=== PATIENT | female | born 1940 | race African-American/Black ===

== ENCOUNTER → 2017-01-20 | Outpatient (CLI) | payer MEDICARE, OTHER ==
--- NOTE | 2017-01-20 11:44 | RAD ---
Indication: Preop for right toe surgery. Grayscale, color-flow and duplex Doppler evaluation of bilateral lower extremity arterial systems was performed. There are primarily biphasic waveforms throughout the right lower extremity arterial system. Biphasic waveforms on the left from the left common femoral artery to the popliteal artery is seen with monophasic flow below the knee. Velocities on the right are unremarkable. There is some velocity elevation identified in the left SFA mid and distal region, reaching 210 cm/s. No occlusion is identified. No high-grade stenosis is identified. There are no fluid collection seen. Scattered plaque is present bilaterally. Impression: Bilateral atherosclerotic changes. There is a probable stenosis in the mid and distal left SFA. No high-grade stenosis or occlusion is detected.
== END | disposition home or self-care (01) ==
LOC: US 09:51
PROVIDERS: ATTEND Podiatrist Foot & Ankle Surgery
DX: Z01.818 Encounter for other preprocedural examination (principal); I70.203 Unspecified atherosclerosis of native arteries of extremities, bilateral legs
CPT/HCPCS: 93925

== ENCOUNTER 2017-11-19 14:56 | Inpatient (IN) | payer MEDICARE, MEDICAID ==
[~2017-11-19] VITALS: Ht 162.6 cm; Wt 140.3 kg
[~2017-11-19 14:56] MED LIST: methylPREDNISolone 4 MG TABLET. PO SCH
[2017-11-19] MEDS ORDERED: HYDROcodone/APAP 10/325 1 TAB TABLET PO PRN ×3 (16:15→18:30)
[2017-11-19] MEDS ORDERED: ACETAMINOPHEN 325 MG TABLET. PO PRN (18:00)
[2017-11-19] MEDS ORDERED: MAGNESIUM HYDROXIDE 2,400 MG/30 ML ORAL.SUSP. PO PRN (18:00)
[2017-11-19] MEDS ORDERED: MAGNESIUM CITRATE 296 ML SOLUTION. PO PRN ×2 (18:00→20:00)
[2017-11-19] MEDS ORDERED: CYCLOBENZAPRINE 10 MG TABLET. PO PRN (18:00)
[2017-11-19] MEDS ORDERED: CHOL500016 PO (18:10)
[2017-11-19] MEDS ORDERED: POTA10TA12 PO ×2 (18:10→18:11)
[2017-11-19] MEDS ORDERED: AMIO200T4 PO (18:10)
[2017-11-19] MEDS ORDERED: TORS20TA2 PO (18:10)
[2017-11-19] MEDS ORDERED: MAGN296S9 PO (18:10)
[2017-11-19] MEDS ORDERED: PREG75CA PO (18:10)
[2017-11-19] MEDS ORDERED: ASPI81TA59 PO (18:10)
[2017-11-19] MEDS ORDERED: AMLO5TAB4 PO (18:10)
[2017-11-19] MEDS ORDERED: INSU100C4 SQ (18:10)
[2017-11-19] MEDS ORDERED: INSU100V13 SQ (18:10)
[2017-11-19] MEDS ORDERED: LORA10TA68 PO (18:10)
[2017-11-19] MEDS ORDERED: TIZA4CAP3 PO (18:10)
[2017-11-19] MEDS ORDERED: methylPREDNISolone 4 MG TABLET. PO ONE ×2 (18:30→22:00)
[2017-11-19 19:20] VITALS: BP 139/41
[2017-11-19] MEDS: SENNOSIDES/DOCUSATE 8.6/50MG TABLET. PO SCH (20:09)
[2017-11-19] MEDS: oxyCODONE/APAP 5/325 1 TAB TABLET PO PRN (20:10)
[2017-11-19] MEDS: PREGABALIN 75 MG CAPSULE PO SCH (20:10)
[2017-11-19] MEDS: tiZANidine 4 MG TABLET. PO PRN (22:01)
[2017-11-19] MEDS: INSULIN GLARGINE 300 UNITS/3 ML INSULN.PEN. SQ SCH (22:04)
[2017-11-19 23:30] VITALS: BP 161/42
--- NOTE | 2017-11-19 23:44 | CONS ---
DATE OF CONSULTATION: 11/19/2017 HISTORY OF PRESENT ILLNESS: This is a 77-year-old female whom I saw in my office this afternoon with severe lower back pain with radiation to her left lower extremity, without any new injury or accident, that started about 2 weeks ago and she has been using analgesic spray and Tylenol, not getting any better and has seen Dr. Oc Munoz, her family physician yesterday, who started her on prednisone, Dosepak and tizanidine for muscle spasm. She has not received from the pharmacy yet. She denies any new-onset numbness or weakness in the extremities or any new trouble with her bowel or bladder control. She had chronic urinary incontinence and constipation and she also had diabetic neuropathy. She complains of increased lower back pain with the ride to the office and wants an injection to help ease her pain. She also admits stiffness in her lower back and in her knees and numbness in her feet and legs. She had problem with constipation ever since she had a colonoscopy done. She usually goes once or twice a week and usually takes mag citrate. The patient was seen in my office, walking with antalgic gait, using a quad cane that belongs to her brother. The cane is about 4 inches too long for her. She is alert, cooperative, but in severe distress. She had difficulty to sit. The patient requires physical assistance with myself and her daughter to get her into the bed and to roll over and to get her back up. She had painful limited movements of lumbar spine, without any significant paraspinal muscle spasm and straight leg raising test is negative bilaterally. She had tenderness to palpation over left sacroiliac joint area and she had pain-free range of motion of her hip joints, but painful limited movements of her knee joints and tenderness to palpation over medial knee joint line and over both ankles and distal parts of her legs, where she had skin discoloration from chronic venous insufficiency. The patient had absent knee and ankle jerks and decreased sensory perception in her feet, but 5/5 grade muscle strength overall. I did trigger point injections to her left sacroiliac joint area under aseptic skin technique, but she did not have significant help with the injection and still having significant pain, with radiation to her left lower extremity and mobility and self-care limitations and she lives alone. I do not feel comfortable to let her go home and so I have admitted her for further evaluation and advise about taking care of her back pain and help with her mobility and self-care limitations. PAST MEDICAL HISTORY: Significant for osteoarthritis of her knees, diabetes mellitus with peripheral neuropathy, obesity, hypertension, status post left mastectomy for treatment of carcinoma of breast and had radiation therapy about 20 years ago and also had chronic obstructive pulmonary disease, uses CPAP at nighttime and atrial fibrillation. ALLERGIES: THE PATIENT IS KNOWN ALLERGIC TO MORPHINE, WHICH CAUSES HALLUCINATIONS AND SHE IS KNOWN ALLERGIC TO CODEINE, but has taken hydrocodone and Percocet in the past. PHYSICAL EXAMINATION: Today revealed an elderly female. She is obese. She is alert; oriented to time, place, person and circumstance and follows commands appropriately. She had painful limited movements of her lumbar spine, without any paraspinal muscle spasm and tenderness to palpation over left sacroiliac joint area and straight leg raising test is negative bilaterally. She had painful range of motion of both hip joints. She had crepitus on range of motion of both knee joints, with mild knee joint effusion and she had absent knee and ankle jerks and she had decreased touch and pinprick sensation over both feet and overall 5/5 grade muscle strength in her upper and lower extremities. She requires help with bed mobility and transfers. Once up, she can walk using a roller walker with antalgic gait. Other than some discoloration of the skin from chronic renal insufficiency in her feet and distal parts of the legs, her skin is intact at this time. ASSESSMENT: Degenerative disk disease of lumbar vertebrae with left lumbar radiculitis, diabetes mellitus with peripheral neuropathy, severe lower back pain, osteoarthritis of both knees, obesity, hypertension, lumbar spondylosis, recent lumbar sprain, atrial fibrillation, status post mastectomy for carcinoma of left breast and had radiation therapy in the past and chronic obstructive pulmonary disease, uses CPAP. RECOMMENDATIONS: To try physical modalities. To have Physical Therapy and Occupational Therapy to see her. To ask hospitalist doctor to see her for her medical problems. To obtain MRI scan of her lumbar vertebrae. To consider referral to pain clinic for consideration of lumbar epidural steroid injection to help ease her pain. She might need transfer to retirement care unit or rehab unit when medically stable, if she continues to have mobility and self-care limitations. ANJU MATTSON MD DR: QASIM/campos JOB#: [id number] / [id number]
[2017-11-20 03:25] VITALS: BP 127/35
[2017-11-20] MEDS: oxyCODONE/APAP 5/325 1 TAB TABLET PO PRN ×2 (06:15→20:42)
[2017-11-20] MEDS: PANTOPRAZOLE 40 MG TABLET.DR. PO SCH (06:15)
[2017-11-20] MEDS: tiZANidine 4 MG TABLET. PO PRN (06:16)
[2017-11-20 07:00] VITALS: BP 149/52
[2017-11-20] MEDS ORDERED: methylPREDNISolone 4 MG TABLET. PO SCH ×5 (08:00→21:00)
[2017-11-20] MEDS: CETIRIZINE HCL 10 MG TABLET. PO SCH (09:00)
[2017-11-20] MEDS: BISACODYL 5 MG TABLET.DR. PO SCH (09:26)
[2017-11-20] MEDS: TORSEMIDE 20 MG TABLET. PO SCH (09:26)
[2017-11-20] MEDS: PREGABALIN 75 MG CAPSULE PO SCH ×2 (09:26→20:42)
[2017-11-20] MEDS: ASPIRIN CHEWABLE 81 MG TABLET. PO SCH (09:26)
[2017-11-20] MEDS: POTASSIUM CHLORIDE 10 MEQ TABLET.ER. PO SCH (09:27)
[2017-11-20] MEDS: AMIODARONE HCL 200 MG TABLET. PO SCH (09:27)
[2017-11-20] MEDS: amLODIPine BESYLATE 5 MG TABLET PO SCH (09:28)
[2017-11-20] MEDS: CHOLECALCIFEROL (VITAMIN D3) 5,000 UNIT CAPSULE PO SCH (09:28)
[2017-11-20] MEDS: SENNOSIDES/DOCUSATE 8.6/50MG TABLET. PO SCH ×2 (09:28→20:42)
[2017-11-20] MEDS: methylPREDNISolone 4 MG TABLET. PO SCH ×4 (09:28→20:41)
[2017-11-20] MEDS: INSULIN LISPRO 300 UNITS/3 ML INSULN.PEN. SQ SCH ×3 (09:35→17:39)
--- NOTE | 2017-11-20 10:34 | PDOC1 ---
History and Physical Date of Admission Date of Admission DATE: 11/20/17 TIME: 10:32 Past Medical History Past Medical History PAST MEDICAL HISTORY: osteoarthritis of her knees, diabetes mellitus with peripheral neuropathy, obesity, hypertension, status post left mastectomy for treatment of carcinoma of breast and had radiation therapy about 20 years ago chronic obstructive pulmonary disease, uses CPAP atrial fibrillation. ALLERGIES: THE PATIENT IS KNOWN ALLERGIC TO MORPHINE, WHICH CAUSES HALLUCINATIONS AND SHE IS KNOWN ALLERGIC TO CODEINE, but has taken hydrocodone and Percocet in the past. Cardiovascular: AFIB Past Surgical History Past Surgical History: Mastectomy Family History Family History: Heart Disease, High Cholestrol Social History Smoke: No ALCOHOL: none Drugs: None Current Medications Current Medications Current Medications Acetaminophen/ Hydrocodone Bitart (Lortab 10/325) 1 tab PRN Q6HRS PRN PO MODERATE PAIN Last administered on 11/19/17at 16:32; Start 11/19/17 at 16:15; Stop 11/19/17 at 18:18; Status DC Methylprednisolone (Medrol) 4 mg TIDPC PO ; Start 11/20/17 at 08:30; Stop at 17:31; Status Cancel Methylprednisolone (Medrol) 8 mg QHS PO ; Start 11/20/17 at 21:00; Stop at 21:01; Status Cancel Methylprednisolone (Medrol) 4 mg QIDAFTMEAL PO ; Start 11/21/17 at 09:00; Stop 11/21/17 at 21:01; Status Cancel Methylprednisolone (Medrol) 4 mg TID PO ; Start 11/22/17 at 09:00; Stop at 21:01; Status Cancel Methylprednisolone (Medrol) 4 mg BID PO ; Start 11/23/17 at 09:00; Stop at 21:01; Status Cancel Methylprednisolone (Medrol) 4 mg DAILY PO ; Start 11/24/17 at 09:00; Stop at 09:01; Status Cancel Methylprednisolone (Medrol) 12 mg 1X ONCE PO ; Start 11/19/17 at 18:30; Stop at 18:31; Status Cancel Methylprednisolone (Medrol) 12 mg 1X ONCE PO ; Start 11/19/17 at 22:00; Stop at 22:01; Status Cancel Methylprednisolone (Medrol) 8 mg BID PO Last administered on 11/20/17at 09:28; Start 11/20/17 at 09:00; Stop 11/20/17 at 21:01 Methylprednisolone (Medrol) 4 mg BIDPCLD PO ; Start 11/20/17 at 12:30; Stop at 17:31 Methylprednisolone (Medrol) 4 mg TIDPC PO ; Start 11/21/17 at 08:30; Stop at 17:31 Methylprednisolone (Medrol) 8 mg QHS PO ; Start 11/21/17 at 21:00; Stop at 21:01 Methylprednisolone (Medrol) 4 mg QIDAFTMEAL PO ; Start 11/22/17 at 09:00; Stop 11/22/17 at 21:01 Methylprednisolone (Medrol) 4 mg TID PO ; Start 11/23/17 at 09:00; Stop at 21:01 Methylprednisolone (Medrol) 4 mg BID PO ; Start 11/24/17 at 09:00; Stop at 21:01 Methylprednisolone (Medrol) 4 mg DAILY PO ; Start 11/25/17 at 09:00; Stop at 09:01 Acetaminophen/ Hydrocodone Bitart (Lortab 10/325) 1 tab PRN Q4HRS PRN PO MODERATE PAIN; Start 11/19/17 at 18:15 Pantoprazole Sodium (Protonix) 40 mg DAILYAC PO Last administered on 11/20/17at 06:15; Start 11/20/17 at 07:30 Acetaminophen (Tylenol) 650 mg PRN Q6HRS PRN PO MILD PAIN / TEMP; Start at 18:00 Oxycodone/ Acetaminophen (Percocet 5/325) 1 tab PRN Q4HRS PRN PO MODERATE PAIN Last administered on 11/20/17at 06:15; Start 11/19/17 at 18:00 Senna/Docusate Sodium (Senna Plus) 1 tab BID PO Last administered on 11/20/17at 09:28; Start 11/19/17 at 21:00 Magnesium Hydroxide (Milk Of Magnesia) 2,400 mg PRN DAILY PRN PO CONSTIPATION; Start 11/19/17 at 18:00 Bisacodyl (Dulcolax Tab) 10 mg DAILY PO Last administered on 11/20/17at 09:26; Start 11/20/17 at 09:00 Magnesium Citrate (Citroma) 296 ml PRN 1X PRN PO CONSTIPATION; Start 11/19/17 at 18:00 Methylprednisolone (Medrol) 8 mg BID PO ; Start 11/19/17 at 09:00; Stop at 21:01; Status UNV Methylprednisolone (Medrol) 4 mg BIDPCLD PO ; Start 11/20/17 at 08:00; Stop at 12:31; Status UNV Methylprednisolone (Medrol) 4 mg TIDPC PO ; Start 11/20/17 at 08:30; Stop at 17:31; Status UNV Methylprednisolone (Medrol) 8 mg QHS PO ; Start 11/20/17 at 21:00; Stop at 21:01; Status UNV Methylprednisolone (Medrol) 4 mg QIDAFTMEAL PO ; Start 11/21/17 at 09:00; Stop 11/21/17 at 21:01; Status UNV Methylprednisolone (Medrol) 4 mg TID PO ; Start 11/22/17 at 09:00; Stop at 21:01; Status UNV Methylprednisolone (Medrol) 4 mg BID PO ; Start 11/23/17 at 09:00; Stop at 21:01; Status UNV Methylprednisolone (Medrol) 4 mg DAILY PO ; Start 11/24/17 at 09:00; Stop at 09:01; Status UNV Cyclobenzaprine HCl (Flexeril) 10 mg PRN Q6HRS PRN PO MUSCLE SPASMS; Start at 18:00; Stop 11/20/17 at 03:25; Status DC Acetaminophen/ Hydrocodone Bitart (Lortab 10/325) 2 tab PRN Q4HRS PRN PO SEVERE PAIN; Start 11/19/17 at 18:30 Amiodarone HCl (Cordarone) 200 mg DAILY PO Last administered on 11/20/17at 09:27 ; Start 11/20/17 at 09:00 Amlodipine Besylate (Norvasc) 5 mg DAILY PO Last administered on 11/20/17at 09: 28; Start 11/20/17 at 09:00 Aspirin (Children'S Aspirin) 81 mg DAILY PO Last administered on 11/20/17 09: 26; Start 11/20/17 at 09:00 Potassium Chloride (Klor-Con) 30 meq DAILY PO Last administered on 11/20/17at 09 :27; Start 11/20/17 at 09:00 Pregabalin (Lyrica) 75 mg BID PO Last administered on 11/20/17 09:26; Start at 21:00 Vitamin D (Vitamin D3) 5,000 unit DAILY PO Last administered on 11/20/17at 09:28 ; Start 11/20/17 at 09:00 Insulin Human Lispro (HumaLOG) 8 units TIDWMEALS SQ Last administered on at 09:35; Start 11/20/17 at 08:00 Insulin Glargine (Lantus) 16 units DAILYWSUP SQ Last administered on 11/19/17at 22:04; Start 11/19/17 at 21:00 Cetirizine HCl (ZyrTEC) 10 mg DAILY PO ; Start 11/20/17 at 09:00 Magnesium Citrate (Citroma) 296 ml PRN DAILY PRN PO CONSTIPATION; Start at 20:00 Tizanidine HCl (Zanaflex) 4 mg PRN Q8HRS PRN PO MUSCLE SPASMS Last administered on 11/20/17at 06:16; Start 11/19/17 at 20:00 Torsemide (Demadex) 100 mg DAILY PO Last administered on 11/20/17at 09:26; Start 11/20/17 at 09:00 Active Scripts Active Reported Potassium Chloride 10 Meq Tab.sr.24h 30 Meq PO DAILY Torsemide 20 Mg Tablet 5 Tab PO DAILY Zanaflex (Tizanidine Hcl) 4 Mg Capsule 2 Mg PO TID PRN Lyrica (Pregabalin) 75 Mg Capsule 1 Cap PO BID Magnesium Citrate 296 Ml Solution 296 Ml PO PRN PRN Novolog (Insulin Aspart) 100 Unit/1 Ml Cartridge 8 Unit SQ TID Levemir (Insulin Detemir) 100 Unit/1 Ml Vial 16 Unit SQ DAILYWSUP Claritin (Loratadine) 10 Mg Tablet 1 Tab PO DAILY Vitamin D3 (Cholecalciferol (Vitamin D3)) 5,000 Unit Tablet 1 Tab PO DAILY Children's Aspirin (Aspirin) 81 Mg Tab.chew 81 Mg PO Norvasc (Amlodipine Besylate) 5 Mg Tablet 1 Tab PO DAILY Amiodarone Hcl 200 Mg Tablet 1 Tab PO DAILY Allergies Allergies: Coded Allergies: Irhbefc-Axx-Mia Reductase Inhibitor (Verified Allergy, Intermediate, ) cyclobenzaprine (Verified Allergy, Unknown, 11/20/17) morphine (Verified Adverse Reaction, Intermediate, 11/19/17) ROS Review of System 14 PT ROS OTHERWISE NEG General: YES: Fatigue PSYCHOLOGICAL ROS: No: Anxiety, Behavioral Disorder, Concentration difficultie , Decreased libido, Depression, Disorientation, Hallucinations, Hostility, Irritablity, Memory difficulties, Mood Swings, Obsessive thoughts, Physical abuse, Sexual abuse, Sleep disturbances, Suicidal ideation, Other HEENT: No: Heacaches, Visual Changes, Hearing change, Nasal congestion, Nasal discharge, Oral lesions, Sinus pain, Sore Throat, Epistaxis, Sneezing, Snoring, Tinnitus, Vertigo, Vocal changes, Other Hematological and Lymphatic: No: Bleeding Problems, Blood Clots, Blood Transfusions, Brusing, Night Sweats, Pallor, Swollen Lymph Nodes, Other Gastrointestinal: No Nausea, No Vomiting, No Abdominal Pain, No Diarrhea, No Constipation, No Melena, No Hematochezia, No Other Musculoskeletal: Yes Gait Disturbance, Yes Joint Stiffness, Yes Muscle Pain Neurological: Yes Gait Disturbance Skin: No Dry Skin, No Eczema, No Hair Changes, No Lumps, No Mole Changes, No Mottling, No Nail Changes, No Pruritus, No Rash, No Skin Lesion Changes, No Other, No Acne Vitals Vitals Vital Signs Date Time Temp Pulse Resp B/P (MAP) Pulse Ox O2 Delivery O2 Flow Rate FiO2 11/20/17 09:28 76 149/52 11/20/17 07:30 16 Room Air 11/20/17 07:00 97.8 93 97.8 Labs Labs Laboratory Tests Test 11/19/17 16:21 11/19/17 21:00 11/20/17 07:36 Glucose (Fingerstick) 86 mg/dL (70-99) 222 mg/dL (70-99) 145 mg/dL (70-99) Laboratory Tests Test 11/19/17 16:21 11/19/17 21:00 11/20/17 07:36 Glucose (Fingerstick) 86 mg/dL (70-99) 222 mg/dL (70-99) 145 mg/dL (70-99) VTE Prophylaxis Ordered VTE Prophylaxis Devices: Yes VTE Pharmacological Prophylaxi: Yes Assessment/Plan Assessment/Plan ASSESSMENT: Degenerative disk disease of lumbar vertebrae with left lumbar radiculitis, intractable pain diabetes mellitus peripheral neuropathy, severe lower back pain, osteoarthritis of both knees, MORBID obesity, hypertension, lumbar spondylosis, recent lumbar sprain, atrial fibrillation, post mastectomy for carcinoma of left breast chronic obstructive pulmonary disease, uses CPAP/ [facility] plan mri l/s dr malone following iv pain control PT/OT. [facility] VARSHA DUBON MD Nov 20, 2017 10:34
[2017-11-20 11:00] VITALS: BP 127/33
--- NOTE | 2017-11-20 14:43 | RAD ---
MRI Lumbar Spine without contrast History: Left leg radiculopathy for 2 weeks Technique: Multiplanar, multi sequential noncontrast MR imaging was performed of the lumbar spine. Contrast: None Comparison: None Findings: There is some motion degradation. Lumbar vertebral body stature is overall preserved. There is minimal grade 1 anterior spondylolisthesis at L4-5 and negligible anterior spondylolisthesis L3-4. There is mild disc desiccation L3-4 through L5-S1, very mild narrowing of the L4-5 intervertebral disc space. Conus terminates at T12-L1. There is no significant marrow edema. There is nonspecific edema of the posterior subcutaneous fat of the lower back. There are small hemangiomas of L4 and L2. L3-L4: There is mild buckling of the ligamentum flavum and facet degenerative change. Spinal canal and neural foramina are adequate. L4-L5: There is moderate buckling of the ligamentum flavum and mild facet degenerative change. There is moderate spinal stenosis including lateral recess stenosis bilaterally. There is [id number] left and mild right neural foramina compromise. L5-S1: Spinal canal is adequate. There is a minimal disc osteophyte complex in the inferior left neural foramen. There is mild narrowing of the left neural foramen, right neural foramen adequate. Impression: 1. There is moderate spinal stenosis including lateral recess stenosis bilaterally at L4-5 at which there is grade 1 anterior spondylolisthesis, facet degenerative change, buckling of the ligamentum flavum. There is mild degenerative disc disease L4-5. There is mild to moderate left and mild right L4-5 neural foramina compromise, minimal narrowing on the left at L5-S1. Electronically signed by: Pascual Zhou MD (11/20/2017 2:40 PM) [id number]
[2017-11-20 15:00] VITALS: BP 151/50
[2017-11-20] MEDS: INSULIN GLARGINE 300 UNITS/3 ML INSULN.PEN. SQ SCH (17:38)
--- NOTE | 2017-11-20 18:19 | PDOC ---
PROGRESS NOTES Subjective Subjective She feels much better this afternoon and has been voiding well and had a bowel movement and she is independent walking with roller walker and without walker too. This AM she had problems with emptying her bladder requiring use of straight cath and external catheter.Mri scan revealed DDD with some degress of neural foraminal and central spinal stenosis at L4-L5. Objective Objective Vital Signs Date Time Temp Pulse Resp B/P (MAP) Pulse Ox O2 Delivery O2 Flow Rate FiO2 11/20/17 15:00 98.1 56 16 151/50 (83) 94 Room Air 98.1 Intake and Output 11/20/17 07:00 Intake Total 150 ml Output Total 1725 ml Balance -1575 ml Intake Oral 150 ml Output Urine Total 1725 ml Physical Exam Physical Exam She is alert and walking in her room without assistance.She continues with painfully limited lumbar spine ROM. Plan Plan of Residential tomorrow if her bladder function improves and pain remains under good control. Comment Review of Relevant I have reviewed the following items bianca (where applicable) has been applied. Labs Laboratory Tests Test 11/19/17 16:21 11/19/17 21:00 11/20/17 07:36 11/20/17 12:00 Glucose (Fingerstick) 86 mg/dL (70-99) 222 mg/dL (70-99) 145 mg/dL (70-99) 102 mg/dL (70-99) Test 11/20/17 14:47 11/20/17 16:30 Glucose (Fingerstick) 123 mg/dL (70-99) 167 mg/dL (70-99) Laboratory Tests Test 11/19/17 21:00 11/20/17 07:36 11/20/17 12:00 11/20/17 14:47 Glucose (Fingerstick) 222 mg/dL (70-99) 145 mg/dL (70-99) 102 mg/dL (70-99) 123 mg/dL (70-99) Test 11/20/17 16:30 Glucose (Fingerstick) 167 mg/dL (70-99) Medications Current Medications Acetaminophen/ Hydrocodone Bitart (Lortab 10/325) 1 tab PRN Q6HRS PRN PO MODERATE PAIN Last administered on 11/19/17at 16:32; Start 11/19/17 at 16:15; Stop 11/19/17 at 18:18; Status DC Methylprednisolone (Medrol) 4 mg TIDPC PO ; Start 11/20/17 at 08:30; Stop at 17:31; Status Cancel Methylprednisolone (Medrol) 8 mg QHS PO ; Start 11/20/17 at 21:00; Stop at 21:01; Status Cancel Methylprednisolone (Medrol) 4 mg QIDAFTMEAL PO ; Start 11/21/17 at 09:00; Stop 11/21/17 at 21:01; Status Cancel Methylprednisolone (Medrol) 4 mg TID PO ; Start 11/22/17 at 09:00; Stop at 21:01; Status Cancel Methylprednisolone (Medrol) 4 mg BID PO ; Start 11/23/17 at 09:00; Stop at 21:01; Status Cancel Methylprednisolone (Medrol) 4 mg DAILY PO ; Start 11/24/17 at 09:00; Stop at 09:01; Status Cancel Methylprednisolone (Medrol) 12 mg 1X ONCE PO ; Start 11/19/17 at 18:30; Stop at 18:31; Status Cancel Methylprednisolone (Medrol) 12 mg 1X ONCE PO ; Start 11/19/17 at 22:00; Stop at 22:01; Status Cancel Methylprednisolone (Medrol) 8 mg BID PO Last administered on 11/20/17at 09:28; Start 11/20/17 at 09:00; Stop 11/20/17 at 21:01 Methylprednisolone (Medrol) 4 mg BIDPCLD PO Last administered on 11/20/17at 17: 35; Start 11/20/17 at 12:30; Stop 11/20/17 at 17:31; Status DC Methylprednisolone (Medrol) 4 mg TIDPC PO ; Start 11/21/17 at 08:30; Stop at 17:31 Methylprednisolone (Medrol) 8 mg QHS PO ; Start 11/21/17 at 21:00; Stop at 21:01 Methylprednisolone (Medrol) 4 mg QIDAFTMEAL PO ; Start 11/22/17 at 09:00; Stop 11/22/17 at 21:01 Methylprednisolone (Medrol) 4 mg TID PO ; Start 11/23/17 at 09:00; Stop at 21:01 Methylprednisolone (Medrol) 4 mg BID PO ; Start 11/24/17 at 09:00; Stop at 21:01 Methylprednisolone (Medrol) 4 mg DAILY PO ; Start 11/25/17 at 09:00; Stop at 09:01 Acetaminophen/ Hydrocodone Bitart (Lortab 10/325) 1 tab PRN Q4HRS PRN PO MODERATE PAIN; Start 11/19/17 at 18:15 Pantoprazole Sodium (Protonix) 40 mg DAILYAC PO Last administered on 11/20/17at 06:15; Start 11/20/17 at 07:30 Acetaminophen (Tylenol) 650 mg PRN Q6HRS PRN PO MILD PAIN / TEMP; Start at 18:00 Oxycodone/ Acetaminophen (Percocet 5/325) 1 tab PRN Q4HRS PRN PO MODERATE PAIN Last administered on 11/20/17at 06:15; Start 11/19/17 at 18:00 Senna/Docusate Sodium (Senna Plus) 1 tab BID PO Last administered on 11/20/17at 09:28; Start 11/19/17 at 21:00 Magnesium Hydroxide (Milk Of Magnesia) 2,400 mg PRN DAILY PRN PO CONSTIPATION, 1ST CHOICE; Start 11/19/17 at 18:00 Bisacodyl (Dulcolax Tab) 10 mg DAILY PO Last administered on 11/20/17at 09:26; Start 11/20/17 at 09:00 Magnesium Citrate (Citroma) 296 ml PRN 1X PRN PO CONSTIPATION; Start 11/19/17 at 18:00; Status Cancel Methylprednisolone (Medrol) 8 mg BID PO ; Start 11/19/17 at 09:00; Stop at 21:01; Status UNV Methylprednisolone (Medrol) 4 mg BIDPCLD PO ; Start 11/20/17 at 08:00; Stop at 12:31; Status UNV Methylprednisolone (Medrol) 4 mg TIDPC PO ; Start 11/20/17 at 08:30; Stop at 17:31; Status UNV Methylprednisolone (Medrol) 8 mg QHS PO ; Start 11/20/17 at 21:00; Stop at 21:01; Status UNV Methylprednisolone (Medrol) 4 mg QIDAFTMEAL PO ; Start 11/21/17 at 09:00; Stop 11/21/17 at 21:01; Status UNV Methylprednisolone (Medrol) 4 mg TID PO ; Start 11/22/17 at 09:00; Stop at 21:01; Status UNV Methylprednisolone (Medrol) 4 mg BID PO ; Start 11/23/17 at 09:00; Stop at 21:01; Status UNV Methylprednisolone (Medrol) 4 mg DAILY PO ; Start 11/24/17 at 09:00; Stop at 09:01; Status UNV Cyclobenzaprine HCl (Flexeril) 10 mg PRN Q6HRS PRN PO MUSCLE SPASMS; Start at 18:00; Stop 11/20/17 at 03:25; Status DC Acetaminophen/ Hydrocodone Bitart (Lortab 10/325) 2 tab PRN Q4HRS PRN PO SEVERE PAIN; Start 11/19/17 at 18:30 Amiodarone HCl (Cordarone) 200 mg DAILY PO Last administered on 11/20/17 09:27 ; Start 11/20/17 at 09:00 Amlodipine Besylate (Norvasc) 5 mg DAILY PO Last administered on 11/20/17at 09: 28; Start 11/20/17 at 09:00 Aspirin (Children'S Aspirin) 81 mg DAILY PO Last administered on 11/20/17at 09: 26; Start 11/20/17 at 09:00 Potassium Chloride (Klor-Con) 30 meq DAILY PO Last administered on 11/20/17at 09 :27; Start 11/20/17 at 09:00 Pregabalin (Lyrica) 75 mg BID PO Last administered on 11/20/17at 09:26; Start at 21:00 Vitamin D (Vitamin D3) 5,000 unit DAILY PO Last administered on 11/20/17at 09:28 ; Start 11/20/17 at 09:00 Insulin Human Lispro (HumaLOG) 8 units TIDWMEALS SQ Last administered on at 17:39; Start 11/20/17 at 08:00 Insulin Glargine (Lantus) 16 units DAILYWSUP SQ Last administered on 11/20/17at 17:38; Start 11/19/17 at 21:00 Cetirizine HCl (ZyrTEC) 10 mg DAILY PO ; Start 11/20/17 at 09:00 Magnesium Citrate (Citroma) 296 ml PRN DAILY PRN PO CONSTIPATION, 2ND CHOICE; Start 11/19/17 at 20:00 Tizanidine HCl (Zanaflex) 4 mg PRN Q8HRS PRN PO MUSCLE SPASMS Last administered on 11/20/17at 06:16; Start 11/19/17 at 20:00 Torsemide (Demadex) 100 mg DAILY PO Last administered on 11/20/17at 09:26; Start 11/20/17 at 09:00 Active Scripts Active Reported Potassium Chloride 10 Meq Tab.sr.24h 30 Meq PO DAILY Torsemide 20 Mg Tablet 5 Tab PO DAILY Zanaflex (Tizanidine Hcl) 4 Mg Capsule 2 Mg PO TID PRN Lyrica (Pregabalin) 75 Mg Capsule 1 Cap PO BID Magnesium Citrate 296 Ml Solution 296 Ml PO PRN PRN Novolog (Insulin Aspart) 100 Unit/1 Ml Cartridge 8 Unit SQ TID Levemir (Insulin Detemir) 100 Unit/1 Ml Vial 16 Unit SQ DAILYWSUP Claritin (Loratadine) 10 Mg Tablet 1 Tab PO DAILY Vitamin D3 (Cholecalciferol (Vitamin D3)) 5,000 Unit Tablet 1 Tab PO DAILY Children's Aspirin (Aspirin) 81 Mg Tab.chew 81 Mg PO Norvasc (Amlodipine Besylate) 5 Mg Tablet 1 Tab PO DAILY Amiodarone Hcl 200 Mg Tablet 1 Tab PO DAILY Vitals/I & O Vital Sign - Last 24 Hours 11/19/17 11/19/17 11/19/17 11/19/17 19:20 20:00 20:10 23:30 Temp 97.7 97.8 97.7 97.8 Pulse 52 56 Resp 18 18 B/P (MAP) 139/41 (73) 161/42 (81) Pulse Ox 92 92 O2 Delivery Room Air Room Air Room Air Room Air 11/20/17 11/20/17 11/20/17 11/20/17 03:25 06:15 07:00 07:30 Temp 98.0 97.8 98.0 97.8 Pulse 55 76 Resp 20 18 16 16 B/P (MAP) 127/35 (65) 149/52 (84) Pulse Ox 94 93 O2 Delivery Room Air Room Air Room Air Room Air 11/20/17 11/20/17 11/20/17 11/20/17 08:00 09:27 09:28 11:00 Temp 98.7 98.7 Pulse 76 76 49 Resp 16 B/P (MAP) 149/52 149/52 127/33 (64) Pulse Ox 93 O2 Delivery Room Air Room Air 11/20/17 15:00 Temp 98.1 98.1 Pulse 56 Resp 16 B/P (MAP) 151/50 (83) Pulse Ox 94 O2 Delivery Room Air Intake and Output 11/19/17 11/19/17 11/20/17 15:00 23:00 07:00 Intake Total 150 ml Output Total 0 ml 1725 ml Balance 0 ml -1575 ml ANJU MATTSON MD Nov 20, 2017 18:19
[2017-11-20 19:00] VITALS: BP 168/48
[2017-11-20 23:00] VITALS: BP 108/43
[2017-11-21 03:00] VITALS: BP 172/60
[2017-11-21 07:00] VITALS: BP 151/39
[2017-11-21 07:05] VITALS: BP 167/61
[2017-11-21] MEDS: PANTOPRAZOLE 40 MG TABLET.DR. PO SCH (07:30)
[2017-11-21] MEDS: INSULIN LISPRO 300 UNITS/3 ML INSULN.PEN. SQ SCH (08:00)
[2017-11-21] MEDS ORDERED: methylPREDNISolone 4 MG TABLET. PO SCH ×4 (08:30→21:00)
[2017-11-21 09:00] VITALS: BP 167/61
[2017-11-21] MEDS: ASPIRIN CHEWABLE 81 MG TABLET. PO SCH (09:00)
[2017-11-21] MEDS: amLODIPine BESYLATE 5 MG TABLET PO SCH (09:00)
[2017-11-21] MEDS: PREGABALIN 75 MG CAPSULE PO SCH (09:00)
[2017-11-21] MEDS: AMIODARONE HCL 200 MG TABLET. PO SCH (09:00)
[2017-11-21] MEDS: POTASSIUM CHLORIDE 10 MEQ TABLET.ER. PO SCH (09:00)
[2017-11-21] MEDS: CHOLECALCIFEROL (VITAMIN D3) 5,000 UNIT CAPSULE PO SCH (09:00)
[2017-11-21] MEDS: BISACODYL 5 MG TABLET.DR. PO SCH (09:00)
[2017-11-21] MEDS: CETIRIZINE HCL 10 MG TABLET. PO SCH (09:00)
[2017-11-21] MEDS: SENNOSIDES/DOCUSATE 8.6/50MG TABLET. PO SCH (09:00)
[2017-11-21] MEDS: TORSEMIDE 20 MG TABLET. PO SCH (09:00)
[2017-11-21] MEDS ORDERED: HYDR-2766 PO (09:03)
--- NOTE | 2017-11-21 10:01 | PDOC3 ---
Discharge Summary Visit Information Date of Admission: Nov 19, 2017 Date of Discharge: Nov 21, 2017 Admitting Diagnosis Comment: 1. There is moderate spinal stenosis including lateral recess stenosis bilaterally at L4-5 at which there is grade 1 anterior spondylolisthesis, facet degenerative change, buckling of the ligamentum flavum. There is mild degenerative disc disease L4-5. There is mild to moderate left and mild right L4-5 neural foramina compromise, minimal narrowing on the left at L5-S1. Brief Hospital Course Allergies Allergies Coded Allergies Type Severity Reaction Last Updated Verified Gyfktnj-Hss-Zot Reductase Inhibitor Allergy Intermediate 11/19/17 Yes cyclobenzaprine Allergy Unknown 11/20/17 Yes morphine Adverse Reaction Intermediate 11/19/17 Yes Vital Signs Vital Signs Date Time Temp Pulse Resp B/P (MAP) Pulse Ox O2 Delivery O2 Flow Rate FiO2 11/21/17 09:00 43 172/60 11/21/17 08:00 Room Air 11/21/17 03:00 97.9 18 100 97.9 Lab Results Laboratory Tests Test 11/19/17 16:21 11/19/17 21:00 11/20/17 07:36 11/20/17 12:00 Glucose (Fingerstick) 86 mg/dL (70-99) 222 mg/dL (70-99) 145 mg/dL (70-99) 102 mg/dL (70-99) Test 11/20/17 14:47 11/20/17 16:30 11/20/17 20:29 11/21/17 07:33 Glucose (Fingerstick) 123 mg/dL (70-99) 167 mg/dL (70-99) 176 mg/dL (70-99) 166 mg/dL (70-99) Laboratory Tests Test 11/20/17 12:00 11/20/17 14:47 11/20/17 16:30 11/20/17 20:29 Glucose (Fingerstick) 102 mg/dL (70-99) 123 mg/dL (70-99) 167 mg/dL (70-99) 176 mg/dL (70-99) Test 11/21/17 07:33 Glucose (Fingerstick) 166 mg/dL (70-99) Brief Hospital Course Ms. 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 Known pt of physiatry, Hx of recent back injection , no signif relief, Dtrs very involved in her care, cate with 2 dftrs, 1 at bedisde and 1 over the phone, signif time, at least 30 mins cumulative. Also dw physiatry Meds rx onchart Seen and examined I have provided copy of her mRI results to her Also some high PVR on bladder scan, advised bladder training/habits and she will [place] urologist [place] Discharge Information Condition at Discharge: Improved, Stable Follow Up: Weeks ([facility] and urology [facility] re high PVR) Disposition/Orders: D/C to Home Scheduled Amiodarone Hcl (Amiodarone Hcl) 200 Mg Tablet, 1 TAB PO DAILY, #90 Ref 1 ( Reported) Entered as Reported by: BERNADETTE JIMENES on 11/19/171809 Last Taken: UNKNOWN on Unknown Date & Time Last Action: Continued on 11/19 by BERNADETTE JIMENES Amlodipine Besylate (Norvasc) 5 Mg Tablet, 1 TAB PO DAILY, #30 Ref 5 (Reported) Entered as Reported by: BERNADETTE JIMENES on 11/19/171809 Last Taken: UNKNOWN on Unknown Date & Time Last Action: Continued on 11/19 by BERNADETTE JIMENES Cholecalciferol (Vitamin D3) (Vitamin D3) 5,000 Unit Tablet, 1 TAB PO DAILY, #30 (Reported) Entered as Reported by: BERNADETTE JIMENES on 11/19/171809 Last Taken: UNKNOWN on Unknown Date & Time Last Action: Converted on 11/19 by BERNADETTE JIMENES Insulin Aspart (Novolog) 100 Unit/1 Ml Cartridge, 8 UNIT SQ TID, (Reported) Entered as Reported by: BERNADETTE JIMENES on 11/19/171809 Last Taken: UNKNOWN on Unknown Date & Time Last Action: Converted on 11/19 by BERNDAETTE JIMENES Insulin Detemir (Levemir) 100 Unit/1 Ml Vial, 16 UNIT SQ DAILYWSUP, (Reported) Entered as Reported by: BERNADETTE JIMENES on 11/19/171809 Last Taken: UNKNOWN on Unknown Date & Time Last Action: Converted on 11/19 by BERNADETTE JIMENES Loratadine (Claritin) 10 Mg Tablet, 1 TAB PO DAILY, #30 Ref 5 (Reported) Entered as Reported by: BERNADETTE JIMENES on 11/19/171809 Last Taken: UNKNOWN on Unknown Date & Time Last Action: Converted on 11/19 by BERNADETTE JIMNEES Potassium Chloride (Potassium Chloride) 10 Meq Tab.sr.24h, 30 MEQ PO DAILY, ( Reported) Entered as Reported by: BERNADETTE JIMENES on 11/19/171810 Last Taken: UNKNOWN on Unknown Date & Time Last Action: Continued on 11/19 by BERNADETTE JIMENES Pregabalin (Lyrica) 75 Mg Capsule, 1 CAP PO BID, #60 Ref 1 (Reported) Entered as Reported by: BERNADETTE JIMENES on 11/19/171809 Last Taken: UNKNOWN on Unknown Date & Time Last Action: Continued on 11/19 by BERNADETTE JIMENES Torsemide (Torsemide) 20 Mg Tablet, 5 TAB PO DAILY, #90 Ref 1 (Reported) Entered as Reported by: BERNADETTE JIMENES on 11/19/171809 Last Taken: UNKNOWN on Unknown Date & Time Last Action: Converted on 11/19 by BERNADETTE JIMENES Scheduled PRN Hydrocodone Bit/Acetaminophen (Hydrocodone-Apap 10-325 ) 1 Each Tablet, 2 TAB PO PRN Q6HRS PRN for SEVERE PAIN, #30 Prescribed by: FRAN HATFIELD on 11/21/17 0903 Magnesium Citrate (Magnesium Citrate) 296 Ml Solution, 296 ML PO PRN PRN for CONSTIPATION, #296 (Reported) Entered as Reported by: BERNADETTE JIMENES on 11/19/171809 Last Taken: UNKNOWN on Unknown Date & Time Last Action: Converted on 11/19 by BERNADETTE JIMENES Tizanidine Hcl (Zanaflex) 4 Mg Capsule, 2 MG PO TID PRN for MUSCLE SPASMS, ( Reported) Entered as Reported by: BERNADETTE JIMENES on 11/19/171809 Last Taken: UNKNOWN on Unknown Date & Time Last Action: Converted on 11/19 by BERNADETTE JIMENES Miscellaneous Medications Aspirin (Children's Aspirin) 81 Mg Tab.chew, 81 MG PO, (Reported) Entered as Reported by: BERNADETTE JIMENES on 11/19/171809 Last Taken: UNKNOWN on Unknown Date & Time Last Action: Continued on 11/19 by FRAN SOOD MD Nov 21, 2017 10:01
--- NOTE | 2017-11-21 13:11 | PDOC ---
PROGRESS NOTES Subjective Subjective She feels better. Objective Objective Vital Signs Date Time Temp Pulse Resp B/P (MAP) Pulse Ox O2 Delivery O2 Flow Rate FiO2 11/21/17 09:00 43 172/60 11/21/17 08:00 Room Air 11/21/17 07:00 97.4 18 96 97.4 Intake and Output 11/21/17 07:00 Intake Total 1100 ml Output Total 2000 ml Balance -900 ml Intake Oral 1100 ml Output Urine Total 2000 ml # Voids 6 Physical Exam Physical Exam She is independent with her mobility and most of her ADLs and walking without assistance. Plan Plan of Care Agree with plans for home with out patient follow up. Comment Review of Relevant I have reviewed the following items bianca (where applicable) has been applied. Labs Laboratory Tests Test 11/19/17 16:21 11/19/17 21:00 11/20/17 07:36 11/20/17 12:00 Glucose (Fingerstick) 86 mg/dL (70-99) 222 mg/dL (70-99) 145 mg/dL (70-99) 102 mg/dL (70-99) Test 11/20/17 14:47 11/20/17 16:30 11/20/17 20:29 11/21/17 07:33 Glucose (Fingerstick) 123 mg/dL (70-99) 167 mg/dL (70-99) 176 mg/dL (70-99) 166 mg/dL (70-99) Laboratory Tests Test 11/20/17 14:47 11/20/17 16:30 11/20/17 20:29 11/21/17 07:33 Glucose (Fingerstick) 123 mg/dL (70-99) 167 mg/dL (70-99) 176 mg/dL (70-99) 166 mg/dL (70-99) Medications Current Medications Acetaminophen/ Hydrocodone Bitart (Lortab 10/325) 1 tab PRN Q6HRS PRN PO MODERATE PAIN Last administered on 11/19/17at 16:32; Start 11/19/17 at 16:15; Stop 11/19/17 at 18:18; Status DC Methylprednisolone (Medrol) 4 mg TIDPC PO ; Start 11/20/17 at 08:30; Stop at 17:31; Status Cancel Methylprednisolone (Medrol) 8 mg QHS PO ; Start 11/20/17 at 21:00; Stop at 21:01; Status Cancel Methylprednisolone (Medrol) 4 mg QIDAFTMEAL PO ; Start 11/21/17 at 09:00; Stop 11/21/17 at 21:01; Status Cancel Methylprednisolone (Medrol) 4 mg TID PO ; Start 11/22/17 at 09:00; Stop at 21:01; Status Cancel Methylprednisolone (Medrol) 4 mg BID PO ; Start 11/23/17 at 09:00; Stop at 21:01; Status Cancel Methylprednisolone (Medrol) 4 mg DAILY PO ; Start 11/24/17 at 09:00; Stop at 09:01; Status Cancel Methylprednisolone (Medrol) 12 mg 1X ONCE PO ; Start 11/19/17 at 18:30; Stop at 18:31; Status Cancel Methylprednisolone (Medrol) 12 mg 1X ONCE PO ; Start 11/19/17 at 22:00; Stop at 22:01; Status Cancel Methylprednisolone (Medrol) 8 mg BID PO Last administered on 11/20/17at 20:41; Start 11/20/17 at 09:00; Stop 11/20/17 at 21:01; Status DC Methylprednisolone (Medrol) 4 mg BIDPCLD PO Last administered on 11/20/17at 17: 35; Start 11/20/17 at 12:30; Stop 11/20/17 at 17:31; Status DC Methylprednisolone (Medrol) 4 mg TIDPC PO Last administered on 11/21/17at 08:30 ; Start 11/21/17 at 08:30; Stop 11/21/17 at 11:58; Status DC Methylprednisolone (Medrol) 8 mg QHS PO ; Start 11/21/17 at 21:00; Stop at 21:00; Status DC Methylprednisolone (Medrol) 4 mg QIDAFTMEAL PO ; Start 11/22/17 at 09:00; Stop 11/22/17 at 09:00; Status DC Methylprednisolone (Medrol) 4 mg TID PO ; Start 11/23/17 at 09:00; Stop at 09:00; Status DC Methylprednisolone (Medrol) 4 mg BID PO ; Start 11/24/17 at 09:00; Stop at 09:00; Status DC Methylprednisolone (Medrol) 4 mg DAILY PO ; Start 11/25/17 at 09:00; Stop at 09:00; Status DC Acetaminophen/ Hydrocodone Bitart (Lortab 10/325) 1 tab PRN Q4HRS PRN PO SEVERE PAIN, 1ST CHOICE; Start 11/19/17 at 18:15; Stop 11/21/17 at 11:58; Status DC Pantoprazole Sodium (Protonix) 40 mg DAILYAC PO Last administered on 11/21/17at 07:30; Start 11/20/17 at 07:30; Stop 11/21/17 at 11:58; Status DC Acetaminophen (Tylenol) 650 mg PRN Q6HRS PRN PO MILD PAIN / TEMP; Start at 18:00; Stop 11/21/17 at 11:58; Status DC Oxycodone/ Acetaminophen (Percocet 5/325) 1 tab PRN Q4HRS PRN PO MODERATE PAIN Last administered on 11/20/17at 20:42; Start 11/19/17 at 18:00; Stop 11/21/17 at 11:58; Status DC Senna/Docusate Sodium (Senna Plus) 1 tab BID PO Last administered on 11/21/17at 09:00; Start 11/19/17 at 21:00; Stop 11/21/17 at 11:58; Status DC Magnesium Hydroxide (Milk Of Magnesia) 2,400 mg PRN DAILY PRN PO CONSTIPATION, 1ST CHOICE; Start 11/19/17 at 18:00; Stop 11/21/17 at 11:58; Status DC Bisacodyl (Dulcolax Tab) 10 mg DAILY PO Last administered on 11/21/17at 09:00; Start 11/20/17 at 09:00; Stop 11/21/17 at 11:58; Status DC Magnesium Citrate (Citroma) 296 ml PRN 1X PRN PO CONSTIPATION; Start 11/19/17 at 18:00; Status Cancel Methylprednisolone (Medrol) 8 mg BID PO ; Start 11/19/17 at 09:00; Stop at 21:01; Status UNV Methylprednisolone (Medrol) 4 mg BIDPCLD PO ; Start 11/20/17 at 08:00; Stop at 12:31; Status UNV Methylprednisolone (Medrol) 4 mg TIDPC PO ; Start 11/20/17 at 08:30; Stop at 17:31; Status UNV Methylprednisolone (Medrol) 8 mg QHS PO ; Start 11/20/17 at 21:00; Stop at 21:01; Status UNV Methylprednisolone (Medrol) 4 mg QIDAFTMEAL PO ; Start 11/21/17 at 09:00; Stop 11/21/17 at 21:01; Status UNV Methylprednisolone (Medrol) 4 mg TID PO ; Start 11/22/17 at 09:00; Stop at 21:01; Status UNV Methylprednisolone (Medrol) 4 mg BID PO ; Start 11/23/17 at 09:00; Stop at 21:01; Status UNV Methylprednisolone (Medrol) 4 mg DAILY PO ; Start 11/24/17 at 09:00; Stop at 09:01; Status UNV Cyclobenzaprine HCl (Flexeril) 10 mg PRN Q6HRS PRN PO MUSCLE SPASMS; Start at 18:00; Stop 11/20/17 at 03:25; Status DC Acetaminophen/ Hydrocodone Bitart (Lortab 10/325) 2 tab PRN Q4HRS PRN PO SEVERE PAIN, 2ND CHOICE; Start 11/19/17 at 18:30; Stop 11/21/17 at 11:58; Status DC Amiodarone HCl (Cordarone) 200 mg DAILY PO Last administered on 11/21/17at 09:00 ; Start 11/20/17 at 09:00; Stop 11/21/17 at 11:58; Status DC Amlodipine Besylate (Norvasc) 5 mg DAILY PO Last administered on 11/21/17at 09: 00; Start 11/20/17 at 09:00; Stop 11/21/17 at 11:58; Status DC Aspirin (Children'S Aspirin) 81 mg DAILY PO Last administered on 11/21/17at 09: 00; Start 11/20/17 at 09:00; Stop 11/21/17 at 11:58; Status DC Potassium Chloride (Klor-Con) 30 meq DAILY PO Last administered on 11/21/17at 09 :00; Start 11/20/17 at 09:00; Stop 11/21/17 at 11:58; Status DC Pregabalin (Lyrica) 75 mg BID PO Last administered on 11/21/17at 09:00; Start at 21:00; Stop 11/21/17 at 11:58; Status DC Vitamin D (Vitamin D3) 5,000 unit DAILY PO Last administered on 11/21/17at 09:00 ; Start 11/20/17 at 09:00; Stop 11/21/17 at 11:58; Status DC Insulin Human Lispro (HumaLOG) 8 units TIDWMEALS SQ Last administered on at 08:00; Start 11/20/17 at 08:00; Stop 11/21/17 at 11:58; Status DC Insulin Glargine (Lantus) 16 units DAILYWSUP SQ Last administered on 11/20/17at 17:38; Start 11/19/17 at 21:00; Stop 11/21/17 at 11:58; Status DC Cetirizine HCl (ZyrTEC) 10 mg DAILY PO ; Start 11/20/17 at 09:00; Stop 11/21/17 at 11:58; Status DC Magnesium Citrate (Citroma) 296 ml PRN DAILY PRN PO CONSTIPATION, 2ND CHOICE; Start 11/19/17 at 20:00; Stop 11/21/17 at 11:58; Status DC Tizanidine HCl (Zanaflex) 4 mg PRN Q8HRS PRN PO MUSCLE SPASMS Last administered on 11/20/17at 06:16; Start 11/19/17 at 20:00; Stop 11/21/17 at 11:58 ; Status DC Torsemide (Demadex) 100 mg DAILY PO Last administered on 11/21/17at 09:00; Start 11/20/17 at 09:00; Stop 11/21/17 at 11:58; Status DC Active Scripts Active Hydrocodone-Apap 10-325 (Hydrocodone Bit/Acetaminophen) 1 Each Tablet 2 Tab PO PRN Q6HRS PRN Reported Potassium Chloride 10 Meq Tab.sr.24h 30 Meq PO DAILY Torsemide 20 Mg Tablet 5 Tab PO DAILY Zanaflex (Tizanidine Hcl) 4 Mg Capsule 2 Mg PO TID PRN Lyrica (Pregabalin) 75 Mg Capsule 1 Cap PO BID Magnesium Citrate 296 Ml Solution 296 Ml PO PRN PRN Novolog (Insulin Aspart) 100 Unit/1 Ml Cartridge 8 Unit SQ TID Levemir (Insulin Detemir) 100 Unit/1 Ml Vial 16 Unit SQ DAILYWSUP Claritin (Loratadine) 10 Mg Tablet 1 Tab PO DAILY Vitamin D3 (Cholecalciferol (Vitamin D3)) 5,000 Unit Tablet 1 Tab PO DAILY Children's Aspirin (Aspirin) 81 Mg Tab.chew 81 Mg PO Norvasc (Amlodipine Besylate) 5 Mg Tablet 1 Tab PO DAILY Amiodarone Hcl 200 Mg Tablet 1 Tab PO DAILY Vitals/I & O Vital Sign - Last 24 Hours 11/20/17 11/20/17 11/20/17 11/20/17 15:00 19:00 20:00 20:42 Temp 98.1 98.1 98.1 98.1 Pulse 56 53 Resp 16 20 B/P (MAP) 151/50 (83) 168/48 (88) Pulse Ox 94 98 O2 Delivery Room Air Room Air Room Air Room Air 11/20/17 11/20/17 11/21/17 11/21/17 21:42 23:00 03:00 07:00 Temp 98.2 97.9 97.4 98.2 97.9 97.4 Pulse 51 43 49 Resp 18 18 18 B/P (MAP) 108/43 (64) 172/60 (97) 151/39 (76) Pulse Ox 96 100 96 O2 Delivery Room Air Room Air Room Air Room Air 11/21/17 11/21/17 11/21/17 11/21/17 07:05 08:00 09:00 09:00 Pulse 49 43 B/P (MAP) 167/61 (96) 167/61 172/60 O2 Delivery Room Air Room Air Intake and Output 11/20/17 11/20/17 11/21/17 15:00 23:00 07:00 Intake Total 1100 ml Output Total 700 ml 1000 ml 300 ml Balance -700 ml 100 ml -300 ml ANJU MATTSON MD Nov 21, 2017 13:11
[2017-11-22] MEDS ORDERED: methylPREDNISolone 4 MG TABLET. PO SCH ×3 (09:00)
[2017-11-23] MEDS ORDERED: methylPREDNISolone 4 MG TABLET. PO SCH ×3 (09:00)
[2017-11-24] MEDS ORDERED: methylPREDNISolone 4 MG TABLET. PO SCH ×3 (09:00)
[2017-11-25] MEDS ORDERED: methylPREDNISolone 4 MG TABLET. PO SCH (09:00)
== END 2017-11-21 11:58 | disposition home or self-care (01) | DRG 552 ==
LOC: 4 NORTH 15:15
PROVIDERS: ADMIT Physical Medicine & Rehabilitation; ATTEND Physical Medicine & Rehabilitation
DX: M48.061 Spinal stenosis, lumbar region without neurogenic claudication (principal); Z68.43 Body mass index [BMI] 50.0-59.9, adult; E66.01 Morbid (severe) obesity due to excess calories; E11.42 Type 2 diabetes mellitus with diabetic polyneuropathy; G47.33 Obstructive sleep apnea (adult) (pediatric); I10 Essential (primary) hypertension; I48.91 Unspecified atrial fibrillation; J44.9 Chronic obstructive pulmonary disease, unspecified; K59.00 Constipation, unspecified; M17.0 Bilateral primary osteoarthritis of knee; M47.26 Other spondylosis with radiculopathy, lumbar region; M51.16 Intervertebral disc disorders with radiculopathy, lumbar region; E66.9 Obesity, unspecified; M19.90 Unspecified osteoarthritis, unspecified site; Z88.5 Allergy status to narcotic agent; Z85.3 Personal history of malignant neoplasm of breast; Z90.12 Acquired absence of left breast and nipple; Z92.3 Personal history of irradiation; Z88.8 Allergy status to other drugs, medicaments and biological substances; Z82.49 Family history of ischemic heart disease and other diseases of the circulatory system
CPT/HCPCS: 72148; 82962; J1815; J7509

== ENCOUNTER 2020-02-21 11:56 | Emergency (ER) | payer MEDICARE, MEDICAID ==
[~2020-02-21] VITALS: Ht 162.6 cm; Wt 118.0 kg
[~2020-02-21 11:56] MED LIST changes: +AMIO200T6 PO; +AMLO5TAB4 PO; +ASPI81TA59 PO; +CHOL500016 PO; +HYDR-2769 PO; +INSU100C4 SQ; +INSU100V13 SQ; +LORA10TA68 PO; +MAGN296S68 PO; +POTA10TA12 PO; +PREG-9 PO; +TIZA4CAP3 PO; +TORS20TA2 PO; -methylPREDNISolone 4 MG TABLET. PO SCH
--- NOTE | 2020-02-21 12:10 | ED.ADGEN ---
Past Medical History Smoking Status: Never Smoker General Adult EDM: Chief Complaint: SKIN PROBLEM HPI: HPI: Patient is a 79 year old female coming in for complications leading to a wound on the back of her head. Patient states that she fell about 1 month ago and was seen with a negative CAT scan. Patient states she had a hematoma afterwards but now she is having recurrent bleeding from the wound. Patient states she is called the fire department 3 times at her house to assist with bleeding. She states she has had no new injuries. Was taking Eliquis but was told by her physician to stop taking it. Is here today for help with the wound as no one in her household wants to help her with it because of the bleeding issues. Review of Systems: Review of Systems: Constitutional: Denies fever or chills. [] Eyes: Denies change in visual acuity. [] HENT: Denies nasal congestion or sore throat. [] Respiratory: Denies cough or shortness of breath. [] Cardiovascular: Denies chest pain or edema. [] GI: Denies abdominal pain, nausea, vomiting, bloody stools or diarrhea. [] : Denies dysuria. [] Musculoskeletal: Denies back pain or joint pain. [] Integument: Scalp wound Neurologic: Denies headache, focal weakness or sensory changes. [] Endocrine: Denies polyuria or polydipsia. [] Lymphatic: Denies swollen glands. [] Psychiatric: Denies depression or anxiety. [] Allergies: Allergies: Allergies Coded Allergies Type Severity Reaction Last Updated Verified Cztwwar-Eyq-Nxx Reductase Inhibitor Allergy Intermediate 11/19/17 Yes cyclobenzaprine Allergy Unknown 11/20/17 Yes morphine Adverse Reaction Intermediate 11/19/17 Yes Physical Exam: PE: Constitutional: Well developed, well nourished, no acute distress, non-toxic appearance. [] HENT: Normocephalic, atraumatic, bilateral external ears normal, oropharynx moist, no oral exudates, nose normal. [] Eyes: PERRLA, EOMI, conjunctiva normal, no discharge. [] Neck: Normal range of motion, no tenderness, supple, no stridor. [] Cardiovascular:Heart rate regular rhythm, no murmur [] Lungs & Thorax: Bilateral breath sounds clear to auscultation [] Abdomen: Bowel sounds normal, soft, no tenderness, no masses, no pulsatile masses. [] Skin: Dried oval area of skin on the occipital scalp, no active bleeding Back: No tenderness, no CVA tenderness. [] Extremities: No tenderness, no cyanosis, no clubbing, ROM intact, no edema. [] Neurologic: Alert and oriented X 3, normal motor function, normal sensory function, no focal deficits noted. [] Psychologic: Affect normal, judgement normal, mood normal. [] Current Patient Data: Vital Signs: Vital Signs Date Time Temp Pulse Resp B/P (MAP) Pulse Ox O2 Delivery O2 Flow Rate FiO2 02/21/20 12:14 98.6 62 18 119/59 (79) 100 Room Air 98.6 EKG: EKG: [] Heart Score: Risk Factors: Risk Factors: DM, Current or recent (<one month) smoker, HTN, HLP, family history of CAD, obesity. Risk Scores: Score 0 - 3: 2.5% MACE over next 6 weeks - Discharge Home Score 4 - 6: 20.3% MACE over next 6 weeks - Admit for Clinical Observation Score 7 - 10: 72.7% MACE over next 6 weeks - Early Invasive Strategies Radiology/Procedures: Radiology/Procedures: Wound care consulted to evaluate patient. Eschar removed from wound wound was clean and dressed. She is given information to follow-up in wound care clinic [] Course & Med Decision Making: Course & Med Decision Making Wound care consulted for dressing recommendations, wound appears to be healing by secondary intention [] Dragon Disclaimer: Bernadette Disclaimer: This electronic medical record was generated, in whole or in part, using a voice recognition dictation system. Departure Departure Impression: Primary Impression: Non-healing wound Disposition: 01 DC HOME SELF CARE/HOMELESS Condition: IMPROVED Referrals: LULA BOONE (PCP) Patient Instructions: Dressing Change, [id number]-[id number] Scripts Doxycycline Hyclate (DOXYCYCLINE HYCLATE) 100 Mg Capsule 1 CAP PO BID for 7 Days, #14 CAP Prov: LELA LEE MD 02/21/20 LELA LEE MD Feb 21, 2020 12:10
[2020-02-21 12:14] VITALS: BP 119/59
[2020-02-21] MEDS ORDERED: DOXY100C2 PO (12:59)
--- NOTE | 2020-02-21 16:46 | NUR ---
Wound Care Wound Type/Assessment: Called to Emergency Room to evaluate a trauma wound to a 79y/o black female. Patient states she fell and hit the back of her head about a month ago. Patient was evaluated in the Emergency Room and wound treated at that time. Patient states that wound continues to bleed with attempted dressing changes. Patient has a 3cm x 2cm x 1.5cm wound to occiput of head. Wound is covered by a loose piece of thick eschar. Emergency Room debrideed eschar from wound. Area under eschar is thick fibrous slough. Wound continues down to capsule of bone. Bleeding is minimal with evaluation. Patient is diabetic with an AM blood glucose of 248. States this is her average BG. Treatment Recommendations/Plan: Emergency Room Physician removed loose eschar. Wound was cleansed and lightly packed and covered with Hydroferra Blue, 4x4's and covered with Kerlex and a cap stockinette. Wound should be changed every 3 days. Additional dressing supplies given for next change. Education provided: Instructions on changing dressing and follow up at Wound Clinic Offloading surface/device: N/A Recommended Referrals/Tests: Discharge Recommendations for dressings: Dressing changes as directed and follow up at [facility] next week.
== END 2020-02-21 13:33 | disposition home or self-care (01) ==
LOC: ER 11:56
DX: S01.00XD Unspecified open wound of scalp, subsequent encounter (principal); Z88.5 Allergy status to narcotic agent; Z91.041 Radiographic dye allergy status; Z88.8 Allergy status to other drugs, medicaments and biological substances; W19.XXXD Unspecified fall, subsequent encounter
CPT/HCPCS: 99283

== ENCOUNTER 2020-03-08 14:08 | Inpatient (IN) | payer MEDICARE, MEDICAID ==
[~2020-03-08] VITALS: Ht 162.6 cm; Wt 126.7 kg
[~2020-03-08 14:08] MED LIST changes: +DOXY100C2 PO
[2020-03-08] MEDS ORDERED: IV NORMAL SALINE 1000ML BAG 1,000 ML IV ONE (14:30)
--- NOTE | 2020-03-08 14:35 | PHYS DOC ---
Past Medical History Past Medical History: Cancer, Diabetes-Type II, High Cholesterol, Hypertension, Hypothyroid Past Medical History Limited as patient is a poor historian Past Surgical History: Cancer Surgery, Other Additional Past Surgical Histo: Right MASECTOMY Past Surgical History Limited as patient is a poor historian Smoking Status: Never Smoker Alcohol Use: None Drug Use: None Social History Limited as patient is a poor historian General Adult EDM: Chief Complaint: MECHANICAL FALL HPI: HPI: Patient is a 79 year old female presents via EMS with report of bilateral lower extremity weakness. Patient reports she was walking out of the bathroom using her cane and her "legs just gave out ". Patient reports she was still able to lower herself to the ground. Denies any head trauma or neck pain. Denies fever or chills. Denies cough or shortness of breath. Patient reports she has multiple health issues. Patient reports "I have it all ". Patient is unsure of the name of her home medications. Reports she has been on a blood thinner but is unsure of the name. Patient does report she has a chronic left parietal/occipital wound for which she follows with wound care regarding. Patient reports she was unable to see wound care this week secondary to the snow. History of present illness limited secondary to patient is a poor historian. Review of Systems: Review of Systems: Constitutional: Denies fever or chills Eyes: Denies redness or eye pain HENT: Denies nasal congestion or sore throat Respiratory: Denies cough or shortness of breath Cardiovascular: Denies chest pain or palpitations GI: Denies abdominal pain, nausea, or vomiting : Denies dysuria or hematuria Musculoskeletal: Denies neck or back pain; reports right hip pain Integument: Denies rash or skin lesions Neurologic: Denies headache or sensory changes; reports bilateral lower extremity weakness Review of systems limited as patient is a poor historian Allergies: Allergies: Allergies Coded Allergies Type Severity Reaction Last Updated Verified Eqiuhnk-Ksr-Tpa Reductase Inhibitor Allergy Intermediate 11/19/17 Yes cyclobenzaprine Allergy Unknown 11/20/17 Yes morphine Adverse Reaction Intermediate 11/19/17 Yes Physical Exam: PE: Constitutional: Well developed, obese, no acute distress, non-toxic appearance HENT: Normocephalic, left parietal/occipital scalp with chronic wound with spong e in place (reports has had since Jan 2020 for which patient follows with wound care) Eyes: PERRL, EOMI, conjunctiva normal, no discharge, no nystagmus Neck: Normal range of motion, no tenderness, supple Lungs & Thorax: No respiratory distress, equal chest rise and fall Abdomen: Soft, no tenderness, no guarding/rebound tenderness/distention Skin: Warm, dry, no erythema, venous stasis ulcers noted to bilateral lower extremity Back: No midline tenderness, no CVA tenderness Extremities: 3+ pitting edema to BLE, pain to right hip on ROM, no deformity, moves bilateral legs but unable to hold against gravity Neurologic: Alert and oriented X 3, confused to name of current medications, normal motor function, normal sensory function, no focal deficits noted Psychologic: Affect normal, judgment abnormal EKG: EKG: @1431 NSR at 70bpm, NO ST elevation, ST depression V3, RBBB, baseline artifact noted, QRS 120ms, QT/QTc 406/441ms Radiology/Procedures: Radiology/Procedures: PROCEDURE: HIP BILATERAL WITH PELVIS XR HIP (WITH OR WITHOUT PELVIS) 1 VIEW 03/08/2020 2:44 PM INDICATION: Pain, right greater than left COMPARISON: None available. TECHNIQUE: AP view the pelvis and 2 dedicated views of each hip are provided. FINDINGS/ IMPRESSION: Body habitus limits evaluation. There is no acute fracture or dislocation. Mild inferomedial joint space narrowing identified bilaterally, left greater than right compatible with mild to moderate osteoarthrosis. There is subcortical sclerosis and marginal osteophytosis. Vascular calcifications are identified.. Bone mineralization is within normal limits. Regional soft tissues are within normal limits. There is no soft tissue gas or osseous erosion. No radiopaque foreign body. If there is persistent clinical concern, further evaluation with cross-sectional imaging may be of benefit. Electronically signed by: Kyara Larkin MD (03/08/2020 3:17 PM) [id number] PROCEDURE: CT [facility] Compliance Statement: One or more of the following individualized dose reduction techniques were utilized for this examination: 1. Automated exposure control 2. Adjustment of the mA and/or kV according to patient size 3. Use of iterative reconstruction technique CT head and cervical spine without contrast 03/08/2020 2:35 PM INDICATION: Weakness, fall COMPARISON: None available TECHNIQUE: Multiple axial CT images of the head were obtained from skull base through the vertex without intravenous contrast. Multiple axial CT images of the cervical spine were obtained without intravenous contrast. Coronal and sagittal reformats are provided. FINDINGS: Head: There is a scalp laceration involving the left parietal scalp with subcutaneous hematoma. Ventricles, sulci and basal cisterns are prominent compatible with mild generalized cerebral volume loss.. Low-attenuation in the periventricular white matter is suggestive of chronic small vessel ischemic changes. There is no hydrocephalus. Rojas-white matter differentiation is normal. There is no acute intracranial hemorrhage. There is no mass, mass effect or midline shift. Posterior fossa is normal in appearance. Visualized portions of the orbits are normal with exception of bilateral lens replacement. Paranasal sinuses are well aerated. Mastoid air cells are well aerated. Cervical spine: Alignment of the cervical spine is normal. Skull base is intact. Craniocervical junction is normal in appearance. Atlantoaxial articulation is normal. Vertebral body heights are maintained without evidence for acute fracture. Mild height loss at C6 and C7 without acute fracture. Moderate disc height loss at C5-C6 and mild disc height loss at C6-C7. At C5-C6 there is a posterior disc osteophyte complex with mild facet arthropathy and central calcified disc protrusion. There is mild uncovertebral joint disease. Mild bilateral neural foraminal stenosis. Mild spinal canal stenosis. There is facet fusion on the left at C2-C3. There is moderate to advanced facet arthropathy at C4-C5 on the left with subcortical cystic change. There is no prevertebral soft tissue swelling. Thyroid gland is normal in appearance. Visualized portions of the lung apices are normal without evidence for suspicious pulmonary nodule or infiltrate. IMPRESSION: 1. Left parietal scalp laceration with subcutaneous hematoma. No calvarial defect. No acute intracranial hemorrhage. Mild generalized cerebral volume loss. Low-attenuation in the periventricular white matter is suggestive of chronic small vessel ischemic changes. 2. No acute fracture or malalignment of the cervical spine. Mild cervical spondylosis. Electronically signed by: Kyara Larkin MD (03/08/2020 3:42 PM) [id number] PROCEDURE: PORTABLE CHEST 1V XR CHEST 1V History: Reason: weakness / Spl. Instructions: / History: Comparison: None. Findings: Mild interstitial thickening diffusely. Enlarged cardiac size. No pleural effusion. No pneumothorax. Vascular calcifications. Impression: 1. Mild diffuse interstitial thickening, may indicate pulmonary edema. 2. Enlarged cardiac size, represent cardiomegaly and/or pericardial effusion. Electronically signed by: Kevin Chung DO (03/08/2020 3:19 PM) [id number] Course & Med Decision Making: Course & Med Decision Making Pertinent Labs and Imaging studies reviewed. (See chart for details) Elderly obese patient presents with report of fall at home after bilateral legs "gave out ". Patient is able to move extremities however some significant pain to right leg on range of motion primarily at hip. Patient also with chronic venous stasis and edema. Patient with history of chronic left parietal/occipital wound for which patient typically follows with wound care. Reports was unable to go to wound care earlier this week. Patient is able to A&O x3, however is a poor historian. EKG stable. Labs obtained and posted to chart. Anemia noted without prior labs for comparison per [employer] review. CT head/cervical spine without acute intracranial process. Notation of chronic hematoma and wound on left parietal/occipital region appreciated. Chest x-ray with some vascular congestion findings. X-ray of bilateral hips and pelvis also stable. Difficulty obtaining blood due to hemolysis. Anemia noted and renal insufficiency. Unclear if acute given lack or prior laboratory data per [employer] review. Patient requiring admission for further evaluation and treatment. Discussed with Dr. Valentine (hospitalist) who is in agreement with observation admission. Discussed findings and plan with patient, who acknowledges understanding and agreement. Bernadette Disclaimer: Bernadette Disclaimer: This electronic medical record was generated, in whole or in part, using a voice recognition dictation system. Departure Departure Impression: Primary Impression: Generalized weakness Additional Impressions: Scalp wound Qualified Codes: S01.00XA - Unspecified open wound of scalp, initial encounter Anemia Qualified Codes: D64.9 - Anemia, unspecified Fall Qualified Codes: W19.XXXA - Unspecified fall, initial encounter Bilateral hip pain Renal insufficiency Disposition: 09 ADMITTED INPT THIS HOSP (Observation per Dr. Valentine) Admitting Physician: LIZ Chew) Condition: STABLE Referrals: NO PCP (PCP) NIHSS Stroke Scale NIH Stroke Scale: NIH Stroke Scale Response (Comments) Value Level of Consciousness: 0 Alert/Responsive 0 LOC Questions: 0 Answers both correctly 0 LOC Commands: 0 Performs both tasks 0 Best Gaze: 0 Normal 0 Visual: 0 No visual loss 0 Facial Palsy: 0 Normal, symmetrical 0 Motor - Left Arm 0 No drift 0 Motor - Right Arm 0 No drift 0 Motor - Left Leg 2 Some effort 2 Motor: Right Leg 2 Some effort 2 Limb Ataxia: 0 Absent 0 Sensory: 0 No loss 0 Best Language: 0 Normal 0 Dysathria: 0 Normal 0 Extinction and Inattention: 0 Normal 0 Total 4 BASILIOTANK DO Mar 08, 2020 14:35
[2020-03-08 15:04] LABS: BASO # 0.1 x10^3/uL (0.0-0.2); BASO % 1 % (0-3); EOS # 0.1 x10^3/uL (0.0-0.7); EOS % 1 % (0-3); HEMATOCRIT 28.5 % (36.0-47.0); HEMOGLOBIN 8.9 g/dL (12.0-15.5); LYMPH # 0.7 x10^3/uL (1.0-4.8); LYMPH % 7 % (24-48); MEAN CORPUSCULAR HEMOGLOBIN 28 pg (25-35); MEAN CORPUSCULAR HGB CONC 31 g/dL (31-37); MEAN CORPUSCULAR VOLUME 91 fL (79-100); MONO # 1.2 x10^3/uL (0.0-1.1); MONO % 13 % (0-9); NEUT # 7.3 x10^3/uL (1.8-7.7); NEUT % 79 % (31-73); PLATELET COUNT 247 x10^3/uL (140-400); RED BLOOD COUNT 3.13 x10^6/uL (3.50-5.40); RED CELL DISTRIBUTION WIDTH 16.7 % (11.5-14.5); WHITE BLOOD COUNT 9.3 x10^3/uL (4.0-11.0)
--- NOTE | 2020-03-08 15:20 | RAD ---
XR HIP (WITH OR WITHOUT PELVIS) 1 VIEW 03/08/2020 2:44 PM INDICATION: Pain, right greater than left COMPARISON: None available. TECHNIQUE: AP view the pelvis and 2 dedicated views of each hip are provided. FINDINGS/ IMPRESSION: Body habitus limits evaluation. There is no acute fracture or dislocation. Mild inferomedial joint sp ivone narrowing identified bilaterally, left greater than right compatible with mild to moderate osteoa rthrosis. There is subcortical sclerosis and marginal osteophytosis. Vascular calcifications are iden tified.. Bone mineralization is within normal limits. Regional soft tissues are within normal limits. There is no soft tissue gas or osseous erosion. No radiopaque foreign body. If there is persistent c linical concern, further evaluation with cross-sectional imaging may be of benefit. Electronically signed by: Kyara Larkin MD (03/08/2020 3:17 PM) [id number]
--- NOTE | 2020-03-08 15:21 | RAD ---
XR CHEST 1V History: Reason: weakness / Spl. Instructions: / History: Comparison: None. Findings: Mild interstitial thickening diffusely. Enlarged cardiac size. No pleural effusion. No pneumothorax. Vascular calcifications. Impression: 1. Mild diffuse interstitial thickening, may indicate pulmonary edema. 2. Enlarged cardiac size, represent cardiomegaly and/or pericardial effusion. Electronically signed by: Kevin Chung DO (03/08/2020 3:19 PM) [id number]
--- NOTE | 2020-03-08 15:44 | RAD ---
PQRS Compliance Statement: One or more of the following individualized dose reduction techniques were utilized for this examinat ion: 1. Automated exposure control 2. Adjustment of the mA and/or kV according to patient size 3. Use of iterative reconstruction technique CT head and cervical spine without contrast 03/08/2020 2:35 PM INDICATION: Weakness, fall COMPARISON: None available TECHNIQUE: Multiple axial CT images of the head were obtained from skull base through the vertex with out intravenous contrast. Multiple axial CT images of the cervical spine were obtained without intrav enous contrast. Coronal and sagittal reformats are provided. FINDINGS: Head: There is a scalp laceration involving the left parietal scalp with subcutaneous hematoma. Ventricles, sulci and basal cisterns are prominent compatible with mild generalized cerebral volume loss.. Low-a ttenuation in the periventricular white matter is suggestive of chronic small vessel ischemic changes . There is no hydrocephalus. Rojas-white matter differentiation is normal. There is no acute intracran ial hemorrhage. There is no mass, mass effect or midline shift. Posterior fossa is normal in appearan ce. Visualized portions of the orbits are normal with exception of bilateral lens replacement. Paranasal sinuses are well aerated. Mastoid air cells are well aerated. Cervical spine: Alignment of the cervical spine is normal. Skull base is intact. Craniocervical junction is normal in appearance. Atlantoaxial articulation is normal. Vertebral body heights are maintained without evidence for acute fracture. Mild height loss at C6 and C7 without acute fracture. Moderate disc height loss at C5-C6 and mild disc height loss at C6-C7. At C5-C6 there is a posterior disc osteophyte complex with mild facet arthropathy and central calcified disc protrusion. There is m ild uncovertebral joint disease. Mild bilateral neural foraminal stenosis. Mild spinal canal stenosis . There is facet fusion on the left at C2-C3. There is moderate to advanced facet arthropathy at C4-C 5 on the left with subcortical cystic change. There is no prevertebral soft tissue swelling. Thyroid gland is normal in appearance. Visualized port ions of the lung apices are normal without evidence for suspicious pulmonary nodule or infiltrate. IMPRESSION: 1. Left parietal scalp laceration with subcutaneous hematoma. No calvarial defect. No acute intracran ial hemorrhage. Mild generalized cerebral volume loss. Low-attenuation in the periventricular white m atter is suggestive of chronic small vessel ischemic changes. 2. No acute fracture or malalignment of the cervical spine. Mild cervical spondylosis. Electronically signed by: Kyara Larkin MD (03/08/2020 3:42 PM) [id number]
[2020-03-08 16:33] LABS: PROTHROMBIN TIME PATIENT 17.8 SEC (11.7-14.0)
--- NOTE | 2020-03-08 17:25 | EKG ---
[facility] [address] [place] [address] Test Date: 2020-03-08 Test Time: 14:31:59 Pat Name: TATA ESCAMILLA Department: Room: Gender: F [employer] Officer: : 1940 Requested By: TANK BASILIO Order Number: [id number] Reading MD: Measurements Intervals [place] Rate: 70 P: CA: QRS: 2 QRSD: 120 T: -47 QT: 406 QTc: 441 Interpretive Statements IRREGULAR RHYTHM, NO P-WAVE FOUND INCOMPLETE RIGHT BUNDLE BRANCH BLOCK ST & T ABNORMALITY, CONSIDER INFERIOR ISCHEMIA OR LEFT VENTRICULAR STRAIN ABNORMAL ECG RI6.01 No previous ECG available for comparison
[2020-03-08] MEDS ORDERED: ONDANSETRON PF 4 MG/2 ML VIAL. IV PRN ×2 (17:45→18:00)
[2020-03-08] MEDS ORDERED: DEXTROSE 50% 25 GM / 50ML DISP.SYRIN. IV PRN ×2 (17:45→18:00)
[2020-03-08] MEDS ORDERED: ALBUTEROL SULFATE 2.5 MG/3 ML NEBU. NEB PRN (18:00)
[2020-03-08] MEDS ORDERED: MAG HYDROX/ALUMINUM HYD/SIMETH 30 ML ORAL.SUSP PO PRN (18:00)
[2020-03-08] MEDS ORDERED: ZOLPIDEM 5 MG TABLET. PO PRN (18:00)
[2020-03-08] MEDS ORDERED: guaiFENesin ORAL 200 MG/10 ML LIQUID. PO PRN (18:00)
[2020-03-08] MEDS ORDERED: LORazepam 0.5 MG TABLET PO PRN (18:00)
[2020-03-08 18:13] LABS: CALCIUM 9.2 mg/dL (8.5-10.1); CREATININE 2.8 mg/dL (0.6-1.0); GFR 19.8; POTASSIUM 4.6 mmol/L (3.5-5.1)
[2020-03-08] MEDS ORDERED: tiZANidine 4 MG TABLET. PO PRN (18:15)
[2020-03-08 18:18] LABS: ALBUMIN 3.2 g/dL (3.4-5.0); ALBUMIN/GLOBULIN RATIO 0.8 (1.0-1.7); MAGNESIUM 2.6 mg/dL (1.8-2.4); TOTAL BILIRUBIN 0.5 mg/dL (0.2-1.0); TOTAL PROTEIN 7.3 g/dL (6.4-8.2)
[2020-03-08] MEDS: IPRATRPIUM/ALBUTEROL 0.5/2.5MG 3 ML NEBU. NEB SCH ×2 (18:23→20:10)
[2020-03-08 18:27] LABS: CREATINE KINASE 65 U/L (26-192)
[2020-03-08] MEDS ORDERED: fentaNYL PF VIAL 100 MCG/2 ML VIAL IVP PRN (19:15)
--- NOTE | 2020-03-08 19:51 | PDOC1 ---
History and Physical Date of Admission Date of Admission 03/08/2020 Identification/Chief Complaint Chief Complaint I fell after my knees gave out Source Source: Chart review, Patient History of Present Illness History of Present Illness Patient is a 79-year-old female with past medical history of osteoarthritis of her knees diabetes mellitus with peripheral neuropathy morbid obesity essential hypertension who was in her usual state of health until this morning when she was trying to do a stand up and washed up at home when all of a sudden her knees "gave up". The patient was able to break the fall with her stand-up chair did not suffer major trauma. The patient does complain of peripheral edema and noticing that her lower extremities are darker than usual. Patient denies any pain over the affected area she does have neuropathy which has been present for a long time. She takes Lyrica for this, patient apparently after being admitted at where she was told she had a stroke and was most likely quite debilitated was transferred to [facility] rehab where she spent quite some time according to the patient. She was recently discharged from the rehab and transition home where she lives alone. No changes have been made to her medications no history of lightheadedness prior to this event no palpitations no shortness of breath no orthopnea no paroxysmal nocturnal dyspnea no chest pain or palpitations were reported. Patient was found to have abnormal laboratory data as well with increase in creatinine which most likely is chronic in nature given her multiple comorbidities. She denies nephrotoxic drug use, she does not remember the name of a blood thinner that she is on and does not seem to have a good handle of her home medications either. Of noticed that while being at [facility] the patient suffered a fall and she had a bleeding lesion over the occipital area. This has been treated in the outpatient with wound care since the patient relates to me that she was bleeding quite profusely for several days until wound care was able to contain the bleeding. We have been asked to admit the patient for further evaluation and treatment and to assess whether the patient is safe at home. Past Medical History Cardiovascular: AFIB, CAD, HTN, Hyperlipidemia Heme/Onc: Cancer (Breast cancer 20 years ago) Endocrine: Diabetes, Hypothyroidism Past Surgical History Past Surgical History: Mastectomy Family History Family History: Heart Disease, High Cholestrol Social History ALCOHOL: none Drugs: None Current Problem List Problem List Problems Medical Problems: (1) Anemia Status: Acute (2) Bilateral hip pain Status: Acute (3) Fall Status: Acute (4) Generalized weakness Status: Acute (5) Scalp wound Status: Acute Current Medications Current Medications Current Medications Medications (Trade) Dose Ordered Sig/José Miguel Start Time Stop Time Status Last Admin Dose Admin Acetaminophen (Tylenol) 650 mg PRN Q4HRS PRN 03/08/20 18:00 Acetaminophen/ Hydrocodone Bitart (Lortab 10/325) 2 tab PRN Q6HRS PRN 03/08/20 18:00 Al Hydroxide/Mg Hydroxide (Mylanta Plus Xs) 30 ml PRN DAILY PRN 03/08/20 18:00 Albuterol Sulfate (Ventolin Neb Soln) 2.5 mg PRN Q4HRS PRN 03/08/20 18:00 Albuterol/ Ipratropium (Duoneb) 3 ml Q4H 03/08/20 18:00 Amiodarone HCl (Cordarone) 200 mg DAILY 03/09/20 09:00 Amlodipine Besylate (Norvasc) 5 mg DAILY 03/09/20 09:00 Aspirin (Aspirin Chewable) 81 mg DAILY 03/09/20 09:00 Cetirizine HCl (ZyrTEC) 10 mg DAILY 03/09/20 09:00 Dextrose (Dextrose 50%-Water Syringe) 12.5 gm PRN Q15MIN PRN 03/08/20 18:00 Enoxaparin Sodium (Lovenox 40mg Syringe) 40 mg Q12H 03/09/20 09:00 Fentanyl Citrate (Fentanyl 2ml Vial) 50 mcg PRN Q3HRS PRN 03/08/20 19:15 Guaifenesin (Robitussin) 200 mg PRN Q4HRS PRN 03/08/20 18:00 Insulin Glargine (Lantus Syringe) 16 unit QHS 03/08/20 21:00 Insulin Human Lispro (HumaLOG) 0-7 UNITS TIDWMEALS 03/09/20 08:00 Lorazepam (Ativan) 0.5 mg PRN Q4HRS PRN 03/08/20 18:00 Ondansetron HCl (Zofran) 4 mg PRN Q4HRS PRN 03/08/20 18:00 Potassium Chloride (Klor-Con) 30 meq DAILY 03/09/20 09:00 Pregabalin (Lyrica) 75 mg BID 03/08/20 21:00 Sodium Chloride 1,000 ml @ 1,000 mls/hr 1X ONCE 03/08/20 14:30 03/08/20 15:29 DC 03/08/20 14:59 1,000 MLS/HR Tizanidine HCl (Zanaflex) 2 mg PRN TID PRN 03/08/20 18:15 Torsemide (Demadex) 100 mg DAILY 03/09/20 09:00 Vitamin D (Vitamin D3) 5,000 unit DAILY 03/09/20 09:00 Zolpidem Tartrate (Ambien) 5 mg PRN QHS PRN 03/08/20 18:00 Allergies Allergies Allergies Coded Allergies Type Severity Reaction Last Updated Verified [id number]-[id number]-Xlj Reductase Inhibitor Allergy Intermediate 11/19/17 Yes cyclobenzaprine Allergy Unknown 11/20/17 Yes morphine Adverse Reaction Intermediate 11/19/17 Yes ROS Review of System CONSTITUTIONAL: No fever or chills EYES: No recent changes SKIN: No rash or itching CARDIOVASCULAR: No chest pain, syncope, palpitations, or edema RESPIRATORY: No SOB or cough GASTROINTESTINAL: No nausea, vomiting or abdominal pain NEUROLOGICAL: No headaches or weakness ENDOCRINE: No cold or heat intolerance GENITOURINARY: No urgency or frequency of urination MUSCULOSKELETAL: No back pain or joint pain LYMPHATICS: No enlarged lymph nodes PSYCHIATRIC: No anxiety or depression Physical Exam Physical Exam GEN.: No apparent distress. Alert and oriented. HEENT: Head is normocephalic, atraumatic NECK: Supple. LUNGS: Clear to auscultation. HEART: RRR, S1, S2 present. Peripheral pulses intact ABDOMEN: Soft, nontender. Positive bowel sounds. EXTREMITIES: Without any cyanosis. NEUROLOGIC: Normal speech, normal tone PSYCHIATRIC: Normal affect, normal mood. SKIN: No ulcerations Vitals Vitals Vital Signs Date Time Temp Pulse Resp B/P (MAP) Pulse Ox O2 Delivery O2 Flow Rate FiO2 03/08/20 14:10 98.2 91 19 184/84 (117) 97 Room Air 98.2 Labs Labs Laboratory Tests Test 03/08/20 14:30 03/08/20 16:08 03/08/20 17:56 03/08/20 17:58 White Blood Count 9.3 x10^3/uL (4.0-11.0) Red Blood Count 3.13 x10^6/uL (3.50-5.40) Hemoglobin 8.9 g/dL (12.0-15.5) Hematocrit 28.5 % (36.0-47.0) Mean Corpuscular Volume 91 fL (79-100) Mean Corpuscular Hemoglobin 28 pg (25-35) Mean Corpuscular Hemoglobin Concent 31 g/dL (31-37) Red Cell Distribution Width 16.7 % (11.5-14.5) Platelet Count 247 x10^3/uL (140-400) Neutrophils (%) (Auto) 79 % (31-73) Lymphocytes (%) (Auto) 7 % (24-48) Monocytes (%) (Auto) 13 % (0-9) Eosinophils (%) (Auto) 1 % (0-3) Basophils (%) (Auto) 1 % (0-3) Neutrophils # (Auto) 7.3 x10^3/uL (1.8-7.7) Lymphocytes # (Auto) 0.7 x10^3/uL (1.0-4.8) Monocytes # (Auto) 1.2 x10^3/uL (0.0-1.1) Eosinophils # (Auto) 0.1 x10^3/uL (0.0-0.7) Basophils # (Auto) 0.1 x10^3/uL (0.0-0.2) Prothrombin Time 17.8 SEC (11.7-14.0) Prothromb Time International Ratio 1.5 (0.8-1.1) Activated Partial Thromboplast Time 36 SEC (24-38) Lactic Acid Level 1.6 mmol/L (0.4-2.0) Sodium Level 144 mmol/L (136-145) Potassium Level 4.6 mmol/L (3.5-5.1) Chloride Level 107 mmol/L (98-107) Carbon Dioxide Level 24 mmol/L (21-32) Anion Gap 13 (6-14) Blood Urea Nitrogen 68 mg/dL (7-20) Creatinine 2.8 mg/dL (0.6-1.0) Estimated GFR (Cockcroft-Gault) 19.8 BUN/Creatinine Ratio 24 (6-20) Glucose Level 176 mg/dL (70-99) Calcium Level 9.2 mg/dL (8.5-10.1) Phosphorus Level 3.7 mg/dL (2.6-4.7) Magnesium Level 2.6 mg/dL (1.8-2.4) Total Bilirubin 0.5 mg/dL (0.2-1.0) Aspartate Amino Transf (AST/SGOT) 17 U/L (15-37) Alanine Aminotransferase (ALT/SGPT) 21 U/L (14-59) Alkaline Phosphatase 77 U/L (46-116) Creatine Kinase 65 U/L (26-192) Creatine Kinase MB (Mass) 0.5 ng/mL (0.0-3.6) Creatine Kinase MB Relative Index % (0-4) LI-Slp-C-Type Natriuretic Peptide 7168 pg/mL (0-449) Total Protein 7.3 g/dL (6.4-8.2) Albumin 3.2 g/dL (3.4-5.0) Albumin/Globulin Ratio 0.8 (1.0-1.7) Troponin I Quantitative 0.046 ng/mL (0.000-0.055) Laboratory Tests Test 03/08/20 14:30 03/08/20 16:08 03/08/20 17:56 03/08/20 17:58 White Blood Count 9.3 x10^3/uL (4.0-11.0) Red Blood Count 3.13 x10^6/uL (3.50-5.40) Hemoglobin 8.9 g/dL (12.0-15.5) Hematocrit 28.5 % (36.0-47.0) Mean Corpuscular Volume 91 fL (79-100) Mean Corpuscular Hemoglobin 28 pg (25-35) Mean Corpuscular Hemoglobin Concent 31 g/dL (31-37) Red Cell Distribution Width 16.7 % (11.5-14.5) Platelet Count 247 x10^3/uL (140-400) Neutrophils (%) (Auto) 79 % (31-73) Lymphocytes (%) (Auto) 7 % (24-48) Monocytes (%) (Auto) 13 % (0-9) Eosinophils (%) (Auto) 1 % (0-3) Basophils (%) (Auto) 1 % (0-3) Neutrophils # (Auto) 7.3 x10^3/uL (1.8-7.7) Lymphocytes # (Auto) 0.7 x10^3/uL (1.0-4.8) Monocytes # (Auto) 1.2 x10^3/uL (0.0-1.1) Eosinophils # (Auto) 0.1 x10^3/uL (0.0-0.7) Basophils # (Auto) 0.1 x10^3/uL (0.0-0.2) Prothrombin Time 17.8 SEC (11.7-14.0) Prothromb Time International Ratio 1.5 (0.8-1.1) Activated Partial Thromboplast Time 36 SEC (24-38) Lactic Acid Level 1.6 mmol/L (0.4-2.0) Sodium Level 144 mmol/L (136-145) Potassium Level 4.6 mmol/L (3.5-5.1) Chloride Level 107 mmol/L (98-107) Carbon Dioxide Level 24 mmol/L (21-32) Anion Gap 13 (6-14) Blood Urea Nitrogen 68 mg/dL (7-20) Creatinine 2.8 mg/dL (0.6-1.0) Estimated GFR (Cockcroft-Gault) 19.8 BUN/Creatinine Ratio 24 (6-20) Glucose Level 176 mg/dL (70-99) Calcium Level 9.2 mg/dL (8.5-10.1) Phosphorus Level 3.7 mg/dL (2.6-4.7) Magnesium Level 2.6 mg/dL (1.8-2.4) Total Bilirubin 0.5 mg/dL (0.2-1.0) Aspartate Amino Transf (AST/SGOT) 17 U/L (15-37) Alanine Aminotransferase (ALT/SGPT) 21 U/L (14-59) Alkaline Phosphatase 77 U/L (46-116) Creatine Kinase 65 U/L (26-192) Creatine Kinase MB (Mass) 0.5 ng/mL (0.0-3.6) Creatine Kinase MB Relative Index % (0-4) JV-Vxw-T-Type Natriuretic Peptide 7168 pg/mL (0-449) Total Protein 7.3 g/dL (6.4-8.2) Albumin 3.2 g/dL (3.4-5.0) Albumin/Globulin Ratio 0.8 (1.0-1.7) Troponin I Quantitative 0.046 ng/mL (0.000-0.055) Images Images PROCEDURE: HIP BILATERAL WITH PELVIS XR HIP (WITH OR WITHOUT PELVIS) 1 VIEW 03/08/2020 2:44 PM INDICATION: Pain, right greater than left COMPARISON: None available. TECHNIQUE: AP view the pelvis and 2 dedicated views of each hip are provided. FINDINGS/ IMPRESSION: Body habitus limits evaluation. There is no acute fracture or dislocation. Mild inferomedial joint space narrowing identified bilaterally, left greater than right compatible with mild to moderate osteoarthrosis. There is subcortical sclerosis and marginal osteophytosis. Vascular calcifications are identified.. Bone mineralization is within normal limits. Regional soft tissues are within normal limits. There is no soft tissue gas or osseous erosion. No radiopaque foreign body. If there is persistent clinical concern, further evaluation with cross-sectional imaging may be of benefit. Electronically signed by: Kyara Larkin MD (03/08/2020 3:17 PM) [id number] PROCEDURE: CT HEAD AND CERVICAL SPINE WO RS Compliance Statement: One or more of the following individualized dose reduction techniques were utilized for this examination: 1. Automated exposure control 2. Adjustment of the mA and/or kV according to patient size 3. Use of iterative reconstruction technique CT head and cervical spine without contrast 03/08/2020 2:35 PM INDICATION: Weakness, fall COMPARISON: None available TECHNIQUE: Multiple axial CT images of the head were obtained from skull base through the vertex without intravenous contrast. Multiple axial CT images of the cervical spine were obtained without intravenous contrast. Coronal and sagittal reformats are provided. FINDINGS: Head: There is a scalp laceration involving the left parietal scalp with subcutaneous hematoma. Ventricles, sulci and basal cisterns are prominent compatible with mild generalized cerebral volume loss.. Low-attenuation in the periventricular white matter is suggestive of chronic small vessel ischemic changes. There is no hydrocephalus. Rojas-white matter differentiation is normal. There is no acute intracranial hemorrhage. There is no mass, mass effect or midline shift. Posterior fossa is normal in appearance. Visualized portions of the orbits are normal with exception of bilateral lens replacement. Paranasal sinuses are well aerated. Mastoid air cells are well aerated. Cervical spine: Alignment of the cervical spine is normal. Skull base is intact. Craniocervical junction is normal in appearance. Atlantoaxial articulation is normal. Vertebral body heights are maintained without evidence for acute fracture. Mild height loss at C6 and C7 without acute fracture. Moderate disc height loss at C5-C6 and mild disc height loss at C6-C7. At C5-C6 there is a posterior disc osteophyte complex with mild facet arthropathy and central calcified disc protrusion. There is mild uncovertebral joint disease. Mild bilateral neural foraminal stenosis. Mild spinal canal stenosis. There is facet fusion on the left at C2-C3. There is moderate to advanced facet arthropathy at C4-C5 on the left with subcortical cystic change. There is no prevertebral soft tissue swelling. Thyroid gland is normal in appearance. Visualized portions of the lung apices are normal without evidence for suspicious pulmonary nodule or infiltrate. IMPRESSION: 1. Left parietal scalp laceration with subcutaneous hematoma. No calvarial defect. No acute intracranial hemorrhage. Mild generalized cerebral volume loss. Low-attenuation in the periventricular white matter is suggestive of chronic small vessel ischemic changes. 2. No acute fracture or malalignment of the cervical spine. Mild cervical spondylosis. Electronically signed by: Kyara Larkin MD (03/08/2020 3:42 PM) [id number] PROCEDURE: PORTABLE CHEST 1V XR CHEST 1V History: Reason: weakness / Spl. Instructions: / History: Comparison: None. Findings: Mild interstitial thickening diffusely. Enlarged cardiac size. No pleural effusion. No pneumothorax. Vascular calcifications. Impression: 1. Mild diffuse interstitial thickening, may indicate pulmonary edema. 2. Enlarged cardiac size, represent cardiomegaly and/or pericardial effusion. Electronically signed by: Kevin Chung DO (03/08/2020 3:19 PM) [id number] VTE Prophylaxis Ordered VTE Prophylaxis Devices: Yes VTE Pharmacological Prophylaxi: Yes Assessment/Plan Assessment/Plan Mechanical fall Bilateral hip pain Diabetic neuropathy Scalp wound slowly healing Anemia of chronic inflammation Chronic kidney disease stage IIIb at least with current prerenal azotemia most likely Elevated BNP History of hypothyroidism History of essential hypertension History of breast cancer approximately 20 years ago status post mastectomy Morbid obesity with a BMI of 48 Plan We will do renal work-up that will include urine electrolytes urine creatinine and renal ultrasound Resume home medications once available for review Pain management We will do a Doppler ultrasound lower extremities due to the edema and rule out a thrombosis Repeat labs in the a.m. Further recommendations will be based on the clinical course Physical therapy evaluation to assess ability to transition back home DVT prophylaxis with Lovenox Justifications for Admission Other Justification MARVIN DOBSON MD Mar 08, 2020 19:50
[2020-03-08] MEDS ORDERED: IPRATRPIUM/ALBUTEROL 0.5/2.5MG 3 ML NEBU. NEB PRN (20:30)
[2020-03-08 20:45] VITALS: BP 153/52
[2020-03-08] MEDS: PREGABALIN 75 MG CAPSULE PO SCH (21:38)
[2020-03-08] MEDS: INSULIN GLARGINE SYRINGE. SQ SCH (21:42)
[2020-03-08] MEDS: HYDROcodone/APAP 10/325 1 TAB TABLET PO PRN (22:24)
[2020-03-08 23:00] VITALS: BP 114/46
[2020-03-09 03:00] VITALS: BP 137/55
[2020-03-09 07:00] VITALS: BP 136/57
[2020-03-09] MEDS ORDERED: INSULIN LISPRO 300 UNITS/3 ML VIAL. SQ SCH (08:00)
[2020-03-09] MEDS: ASPIRIN CHEWABLE 81 MG TABLET. PO SCH (08:22)
[2020-03-09] MEDS: PREGABALIN 75 MG CAPSULE PO SCH ×2 (08:22→20:22)
[2020-03-09] MEDS: CHOLECALCIFEROL (VITAMIN D3) 5,000 UNIT CAPSULE PO SCH (08:22)
[2020-03-09] MEDS: POTASSIUM CHLORIDE 10 MEQ TABLET.ER. PO SCH (08:23)
[2020-03-09] MEDS: CETIRIZINE HCL 10 MG TABLET. PO SCH (08:23)
[2020-03-09] MEDS: AMIODARONE HCL 200 MG TABLET. PO SCH (08:24)
[2020-03-09] MEDS: ENOXAPARIN 40 MG/0.4 ML SYRINGE. SQ SCH (08:24)
[2020-03-09] MEDS: TORSEMIDE 20 MG TABLET. PO SCH (08:24)
[2020-03-09] MEDS: INSULIN LISPRO 300 UNITS/3 ML VIAL. SQ SCH ×6 (08:25→17:00)
[2020-03-09] MEDS ORDERED: ENOXAPARIN 40 MG/0.4 ML SYRINGE. SQ SCH (09:00)
--- NOTE | 2020-03-09 09:33 | RAD ---
US RENAL BILAT History: Reason: acute renal failure / Spl. Instructions: / History: Comparison: None. Procedure: Transabdominal ultrasound images are obtained of the kidneys and bladder. Findings: Right kidney: measures 10.6 x 4.0 x 3.9 cm. Increased renal cortical echogenicity. No hydronephrosis . Left kidney: measures 10.6 x 5.6 x 6.5 cm. Increased renal cortical echogenicity. No hydronephrosis. Urinary bladder: No urinary bladder wall thickening. The IVC is normal caliber. The visualized abdominal aorta is normal caliber. IMPRESSION: 1. Bilateral increased renal cortical echogenicity, may indicate medical renal disease. No hydroneph rosis. Electronically signed by: Kevin Chung DO (03/09/2020 9:31 AM) [id number]
--- NOTE | 2020-03-09 09:33 | RAD ---
US BILATERAL LOWEREXTREMITY VENOUS DOPPLER History: Reason: edema / Spl. Instructions: / History: Comparison: None. Discussion: Multiple longitudinal and transverse high resolution real-time images of the venous system of bilater al lower extremity were obtained with color and Doppler sampling. Degraded evaluation due to inability to compress veins secondary to patient's pain. The common femora l, superficial femoral, popliteal and proximal calf veins are all patent and demonstrate normal flow and compressibility. Normal respiratory phasicity and augmentation is present. Impression: 1. Degraded evaluation. No evidence of deep vein thrombosis. Electronically signed by: Kevin Chung DO (03/09/2020 9:30 AM) [id number]
--- NOTE | 2020-03-09 09:51 | PDOC ---
[employer] PROGRESS NOTE Date of Service DOS: DATE: 03/09/20 TIME: 09:51 Chief Complaint Chief Complaint Mechanical fall Left hip pain > right - Bilateral hip pain - XR with no fracture Diabetic neuropathy Scalp wound slowly healing Anemia of chronic inflammation Acute on chronic Chronic kidney disease stage IIIb at least with current vasomotor nephropathy prerenal azotemia most likely Elevated BNP History of hypothyroidism History of essential hypertension History of breast cancer approximately 20 years ago status post mastectomy Morbid obesity with a BMI of 48 History of Present Illness History of Present Illness Ms Cruz is a 79 year old female w/ PMHx breast Cancer s/p mastectomy, Diabetes-Type II, High Cholesterol, Hypertension, Hypothyroidpresents via EMS with report of bilateral lower extremity weakness. Patient reports she was walking out of the bathroom using her cane and her "legs just gave out ". Patient reports she was still able to lower herself to the ground. Denies any head trauma or neck pain. Denies fever or chills. Denies cough or shortness of breath. Patient reports she has multiple health issues. Patient reports "I have it all ". Patient is unsure of the name of her home medications. Reports she has been on a blood thinner but is unsure of the name. Patient does report she has a chronic left parietal/occipital wound for which she follows with wound care regarding. Imaging negative for acute fracture. She is still c/o left hip pain. Afebrile. Not able to bear weight. Pain 8/10. Vitals/I&O Vitals/I&O: Vital Signs Date Time Temp Pulse Resp B/P (MAP) Pulse Ox O2 Delivery O2 Flow Rate FiO2 03/09/20 08:24 98 136/57 03/09/20 07:00 99.3 16 90 Room Air 99.3 I & O 03/08/20 03/08/20 03/09/20 15:00 23:00 07:00 Intake Total 1000 ml 100 ml Output Total 500 ml Balance 1000 ml -400 ml Physical Exam General: Alert, Cooperative Heart: Regular rate, Normal S1, Normal S2 Lungs: Clear Abdomen: Normal bowel sounds, Soft Extremities: No clubbing, No cyanosis Skin: No rashes, No breakdown Labs Labs: Laboratory Tests Test 03/08/20 14:30 03/08/20 16:08 03/08/20 17:56 1/6/21 17:58 White Blood Count 9.3 x10^3/uL (4.0-11.0) Red Blood Count 3.13 x10^6/uL (3.50-5.40) Hemoglobin 8.9 g/dL (12.0-15.5) Hematocrit 28.5 % (36.0-47.0) Mean Corpuscular Volume 91 fL (79-100) Mean Corpuscular Hemoglobin 28 pg (25-35) Mean Corpuscular Hemoglobin Concent 31 g/dL (31-37) Red Cell Distribution Width 16.7 % (11.5-14.5) Platelet Count 247 x10^3/uL (140-400) Neutrophils (%) (Auto) 79 % (31-73) Lymphocytes (%) (Auto) 7 % (24-48) Monocytes (%) (Auto) 13 % (0-9) Eosinophils (%) (Auto) 1 % (0-3) Basophils (%) (Auto) 1 % (0-3) Neutrophils # (Auto) 7.3 x10^3/uL (1.8-7.7) Lymphocytes # (Auto) 0.7 x10^3/uL (1.0-4.8) Monocytes # (Auto) 1.2 x10^3/uL (0.0-1.1) Eosinophils # (Auto) 0.1 x10^3/uL (0.0-0.7) Basophils # (Auto) 0.1 x10^3/uL (0.0-0.2) Prothrombin Time 17.8 SEC (11.7-14.0) Prothromb Time International Ratio 1.5 (0.8-1.1) Activated Partial Thromboplast Time 36 SEC (24-38) Lactic Acid Level 1.6 mmol/L (0.4-2.0) Sodium Level 144 mmol/L (136-145) Potassium Level 4.6 mmol/L (3.5-5.1) Chloride Level 107 mmol/L (98-107) Carbon Dioxide Level 24 mmol/L (21-32) Anion Gap 13 (6-14) Blood Urea Nitrogen 68 mg/dL (7-20) Creatinine 2.8 mg/dL (0.6-1.0) Estimated GFR (Cockcroft-Gault) 19.8 BUN/Creatinine Ratio 24 (6-20) Glucose Level 176 mg/dL (70-99) Calcium Level 9.2 mg/dL (8.5-10.1) Phosphorus Level 3.7 mg/dL (2.6-4.7) Magnesium Level 2.6 mg/dL (1.8-2.4) Total Bilirubin 0.5 mg/dL (0.2-1.0) Aspartate Amino Transf (AST/SGOT) 17 U/L (15-37) Alanine Aminotransferase (ALT/SGPT) 21 U/L (14-59) Alkaline Phosphatase 77 U/L (46-116) Creatine Kinase 65 U/L (26-192) Creatine Kinase MB (Mass) 0.5 ng/mL (0.0-3.6) Creatine Kinase MB Relative Index % (0-4) NV-Jeb-U-Type Natriuretic Peptide 7168 pg/mL (0-449) Total Protein 7.3 g/dL (6.4-8.2) Albumin 3.2 g/dL (3.4-5.0) Albumin/Globulin Ratio 0.8 (1.0-1.7) Troponin I Quantitative 0.046 ng/mL (0.000-0.055) Test 03/08/20 20:50 03/08/20 21:25 03/08/20 23:43 03/09/20 08:02 Troponin I Quantitative 0.044 ng/mL (0.000-0.055) 0.072 ng/mL (0.000-0.055) Glucose (Fingerstick) 171 mg/dL (70-99) 196 mg/dL (70-99) Assessment and Plan Assessmemt and Plan Problems Medical Problems: (1) Anemia Status: Acute (2) Bilateral hip pain Status: Acute (3) Fall Status: Acute (4) Generalized weakness Status: Acute (5) Scalp wound Status: Acute Comment Review of Relevant I have reviewed the following items bianca (where applicable) has been applied. Medications: Current Medications Medications (Trade) Dose Ordered Sig/José Miguel Route PRN Reason Start Time Stop Time Status Last Admin Dose Admin Sodium Chloride 1,000 ml @ 1,000 mls/hr 1X ONCE IV 03/08/20 14:30 03/08/20 15:29 DC 03/08/20 14:59 Albuterol/ Ipratropium (Duoneb) 3 ml Q4H NEB 03/08/20 18:00 03/08/20 20:20 DC 03/08/20 20:10 Amiodarone HCl (Cordarone) 200 mg DAILY PO 03/09/20 09:00 03/09/20 08:24 Amlodipine Besylate (Norvasc) 5 mg DAILY PO 03/09/20 09:00 03/09/20 08:23 Aspirin (Aspirin Chewable) 81 mg DAILY PO 03/09/20 09:00 03/09/20 08:22 Acetaminophen/ Hydrocodone Bitart (Lortab 10/325) 2 tab PRN Q6HRS PRN PO SEVERE PAIN 7-10 03/08/20 18:00 03/08/20 22:24 Potassium Chloride (Klor-Con) 30 meq DAILY PO 03/09/20 09:00 03/09/20 08:23 Pregabalin (Lyrica) 75 mg BID PO 03/08/20 21:00 03/09/20 08:22 Torsemide (Demadex) 100 mg DAILY PO 03/09/20 09:00 03/09/20 08:24 Vitamin D (Vitamin D3) 5,000 unit DAILY PO 03/09/20 09:00 03/09/20 08:22 Insulin Human Lispro (HumaLOG) 8 units TIDWMEALS SQ 03/09/20 08:00 03/09/20 08:26 Insulin Glargine (Lantus Syringe) 16 unit QHS SQ 03/08/20 21:00 03/08/20 21:42 Cetirizine HCl (ZyrTEC) 10 mg DAILY PO 03/09/20 09:00 03/09/20 08:23 Insulin Human Lispro (HumaLOG) 0-7 UNITS TIDWMEALS SQ 03/09/20 08:00 03/09/20 08:25 Enoxaparin Sodium (Lovenox 40mg Syringe) 40 mg Q24H SQ 03/09/20 09:00 03/09/20 08:24 Justifications for Admission Other Justification DAMIAN KINGSLEY MD Mar 09, 2020 09:51
--- NOTE | 2020-03-09 09:59 | NUR ---
SW following. Discussed with RN, pt from home alone, room air, cardiac diet. PT/OT ordered. COVID pending for possible placement. SW will continue to follow.
[2020-03-09 11:00] VITALS: BP 136/55
[2020-03-09 11:30] LABS: CALCIUM 9.5 mg/dL (8.5-10.1); CREATININE 2.8 mg/dL (0.6-1.0); GFR 19.8; POTASSIUM 4.4 mmol/L (3.5-5.1)
[2020-03-09 15:00] VITALS: BP 149/58
--- NOTE | 2020-03-09 15:53 | NUR ---
Wound/Ostomy Care Wound Type/Assessment: Pt seen per wound care consult. See wound assessment. Pt has trauma wound to posterior head. Pt was supposed to come to the wound clinic last week, but did not show up or call to cancel. Wound cleansed, assessed, and measured. Treatment Recommendations/Plan: Recommendations for honey alginate (left in room), cover with gauze pads and kerilx wrapped around and tied to secure dressing in place. Change dressing on Friday. Dressing applied. Education provided: Pt educated on dressing changes and PU prevention. Offloading surface/device: Pt repositioned to left side using wedge and bilateral heels floated. Recommended Referrals/Tests: Consult Sol Giles NP for possible bedside debridement tomorrow 03/10/19. Pt should follow in the wound clinic after discharge. Discharge Recommendations for dressings: Continue current treatment as above. Dressing change instructions in left in room. Bed lowered and call light in reach. Will follow patient regarding wound care.
[2020-03-09 19:41] VITALS: BP 136/37
[2020-03-09] MEDS: ACETAMINOPHEN 325 MG TABLET. PO PRN (20:23)
[2020-03-09] MEDS: INSULIN GLARGINE SYRINGE. SQ SCH (20:28)
[2020-03-09 21:09] LABS: INFLUENZA A PATIENT NEGATIVE (NEGATIVE); INFLUENZA B PATIENT NEGATIVE (NEGATIVE)
--- NOTE | 2020-03-09 21:30 | NUR ---
At 1941 PM, Patient noted to be running at temp 101.0, needing increase oxygen of 2.5L/NC with increase fatigue, poor appetite, lethargy. She stated that she was recently treated at [facility] for COVID 19 and was also confirmed with daughter Nancy Cruz at [phone], spoke with Dr. Pantoja, new orders received for transfer to [address] [place] [address], rapid FLU A and B test, nitroglycerin supervisor informed, bed received, report called to [address] [place] [address] Patient to transfer to [facility], daughter Nancy Cruz is aware.
[2020-03-09] MEDS ORDERED: METO37.5 PO (21:49)
[2020-03-09] MEDS ORDERED: LACT1CAP48 PO (21:49)
[2020-03-09] MEDS ORDERED: PREG50CA91 PO (21:49)
[2020-03-09] MEDS ORDERED: EZET10TA20 PO (21:49)
[2020-03-09] MEDS ORDERED: TORS100T3 PO (21:49)
[2020-03-09] MEDS ORDERED: APIX2.5T PO (21:49)
[2020-03-09] MEDS ORDERED: HYDR100T24 PO (21:49)
[2020-03-09] MEDS ORDERED: PANT20TA2 PO (21:49)
[2020-03-09 23:00] VITALS: BP 131/63
[2020-03-10] VITALS (8 sets, daily range): BP systolic 104–175; BP diastolic 53–84
[2020-03-10] MEDS: INSULIN LISPRO 300 UNITS/3 ML VIAL. SQ SCH ×6 (08:00→17:00)
[2020-03-10] MEDS: ENOXAPARIN 40 MG/0.4 ML SYRINGE. SQ SCH (08:26)
[2020-03-10] MEDS: ASPIRIN CHEWABLE 81 MG TABLET. PO SCH (08:26)
[2020-03-10] MEDS: CHOLECALCIFEROL (VITAMIN D3) 5,000 UNIT CAPSULE PO SCH (08:26)
[2020-03-10] MEDS: AMIODARONE HCL 200 MG TABLET. PO SCH (08:27)
[2020-03-10] MEDS: POTASSIUM CHLORIDE 10 MEQ TABLET.ER. PO SCH (08:27)
[2020-03-10] MEDS: TORSEMIDE 20 MG TABLET. PO SCH (08:27)
[2020-03-10] MEDS: CETIRIZINE HCL 10 MG TABLET. PO SCH (08:27)
[2020-03-10] MEDS: PREGABALIN 75 MG CAPSULE PO SCH ×2 (08:28→21:53)
[2020-03-10] MEDS: HYDROcodone/APAP 10/325 1 TAB TABLET PO PRN (09:34)
--- NOTE | 2020-03-10 11:10 | PDOC ---
[employer] PROGRESS NOTE Date of Service DOS: DATE: 03/10/20 TIME: 11:07 Chief Complaint Chief Complaint A/P: Mechanical fall Left hip pain > right - Bilateral hip pain - XR with no fracture Diabetic neuropathy Scalp wound slowly healing Anemia of chronic inflammation Acute on chronic Chronic kidney disease stage IIIb at least with current vasomotor nephropathy prerenal azotemia most likely Elevated BNP History of hypothyroidism History of essential hypertension History of breast cancer approximately 20 years ago status post mastectomy Morbid obesity with a BMI of 48 COVID 19 - recently diagnosed at [facility] History of Present Illness History of Present Illness Ms Cruz is a 79 year old female w/ PMHx breast Cancer s/p mastectomy, Diabetes-Type II, High Cholesterol, Hypertension, Hypothyroid, recent COVID 19 diagnosis at [facility] who presents via EMS with report of bilateral lower extremity weakness. Patient reports she was walking out of the bathroom using her cane and her "legs just gave out ". Patient reports she was still able to lower herself to the ground. Denies any head trauma or neck pain. Denies fever or chills. Denies cough or shortness of breath. Patient reports she has multiple health issues. Patient reports "I have it all ". Patient is unsure of the name of her home medications. Reports she has been on a blood thinner but is unsure of the name. Patient does report she has a chronic left parietal/occipital wound for which she follows with wound care regarding. Imaging negative for acute fracture. 03/09: She is still c/o left hip pain. Afebrile. Not able to bear weight. Pain 10/10. Became febrile overnight and transferred to [place] [address] unit. Head wound bothering her. Febrile overnight to 101F. Mild SOB. No diarrhea. Appetite decreased. Vitals/I&O Vitals/I&O: Vital Signs Date Time Temp Pulse Resp B/P (MAP) Pulse Ox O2 Delivery O2 Flow Rate FiO2 03/10/20 08:28 77 170/84 03/10/20 08:00 Room Air 03/10/20 07:00 99.1 14 98 99.1 I & O 03/09/20 03/09/20 03/10/20 15:00 23:00 07:00 Intake Total 360 ml 720 ml 160 ml Output Total 1000 ml Balance 360 ml -280 ml 160 ml Physical Exam General: Alert, Cooperative Heart: Regular rate, Normal S1, Normal S2 Lungs: Clear Abdomen: Normal bowel sounds, Soft Extremities: No clubbing, No cyanosis Skin: No rashes, No breakdown Labs Labs: Laboratory Tests Test 03/09/20 11:52 03/09/20 17:15 03/09/20 20:24 03/09/20 20:28 Glucose (Fingerstick) 107 mg/dL (70-99) 150 mg/dL (70-99) 149 mg/dL (70-99) Influenza Type A Antigen Negative (NEGATIVE) Influenza Type B Antigen Negative (NEGATIVE) Test 03/10/20 08:03 Glucose (Fingerstick) 136 mg/dL (70-99) Assessment and Plan Assessmemt and Plan Problems Medical Problems: (1) Anemia Status: Acute (2) Bilateral hip pain Status: Acute (3) Fall Status: Acute (4) Generalized weakness Status: Acute (5) Renal insufficiency Status: Acute (6) Scalp wound Status: Acute Comment Review of Relevant I have reviewed the following items bianca (where applicable) has been applied. Justifications for Admission Other Justification DAMIAN KINGSLEY MD Mar 10, 2020 11:10
[2020-03-10 11:25] LABS: CALCIUM PTH 9.2 mg/dL (8.7-10.3); CREATININE PTH 2.75 mg/dL (0.57-1.00); PHOSPHORUS PTH 3.6 mg/dL (3.0-4.3); PTH INTACT 128 pg/mL (15-65)
--- NOTE | 2020-03-10 15:37 | NUR ---
SW following for discharge planning. Spoke with RN and reviewed chart. Pt remains COVID pending. PT recommendation is SNU. SW attempted to call into pt's room, no answer. Spoke with daughter Nancy Cruz ([phone]) who stated pt will likely need SNU to LTC. Referral phoned and faxed to Nannette at [facility]. Patient choice of vendor form completed. Daughter stated she would think about other options for possible placement. SW following.
[2020-03-10] MEDS: INSULIN GLARGINE SYRINGE. SQ SCH (21:52)
[2020-03-11 03:40] VITALS: BP 131/63
[2020-03-11 04:28] LABS: BASO # 0.1 x10^3/uL (0.0-0.2); BASO % 1 % (0-3); EOS % 0 % (0-3); HEMATOCRIT 22.7 % (36.0-47.0); HEMOGLOBIN 7.1 g/dL (12.0-15.5); LYMPH # 0.8 x10^3/uL (1.0-4.8); LYMPH % 6 % (24-48); MEAN CORPUSCULAR HEMOGLOBIN 28 pg (25-35); MEAN CORPUSCULAR HGB CONC 31 g/dL (31-37); MEAN CORPUSCULAR VOLUME 91 fL (79-100); MONO # 1.9 x10^3/uL (0.0-1.1); MONO % 13 % (0-9); NEUT # 11.7 x10^3/uL (1.8-7.7); NEUT % 81 % (31-73); PLATELET COUNT 224 x10^3/uL (140-400); WHITE BLOOD COUNT 14.5 x10^3/uL (4.0-11.0)
[2020-03-11 05:26] LABS: CALCIUM 8.7 mg/dL (8.5-10.1); GFR 18.3; POTASSIUM 4.6 mmol/L (3.5-5.1)
[2020-03-11 07:00] VITALS: BP 127/99
--- NOTE | 2020-03-11 07:55 | PDOC ---
[employer] PROGRESS NOTE Date of Service DOS: DATE: 03/11/20 TIME: 07:54 Chief Complaint Chief Complaint A/P: Mechanical fall Left hip pain > right - Bilateral hip pain - XR with no fracture Diabetic neuropathy Scalp wound slowly healing Anemia of chronic inflammation Acute on chronic Chronic kidney disease stage IIIb at least with current vasomotor nephropathy prerenal azotemia most likely Elevated BNP History of hypothyroidism History of essential hypertension History of breast cancer approximately 20 years ago status post mastectomy Morbid obesity with a BMI of 48 COVID 19 - recently diagnosed at [facility] History of Present Illness History of Present Illness Ms Cruz is a 79 year old female w/ PMHx breast Cancer s/p mastectomy, Diabetes-Type II, High Cholesterol, Hypertension, Hypothyroid, recent COVID 19 diagnosis at [facility] who presents via EMS with report of bilateral lower extremity weakness. Patient reports she was walking out of the bathroom using her cane and her "legs just gave out ". Patient reports she was still able to lower herself to the ground. Denies any head trauma or neck pain. Denies fever or chills. Denies cough or shortness of breath. Patient reports she has multiple health issues. Patient reports "I have it all ". Patient is unsure of the name of her home medications. Reports she has been on a blood thinner but is unsure of the name. Patient does report she has a chronic left parietal/occipital wound for which she follows with wound care regarding. Imaging negative for acute fracture. 03/09: She is still c/o left hip pain. Afebrile. Not able to bear weight. Pain 10/10. Became febrile overnight and transferred to [place] [address] unit. 03/10: Head wound bothering her. Febrile overnight to 101F. Mild SOB. No diarrhea. Appetite decreased. Febrile to 100.8 F overnight. WBC at 14.5, Hb 7.1 BUN 16, CR 3, CRP 163.5. She has been more drowsy today. Blood cultures and urine culture obtained and started on antibiotics. Left leg is bothering her. Vitals/I&O Vitals/I&O: Vital Signs Date Time Temp Pulse Resp B/P (MAP) Pulse Ox O2 Delivery O2 Flow Rate FiO2 03/11/20 03:40 100.8 92 20 131/63 (85) 95 Room Air 100.8 03/10/20 19:25 95.0 I & O 03/10/20 03/10/20 03/11/20 15:00 23:00 07:00 Intake Total 120 ml 300 ml 200 ml Output Total 800 ml Balance -680 ml 300 ml 200 ml Physical Exam General: Alert, Cooperative Heart: Regular rate, Normal S1, Normal S2 Lungs: Clear Abdomen: Normal bowel sounds, Soft Extremities: No clubbing, No cyanosis Skin: No rashes, No breakdown Labs Labs: Laboratory Tests Test 03/10/20 08:03 03/10/20 11:47 03/10/20 16:56 03/10/20 20:18 Glucose (Fingerstick) 136 mg/dL (70-99) 201 mg/dL (70-99) 139 mg/dL (70-99) 260 mg/dL (70-99) Test 03/11/20 03:30 White Blood Count 14.5 x10^3/uL (4.0-11.0) Red Blood Count 2.50 x10^6/uL (3.50-5.40) Hemoglobin 7.1 g/dL (12.0-15.5) Hematocrit 22.7 % (36.0-47.0) Mean Corpuscular Volume 91 fL (79-100) Mean Corpuscular Hemoglobin 28 pg (25-35) Mean Corpuscular Hemoglobin Concent 31 g/dL (31-37) Red Cell Distribution Width 17.0 % (11.5-14.5) Platelet Count 224 x10^3/uL (140-400) Neutrophils (%) (Auto) 81 % (31-73) Lymphocytes (%) (Auto) 6 % (24-48) Monocytes (%) (Auto) 13 % (0-9) Eosinophils (%) (Auto) 0 % (0-3) Basophils (%) (Auto) 1 % (0-3) Neutrophils # (Auto) 11.7 x10^3/uL (1.8-7.7) Lymphocytes # (Auto) 0.8 x10^3/uL (1.0-4.8) Monocytes # (Auto) 1.9 x10^3/uL (0.0-1.1) Eosinophils # (Auto) 0.0 x10^3/uL (0.0-0.7) Basophils # (Auto) 0.1 x10^3/uL (0.0-0.2) Sodium Level 136 mmol/L (136-145) Potassium Level 4.6 mmol/L (3.5-5.1) Chloride Level 100 mmol/L (98-107) Carbon Dioxide Level 24 mmol/L (21-32) Anion Gap 12 (6-14) Blood Urea Nitrogen 60 mg/dL (7-20) Creatinine 3.0 mg/dL (0.6-1.0) Estimated GFR (Cockcroft-Gault) 18.3 Glucose Level 230 mg/dL (70-99) Calcium Level 8.7 mg/dL (8.5-10.1) C-Reactive Protein, Quantitative 163.5 mg/L (0-3.3) Assessment and Plan Assessmemt and Plan Problems Medical Problems: (1) Anemia Status: Acute (2) Bilateral hip pain Status: Acute (3) Fall Status: Acute (4) Generalized weakness Status: Acute (5) Renal insufficiency Status: Acute (6) Scalp wound Status: Acute Comment Review of Relevant I have reviewed the following items bianca (where applicable) has been applied. Justifications for Admission Other Justification DAMIAN KINGSLEY MD Mar 11, 2020 07:55
[2020-03-11] MEDS: PREGABALIN 75 MG CAPSULE PO SCH ×2 (08:25→21:05)
[2020-03-11] MEDS: ASPIRIN CHEWABLE 81 MG TABLET. PO SCH (08:25)
[2020-03-11] MEDS: CETIRIZINE HCL 10 MG TABLET. PO SCH (08:26)
[2020-03-11] MEDS: CHOLECALCIFEROL (VITAMIN D3) 5,000 UNIT CAPSULE PO SCH (08:26)
[2020-03-11] MEDS: POTASSIUM CHLORIDE 10 MEQ TABLET.ER. PO SCH (08:26)
[2020-03-11] MEDS: AMIODARONE HCL 200 MG TABLET. PO SCH (08:27)
[2020-03-11] MEDS: ENOXAPARIN 40 MG/0.4 ML SYRINGE. SQ SCH (08:28)
[2020-03-11] MEDS: INSULIN LISPRO 300 UNITS/3 ML VIAL. SQ SCH ×6 (08:38→17:17)
[2020-03-11] MEDS: HYDROcodone/APAP 10/325 1 TAB TABLET PO PRN ×2 (10:49→21:06)
[2020-03-11 11:00] VITALS: BP 135/65
[2020-03-11 14:27] LABS: % LYMPHS 6 % (24-48); % MONOS 18 % (0-10); % SEGS 76 % (35-66); ANISOCYTOSIS SLIGHT; NUCLEATED RBC 1; PLT ESTIMATE ADEQUATE (ADEQUATE); POLYCHROMASIA PRESENT
[2020-03-11 15:00] VITALS: BP 120/58
[2020-03-11] MEDS ORDERED: PIPERACILLIN/TAZOBACTAM 3.375 GM in IV NORMAL SALINE 50ML 50 ML IV ONE (17:00)
[2020-03-11] MEDS ORDERED: DOXYCYCLINE HYCLATE 100 MG in IV DEXTROSE 5% 100ML 100 ML IV ONE (17:30)
[2020-03-11 19:49] VITALS: BP 154/69
[2020-03-11 20:22] LABS: BILIRUBIN,URINE NEGATIVE (NEG); CLARITY,URINE CLEAR; COLOR,URINE YELLOW; NITRITE,URINE NEGATIVE (NEG); PROTEIN,URINE NEGATIVE (NEG-TRACE); UROBILINOGEN,URINE 0.2 mg/dL (0.2 mg/dL)
[2020-03-11 20:29] LABS: AMORPHOUS SEDIMENT,UR PRESENT /HPF; BACTERIA,URINE FEW /HPF (0-FEW); RBC,URINE 0 /HPF (0-2); WBC,URINE OCC /HPF (0-4); YEAST,URINE PRESENT /HPF
[2020-03-11] MEDS ORDERED: ISOS30TA19 PO (22:05)
[2020-03-11 23:30] VITALS: BP 123/58
[2020-03-12] VITALS (10 sets, daily range): BP systolic 129–174; BP diastolic 60–71
[2020-03-12] MEDS: INSULIN GLARGINE SYRINGE. SQ SCH ×2 (01:51→21:21)
[2020-03-12 04:25] LABS: BASO # 0.1 x10^3/uL (0.0-0.2); BASO % 1 % (0-3); EOS # 0.1 x10^3/uL (0.0-0.7); EOS % 1 % (0-3); HEMATOCRIT 22.4 % (36.0-47.0); LYMPH # 0.8 x10^3/uL (1.0-4.8); LYMPH % 7 % (24-48); MEAN CORPUSCULAR HEMOGLOBIN 28 pg (25-35); MEAN CORPUSCULAR HGB CONC 31 g/dL (31-37); MEAN CORPUSCULAR VOLUME 91 fL (79-100); MONO # 1.4 x10^3/uL (0.0-1.1); MONO % 13 % (0-9); NEUT # 8.8 x10^3/uL (1.8-7.7); NEUT % 78 % (31-73); PLATELET COUNT 230 x10^3/uL (140-400); RED BLOOD COUNT 2.46 x10^6/uL (3.50-5.40); RED CELL DISTRIBUTION WIDTH 16.9 % (11.5-14.5); WHITE BLOOD COUNT 11.2 x10^3/uL (4.0-11.0)
[2020-03-12 04:34] LABS: HEMOGLOBIN 6.9 g/dL (12.0-15.5)
[2020-03-12 04:43] LABS: ALBUMIN 2.4 g/dL (3.4-5.0); ALBUMIN/GLOBULIN RATIO 0.6 (1.0-1.7); CREATININE 3.8 mg/dL (0.6-1.0); GFR 13.9; POTASSIUM 4.9 mmol/L (3.5-5.1); TOTAL BILIRUBIN 0.4 mg/dL (0.2-1.0); TOTAL PROTEIN 6.6 g/dL (6.4-8.2)
[2020-03-12] MEDS: INSULIN LISPRO 300 UNITS/3 ML VIAL. SQ SCH ×6 (08:00→17:55)
[2020-03-12] MEDS: POTASSIUM CHLORIDE 10 MEQ TABLET.ER. PO SCH (08:52)
[2020-03-12] MEDS: PREGABALIN 75 MG CAPSULE PO SCH (08:52)
[2020-03-12] MEDS: CHOLECALCIFEROL (VITAMIN D3) 5,000 UNIT CAPSULE PO SCH (08:52)
[2020-03-12] MEDS: CETIRIZINE HCL 10 MG TABLET. PO SCH (08:53)
[2020-03-12] MEDS ORDERED: ENOXAPARIN 30 MG/0.3 ML SYRINGE. SQ SCH (09:00)
[2020-03-12] MEDS: ASPIRIN CHEWABLE 81 MG TABLET. PO SCH (09:26)
--- NOTE | 2020-03-12 09:26 | PDOC ---
[employer] PROGRESS NOTE Date of Service DOS: DATE: 03/12/20 TIME: 09:24 Chief Complaint Chief Complaint A/P: Acute encephalopathy - multifactorial metabolic. Will monitor mental status. Previously told she had CVA at [facility]. No focal neuro deficits Mechanical fall - PT/OT, likely needs rehab Left hip pain > right - Bilateral hip pain - XR with no fracture, pain resolved with repositioning Diabetic neuropathy Scalp wound slowly healing - wound care to see Anemia - will transfuse Acute on chronic Chronic kidney disease stage IIIb at least with current vasom otor nephropathy prerenal azotemia most likely Elevated BNP History of hypothyroidism History of essential hypertension History of breast cancer approximately 20 years ago status post mastectomy Morbid obesity with a BMI of 48 COVID 19 - recently diagnosed at [facility] January 2020 Cardiomyopathy - sees advanced CHF clinic at [facility], Dr. Mikhail Khanna on Vyndamax FEN - ADA cardiac diet PPX - eliquis CODE - DNR/DNI Dispo - inpatient History of Present Illness History of Present Illness Ms Cruz is a 79 yo F w/ PMHx breast Cancer s/p left mastectomy, Diabetes-Type II, High Cholesterol, Hypertension, Hypothyroid, afib, OA bilateral knees, cardiomyopathy, recent diagnosis at [facility] of COVID 19 with pneumonia in January 2020 with 2 weeks of acute rehab and was discharged home with her daughter for 2 weeks who then went home from her daughter's house who was at home for almost 3 weeks who presented via EMS with report of bilateral lower extremity weakness. Patient reports she was walking out of the bathroom using her cane and her "legs just gave out ". Patient reports she was still able to lower herself to the g round. Denies any head trauma or neck pain. Denies fever or chills. Denies cough or shortness of breath. Patient reports she has multiple health issues. Patient reports "I have it all ". Patient does report she has a chronic left parietal/occipital wound for which she follows with wound care regarding. Imaging negative for acute fracture. Very confused and combative. Her daughter notes she has not been the same since COVID 19 and has baseline weight of 262 pounds, but is currently 284 pounds. 03/09: She is still c/o left hip pain. Afebrile. Not able to bear weight. Pain 10/10. Became febrile overnight and transferred to [facility] unit. 03/10: Head wound bothering her. Febrile overnight to 101F. Mild SOB. No diarrhea. Appetite decreased. 03/11: Febrile to 100.8 F overnight. WBC at 14.5, Hb 7.1 BUN 16, CR 3, CRP 163.5. She has been more drowsy today. Blood cultures and urine culture obtained and started on antibiotics. Left leg is bothering her. Afebrile overnight. Cr up to 3.8. Hb 6.9. No more swollen. Very weak. Less drowsy, still confused. After d/w her daughter apparently she has been on Vyndamax, presumptively in a research study, she has never heard of any diagnosis of amyloidosis, and follows with [facility] cardiology, but she does note her mother has been progressively more confused since her COVID 19 recovery in January. Plan: Will communicate with Nancy. her daughter, , who would like daily updates and formal DPOA paperwork through social work Will need skilled services on discharge Vitals/I&O Vitals/I&O: Vital Signs Date Time Temp Pulse Resp B/P (MAP) Pulse Ox O2 Delivery O2 Flow Rate FiO2 03/12/20 07:00 97.0 83 17 160/70 (100) 97 Room Air 97.0 03/11/20 19:50 2.0 I & O 03/11/20 03/11/20 03/12/20 15:00 23:00 07:00 Intake Total 600 ml 300 ml Output Total 250 ml 400 ml Balance 600 ml 50 ml -400 ml Physical Exam General: Alert, Cooperative Heart: Regular rate, Normal S1, Normal S2 Lungs: Clear Abdomen: Normal bowel sounds, Soft Extremities: No clubbing, No cyanosis Skin: No rashes, No breakdown Labs Labs: Laboratory Tests Test 03/11/20 11:33 03/11/20 16:49 03/11/20 20:10 03/11/20 20:25 Glucose (Fingerstick) 181 mg/dL (70-99) 168 mg/dL (70-99) 158 mg/dL (70-99) Urine Collection Type U cath Urine Color Yellow Urine Clarity Clear Urine pH 5.0 (<5.0-8.0) Urine Specific [place] 1.015 (1.000-1.030) Urine Protein Negative mg/dL (NEG-TRACE) Urine Glucose (UA) Negative mg/dL (NEG) Urine Ketones (Stick) Negative mg/dL (NEG) Urine Blood Negative (NEG) Urine Nitrite Negative (NEG) Urine Bilirubin Negative (NEG) Urine Urobilinogen Dipstick 0.2 mg/dL (0.2 mg/dL) Urine Leukocyte Esterase Negative (NEG) Urine RBC 0 /HPF (0-2) Urine WBC Occ /HPF (0-4) Urine Squamous Epithelial Cells Mod /LPF Urine Amorphous Sediment Present /HPF Urine Bacteria Few /HPF (0-FEW) Urine Mucus Mod /LPF Urine Yeast Present /HPF Urine Random Creatinine 126.6 mg/dL (Not Establ.) Test 03/12/20 04:00 03/12/20 07:49 White Blood Count 11.2 x10^3/uL (4.0-11.0) Red Blood Count 2.46 x10^6/uL (3.50-5.40) Hemoglobin 6.9 g/dL (12.0-15.5) Hematocrit 22.4 % (36.0-47.0) Mean Corpuscular Volume 91 fL (79-100) Mean Corpuscular Hemoglobin 28 pg (25-35) Mean Corpuscular Hemoglobin Concent 31 g/dL (31-37) Red Cell Distribution Width 16.9 % (11.5-14.5) Platelet Count 230 x10^3/uL (140-400) Neutrophils (%) (Auto) 78 % (31-73) Lymphocytes (%) (Auto) 7 % (24-48) Monocytes (%) (Auto) 13 % (0-9) Eosinophils (%) (Auto) 1 % (0-3) Basophils (%) (Auto) 1 % (0-3) Neutrophils # (Auto) 8.8 x10^3/uL (1.8-7.7) Lymphocytes # (Auto) 0.8 x10^3/uL (1.0-4.8) Monocytes # (Auto) 1.4 x10^3/uL (0.0-1.1) Eosinophils # (Auto) 0.1 x10^3/uL (0.0-0.7) Basophils # (Auto) 0.1 x10^3/uL (0.0-0.2) Sodium Level 137 mmol/L (136-145) Potassium Level 4.9 mmol/L (3.5-5.1) Chloride Level 103 mmol/L (98-107) Carbon Dioxide Level 23 mmol/L (21-32) Anion Gap 11 (6-14) Blood Urea Nitrogen 73 mg/dL (7-20) Creatinine 3.8 mg/dL (0.6-1.0) Estimated GFR (Cockcroft-Gault) 13.9 BUN/Creatinine Ratio 19 (6-20) Glucose Level 138 mg/dL (70-99) Calcium Level 9.0 mg/dL (8.5-10.1) Total Bilirubin 0.4 mg/dL (0.2-1.0) Aspartate Amino Transf (AST/SGOT) 18 U/L (15-37) Alanine Aminotransferase (ALT/SGPT) 15 U/L (14-59) Alkaline Phosphatase 66 U/L (46-116) Total Protein 6.6 g/dL (6.4-8.2) Albumin 2.4 g/dL (3.4-5.0) Albumin/Globulin Ratio 0.6 (1.0-1.7) Glucose (Fingerstick) 145 mg/dL (70-99) Assessment and Plan Assessmemt and Plan Problems Medical Problems: (1) Anemia Status: Acute (2) Bilateral hip pain Status: Acute (3) Fall Status: Acute (4) Generalized weakness Status: Acute (5) Renal insufficiency Status: Acute (6) Scalp wound Status: Acute Comment Review of Relevant I have reviewed the following items bianca (where applicable) has been applied. Medications: Current Medications Medications (Trade) Dose Ordered Sig/José Miguel Route PRN Reason Start Time Stop Time Status Last Admin Dose Admin Piperacillin Sod/ Tazobactam Sod 3.375 gm/Sodium Chloride 50 ml @ 100 mls/hr 1X ONCE IV 03/11/20 17:00 03/11/20 17:29 DC 03/11/20 16:48 Doxycycline Hyclate 100 mg/ Dextrose 100 ml @ 50 mls/hr 1X ONCE IV 03/11/20 17:30 03/11/20 19:29 DC 03/11/20 18:30 Justifications for Admission Other Justification DAMIAN KINGSLEY MD Mar 12, 2020 09:26
[2020-03-12] MEDS: HYDROcodone/APAP 10/325 1 TAB TABLET PO PRN ×2 (09:52→20:20)
[2020-03-12] MEDS ORDERED: ISOS30TA19 PO (10:58)
[2020-03-12] MEDS ORDERED: HYDR-2761 PO (11:03)
[2020-03-12] MEDS ORDERED: TAFA61CA PO (11:12)
--- NOTE | 2020-03-12 13:52 | PDOC2 ---
CONSULT Date of Consult Date of Consult DATE: 03/12/20 TIME: 13:50 Reason for Consult Reason for Consult: KAYLIE on CKD Source Source: Chart review, Patient History of Present Illness Reason for Visit: Patient is a 79-year-old AAF female with past medical history of diabetes mellitus with peripheral neuropathy, morbid obesity, essential hypertension who was in her usual state of health , reports suddenly her knees "gave up" on the morning of presentation to the ER (admitted on 03/08) . The patient was able to break the fall with her stand-up chair did not suffer any trauma . Denies any lightheadedness prior to this event , no palpitations, no shortness of breath, no orthopnea, no paroxysmal nocturnal dyspnea no chest pain or palpitations . Denies any N/V. No F/C or cough . Denies any Urinary complaints /. She states she follows with [facility], unable to give any details She states she has LE edema and noticing that her lower extremities are darker than usual. She denies any pain over the affected area, she does have neuropathy which has been present for a long time. She takes Lyrica for this, patient apparently after being admitted at where she was told she had a stroke and was most likely quite debilitated was transferred to [facility] rehab where she spent quite some time according to the patient. She was recently discharged from the rehab and transition home where she lives alone. No changes have been made to her medications She denies nephrotoxic drug use, she thinks she may be taking Ibuprofen (she is not sure and NSAID's not listed in her med list ) Past Medical History Cardiovascular: AFIB, CAD, HTN, Hyperlipidemia Heme/Onc: Cancer Endocrine: Diabetes, Hypothyroidism Past Surgical History Past Surgical History: Mastectomy Family History Family History: Heart Disease, High Cholestrol Social History ALCOHOL: none Drugs: None Current Problem List Problem List Problems Medical Problems: (1) Anemia Status: Acute (2) Bilateral hip pain Status: Acute (3) Fall Status: Acute (4) Generalized weakness Status: Acute (5) Renal insufficiency Status: Acute (6) Scalp wound Status: Acute Current Medications Current Medications Current Medications Sodium Chloride 1,000 ml @ 1,000 mls/hr 1X ONCE IV Last administered on 03/08/20at 14:59; Start 03/08/20 at 14:30; Stop 03/08/20 at 15:29; Status DC Ondansetron HCl (Zofran) 4 mg PRN Q8HRS PRN IV NAUSEA/VOMITING; Start 03/08/20 at 17:45; Stop 03/09/20 at 17:44; Status DC Insulin Human Lispro (HumaLOG) 0-5 UNITS TIDWMEALS SQ ; Start 03/09/20 at 08:00; Status Cancel Dextrose (Dextrose 50%-Water Syringe) 12.5 gm PRN Q15MIN PRN IV SEE COMMENTS; Start 03/08/20 at 17:45; Stop 03/08/20 at 18:04; Status DC Ondansetron HCl (Zofran) 4 mg PRN Q4HRS PRN IV NAUSEA/VOMITING; Start 03/08/20 at 18:00 Zolpidem Tartrate (Ambien) 5 mg PRN QHS PRN PO INSOMNIA Last administered on 03/11/20at 21:05; Start 03/08/20 at 18:00; Stop 03/12/20 at 12:21; Status DC Acetaminophen (Tylenol) 650 mg PRN Q4HRS PRN PO TEMP OVER 100.4F OR MILD PAIN Last administered on 03/09/20at 20:23; Start 03/08/20 at 18:00 Al Hydroxide/Mg Hydroxide (Mylanta Plus Xs) 30 ml PRN DAILY PRN PO HEARTBURN / GAS; Start 03/08/20 at 18:00 Albuterol Sulfate (Ventolin Neb Soln) 2.5 mg PRN Q4HRS PRN NEB SHORTNESS OF BREATH; Start 03/08/20 at 18:00 Albuterol/ Ipratropium (Duoneb) 3 ml Q4H NEB Last administered on 03/08/20at 20:10; Start 03/08/20 at 18:00; Stop 03/08/20 at 20:20; Status DC Guaifenesin (Robitussin) 200 mg PRN Q4HRS PRN PO COUGH; Start 03/08/20 at 18:00 Lorazepam (Ativan) 0.5 mg PRN Q4HRS PRN PO ANXIETY / AGITATION; Start 03/08/20 at 18:00; Stop 03/12/20 at 12:21; Status DC Enoxaparin Sodium (Lovenox 40mg Syringe) 40 mg Q12H SQ ; Start 03/09/20 at 09:00; Status Cancel Amiodarone HCl (Cordarone) 200 mg DAILY PO Last administered on 03/11/20at 08:27; Start 03/09/20 at 09:00; Stop 03/12/20 at 12:21; Status DC Amlodipine Besylate (Norvasc) 5 mg DAILY PO Last administered on 03/11/20at 08:27; Start 03/09/20 at 09:00; Stop 03/12/20 at 12:21; Status DC Aspirin (Aspirin Chewable) 81 mg DAILY PO Last administered on 03/12/20at 09:26; Start 03/09/20 at 09:00 Acetaminophen/ Hydrocodone Bitart (Lortab 10/325) 2 tab PRN Q6HRS PRN PO SEVERE PAIN 7-10 Last administered on 03/12/20at 09:52; Start 03/08/20 at 18:00 Potassium Chloride (Klor-Con) 30 meq DAILY PO Last administered on 03/12/20at 08:52; Start 03/09/20 at 09:00 Pregabalin (Lyrica) 75 mg BID PO Last administered on 03/12/20at 08:52; Start 03/08/20 at 21:00; Stop 03/12/20 at 12:21; Status DC Torsemide (Demadex) 100 mg DAILY PO Last administered on 03/10/20 08:27; Start 03/09/20 at 09:00; Stop 03/11/20 at 07:56; Status DC Vitamin D (Vitamin D3) 5,000 unit DAILY PO Last administered on 03/12/20at 08:52; Start 03/09/20 at 09:00 Insulin Human Lispro (HumaLOG) 8 units TIDWMEALS SQ Last administered on 03/12/20at 12:20; Start 03/09/20 at 08:00 Insulin Glargine (Lantus Syringe) 16 unit QHS SQ Last administered on 03/12/20at 01:51; Start 03/08/20 at 21:00 Cetirizine HCl (ZyrTEC) 10 mg DAILY PO Last administered on 03/12/20at 08:53; Start 03/09/20 at 09:00 Tizanidine HCl (Zanaflex) 2 mg PRN TID PRN PO MUSCLE SPASMS Last administered on 03/09/20at 20:23; Start 03/08/20 at 18:15; Stop 03/09/20 at 21:40; Status DC Insulin Human Lispro (HumaLOG) 0-7 UNITS TIDWMEALS SQ Last administered on 03/12/20at 12:21; Start 03/09/20 at 08:00 Dextrose (Dextrose 50%-Water Syringe) 12.5 gm PRN Q15MIN PRN IV SEE COMMENTS; Start 03/08/20 at 18:00 Fentanyl Citrate (Fentanyl 2ml Vial) 50 mcg PRN Q3HRS PRN IVP pain Last administered on 03/11/20at 20:15; Start 03/08/20 at 19:15 Enoxaparin Sodium (Lovenox 40mg Syringe) 40 mg Q24H SQ Last administered on 03/11/20at 08:28; Start 03/09/20 at 09:00; Stop 03/11/20 at 13:03; Status DC Albuterol/ Ipratropium (Duoneb) 3 ml Q4H PRN NEB WHEEZING; Start 03/08/20 at 20:30; Stop 03/08/20 at 20:22; Status DC Enoxaparin Sodium (Lovenox 30mg Syringe) 30 mg Q24H SQ Last administered on 03/12/20at 09:27; Start 03/12/20 at 09:00; Stop 03/12/20 at 11:30; Status DC Piperacillin Sod/ Tazobactam Sod 3.375 gm/Sodium Chloride 50 ml @ 100 mls/hr 1X ONCE IV Last administered on 03/11/20at 16:48; Start 03/11/20 at 17:00; Stop 03/11/20 at 17:29; Status DC Doxycycline Hyclate 100 mg/ Dextrose 100 ml @ 50 mls/hr 1X ONCE IV Last administered on 03/11/20at 18:30; Start 03/11/20 at 17:30; Stop 03/11/20 at 19:29; Status DC Enoxaparin Sodium (Lovenox 40mg Syringe) 40 mg Q24H SQ ; Start 03/13/20 at 09:0 0; Stop 03/12/20 at 12:21; Status DC Pregabalin (Lyrica) 25 mg BID PO ; Start 03/12/20 at 21:00 Apixaban (Eliquis) 2.5 mg BID PO ; Start 03/12/20 at 21:00 Hydralazine HCl (Apresoline) 100 mg BID PO ; Start 03/12/20 at 21:00 Isosorbide Dinitrate (Isordil) 10 mg BID94 PO ; Start 03/12/20 at 16:00 Lactobacillus Rhamnosus (Culturelle) 1 cap BID PO ; Start 03/12/20 at 21:00 Metoprolol Tartrate (Lopressor) 25 mg BID PO ; Start 03/12/20 at 21:00 Pantoprazole Sodium (Protonix) 40 mg DAILYAC PO ; Start 03/13/20 at 07:30 Non-Formulary Medication (Tafamidis (Vyndamax)) 61 mg DAILY PO ; Start 03/13/20 at 09:00; Status UNV Active Scripts Active Reported Vyndamax (Tafamidis) 61 Mg Capsule 61 Mg PO DAILY Hydrocodone-Apap 5-325 (Hydrocodone Bit/Acetaminophen) 1 Tab Tablet 1 Tab PO PRN Q6HRS PRN Isosorbide Dinitrate 30 Mg Tablet 10 Mg PO BID 30 Days Lyrica (Pregabalin) 50 Mg Capsule 25 Mg PO BID PRN Torsemide 100 Mg Tablet 50 Mg PO BID Acidophilus Lactobacilli (Lactobacillus Acidophilus) 1 Each Capsule 1 Cap PO DAILY 30 Days Protonix (Pantoprazole Sodium) 20 Mg Tablet.dr 40 Mg PO DAILY Metoprolol Tartrate 37.5 Mg Tablet 25 Mg PO BID Hydralazine Hcl 100 Mg Tablet 1 Tab PO BID Zetia (Ezetimibe) 10 Mg Tablet 1 Tab PO DAILY 30 Days Eliquis (Apixaban) 2.5 Mg Tablet 2.5 Mg PO BID Potassium Chloride (Potassium Chloride) 10 Meq Tab.sr.24h 30 Meq PO DAILY Magnesium Citrate 296 Ml Solution 296 Ml PO PRN PRN Novolog (Insulin Aspart) 100 Unit/1 Ml Cartridge 8 Unit SQ TID Levemir (Insulin Detemir) 100 Unit/1 Ml Vial 16 Unit SQ DAILYWSUP Claritin (Loratadine) 10 Mg Tablet 1 Tab PO DAILY Vitamin D3 (Cholecalciferol (Vitamin D3)) 5,000 Unit Tablet 1 Tab PO DAILY Children's Aspirin (Aspirin) 81 Mg Tab.chew 81 Mg PO Allergies Allergies: Coded Allergies: [id number]-[id number] Reductase Inhibitor (Verified Allergy, Intermediate, 11/19/17) cyclobenzaprine (Verified Allergy, Intermediate, 03/09/20) morphine (Verified Adverse Reaction, Intermediate, 11/19/17) ROS Review of System As per HPI, rest of the ROS is negative Physical Exam Physical Exam GEN.: No apparent distress. HEENT: Head is normocephalic, atraumatic, om moist NECK: Supple. LUNGS: Clear to auscultation, non labored HEART: RRR, S1, S2 present. ABDOMEN: Soft, nontender. Positive bowel sounds. EXTREMITIES: Changes of CVI +, Chr LE edema + NEUROLOGIC: Grossly normal PSYCHIATRIC: Normal affect, normal mood. SKIN: No rash No Barrios, No CAV or SP tenderness Vital Signs Vital Signs Date Time Temp Pulse Resp B/P (MAP) Pulse Ox O2 Delivery O2 Flow Rate FiO2 03/12/20 11:00 97.7 65 17 134/64 (87) 94 Room Air 97.7 03/11/20 19:50 2.0 Assessment & Plan KAYLIE on CKD - ATN , Non Oliguric, worsening renal function since admission on 03/08 Renal US- no acute findings, UA unremarkable - No overt proteinuria, No Micr hematuria , no e/o uti , Torsemide 50 mg BID at home (held since yesterday ) Supportive care , strict I/O , Avoid nephrotoxins CKD stage 3B /? 4- daughter reported to RN -baseline Cr 2.3 [place] Renal US Bilateral increased renal cortical echogenicity. No hydronephrosis. 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 No details known. Please obtain records Anemia- Acute decrease in Hemoglobin, PRBC COVID 19 - recently diagnosed at [facility] HTN- antihypertensives Mechanical fall Bilateral hip pain Diabetic neuropathy History of hypothyroidism History of breast cancer approximately 20 years ago status post mastectomy Morbid obesity with a BMI of 48 Labs Labs Laboratory Tests Test 03/10/20 16:56 03/10/20 20:18 03/11/20 03:30 03/11/20 07:40 Glucose (Fingerstick) 139 mg/dL (70-99) 260 mg/dL (70-99) 207 mg/dL (70-99) White Blood Count 14.5 x10^3/uL (4.0-11.0) Red Blood Count 2.50 x10^6/uL (3.50-5.40) Hemoglobin 7.1 g/dL (12.0-15.5) Hematocrit 22.7 % (36.0-47.0) Mean Corpuscular Volume 91 fL (79-100) Mean Corpuscular Hemoglobin 28 pg (25-35) Mean Corpuscular Hemoglobin Concent 31 g/dL (31-37) Red Cell Distribution Width 17.0 % (11.5-14.5) Platelet Count 224 x10^3/uL (140-400) Neutrophils (%) (Auto) 81 % (31-73) Lymphocytes (%) (Auto) 6 % (24-48) Monocytes (%) (Auto) 13 % (0-9) Eosinophils (%) (Auto) 0 % (0-3) Basophils (%) (Auto) 1 % (0-3) Neutrophils # (Auto) 11.7 x10^3/uL (1.8-7.7) Lymphocytes # (Auto) 0.8 x10^3/uL (1.0-4.8) Monocytes # (Auto) 1.9 x10^3/uL (0.0-1.1) Eosinophils # (Auto) 0.0 x10^3/uL (0.0-0.7) Basophils # (Auto) 0.1 x10^3/uL (0.0-0.2) Segmented Neutrophils % 76 % (35-66) Lymphocytes % 6 % (24-48) Monocytes % 18 % (0-10) Nucleated Red Blood Cells 1 Platelet Estimate Adequate (ADEQUATE) Polychromasia Present Anisocytosis Slight Sodium Level 136 mmol/L (136-145) Potassium Level 4.6 mmol/L (3.5-5.1) Chloride Level 100 mmol/L (98-107) Carbon Dioxide Level 24 mmol/L (21-32) Anion Gap 12 (6-14) Blood Urea Nitrogen 60 mg/dL (7-20) Creatinine 3.0 mg/dL (0.6-1.0) Estimated GFR (Cockcroft-Gault) 18.3 Glucose Level 230 mg/dL (70-99) Calcium Level 8.7 mg/dL (8.5-10.1) C-Reactive Protein, Quantitative 163.5 mg/L (0-3.3) Test 1/9/21 11:33 03/11/20 16:49 03/11/20 20:10 03/11/20 20:25 Glucose (Fingerstick) 181 mg/dL (70-99) 168 mg/dL (70-99) 158 mg/dL (70-99) Urine Collection Type U cath Urine Color Yellow Urine Clarity Clear Urine pH 5.0 (<5.0-8.0) Urine Specific [place] 1.015 (1.000-1.030) Urine Protein Negative mg/dL (NEG-TRACE) Urine Glucose (UA) Negative mg/dL (NEG) Urine Ketones (Stick) Negative mg/dL (NEG) Urine Blood Negative (NEG) Urine Nitrite Negative (NEG) Urine Bilirubin Negative (NEG) Urine Urobilinogen Dipstick 0.2 mg/dL (0.2 mg/dL) Urine Leukocyte Esterase Negative (NEG) Urine RBC 0 /HPF (0-2) Urine WBC Occ /HPF (0-4) Urine Squamous Epithelial Cells Mod /LPF Urine Amorphous Sediment Present /HPF Urine Bacteria Few /HPF (0-FEW) Urine Mucus Mod /LPF Urine Yeast Present /HPF Urine Random Creatinine 126.6 mg/dL (Not Establ.) Test 03/12/20 04:00 03/12/20 07:49 03/12/20 11:16 White Blood Count 11.2 x10^3/uL (4.0-11.0) Red Blood Count 2.46 x10^6/uL (3.50-5.40) Hemoglobin 6.9 g/dL (12.0-15.5) Hematocrit 22.4 % (36.0-47.0) Mean Corpuscular Volume 91 fL (79-100) Mean Corpuscular Hemoglobin 28 pg (25-35) Mean Corpuscular Hemoglobin Concent 31 g/dL (31-37) Red Cell Distribution Width 16.9 % (11.5-14.5) Platelet Count 230 x10^3/uL (140-400) Neutrophils (%) (Auto) 78 % (31-73) Lymphocytes (%) (Auto) 7 % (24-48) Monocytes (%) (Auto) 13 % (0-9) Eosinophils (%) (Auto) 1 % (0-3) Basophils (%) (Auto) 1 % (0-3) Neutrophils # (Auto) 8.8 x10^3/uL (1.8-7.7) Lymphocytes # (Auto) 0.8 x10^3/uL (1.0-4.8) Monocytes # (Auto) 1.4 x10^3/uL (0.0-1.1) Eosinophils # (Auto) 0.1 x10^3/uL (0.0-0.7) Basophils # (Auto) 0.1 x10^3/uL (0.0-0.2) Sodium Level 137 mmol/L (136-145) Potassium Level 4.9 mmol/L (3.5-5.1) Chloride Level 103 mmol/L (98-107) Carbon Dioxide Level 23 mmol/L (21-32) Anion Gap 11 (6-14) Blood Urea Nitrogen 73 mg/dL (7-20) Creatinine 3.8 mg/dL (0.6-1.0) Estimated GFR (Cockcroft-Gault) 13.9 BUN/Creatinine Ratio 19 (6-20) Glucose Level 138 mg/dL (70-99) Calcium Level 9.0 mg/dL (8.5-10.1) Total Bilirubin 0.4 mg/dL (0.2-1.0) Aspartate Amino Transf (AST/SGOT) 18 U/L (15-37) Alanine Aminotransferase (ALT/SGPT) 15 U/L (14-59) Alkaline Phosphatase 66 U/L (46-116) Total Protein 6.6 g/dL (6.4-8.2) Albumin 2.4 g/dL (3.4-5.0) Albumin/Globulin Ratio 0.6 (1.0-1.7) Glucose (Fingerstick) 145 mg/dL (70-99) 206 mg/dL (70-99) Laboratory Tests Test 03/11/20 16:49 03/11/20 20:10 03/11/20 20:25 03/12/20 04:00 Glucose (Fingerstick) 168 mg/dL (70-99) 158 mg/dL (70-99) Urine Collection Type U cath Urine Color Yellow Urine Clarity Clear Urine pH 5.0 (<5.0-8.0) Urine Specific [place] 1.015 (1.000-1.030) Urine Protein Negative mg/dL (NEG-TRACE) Urine Glucose (UA) Negative mg/dL (NEG) Urine Ketones (Stick) Negative mg/dL (NEG) Urine Blood Negative (NEG) Urine Nitrite Negative (NEG) Urine Bilirubin Negative (NEG) Urine Urobilinogen Dipstick 0.2 mg/dL (0.2 mg/dL) Urine Leukocyte Esterase Negative (NEG) Urine RBC 0 /HPF (0-2) Urine WBC Occ /HPF (0-4) Urine Squamous Epithelial Cells Mod /LPF Urine Amorphous Sediment Present /HPF Urine Bacteria Few /HPF (0-FEW) Urine Mucus Mod /LPF Urine Yeast Present /HPF Urine Random Creatinine 126.6 mg/dL (Not Establ.) White Blood Count 11.2 x10^3/uL (4.0-11.0) Red Blood Count 2.46 x10^6/uL (3.50-5.40) Hemoglobin 6.9 g/dL (12.0-15.5) Hematocrit 22.4 % (36.0-47.0) Mean Corpuscular Volume 91 fL (79-100) Mean Corpuscular Hemoglobin 28 pg (25-35) Mean Corpuscular Hemoglobin Concent 31 g/dL (31-37) Red Cell Distribution Width 16.9 % (11.5-14.5) Platelet Count 230 x10^3/uL (140-400) Neutrophils (%) (Auto) 78 % (31-73) Lymphocytes (%) (Auto) 7 % (24-48) Monocytes (%) (Auto) 13 % (0-9) Eosinophils (%) (Auto) 1 % (0-3) Basophils (%) (Auto) 1 % (0-3) Neutrophils # (Auto) 8.8 x10^3/uL (1.8-7.7) Lymphocytes # (Auto) 0.8 x10^3/uL (1.0-4.8) Monocytes # (Auto) 1.4 x10^3/uL (0.0-1.1) Eosinophils # (Auto) 0.1 x10^3/uL (0.0-0.7) Basophils # (Auto) 0.1 x10^3/uL (0.0-0.2) Sodium Level 137 mmol/L (136-145) Potassium Level 4.9 mmol/L (3.5-5.1) Chloride Level 103 mmol/L (98-107) Carbon Dioxide Level 23 mmol/L (21-32) Anion Gap 11 (6-14) Blood Urea Nitrogen 73 mg/dL (7-20) Creatinine 3.8 mg/dL (0.6-1.0) Estimated GFR (Cockcroft-Gault) 13.9 BUN/Creatinine Ratio 19 (6-20) Glucose Level 138 mg/dL (70-99) Calcium Level 9.0 mg/dL (8.5-10.1) Total Bilirubin 0.4 mg/dL (0.2-1.0) Aspartate Amino Transf (AST/SGOT) 18 U/L (15-37) Alanine Aminotransferase (ALT/SGPT) 15 U/L (14-59) Alkaline Phosphatase 66 U/L (46-116) Total Protein 6.6 g/dL (6.4-8.2) Albumin 2.4 g/dL (3.4-5.0) Albumin/Globulin Ratio 0.6 (1.0-1.7) Test 03/12/20 07:49 03/12/20 11:16 Glucose (Fingerstick) 145 mg/dL (70-99) 206 mg/dL (70-99) Review All relevant outside records, renal labs, imaging studies, telemetry/EKG's were reviewed. Images Images Renal US Right kidney: measures 10.6 x 4.0 x 3.9 cm. Increased renal cortical echo genicity. No hydronephrosis. Left kidney: measures 10.6 x 5.6 x 6.5 cm. Increased renal cortical echogenicity. No hydronephrosis. Urinary bladder: No urinary bladder wall thickening. The IVC is normal caliber. The visualized abdominal aorta is normal caliber. IMPRESSION: 1. Bilateral increased renal cortical echogenicity, may indicate medical renal disease. No hydronephrosis. PROCEDURE: HIP BILATERAL WITH PELVIS XR HIP (WITH OR WITHOUT PELVIS) 1 VIEW 03/08/2020 2:44 PM INDICATION: Pain, right greater than left COMPARISON: None available. TECHNIQUE: AP view the pelvis and 2 dedicated views of each hip are provided. FINDINGS/ IMPRESSION: Body habitus limits evaluation. There is no acute fracture or dislocation. Mild inferomedial joint space narrowing identified bilaterally, left greater than right compatible with mild to moderate osteoarthrosis. There is subcortical sclerosis and marginal osteophytosis. Vascular calcifications are identified.. Bone mineralization is within normal limits. Regional soft tissues are within normal limits. There is no soft tissue gas or osseous erosion. No radiopaque foreign body. If there is persistent clinical concern, further evaluation with cross-sectional imaging may be of benefit. Electronically signed by: Kyara Larkin MD (03/08/2020 3:17 PM) [id number] PROCEDURE: CT HEAD AND CERVICAL SPINE [facility] Compliance Statement: One or more of the following individualized dose reduction techniques were utilized for this examination: 1. Automated exposure control 2. Adjustment of the mA and/or kV according to patient size 3. Use of iterative reconstruction technique CT head and cervical spine without contrast 03/08/2020 2:35 PM INDICATION: Weakness, fall COMPARISON: None available TECHNIQUE: Multiple axial CT images of the head were obtained from skull base through the vertex without intravenous contrast. Multiple axial CT images of the cervical spine were obtained without intravenous contrast. Coronal and sagittal reformats are provided. FINDINGS: Head: There is a scalp laceration involving the left parietal scalp with subcutaneous hematoma. Ventricles, sulci and basal cisterns are prominent compatible with mild generalized cerebral volume loss.. Low-attenuation in the periventricular white matter is suggestive of chronic small vessel ischemic changes. There is no hydrocephalus. Rojas-white matter differentiation is normal. There is no acute intracranial hemorrhage. There is no mass, mass effect or midline shift. Po sterior fossa is normal in appearance. Visualized portions of the orbits are normal with exception of bilateral lens replacement. Paranasal sinuses are well aerated. Mastoid air cells are well aerated. Cervical spine: Alignment of the cervical spine is normal. Skull base is intact. Craniocervical junction is normal in appearance. Atlantoaxial articulation is normal. Vertebral body heights are maintained without evidence for acute fracture. Mild height loss at C6 and C7 without acute fracture. Moderate disc height loss at C5-C6 and mild disc height loss at C6-C7. At C5-C6 there is a posterior disc osteophyte complex with mild facet arthropathy and central calcified disc protrusion. There is mild uncovertebral joint disease. Mild bilateral neural foraminal stenosis. Mild spinal canal stenosis. There is facet fusion on the left at C2-C3. There is moderate to advanced facet arthropa thy at C4-C5 on the left with subcortical cystic change. There is no prevertebral soft tissue swelling. Thyroid gland is normal in appearance. Visualized portions of the lung apices are normal without evidence for suspicious pulmonary nodule or infiltrate. IMPRESSION: 1. Left parietal scalp laceration with subcutaneous hematoma. No calvarial defect. No acute intracranial hemorrhage. Mild generalized cerebral volume loss. Low-attenuation in the periventricular white matter is suggestive of chronic small vessel ischemic changes. 2. No acute fracture or malalignment of the cervical spine. Mild cervical spondylosis. Electronically signed by: Kyara Larkin MD (03/08/2020 3:42 PM) [id number] PROCEDURE: PORTABLE CHEST 1V XR CHEST 1V History: Reason: weakness / Spl. Instructions: / History: Comparison: None. Findings: Mild interstitial thickening diffusely. Enlarged cardiac size. No pleural effusion. No pneumothorax. Vascular calcifications. Impression: 1. Mild diffuse interstitial thickening, may indicate pulmonary edema. 2. Enlarged cardiac size, represent cardiomegaly and/or pericardial effusion. Electronically signed by: Kevin Chung DO (03/08/2020 3:19 PM) [id number] TRAN FERNÁNDEZ MD Mar 12, 2020 13:52
[2020-03-12 17:19] LABS: UR POTASSIUM 37.7 mmol/L (Not Estab.)
[2020-03-12] MEDS: TAFAMIDIS 61 MG PO SCH (17:51)
[2020-03-12] MEDS: ISOSORBIDE DINITRATE 10 MG TABLET. PO SCH (17:51)
[2020-03-12] MEDS ORDERED: DAPTOmycin (GENERIC) IVPB 500 MG in IV NORMAL SALINE 50ML 50 ML IV SCH (18:30)
--- NOTE | 2020-03-12 19:18 | NUR ---
Spoke with the patient's daughter, Nancy Cruz and updated of the patient's status. Also reviewed the patient's medications with her. Dr. Bolanos was notified about the change. The patient also underwent blood transfusion with 1 unit packed rbc this afternoon, no adverse reactions noted, patient's VS were stable, afebrile.
[2020-03-12] MEDS: LACTOBACILLUS RHAMNOSUS GG 1 CAPSULE. PO SCH (21:14)
[2020-03-12] MEDS: PREGABALIN 25 MG CAPSULE PO SCH (21:14)
[2020-03-12] MEDS: APIXABAN 2.5 MG TABLET. PO SCH (21:15)
[2020-03-12] MEDS: METOPROLOL TART IMMED RELEASE 25 MG TABLET. PO SCH (21:16)
[2020-03-12] MEDS ORDERED: DAPTOmycin (GENERIC) IVPB 500 MG in IV NORMAL SALINE 50ML 50 ML IV ONE (21:45)
--- NOTE | 2020-03-12 23:45 | NUR ---
Walking rounds this RN saw on room monitor HR 135. Pt responds to voice not able to answer questions.
--- NOTE | 2020-03-12 23:48 | NUR ---
Dr. Scarlett phillips
--- NOTE | 2020-03-12 23:51 | NUR ---
Dr. Pantoja returned page with new orders Metoprolol 5mg IV every 6 hours until seen by disbursing agent.
[2020-03-13] MEDS: METOPROLOL IV PUSH 5 MG/5 ML VIAL. IVP SCH ×4 (00:14→17:41)
[2020-03-13 01:00] LABS: BASO % 0 % (0-3); EOS % 0 % (0-3); HEMATOCRIT 27.8 % (36.0-47.0); HEMOGLOBIN 8.7 g/dL (12.0-15.5); LYMPH # 0.2 x10^3/uL (1.0-4.8); LYMPH % 2 % (24-48); MEAN CORPUSCULAR HEMOGLOBIN 28 pg (25-35); MEAN CORPUSCULAR HGB CONC 31 g/dL (31-37); MEAN CORPUSCULAR VOLUME 91 fL (79-100); MONO # 0.1 x10^3/uL (0.0-1.1); MONO % 1 % (0-9); NEUT # 8.3 x10^3/uL (1.8-7.7); NEUT % 97 % (31-73); PLATELET COUNT 272 x10^3/uL (140-400); RED BLOOD COUNT 3.07 x10^6/uL (3.50-5.40); RED CELL DISTRIBUTION WIDTH 17.3 % (11.5-14.5); WHITE BLOOD COUNT 8.6 x10^3/uL (4.0-11.0)
[2020-03-13 01:15] LABS: ALBUMIN 2.6 g/dL (3.4-5.0); ALBUMIN/GLOBULIN RATIO 0.6 (1.0-1.7); CALCIUM 9.3 mg/dL (8.5-10.1); CREATININE 3.7 mg/dL (0.6-1.0); GFR 14.3; POTASSIUM 5.6 mmol/L (3.5-5.1); TOTAL BILIRUBIN 0.5 mg/dL (0.2-1.0)
[2020-03-13 03:41] VITALS: BP 143/60
[2020-03-13 07:49] VITALS: BP 126/56
[2020-03-13] MEDS: INSULIN LISPRO 300 UNITS/3 ML VIAL. SQ SCH ×6 (08:00→17:07)
--- NOTE | 2020-03-13 08:31 | PDOC ---
PROGRESS NOTES Date of Service: DATE: 03/13/20 TIME: 08:30 Chief Complaint Chief Complaint impression Acute encephalopathy - multifactorial metabolic. Will monitor mental status. Previously told she had CVA at [facility]. No focal neuro deficits Left parietal scalp laceration with subcutaneous hematoma. No calvarial defect. No acute intracranial hemorrhage. Mechanical fall - PT/OT, likely needs rehab Left hip pain > right - Bilateral hip pain - XR with no fracture, pain resolved with repositioning Diabetic neuropathy Scalp wound slowly healing - wound care following Anemia - will transfuse Acute on chronic Chronic kidney disease stage IIIb at least with current vasomotor nephropathy prerenal azotemia most likely CKD stage 3B /? 4- daughter reported to RN -baseline Cr 2.3 Renal US Bilateral increased renal cortical echogenicity. No hydronephrosis Elevated BNP History of hypothyroidism History of essential hypertension History of breast cancer approximately 20 years ago status post mastectomy Morbid obesity with a BMI of 48 COVID 19 - recently diagnosed at [facility] January 2020 Cardiomyopathy - sees advanced CHF clinic at [facility], Dr. Mikhail Khanna on Vyndamax bacteremia, ID FOLLOWING ON IV DAPTOMYCIN FEN - ADA cardiac diet PPX - eliquis CODE - DNR/DNI Dispo - inpatient iv daptomycin 38 MIN PT EXAM, CHART REVIEW, > 50% OF TIME SPENT WITH EXAM, CHART REVIEW, PT CARE COORDINATION History of Present Illness History of Present Illness Ms Cruz is a 79 yo F w/ PMHx breast Cancer s/p left mastectomy, Diabetes-Type II, High Cholesterol, Hypertension, Hypothyroid, afib, OA bilateral knees, cardiomyopathy, recent diagnosis at [facility] of COVID 19 with pneumonia in January 2020 with 2 weeks of acute rehab and was discharged home with her daughter for 2 weeks who then went home from her daughter's house who was at home for almost 3 weeks who presented via EMS with report of bilateral lower extremity weakness. Patient reports she was walking out of the bathroom using her cane and her "legs just gave out ". Patient reports she was still able to lower herself to the ground. Denies any head trauma or neck pain. Denies fever or chills. Denies cough or shortness of breath. Patient reports she has multiple health issues. Patient reports "I have it all ". Patient does report she has a chronic left parietal/occipital wound for which she follows with wound care regarding. Imaging negative for acute fracture. Very confused and combative. Her daughter notes she has not been the same since COVID 19 and has baseline weight of 262 pounds, but is currently 284 pounds. 03/09: She is still c/o left hip pain. Afebrile. Not able to bear weight. Pain 10/10. Became febrile overnight and transferred to [place] [id number] unit. 03/10: Head wound bothering her. Febrile overnight to 101F. Mild SOB. No diarrhea. Appetite decreased. 03/11: Febrile to 100.8 F overnight. WBC at 14.5, Hb 7.1 BUN 16, CR 3, CRP 163.5. She has been more drowsy today. Blood cultures and urine culture obtained and started on antibiotics. Left leg is bothering her. Afebrile overnight. Cr up to 3.8. Hb 6.9. No more swollen. Very weak. Less drowsy, still confused. After d/w her daughter apparently she has been on Vyndamax, presumptively in a research study, she has never heard of any diagnosis of amyloidosis, and follows with [facility] cardiology, but she does note her mother has been progressively more confused since her COVID 19 recovery in January. Plan: Will communicate with Nancy. her daughter, , who would like daily updates and formal DPOA paperwork through social work Will need skilled services on discharge Vitals Vitals Vital Signs Date Time Temp Pulse Resp B/P (MAP) Pulse Ox O2 Delivery O2 Flow Rate FiO2 03/13/20 07:49 98.3 89 22 126/56 (79) 97 Room Air 98.3 03/13/20 03:41 1.0 Physical Exam Physical Exam SCALP WOUND STABLE General: Alert, Cooperative, No acute distress Heart: Regular rate, Normal S1, Normal S2 Lungs: Clear Abdomen: Normal bowel sounds, Soft Extremities: No clubbing, No cyanosis, No edema Skin: No rashes, No breakdown Labs LABS PQRS Compliance Statement: One or more of the following individualized dose reduction techniques were utilized for this examination: 1. Automated exposure control 2. Adjustment of the mA and/or kV according to patient size 3. Use of iterative reconstruction technique CT head and cervical spine without contrast 03/08/2020 2:35 PM INDICATION: Weakness, fall COMPARISON: None available TECHNIQUE: Multiple axial CT images of the head were obtained from skull base through the vertex without intravenous contrast. Multiple axial CT images of the cervical spine were obtained without intravenous contrast. Coronal and sagittal reformats are provided. FINDINGS: Head: There is a scalp laceration involving the left parietal scalp with subcutaneous hematoma. Ventricles, sulci and basal cisterns are prominent compatible with mild generalized cerebral volume loss.. Low-attenuation in the periventricular white matter is suggestive of chronic small vessel ischemic changes. There is no hydrocephalus. Rojas-white matter differentiation is normal. There is no acute intracranial hemorrhage. There is no mass, mass effect or midline shift. Posterior fossa is normal in appearance. Visualized portions of the orbits are normal with exception of bilateral lens replacement. Paranasal sinuses are well aerated. Mastoid air cells are well aerated. Cervical spine: Alignment of the cervical spine is normal. Skull base is intact. Craniocervical junction is normal in appearance. Atlantoaxial articulation is normal. Vertebral body heights are maintained without evidence for acute fracture. Mild height loss at C6 and C7 without acute fracture. Moderate disc height loss at C5-C6 and mild disc height loss at C6-C7. At C5-C6 there is a posterior disc osteophyte complex with mild facet arthropathy and central calcified disc protrusion. There is mild uncovertebral joint disease. M ild bilateral neural foraminal stenosis. Mild spinal canal stenosis. There is facet fusion on the left at C2-C3. There is moderate to advanced facet arthropathy at C4-C5 on the left with subcortical cystic change. There is no prevertebral soft tissue swelling. Thyroid gland is normal in appearance. Visualized portions of the lung apices are normal without evidence for suspicious pulmonary nodule or infiltrate. IMPRESSION: 1. Left parietal scalp laceration with subcutaneous hematoma. No calvarial defect. No acute intracranial hemorrhage. Mild generalized cerebral volume loss. Low-attenuation in the periventricular white matter is suggestive of chronic small vessel ischemic changes. 2. No acute fracture or malalignment of the cervical spine. Mild cervical spondylosis. Electronically signed by: Fransisca Amaral MD (03/08/2020 3:42 PM) [id number] DICTATED and SIGNED BY: FRANSISCA AMARAL MD DATE: 03/08/20 [id number] EC #: [id number] NEEMA: 03/11/20 STATUS: COMP REQ #: [id number] RECD: 03/11/20113 [facility] DR: DAMIAN KINGSLEY MD SOURCE: BLOOD ENTR: 03/11/20-[address]: MARVIN DOBSON MD [facility]: ANJU MATTSON MD NO PCP ORDERED: BCULT - Procedure Result BLOOD CULTURE Final GRAM POSITIVE COCCI IN CLUSTERS, SUGGESTIVE OF STAPH, IN 1 OF 3 BOTTLES, TWO SETS DRAWN. CALLED TO WENDY NICHOLS RN ON 6S AT 16:30 ON 03/12/20 DW MT SENT TO [facility] FOR FURTHER WORKUP. Laboratory Tests Test 03/12/20 11:16 03/12/20 16:20 03/12/20 21:04 03/13/20 00:45 Glucose (Fingerstick) 206 mg/dL (70-99) 142 mg/dL (70-99) 154 mg/dL (70-99) White Blood Count 8.6 x10^3/uL (4.0-11.0) Red Blood Count 3.07 x10^6/uL (3.50-5.40) Hemoglobin 8.7 g/dL (12.0-15.5) Hematocrit 27.8 % (36.0-47.0) Mean Corpuscular Volume 91 fL (79-100) Mean Corpuscular Hemoglobin 28 pg (25-35) Mean Corpuscular Hemoglobin Concent 31 g/dL (31-37) Red Cell Distribution Width 17.3 % (11.5-14.5) Platelet Count 272 x10^3/uL (140-400) Neutrophils (%) (Auto) 97 % (31-73) Lymphocytes (%) (Auto) 2 % (24-48) Monocytes (%) (Auto) 1 % (0-9) Eosinophils (%) (Auto) 0 % (0-3) Basophils (%) (Auto) 0 % (0-3) Neutrophils # (Auto) 8.3 x10^3/uL (1.8-7.7) Lymphocytes # (Auto) 0.2 x10^3/uL (1.0-4.8) Monocytes # (Auto) 0.1 x10^3/uL (0.0-1.1) Eosinophils # (Auto) 0.0 x10^3/uL (0.0-0.7) Basophils # (Auto) 0.0 x10^3/uL (0.0-0.2) Sodium Level 135 mmol/L (136-145) Potassium Level 5.6 mmol/L (3.5-5.1) Chloride Level 103 mmol/L (98-107) Carbon Dioxide Level 24 mmol/L (21-32) Anion Gap 8 (6-14) Blood Urea Nitrogen 74 mg/dL (7-20) Creatinine 3.7 mg/dL (0.6-1.0) Estimated GFR (Cockcroft-Gault) 14.3 BUN/Creatinine Ratio 20 (6-20) Glucose Level 155 mg/dL (70-99) Calcium Level 9.3 mg/dL (8.5-10.1) Total Bilirubin 0.5 mg/dL (0.2-1.0) Aspartate Amino Transf (AST/SGOT) 19 U/L (15-37) Alanine Aminotransferase (ALT/SGPT) 18 U/L (14-59) Alkaline Phosphatase 81 U/L (46-116) Total Protein 7.0 g/dL (6.4-8.2) Albumin 2.6 g/dL (3.4-5.0) Albumin/Globulin Ratio 0.6 (1.0-1.7) Test 03/13/20 07:34 Glucose (Fingerstick) 185 mg/dL (70-99) Assessment and Plan Assessmemt and Plan Problems Medical Problems: (1) Anemia Status: Acute (2) Bilateral hip pain Status: Acute (3) Fall Status: Acute (4) Generalized weakness Status: Acute (5) Renal insufficiency Status: Acute (6) Scalp wound Status: Acute Comment Review of Relevant I have reviewed the following items bianca (where applicable) has been applied. Labs Laboratory Tests Test 03/11/20 11:33 03/11/20 16:49 03/11/20 20:10 03/11/20 20:25 Glucose (Fingerstick) 181 mg/dL (70-99) 168 mg/dL (70-99) 158 mg/dL (70-99) Urine Collection Type U cath Urine Color Yellow Urine Clarity Clear Urine pH 5.0 (<5.0-8.0) Urine Specific Reliance 1.015 (1.000-1.030) Urine Protein Negative mg/dL (NEG-TRACE) Urine Glucose (UA) Negative mg/dL (NEG) Urine Ketones (Stick) Negative mg/dL (NEG) Urine Blood Negative (NEG) Urine Nitrite Negative (NEG) Urine Bilirubin Negative (NEG) Urine Urobilinogen Dipstick 0.2 mg/dL (0.2 mg/dL) Urine Leukocyte Esterase Negative (NEG) Urine RBC 0 /HPF (0-2) Urine WBC Occ /HPF (0-4) Urine Squamous Epithelial Cells Mod /LPF Urine Amorphous Sediment Present /HPF Urine Bacteria Few /HPF (0-FEW) Urine Mucus Mod /LPF Urine Yeast Present /HPF Urine Random Creatinine 126.6 mg/dL (Not Establ.) Urine Sodium 16 mmol/L (Not Estab.) Urine Potassium 37.7 mmol/L (Not Estab.) Urine Chloride 19 mmol/L (Not Estab.) Test 03/12/20 04:00 03/12/20 07:49 03/12/20 11:16 03/12/20 16:20 White Blood Count 11.2 x10^3/uL (4.0-11.0) Red Blood Count 2.46 x10^6/uL (3.50-5.40) Hemoglobin 6.9 g/dL (12.0-15.5) Hematocrit 22.4 % (36.0-47.0) Mean Corpuscular Volume 91 fL (79-100) Mean Corpuscular Hemoglobin 28 pg (25-35) Mean Corpuscular Hemoglobin Concent 31 g/dL (31-37) Red Cell Distribution Width 16.9 % (11.5-14.5) Platelet Count 230 x10^3/uL (140-400) Neutrophils (%) (Auto) 78 % (31-73) Lymphocytes (%) (Auto) 7 % (24-48) Monocytes (%) (Auto) 13 % (0-9) Eosinophils (%) (Auto) 1 % (0-3) Basophils (%) (Auto) 1 % (0-3) Neutrophils # (Auto) 8.8 x10^3/uL (1.8-7.7) Lymphocytes # (Auto) 0.8 x10^3/uL (1.0-4.8) Monocytes # (Auto) 1.4 x10^3/uL (0.0-1.1) Eosinophils # (Auto) 0.1 x10^3/uL (0.0-0.7) Basophils # (Auto) 0.1 x10^3/uL (0.0-0.2) Sodium Level 137 mmol/L (136-145) Potassium Level 4.9 mmol/L (3.5-5.1) Chloride Level 103 mmol/L (98-107) Carbon Dioxide Level 23 mmol/L (21-32) Anion Gap 11 (6-14) Blood Urea Nitrogen 73 mg/dL (7-20) Creatinine 3.8 mg/dL (0.6-1.0) Estimated GFR (Cockcroft-Gault) 13.9 BUN/Creatinine Ratio 19 (6-20) Glucose Level 138 mg/dL (70-99) Calcium Level 9.0 mg/dL (8.5-10.1) Total Bilirubin 0.4 mg/dL (0.2-1.0) Aspartate Amino Transf (AST/SGOT) 18 U/L (15-37) Alanine Aminotransferase (ALT/SGPT) 15 U/L (14-59) Alkaline Phosphatase 66 U/L (46-116) Total Protein 6.6 g/dL (6.4-8.2) Albumin 2.4 g/dL (3.4-5.0) Albumin/Globulin Ratio 0.6 (1.0-1.7) Glucose (Fingerstick) 145 mg/dL (70-99) 206 mg/dL (70-99) 142 mg/dL (70-99) Test 03/12/20 21:04 03/13/20 00:45 03/13/20 07:34 Glucose (Fingerstick) 154 mg/dL (70-99) 185 mg/dL (70-99) White Blood Count 8.6 x10^3/uL (4.0-11.0) Red Blood Count 3.07 x10^6/uL (3.50-5.40) Hemoglobin 8.7 g/dL (12.0-15.5) Hematocrit 27.8 % (36.0-47.0) Mean Corpuscular Volume 91 fL (79-100) Mean Corpuscular Hemoglobin 28 pg (25-35) Mean Corpuscular Hemoglobin Concent 31 g/dL (31-37) Red Cell Distribution Width 17.3 % (11.5-14.5) Platelet Count 272 x10^3/uL (140-400) Neutrophils (%) (Auto) 97 % (31-73) Lymphocytes (%) (Auto) 2 % (24-48) Monocytes (%) (Auto) 1 % (0-9) Eosinophils (%) (Auto) 0 % (0-3) Basophils (%) (Auto) 0 % (0-3) Neutrophils # (Auto) 8.3 x10^3/uL (1.8-7.7) Lymphocytes # (Auto) 0.2 x10^3/uL (1.0-4.8) Monocytes # (Auto) 0.1 x10^3/uL (0.0-1.1) Eosinophils # (Auto) 0.0 x10^3/uL (0.0-0.7) Basophils # (Auto) 0.0 x10^3/uL (0.0-0.2) Sodium Level 135 mmol/L (136-145) Potassium Level 5.6 mmol/L (3.5-5.1) Chloride Level 103 mmol/L (98-107) Carbon Dioxide Level 24 mmol/L (21-32) Anion Gap 8 (6-14) Blood Urea Nitrogen 74 mg/dL (7-20) Creatinine 3.7 mg/dL (0.6-1.0) Estimated GFR (Cockcroft-Gault) 14.3 BUN/Creatinine Ratio 20 (6-20) Glucose Level 155 mg/dL (70-99) Calcium Level 9.3 mg/dL (8.5-10.1) Total Bilirubin 0.5 mg/dL (0.2-1.0) Aspartate Amino Transf (AST/SGOT) 19 U/L (15-37) Alanine Aminotransferase (ALT/SGPT) 18 U/L (14-59) Alkaline Phosphatase 81 U/L (46-116) Total Protein 7.0 g/dL (6.4-8.2) Albumin 2.6 g/dL (3.4-5.0) Albumin/Globulin Ratio 0.6 (1.0-1.7) Laboratory Tests Test 03/12/20 11:16 03/12/20 16:20 03/12/20 21:04 03/13/20 00:45 Glucose (Fingerstick) 206 mg/dL (70-99) 142 mg/dL (70-99) 154 mg/dL (70-99) White Blood Count 8.6 x10^3/uL (4.0-11.0) Red Blood Count 3.07 x10^6/uL (3.50-5.40) Hemoglobin 8.7 g/dL (12.0-15.5) Hematocrit 27.8 % (36.0-47.0) Mean Corpuscular Volume 91 fL (79-100) Mean Corpuscular Hemoglobin 28 pg (25-35) Mean Corpuscular Hemoglobin Concent 31 g/dL (31-37) Red Cell Distribution Width 17.3 % (11.5-14.5) Platelet Count 272 x10^3/uL (140-400) Neutrophils (%) (Auto) 97 % (31-73) Lymphocytes (%) (Auto) 2 % (24-48) Monocytes (%) (Auto) 1 % (0-9) Eosinophils (%) (Auto) 0 % (0-3) Basophils (%) (Auto) 0 % (0-3) Neutrophils # (Auto) 8.3 x10^3/uL (1.8-7.7) Lymphocytes # (Auto) 0.2 x10^3/uL (1.0-4.8) Monocytes # (Auto) 0.1 x10^3/uL (0.0-1.1) Eosinophils # (Auto) 0.0 x10^3/uL (0.0-0.7) Basophils # (Auto) 0.0 x10^3/uL (0.0-0.2) Sodium Level 135 mmol/L (136-145) Potassium Level 5.6 mmol/L (3.5-5.1) Chloride Level 103 mmol/L (98-107) Carbon Dioxide Level 24 mmol/L (21-32) Anion Gap 8 (6-14) Blood Urea Nitrogen 74 mg/dL (7-20) Creatinine 3.7 mg/dL (0.6-1.0) Estimated GFR (Cockcroft-Gault) 14.3 BUN/Creatinine Ratio 20 (6-20) Glucose Level 155 mg/dL (70-99) Calcium Level 9.3 mg/dL (8.5-10.1) Total Bilirubin 0.5 mg/dL (0.2-1.0) Aspartate Amino Transf (AST/SGOT) 19 U/L (15-37) Alanine Aminotransferase (ALT/SGPT) 18 U/L (14-59) Alkaline Phosphatase 81 U/L (46-116) Total Protein 7.0 g/dL (6.4-8.2) Albumin 2.6 g/dL (3.4-5.0) Albumin/Globulin Ratio 0.6 (1.0-1.7) Test 03/13/20 07:34 Glucose (Fingerstick) 185 mg/dL (70-99) Microbiology 03/11/20 Blood Culture - Preliminary, Resulted NO GROWTH AFTER 1 DAY Medications Current Medications Sodium Chloride 1,000 ml @ 1,000 mls/hr 1X ONCE IV Last administered on 03/08/20at 14:59; Start 03/08/20 at 14:30; Stop 03/08/20 at 15:29; Status DC Ondansetron HCl (Zofran) 4 mg PRN Q8HRS PRN IV NAUSEA/VOMITING; Start 03/08/20 at 17:45; Stop 03/09/20 at 17:44; Status DC Insulin Human Lispro (HumaLOG) 0-5 UNITS TIDWMEALS SQ ; Start 03/09/20 at 08:00; Status Cancel Dextrose (Dextrose 50%-Water Syringe) 12.5 gm PRN Q15MIN PRN IV SEE COMMENTS; Start 03/08/20 at 17:45; Stop 03/08/20 at 18:04; Status DC Ondansetron HCl (Zofran) 4 mg PRN Q4HRS PRN IV NAUSEA/VOMITING; Start 03/08/20 at 18:00 Zolpidem Tartrate (Ambien) 5 mg PRN QHS PRN PO INSOMNIA Last administered on 03/11/20at 21:05; Start 03/08/20 at 18:00; Stop 03/12/20 at 12:21; Status DC Acetaminophen (Tylenol) 650 mg PRN Q4HRS PRN PO TEMP OVER 100.4F OR MILD PAIN Last administered on 03/09/20at 20:23; Start 03/08/20 at 18:00 Al Hydroxide/Mg Hydroxide (Mylanta Plus Xs) 30 ml PRN DAILY PRN PO HEARTBURN / GAS; Start 03/08/20 at 18:00 Albuterol Sulfate (Ventolin Neb Soln) 2.5 mg PRN Q4HRS PRN NEB SHORTNESS OF BREATH; Start 03/08/20 at 18:00 Albuterol/ Ipratropium (Duoneb) 3 ml Q4H NEB Last administered on 03/08/20at 20:10; Start 03/08/20 at 18:00; Stop 03/08/20 at 20:20; Status DC Guaifenesin (Robitussin) 200 mg PRN Q4HRS PRN PO COUGH; Start 03/08/20 at 18:00 Lorazepam (Ativan) 0.5 mg PRN Q4HRS PRN PO ANXIETY / AGITATION; Start 03/08/20 at 18:00; Stop 03/12/20 at 12:21; Status DC Enoxaparin Sodium (Lovenox 40mg Syringe) 40 mg Q12H SQ ; Start 03/09/20 at 09:00; Status Cancel Amiodarone HCl (Cordarone) 200 mg DAILY PO Last administered on 03/11/20 08:27; Start 03/09/20 at 09:00; Stop 03/12/20 at 12:21; Status DC Amlodipine Besylate (Norvasc) 5 mg DAILY PO Last administered on 03/11/20at 08:27; Start 03/09/20 at 09:00; Stop 03/12/20 at 12:21; Status DC Aspirin (Aspirin Chewable) 81 mg DAILY PO Last administered on 03/12/20at 09:26; Start 03/09/20 at 09:00 Acetaminophen/ Hydrocodone Bitart (Lortab 10/325) 2 tab PRN Q6HRS PRN PO SEVERE PAIN 7-10 Last administered on 03/12/20at 20:20; Start 03/08/20 at 18:00; Stop 03/13/20 at 04:51; Status DC Potassium Chloride (Klor-Con) 30 meq DAILY PO Last administered on 03/12/20at 08:52; Start 03/09/20 at 09:00 Pregabalin (Lyrica) 75 mg BID PO Last administered on 03/12/20at 08:52; Start 03/08/20 at 21:00; Stop 03/12/20 at 12:21; Status DC Torsemide (Demadex) 100 mg DAILY PO Last administered on 03/10/20 08:27; Start 03/09/20 at 09:00; Stop 03/11/20 at 07:56; Status DC Vitamin D (Vitamin D3) 5,000 unit DAILY PO Last administered on 03/12/20at 08:52; Start 03/09/20 at 09:00 Insulin Human Lispro (HumaLOG) 8 units TIDWMEALS SQ Last administered on 03/12/20at 17:55; Start 03/09/20 at 08:00 Insulin Glargine (Lantus Syringe) 16 unit QHS SQ Last administered on 03/12/20 21:21; Start 03/08/20 at 21:00 Cetirizine HCl (ZyrTEC) 10 mg DAILY PO Last administered on 03/12/20at 08:53; Start 03/09/20 at 09:00 Tizanidine HCl (Zanaflex) 2 mg PRN TID PRN PO MUSCLE SPASMS Last administered on 03/09/20at 20:23; Start 03/08/20 at 18:15; Stop 03/09/20 at 21:40; Status DC Insulin Human Lispro (HumaLOG) 0-7 UNITS TIDWMEALS SQ Last administered on 03/12/20at 12:21; Start 03/09/20 at 08:00 Dextrose (Dextrose 50%-Water Syringe) 12.5 gm PRN Q15MIN PRN IV SEE COMMENTS; Start 03/08/20 at 18:00 Fentanyl Citrate (Fentanyl 2ml Vial) 50 mcg PRN Q3HRS PRN IVP pain Last admin istered on 03/11/20at 20:15; Start 03/08/20 at 19:15 Enoxaparin Sodium (Lovenox 40mg Syringe) 40 mg Q24H SQ Last administered on at 08:28; Start 03/09/20 at 09:00; Stop 03/11/20 at 13:03; Status DC Albuterol/ Ipratropium (Duoneb) 3 ml Q4H PRN NEB WHEEZING; Start 03/08/20 at 20:30; Stop 03/08/20 at 20:22; Status DC Enoxaparin Sodium (Lovenox 30mg Syringe) 30 mg Q24H SQ Last administered on 03/12/20at 09:27; Start 03/12/20 at 09:00; Stop 03/12/20 at 11:30; Status DC Piperacillin Sod/ Tazobactam Sod 3.375 gm/Sodium Chloride 50 ml @ 100 mls/hr 1X ONCE IV Last administered on 03/11/20at 16:48; Start 03/11/20 at 17:00; Stop 03/11/20 at 17:29; Status DC Doxycycline Hyclate 100 mg/ Dextrose 100 ml @ 50 mls/hr 1X ONCE IV Last administered on 03/11/20at 18:30; Start 03/11/20 at 17:30; Stop 03/11/20 at 19:29; Status DC Enoxaparin Sodium (Lovenox 40mg Syringe) 40 mg Q24H SQ ; Start 03/13/20 at 09:00; Stop 03/12/20 at 12:21; Status DC Pregabalin (Lyrica) 25 mg BID PO Last administered on 03/12/20at 21:14; Start 03/12/20 at 21:00 Apixaban (Eliquis) 2.5 mg BID PO Last administered on 03/12/20at 21:15; Start 03/12/20 at 21:00 Hydralazine HCl (Apresoline) 100 mg BID PO Last administered on 03/12/20at 21:16; Start 03/12/20 at 21:00 Isosorbide Dinitrate (Isordil) 10 mg BID94 PO Last administered on 03/12/20at 17:51; Start 03/12/20 at 16:00 Lactobacillus Rhamnosus (Culturelle) 1 cap BID PO Last administered on 03/12/20at 21:14; Start 03/12/20 at 21:00 Metoprolol Tartrate (Lopressor) 25 mg BID PO Last administered on 03/12/20at 21:16; Start 03/12/20 at 21:00 Pantoprazole Sodium (Protonix) 40 mg DAILYAC PO ; Start 03/13/20 at 07:30 Non-Formulary Medication (Tafamidis (Vyndamax)) 61 mg DAILY PO Last administered on 03/12/20at 17:51; Start 03/12/20 at 16:00 Daptomycin 500 mg/ Sodium Chloride 50 ml @ 100 mls/hr 1X IV ; Start 03/12/20 at 18:30; Stop 03/12/20 at 21:44; Status DC Daptomycin 500 mg/ Sodium Chloride 50 ml @ 100 mls/hr 1X ONCE IV Last administered on 03/12/20at 21:47; Start 03/12/20 at 21:45; Stop 03/12/20 at 22:14; Status DC Metoprolol Tartrate (Lopressor Vial) 5 mg Q6HRS IVP Last administered on 03/13/20at 00:14; Start 03/13/20 at 00:15 Acetaminophen/ Hydrocodone Bitart (Lortab 10/325) 1 tab PRN Q6HRS PRN PO SEVERE PAIN 7-10; Start 03/13/20 at 05:00 Tramadol HCl (Ultram) 50 mg PRN Q6HRS PRN PO PAIN; Start 03/13/20 at 05:00 Active Scripts Active Reported Vyndamax (Tafamidis) 61 Mg Capsule 61 Mg PO DAILY Hydrocodone-Apap 5-325 (Hydrocodone Bit/Acetaminophen) 1 Tab Tablet 1 Tab PO PRN Q6HRS PRN Isosorbide Dinitrate 30 Mg Tablet 10 Mg PO BID 30 Days Lyrica (Pregabalin) 50 Mg Capsule 25 Mg PO BID PRN Torsemide 100 Mg Tablet 50 Mg PO BID Acidophilus Lactobacilli (Lactobacillus Acidophilus) 1 Each Capsule 1 Cap PO DAILY 30 Days Protonix (Pantoprazole Sodium) 20 Mg Tablet.dr 40 Mg PO DAILY Metoprolol Tartrate 37.5 Mg Tablet 25 Mg PO BID Hydralazine Hcl 100 Mg Tablet 1 Tab PO BID Zetia (Ezetimibe) 10 Mg Tablet 1 Tab PO DAILY 30 Days Eliquis (Apixaban) 2.5 Mg Tablet 2.5 Mg PO BID Potassium Chloride (Potassium Chloride) 10 Meq Tab.sr.24h 30 Meq PO DAILY Magnesium Citrate 296 Ml Solution 296 Ml PO PRN PRN Novolog (Insulin Aspart) 100 Unit/1 Ml Cartridge 8 Unit SQ TID Levemir (Insulin Detemir) 100 Unit/1 Ml Vial 16 Unit SQ DAILYWSUP Claritin (Loratadine) 10 Mg Tablet 1 Tab PO DAILY Vitamin D3 (Cholecalciferol (Vitamin D3)) 5,000 Unit Tablet 1 Tab PO DAILY Children's Aspirin (Aspirin) 81 Mg Tab.chew 81 Mg PO Vitals/I & O Vital Sign - Last 24 Hours 03/12/20 03/12/20 03/12/20 03/12/20 09:52 11:00 11:00 13:46 Temp 97.7 96.7 97.7 96.7 Pulse 65 78 Resp 20 18 17 19 B/P (MAP) 134/64 (87) 129/60 Pulse Ox 97 96 94 O2 Delivery Room Air Room Air Room Air 03/12/20 03/12/20 03/12/20 03/12/20 14:01 15:00 15:01 16:01 Temp 96.5 97.7 97.3 97.7 96.5 97.7 97.3 97.7 Pulse 82 71 63 68 Resp 20 17 16 18 B/P (MAP) 150/70 145/67 (93) 157/67 149/67 Pulse Ox 96 O2 Delivery Nasal Cannula 03/12/20 03/12/20 03/12/20 03/12/20 17:35 17:51 19:35 19:45 Temp 97.0 97.0 Pulse 69 68 Resp 16 B/P (MAP) 157/69 149/67 Pulse Ox 92 O2 Delivery Room Air Room Air 03/12/20 03/12/20 03/12/20 03/12/20 20:20 21:16 21:16 21:21 Pulse 88 88 Resp 16 16 B/P (MAP) 174/67 174/67 O2 Delivery Room Air Room Air 03/12/20 03/13/20 03/13/20 03/13/20 23:30 00:14 03:41 06:00 Temp 98.0 98.6 98.0 98.6 Pulse 98 130 107 90 Resp 12 18 B/P (MAP) 174/67 (102) 132/62 143/60 (87) 113/56 Pulse Ox 91 98 O2 Delivery Room Air Nasal Cannula O2 Flow Rate 1.0 03/13/20 07:49 Temp 98.3 98.3 Pulse 89 Resp 22 B/P (MAP) 126/56 (79) Pulse Ox 97 O2 Delivery Room Air Intake and Output 03/12/20 03/12/20 03/13/20 15:00 23:00 07:00 Intake Total 904 ml 120 ml Output Total 100 ml 200 ml Balance 904 ml 20 ml -200 ml Justicifation of Admission Dx: Justifications for Admission: Justification of Admission Dx: Yes Acute Renal Failure: RF Can't Be Managed Outpt VARSHA DUBON MD Mar 13, 2020 08:31
[2020-03-13] MEDS ORDERED: ENOXAPARIN 40 MG/0.4 ML SYRINGE. SQ SCH (09:00)
[2020-03-13] MEDS: POTASSIUM CHLORIDE 10 MEQ TABLET.ER. PO SCH (09:00)
[2020-03-13 11:03] VITALS: BP 132/60
--- NOTE | 2020-03-13 11:28 | CONS ---
DATE OF CONSULTATION: 03/13/2020 REFERRING PHYSICIAN: Gagandeep Pantoja MD REASON FOR CONSULTATION: Bacteremia. HISTORY OF PRESENT ILLNESS: A 79-year-old female, who presented to the ER on 03/08/2020 via EMS with complaints of bilateral lower extremity weakness. The patient reports she was walking out of the bathroom using her cane and " her legs gave out." The patient is a poor historian. History obtained from chart and medical staff. The patient denied any history of trauma or neck pain, denied any fevers or chills. The patient had a recent discharge from with COVID-19 infection and had been to an outside rehab facility. The patient has chronic left parietal occipital wound for which she [facility]. She missed her last appointment due to snow. The patient underwent x-ray of the hip, which showed [id number] osteoarthrosis. CT head and cervical spine showed a large parietal scalp laceration with subcutaneous hematoma; no calvarial defect; no intracranial hemorrhage; low attenuation in the periventricular white matter, suggestive of chronic small vessel ischemic changes; no acute fracture or malalignment. X-ray of the chest showed mild diffuse interstitial thickening, may indicate pulmonary edema; enlarged cardiac size represents cardiomegaly and/or pericardial effusion. The patient had low-grade fever. White count went up to 14.5, hemoglobin dropped to 6.9. UA was negative for infection. COVID-19 is pending. Influenza screen is negative. Blood culture on 03/11/2020, one out of three bottles is showing gram-positive cocci in clusters, suggestive of Staph. The patient was started on daptomycin last evening. ID consultation has been requested for further evaluation and treatment. The patient's lactate was normal on admission. Creatinine is around 2.8, which went up to 3.8, with a BUN of 74. The patient had ultrasound of the lower extremities, which showed no evidence of DVT. Ultrasound showed bilateral increased renal cortical echogenicity, may indicate medical renal disease; no hydronephrosis. The patient appears more drowsy today, says her legs are more darker than usual. PAST MEDICAL HISTORY: AFib; coronary artery disease; hypertension; hyperlipidemia; history of breast cancer, in remission; diabetes; hypothyroidism; status post mastectomy; history of COVID-19, 01/2020, at ; history of fall; occipital wound, chronic; history of amyloidosis; history of cardiomyopathy. FAMILY HISTORY: As per HPI. SOCIAL HISTORY: No smoking, no alcohol, no drugs. CURRENT MEDICATIONS: One-time daptomycin. Other medications reviewed in medication list. Amiodarone, apixaban, amlodipine, aspirin, cetirizine, cholecalciferol, enoxaparin, metoprolol, potassium, pregabalin, zolpidem. ALLERGIES: STATINS, CYCLOBENZAPRINE, MORPHINE. PHYSICAL EXAMINATION: VITAL SIGNS: Temperature 98.3, pulse 89, respiratory rate 22, blood pressure 126/56, oxygen saturation 97% on room air. GENERAL: Drowsy, but arousable, cooperative female, goes back to sleep immediately, appears comfortable. HEENT: Normocephalic, atraumatic. Oral mucosa is moist. NECK: Supple. No JVD. LUNGS: Clear bilaterally. HEART: S1, S2. ABDOMEN: Soft, obese. Bowel sounds present. EXTREMITIES: Chronic lower extremity edema. GENITOURINARY: No Barrios. DERMATOLOGIC: No generalized rash. PSYCHIATRIC: Cooperative, normal mood. CENTRAL NERVOUS SYSTEM: Alert, awake, drowsy. Moves all 4 extremities. LABORATORY DATA: WBC 8.6, hemoglobin 8.7, hematocrit 27.8, platelets 272. Sodium 135, potassium 5.6, chloride 103, bicarbonate 24, BUN 74, creatinine 3.7, glucose 155, calcium 9.3, total bilirubin 0.5, AST 19, ALT 18, alkaline phosphatase 81, albumin 2.6. UA on 03/11/2020 is negative. Serology: Influenza screen negative. Coronavirus results noted. Blood cultures, 03/11/2020, one out of three bottles positive for gram-positive cocci in clusters. IMPRESSION: 1. Acute encephalopathy, appears metabolic, improving. 2. Mechanical fall prior to admission. 3. Bacteremia, one out of three bottles, gram-positive cocci could be contaminant. 4. Scalp wound, chronic, slowly healing. Wound Care following. 5. Anemia, status post transfusion. 6. Phxcn-sn-nccsjwq kidney disease. 7. Diabetic neuropathy. 8. History of amyloidosis. 9. History of breast cancer. 10. History of cardiomyopathy. 11. Leukocytosis, now resolved. 12. History of morbid obesity. RECOMMENDATIONS: 1. We will restart daptomycin, may need renal dosing. 2. Follow up ID and [place] of [facility] in blood cultures. 3. Repeat blood cultures. 4. Continue scalp wound care. 5. Follow up labs and cultures. 6. Continue supportive care. 7. Maintain aspiration precaution. 8. Discussed with nursing staff. Thank you for allowing me to participate in this patient's care. If you have any questions, do not hesitate to contact me. GEETA THAKUR MD DR: CHRISTIAN/campos JOB#: [id number] / [id number] CARL
[2020-03-13] MEDS: ASPIRIN CHEWABLE 81 MG TABLET. PO SCH (11:50)
[2020-03-13] MEDS: LACTOBACILLUS RHAMNOSUS GG 1 CAPSULE. PO SCH ×2 (11:50→20:53)
[2020-03-13] MEDS: TAFAMIDIS 61 MG PO SCH (11:50)
[2020-03-13] MEDS: APIXABAN 2.5 MG TABLET. PO SCH ×2 (11:50→20:54)
[2020-03-13] MEDS: PREGABALIN 25 MG CAPSULE PO SCH ×2 (11:51→20:54)
[2020-03-13] MEDS: ISOSORBIDE DINITRATE 10 MG TABLET. PO SCH ×2 (11:51→17:03)
[2020-03-13] MEDS: CHOLECALCIFEROL (VITAMIN D3) 5,000 UNIT CAPSULE PO SCH (11:51)
[2020-03-13] MEDS: METOPROLOL TART IMMED RELEASE 25 MG TABLET. PO SCH ×2 (11:52→20:54)
[2020-03-13] MEDS: CETIRIZINE HCL 10 MG TABLET. PO SCH (11:52)
[2020-03-13] MEDS: PANTOPRAZOLE 40 MG TABLET.DR. PO SCH (11:52)
--- NOTE | 2020-03-13 11:56 | PDOC ---
Renal-Progress Notes Subjective Notes Notes CONFUSED History of Present Illness Hx of present illness STABLE Vitals Vitals Vital Signs Date Time Temp Pulse Resp B/P (MAP) Pulse Ox O2 Delivery O2 Flow Rate FiO2 03/13/20 11:03 97.5 90 22 132/60 (84) 96 Room Air 97.5 03/13/20 03:41 1.0 Weight Weight [ ] I.O. Intake and Output Intake and Output 03/13/20 07:00 Intake Total 1024 ml Output Total 300 ml Balance 724 ml Intake Oral 600 ml IV Total 100 ml Blood Product IV Normal Saline Flush 324 ml Output Urine Total 300 ml # Voids 2 Labs Labs Laboratory Tests Test 03/12/20 16:20 03/12/20 21:04 03/13/20 00:45 03/13/20 07:34 Glucose (Fingerstick) 142 mg/dL (70-99) 154 mg/dL (70-99) 185 mg/dL (70-99) White Blood Count 8.6 x10^3/uL (4.0-11.0) Red Blood Count 3.07 x10^6/uL (3.50-5.40) Hemoglobin 8.7 g/dL (12.0-15.5) Hematocrit 27.8 % (36.0-47.0) Mean Corpuscular Volume 91 fL (79-100) Mean Corpuscular Hemoglobin 28 pg (25-35) Mean Corpuscular Hemoglobin Concent 31 g/dL (31-37) Red Cell Distribution Width 17.3 % (11.5-14.5) Platelet Count 272 x10^3/uL (140-400) Neutrophils (%) (Auto) 97 % (31-73) Lymphocytes (%) (Auto) 2 % (24-48) Monocytes (%) (Auto) 1 % (0-9) Eosinophils (%) (Auto) 0 % (0-3) Basophils (%) (Auto) 0 % (0-3) Neutrophils # (Auto) 8.3 x10^3/uL (1.8-7.7) Lymphocytes # (Auto) 0.2 x10^3/uL (1.0-4.8) Monocytes # (Auto) 0.1 x10^3/uL (0.0-1.1) Eosinophils # (Auto) 0.0 x10^3/uL (0.0-0.7) Basophils # (Auto) 0.0 x10^3/uL (0.0-0.2) Sodium Level 135 mmol/L (136-145) Potassium Level 5.6 mmol/L (3.5-5.1) Chloride Level 103 mmol/L (98-107) Carbon Dioxide Level 24 mmol/L (21-32) Anion Gap 8 (6-14) Blood Urea Nitrogen 74 mg/dL (7-20) Creatinine 3.7 mg/dL (0.6-1.0) Estimated GFR (Cockcroft-Gault) 14.3 BUN/Creatinine Ratio 20 (6-20) Glucose Level 155 mg/dL (70-99) Calcium Level 9.3 mg/dL (8.5-10.1) Total Bilirubin 0.5 mg/dL (0.2-1.0) Aspartate Amino Transf (AST/SGOT) 19 U/L (15-37) Alanine Aminotransferase (ALT/SGPT) 18 U/L (14-59) Alkaline Phosphatase 81 U/L (46-116) Total Protein 7.0 g/dL (6.4-8.2) Albumin 2.6 g/dL (3.4-5.0) Albumin/Globulin Ratio 0.6 (1.0-1.7) Test 03/13/20 11:27 Glucose (Fingerstick) 191 mg/dL (70-99) Micro Micro Microbiology 03/11/20 Blood Culture - Preliminary, Resulted NO GROWTH AFTER 2 DAYS Review of Systems Constitutional: yes: other (CONFUSED) Physical Exam General Appearance: no apparent distress Skin: warm Respiratory: decreased breath sounds Heart: S1S2 Abdomen: soft, bowel sounds present Genitourinary: bladder flat Extremities: pulses present, edema Neurology: alert, confused Assessment Assessment IMP ACUTE ENCEPHALOPATHY HYPERKALEMIA KAYLIE WITH CR OF 3.7-UA NEG FOR NEPHRITIS CKD STAGE 3 WITH CR OF ABOUT 2.3 HX OF AMYLOID DM II HTN PLAN STOP KCL IV LASIX WILL FOLLOW GURVINDER CASAS MD Mar 13, 2020 11:56
[2020-03-13] MEDS ORDERED: SODIUM POLYSTYRENE SULFON/SORB 15 GM/60 ML ORAL.SUSP. PO ONE (12:00)
[2020-03-13] MEDS ORDERED: FUROSEMIDE 40 MG/4 ML VIAL. IVP ONE (12:00)
[2020-03-13] MEDS ORDERED: DAPTOmycin (GENERIC) IVPB 500 MG in IV NORMAL SALINE 50ML 50 ML IV SCH (12:00)
--- NOTE | 2020-03-13 13:02 | PDOC2 ---
LUCAS GOETZ BUSINESS LAW INSTRUCTOR 03/13/20 1302: CARDIAC CONSULT DATE OF CONSULT Date of Consult DATE: 03/13/20 TIME: 12:44 REASON FOR CONSULT Reason for Consult: Severe CHF REFERRING PHYSICIAN Referring Physician: Dr. Bolanos SOURCE Source: Chart review HISTORY OF PRESENT ILLNESS HISTORY OF PRESENT ILLNESS This is a 79 yo female who presented secondary to LE weakness and fall. Has a history of cardiomyopathy and sarcoidosis, which prompted this consult. Patient unable to provide any meaningful history. HPI obtain from chart review. No reported dizziness or syncope. PAST MEDICAL HISTORY Cardiovascular: AFIB, CAD, CHF, HTN, Hyperlipidemia, Other (PAD, cardiac amyloidosis ) Pulmonary: Pulmonary embolus, Other (KEELY) CENTRAL NERVOUS SYSTEM: Periperal neuropathy Heme/Onc: Anemia NOS, Cancer (breast ) Psych: Depression Musculoskeletal: Osteoarthritis Renal/: Chronic renal insuff Endocrine: Diabetes PAST SURGICAL HISTORY Past Surgical History: Other (mastectomy ) FAMILY HISTORY Family History: Heart Disease, Hypertension SOCIAL HISTORY Smoke: No ALCOHOL: none Drugs: None CURRENT MEDICATIONS CURRENT MEDICATIONS Current Medications Medications (Trade) Dose Ordered Sig/José Miguel Route PRN Reason Start Time Stop Time Status Last Admin Dose Admin Pregabalin (Lyrica) 25 mg BID PO 03/12/20 21:00 03/13/20 11:51 Apixaban (Eliquis) 2.5 mg BID PO 03/12/20 21:00 03/13/20 11:50 Hydralazine HCl (Apresoline) 100 mg BID PO 03/12/20 21:00 03/13/20 11:56 Isosorbide Dinitrate (Isordil) 10 mg BID94 PO 03/12/20 16:00 03/13/20 11:51 Lactobacillus Rhamnosus (Culturelle) 1 cap BID PO 03/12/20 21:00 03/13/20 11:50 Metoprolol Tartrate (Lopressor) 25 mg BID PO 03/12/20 21:00 03/13/20 11:52 Pantoprazole Sodium (Protonix) 40 mg DAILYAC PO 03/13/20 07:30 03/13/20 11:52 Non-Formulary Medication (Tafamidis (Vyndamax)) 61 mg DAILY PO 03/12/20 16:00 03/13/20 11:50 Daptomycin 500 mg/ Sodium Chloride 50 ml @ 100 mls/hr 1X ONCE IV 03/12/20 21:45 03/12/20 22:14 DC 03/12/20 21:47 Metoprolol Tartrate (Lopressor Vial) 5 mg Q6HRS IVP 03/13/20 00:15 03/13/20 00:14 Daptomycin 500 mg/ Sodium Chloride 50 ml @ 100 mls/hr Q48H IV 03/13/20 12:00 03/13/20 11:56 Furosemide (Lasix) 40 mg 1X ONCE IVP 03/13/20 12:00 03/13/20 12:01 DC 03/13/20 12:37 Sodium Polystyrene Sulfonate (Kayexalate) 15 gm 1X ONCE PO 03/13/20 12:00 03/13/20 12:01 DC 03/13/20 12:37 ALLERGIES ALLERGIES: Coded Allergies: Esiinpq-Noz-Ynt Reductase Inhibitor (Verified Allergy, Intermediate, 11/19/17) cyclobenzaprine (Verified Allergy, Intermediate, 03/09/20) morphine (Verified Adverse Reaction, Intermediate, 11/19/17) ROS Review of System unobtainable PHYSICAL EXAM General: Alert, Cooperative, No acute distress HEENT: Atraumatic, Mucous membr. moist/pink Lungs: Other (diminished bases) Heart: Other (AFIB ) Abdomen: Soft Extremities: Other (1-2+ bilateral LE edema ) Skin: No significant lesion Neuro: Sensation intact Psych/Mental Status: Other (confused ) MUSCULOSKELETAL: Osteoarthritic changes both hands VITALS/I&O VITALS/I&O: Vital Signs Date Time Temp Pulse Resp B/P (MAP) Pulse Ox O2 Delivery O2 Flow Rate FiO2 03/13/20 11:56 90 132/60 03/13/20 11:03 97.5 22 96 Room Air 97.5 03/13/20 03:41 1.0 I & O 03/12/20 03/12/20 03/13/20 15:00 23:00 07:00 Intake Total 904 ml 120 ml Output Total 100 ml 200 ml Balance 904 ml 20 ml -200 ml LABS Lab: Laboratory Tests Test 03/12/20 16:20 03/12/20 21:04 03/13/20 00:45 03/13/20 07:34 Glucose (Fingerstick) 142 mg/dL (70-99) H 154 mg/dL (70-99) H 185 mg/dL (70-99) H White Blood Count 8.6 x10^3/uL (4.0-11.0) Red Blood Count 3.07 x10^6/uL (3.50-5.40) L Hemoglobin 8.7 g/dL (12.0-15.5) L Hematocrit 27.8 % (36.0-47.0) L Mean Corpuscular Volume 91 fL (79-100) Mean Corpuscular Hemoglobin 28 pg (25-35) Mean Corpuscular Hemoglobin Concent 31 g/dL (31-37) Red Cell Distribution Width 17.3 % (11.5-14.5) H Platelet Count 272 x10^3/uL (140-400) Neutrophils (%) (Auto) 97 % (31-73) H Lymphocytes (%) (Auto) 2 % (24-48) L Monocytes (%) (Auto) 1 % (0-9) Eosinophils (%) (Auto) 0 % (0-3) Basophils (%) (Auto) 0 % (0-3) Neutrophils # (Auto) 8.3 x10^3/uL (1.8-7.7) H Lymphocytes # (Auto) 0.2 x10^3/uL (1.0-4.8) L Monocytes # (Auto) 0.1 x10^3/uL (0.0-1.1) Eosinophils # (Auto) 0.0 x10^3/uL (0.0-0.7) Basophils # (Auto) 0.0 x10^3/uL (0.0-0.2) Sodium Level 135 mmol/L (136-145) L Potassium Level 5.6 mmol/L (3.5-5.1) H Chloride Level 103 mmol/L (98-107) Carbon Dioxide Level 24 mmol/L (21-32) Anion Gap 8 (6-14) Blood Urea Nitrogen 74 mg/dL (7-20) H Creatinine 3.7 mg/dL (0.6-1.0) H Estimated GFR (Cockcroft-Gault) 14.3 BUN/Creatinine Ratio 20 (6-20) Glucose Level 155 mg/dL (70-99) H Calcium Level 9.3 mg/dL (8.5-10.1) Total Bilirubin 0.5 mg/dL (0.2-1.0) Aspartate Amino Transferase (AST) 19 U/L (15-37) Alanine Aminotransferase (ALT) 18 U/L (14-59) Alkaline Phosphatase 81 U/L (46-116) Total Protein 7.0 g/dL (6.4-8.2) Albumin 2.6 g/dL (3.4-5.0) L Albumin/Globulin Ratio 0.6 (1.0-1.7) L Test 03/13/20 11:27 Glucose (Fingerstick) 191 mg/dL (70-99) H Laboratory Tests 03/13/20 00:45 Laboratory Tests 03/13/20 00:45 ECHOCARDIOGRAM ECHOCARDIOGRAM 12/14/19 - 2D + DOPPLER ECHO Normal LV contractility: Estimated LVEF 55%. Concentric LV remodeling. Severe right ventricular dilatation mildly decreased right ventricular contractility. Abnormal septal motion system with right ventricular pressure overload. Normal left atrial volume index. Severe right atrial dilatation. Markedly elevated central venous pressure. Nonspecific mitral leaflet thickening and severe mitral annular calcification. Monophasic mitral diastolic flow. No mitral stenosis. Trace mitral regurgitation. Normal tricuspid valve motion. Mild to moderate tricuspid regurgitation. Estimated PA pressure 89 mmHg. Aortic sclerosis without aortic stenosis. Trace aortic regurgitation. The pulmonic valve and pulmonary artery are not well-visualized. Mild to moderate pulmonic regurgitation. The transverse aorta is not well visualized. Normal aortic root dimensions. Trivial pericardial effusion adjacent to the right atrium. 02/15/19 - Procedure: SPECT TC-PYP CARDIAC AMYLOIDOSIS SUMMARY/OPINION: This study is abnormal and highly suggestive of ATTR cardiac amyloidosis. ASSESSMENT/PLAN ASSESSMENT/PLAN 1. Weakness, fall 2. Acute on chronic diastolic CHF; Recent echo with preserved LV systolic function as noted above 3. 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 . Follows with KWABENA Whitt 4. CAD with known [employer]AD with collaterals 5. Persistent AFIB; rate controlled 6. Hypertension; controlled 7. Hyperlipidemia 8. Diabetes, II 9. KAYLIE on CKD, hyperkalemia. Cr ^ 3.7 10. KEELY with CPAP 11. Recent COVID PNA (12/13/19). treated with steroids and Ramidisvir 12. H/o PE 12/20 on low-dose Eliquis 13. Anemia; s/p transfusion 14. Metabolic encephalopathy 15. Leukocytosis, Bacteremia; GPC 1/3 bottles. As per ID Recommendations Diuresis as per renal Transfuse as warranted Metoprolol for rate control No ROWDY/ARB with KAYLIE DEVANG SPEARS MD 03/13/20 1732: CARDIAC CONSULT ASSESSMENT/PLAN ASSESSMENT/PLAN Patient seen and examined. Agree with HEAD ROSE GROWER's assessment and plan. Fall secondary to lower extremity weakness. No loss of consciousness. Patient recently treated for Covid pneumonia. Patient with acute on chronic diastolic heart failure and acute on chronic renal insufficiency. We will defer diuretics to nephrology team. Patient is being followed at [facility] for amyloidosis and currently being treated with Tafamidis. Chronic atrial fibrillation rate controlled. Patient on low-dose Eliquis for history of PE. CAD status clinically stable. Continue management of anemia per primary team. Thank you for your consultation. LUCAS GOETZ APRN Mar 13, 2020 13:02 DEVANG SPEARS MD Mar 13, 2020 17:32
[2020-03-13 15:22] VITALS: BP 137/63
--- NOTE | 2020-03-13 17:16 | NUR ---
SW following for discharge planning. SW spoke with RN and reviewed chart. Pt accepted for SNU to LTC at [facility]. Pt not ready for discharge per positive blood culture. ID following. SW following.
--- NOTE | 2020-03-13 17:42 | NUR ---
IV metoprolol not administered, patient's HR controlled on PO metoprolol
[2020-03-13 19:00] VITALS: BP 123/59
[2020-03-13] MEDS: INSULIN GLARGINE SYRINGE. SQ SCH (20:56)
[2020-03-13 23:00] VITALS: BP 133/59
[2020-03-14 03:00] VITALS: BP 126/62
[2020-03-14] MEDS: HYDROcodone/APAP 10/325 1 TAB TABLET PO PRN ×2 (05:19→15:54)
[2020-03-14] MEDS: METOPROLOL IV PUSH 5 MG/5 ML VIAL. IVP SCH ×4 (06:00→18:00)
[2020-03-14 07:56] VITALS: BP 119/64
[2020-03-14] MEDS: METOPROLOL TART IMMED RELEASE 25 MG TABLET. PO SCH ×2 (08:36→20:54)
[2020-03-14] MEDS: APIXABAN 2.5 MG TABLET. PO SCH ×2 (08:36→20:53)
[2020-03-14] MEDS: PANTOPRAZOLE 40 MG TABLET.DR. PO SCH (08:36)
[2020-03-14] MEDS: LACTOBACILLUS RHAMNOSUS GG 1 CAPSULE. PO SCH ×2 (08:36→20:53)
[2020-03-14] MEDS: PREGABALIN 25 MG CAPSULE PO SCH ×2 (08:37→20:53)
[2020-03-14] MEDS: CETIRIZINE HCL 10 MG TABLET. PO SCH (08:37)
[2020-03-14] MEDS: ISOSORBIDE DINITRATE 10 MG TABLET. PO SCH ×2 (08:37→15:48)
[2020-03-14] MEDS: TAFAMIDIS 61 MG PO SCH (08:37)
[2020-03-14] MEDS: CHOLECALCIFEROL (VITAMIN D3) 5,000 UNIT CAPSULE PO SCH (08:37)
[2020-03-14] MEDS: ASPIRIN CHEWABLE 81 MG TABLET. PO SCH (08:37)
[2020-03-14] MEDS: INSULIN LISPRO 300 UNITS/3 ML VIAL. SQ SCH ×6 (08:45→17:17)
[2020-03-14 09:33] LABS: BASO % 0 % (0-3); EOS # 0.1 x10^3/uL (0.0-0.7); EOS % 1 % (0-3); HEMOGLOBIN 8.1 g/dL (12.0-15.5); LYMPH # 0.3 x10^3/uL (1.0-4.8); LYMPH % 3 % (24-48); MEAN CORPUSCULAR HEMOGLOBIN 28 pg (25-35); MEAN CORPUSCULAR HGB CONC 31 g/dL (31-37); MEAN CORPUSCULAR VOLUME 90 fL (79-100); MONO # 0.9 x10^3/uL (0.0-1.1); MONO % 9 % (0-9); NEUT # 8.8 x10^3/uL (1.8-7.7); NEUT % 87 % (31-73); PLATELET COUNT 231 x10^3/uL (140-400); RED BLOOD COUNT 2.88 x10^6/uL (3.50-5.40); RED CELL DISTRIBUTION WIDTH 17.7 % (11.5-14.5); WHITE BLOOD COUNT 10.2 x10^3/uL (4.0-11.0)
[2020-03-14] MEDS ORDERED: ANTI-COAG MONITOR BY PHARMACY. MC PRN (09:45)
[2020-03-14 10:10] LABS: ALBUMIN 2.2 g/dL (3.4-5.0); ALBUMIN/GLOBULIN RATIO 0.5 (1.0-1.7); CALCIUM 9.4 mg/dL (8.5-10.1); CREATININE 3.7 mg/dL (0.6-1.0); GFR 14.3; POTASSIUM 5.2 mmol/L (3.5-5.1); TOTAL BILIRUBIN 0.3 mg/dL (0.2-1.0); TOTAL PROTEIN 6.6 g/dL (6.4-8.2)
[2020-03-14 11:37] VITALS: BP 100/50
--- NOTE | 2020-03-14 11:46 | PDOC ---
PROGRESS NOTES Date of Service: DATE: 03/14/20 TIME: 11:46 Chief Complaint Chief Complaint impression Acute encephalopathy - multifactorial metabolic. Will monitor mental status. Previously told she had CVA at [facility]. No focal neuro deficits Left parietal scalp laceration with subcutaneous hematoma. No calvarial defect. No acute intracranial hemorrhage. Mechanical fall - PT/OT, likely needs rehab Left hip pain > right - Bilateral hip pain - XR with no fracture, pain resolved with repositioning Diabetic neuropathy Scalp wound slowly healing - wound care following Anemia - will transfuse Acute on chronic Chronic kidney disease stage IIIb at least with current vasomotor nephropathy prerenal azotemia most likely CKD stage 3B /? 4- daughter reported to RN -baseline Cr 2.3 Renal US Bilateral increased renal cortical echogenicity. No hydronephrosis Elevated BNP History of hypothyroidism History of essential hypertension History of breast cancer approximately 20 years ago status post mastectomy Morbid obesity with a BMI of 48 COVID 19 - recently diagnosed at [facility] January 2020 Cardiomyopathy - sees advanced CHF clinic at [facility], Dr. Mikhail Khanna on Vyndamax bacteremia, ID FOLLOWING ON IV DAPTOMYCIN FEN - ADA cardiac diet PPX - eliquis CODE - DNR/DNI Dispo - inpatient iv daptomycin Will possibly need HD, nephrology following. Defer diuretic therapy to renal Continue daptomycin, renal dosing. ID and [place] of GPC in blood cultures. Repeat blood cultures. scalp wound care. 39 MIN PT EXAM, CHART REVIEW, > 50% OF TIME SPENT WITH EXAM, CHART REVIEW, PT CARE COORDINATION History of Present Illness History of Present Illness Ms Cruz is a 79 yo F w/ PMHx breast Cancer s/p left mastectomy, Diabetes-Type II, High Cholesterol, Hypertension, Hypothyroid, afib, OA bilateral knees, cardiomyopathy, recent diagnosis at [facility] of COVID 19 with pneumonia in January 2020 with 2 weeks of acute rehab and was discharged home with her daughter for 2 weeks who then went home from her daughter's house who was at home for almost 3 weeks who presented via EMS with report of bilateral lower extremity weakness. Patient reports she was walking out of the bathroom using her cane and her "legs just gave out ". Patient reports she was still able to lower herself to the ground. Denies any head trauma or neck pain. Denies fever or chills. Denies cough or shortness of breath. Patient reports she has multiple health issues. Patient reports "I have it all ". Patient does report she has a chronic left parietal/occipital wound for which she follows with wound care regarding. Imaging negative for acute fracture. Very confused and combative. Her daughter notes she has not been the same since COVID 19 and has baseline weight of 262 pounds, but is currently 284 pounds. 03/09: She is still c/o left hip pain. Afebrile. Not able to bear weight. Pain 10/10. Became febrile overnight and transferred to [facility] 19 unit. 03/10: Head wound bothering her. Febrile overnight to 101F. Mild SOB. No diarrhea. Appetite decreased. 03/11: Febrile to 100.8 F overnight. WBC at 14.5, Hb 7.1 BUN 16, CR 3, CRP 163.5. She has been more drowsy today. Blood cultures and urine culture obtained and started on antibiotics. Left leg is bothering her. Afebrile overnight. Cr up to 3.8. Hb 6.9. No more swollen. Very weak. Less d rowsy, still confused. After d/w her daughter apparently she has been on Vyndamax, presumptively in a research study, she has never heard of any diagnosis of amyloidosis, and follows with [facility] cardiology, but she does note her mother has been progressively more confused since her COVID 19 recovery in January. Plan: Will communicate with Nancy. her daughter, , who would like daily updates and formal DPOA paperwork through social work Will need skilled services on discharge Vitals Vitals Vital Signs Date Time Temp Pulse Resp B/P (MAP) Pulse Ox O2 Delivery O2 Flow Rate FiO2 03/14/20 11:37 98.2 65 20 100/50 (67) 96 Room Air 98.2 03/14/20 05:19 1.0 Physical Exam Physical Exam SCALP WOUND STABLE General: Alert, Cooperative, No acute distress Heart: Other (AFIB ) Lungs: Clear Abdomen: Soft Extremities: Other (1-2+ bilateral LE edema ) Skin: No significant lesion Labs LABS Laboratory Tests Test 03/13/20 16:11 03/13/20 20:21 03/14/20 07:29 03/14/20 09:10 Glucose (Fingerstick) 174 mg/dL (70-99) 198 mg/dL (70-99) 186 mg/dL (70-99) White Blood Count 10.2 x10^3/uL (4.0-11.0) Red Blood Count 2.88 x10^6/uL (3.50-5.40) Hemoglobin 8.1 g/dL (12.0-15.5) Hematocrit 26.0 % (36.0-47.0) Mean Corpuscular Volume 90 fL (79-100) Mean Corpuscular Hemoglobin 28 pg (25-35) Mean Corpuscular Hemoglobin Concent 31 g/dL (31-37) Red Cell Distribution Width 17.7 % (11.5-14.5) Platelet Count 231 x10^3/uL (140-400) Neutrophils (%) (Auto) 87 % (31-73) Lymphocytes (%) (Auto) 3 % (24-48) Monocytes (%) (Auto) 9 % (0-9) Eosinophils (%) (Auto) 1 % (0-3) Basophils (%) (Auto) 0 % (0-3) Neutrophils # (Auto) 8.8 x10^3/uL (1.8-7.7) Lymphocytes # (Auto) 0.3 x10^3/uL (1.0-4.8) Monocytes # (Auto) 0.9 x10^3/uL (0.0-1.1) Eosinophils # (Auto) 0.1 x10^3/uL (0.0-0.7) Basophils # (Auto) 0.0 x10^3/uL (0.0-0.2) Sodium Level 144 mmol/L (136-145) Potassium Level 5.2 mmol/L (3.5-5.1) Chloride Level 109 mmol/L (98-107) Carbon Dioxide Level 23 mmol/L (21-32) Anion Gap 12 (6-14) Blood Urea Nitrogen 84 mg/dL (7-20) Creatinine 3.7 mg/dL (0.6-1.0) Estimated GFR (Cockcroft-Gault) 14.3 BUN/Creatinine Ratio 23 (6-20) Glucose Level 191 mg/dL (70-99) Calcium Level 9.4 mg/dL (8.5-10.1) Total Bilirubin 0.3 mg/dL (0.2-1.0) Aspartate Amino Transf (AST/SGOT) 15 U/L (15-37) Alanine Aminotransferase (ALT/SGPT) 21 U/L (14-59) Alkaline Phosphatase 75 U/L (46-116) Creatine Kinase 102 U/L (26-192) Total Protein 6.6 g/dL (6.4-8.2) Albumin 2.2 g/dL (3.4-5.0) Albumin/Globulin Ratio 0.5 (1.0-1.7) Assessment and Plan Assessmemt and Plan Problems Medical Problems: (1) Anemia Status: Acute (2) Bilateral hip pain Status: Acute (3) Fall Status: Acute (4) Generalized weakness Status: Acute (5) Renal insufficiency Status: Acute (6) Scalp wound Status: Acute Comment Review of Relevant I have reviewed the following items bianca (where applicable) has been applied. Labs Laboratory Tests Test 03/12/20 16:20 03/12/20 21:04 03/13/20 00:45 03/13/20 07:34 Glucose (Fingerstick) 142 mg/dL (70-99) 154 mg/dL (70-99) 185 mg/dL (70-99) White Blood Count 8.6 x10^3/uL (4.0-11.0) Red Blood Count 3.07 x10^6/uL (3.50-5.40) Hemoglobin 8.7 g/dL (12.0-15.5) Hematocrit 27.8 % (36.0-47.0) Mean Corpuscular Volume 91 fL (79-100) Mean Corpuscular Hemoglobin 28 pg (25-35) Mean Corpuscular Hemoglobin Concent 31 g/dL (31-37) Red Cell Distribution Width 17.3 % (11.5-14.5) Platelet Count 272 x10^3/uL (140-400) Neutrophils (%) (Auto) 97 % (31-73) Lymphocytes (%) (Auto) 2 % (24-48) Monocytes (%) (Auto) 1 % (0-9) Eosinophils (%) (Auto) 0 % (0-3) Basophils (%) (Auto) 0 % (0-3) Neutrophils # (Auto) 8.3 x10^3/uL (1.8-7.7) Lymphocytes # (Auto) 0.2 x10^3/uL (1.0-4.8) Monocytes # (Auto) 0.1 x10^3/uL (0.0-1.1) Eosinophils # (Auto) 0.0 x10^3/uL (0.0-0.7) Basophils # (Auto) 0.0 x10^3/uL (0.0-0.2) Sodium Level 135 mmol/L (136-145) Potassium Level 5.6 mmol/L (3.5-5.1) Chloride Level 103 mmol/L (98-107) Carbon Dioxide Level 24 mmol/L (21-32) Anion Gap 8 (6-14) Blood Urea Nitrogen 74 mg/dL (7-20) Creatinine 3.7 mg/dL (0.6-1.0) Estimated GFR (Cockcroft-Gault) 14.3 BUN/Creatinine Ratio 20 (6-20) Glucose Level 155 mg/dL (70-99) Calcium Level 9.3 mg/dL (8.5-10.1) Total Bilirubin 0.5 mg/dL (0.2-1.0) Aspartate Amino Transf (AST/SGOT) 19 U/L (15-37) Alanine Aminotransferase (ALT/SGPT) 18 U/L (14-59) Alkaline Phosphatase 81 U/L (46-116) Total Protein 7.0 g/dL (6.4-8.2) Albumin 2.6 g/dL (3.4-5.0) Albumin/Globulin Ratio 0.6 (1.0-1.7) Test 03/13/20 11:27 03/13/20 16:11 03/13/20 20:21 03/14/20 07:29 Glucose (Fingerstick) 191 mg/dL (70-99) 174 mg/dL (70-99) 198 mg/dL (70-99) 186 mg/dL (70-99) Test 03/14/20 09:10 White Blood Count 10.2 x10^3/uL (4.0-11.0) Red Blood Count 2.88 x10^6/uL (3.50-5.40) Hemoglobin 8.1 g/dL (12.0-15.5) Hematocrit 26.0 % (36.0-47.0) Mean Corpuscular Volume 90 fL (79-100) Mean Corpuscular Hemoglobin 28 pg (25-35) Mean Corpuscular Hemoglobin Concent 31 g/dL (31-37) Red Cell Distribution Width 17.7 % (11.5-14.5) Platelet Count 231 x10^3/uL (140-400) Neutrophils (%) (Auto) 87 % (31-73) Lymphocytes (%) (Auto) 3 % (24-48) Monocytes (%) (Auto) 9 % (0-9) Eosinophils (%) (Auto) 1 % (0-3) Basophils (%) (Auto) 0 % (0-3) Neutrophils # (Auto) 8.8 x10^3/uL (1.8-7.7) Lymphocytes # (Auto) 0.3 x10^3/uL (1.0-4.8) Monocytes # (Auto) 0.9 x10^3/uL (0.0-1.1) Eosinophils # (Auto) 0.1 x10^3/uL (0.0-0.7) Basophils # (Auto) 0.0 x10^3/uL (0.0-0.2) Sodium Level 144 mmol/L (136-145) Potassium Level 5.2 mmol/L (3.5-5.1) Chloride Level 109 mmol/L (98-107) Carbon Dioxide Level 23 mmol/L (21-32) Anion Gap 12 (6-14) Blood Urea Nitrogen 84 mg/dL (7-20) Creatinine 3.7 mg/dL (0.6-1.0) Estimated GFR (Cockcroft-Gault) 14.3 BUN/Creatinine Ratio 23 (6-20) Glucose Level 191 mg/dL (70-99) Calcium Level 9.4 mg/dL (8.5-10.1) Total Bilirubin 0.3 mg/dL (0.2-1.0) Aspartate Amino Transf (AST/SGOT) 15 U/L (15-37) Alanine Aminotransferase (ALT/SGPT) 21 U/L (14-59) Alkaline Phosphatase 75 U/L (46-116) Creatine Kinase 102 U/L (26-192) Total Protein 6.6 g/dL (6.4-8.2) Albumin 2.2 g/dL (3.4-5.0) Albumin/Globulin Ratio 0.5 (1.0-1.7) Laboratory Tests Test 03/13/20 16:11 03/13/20 20:21 03/14/20 07:29 03/14/20 09:10 Glucose (Fingerstick) 174 mg/dL (70-99) 198 mg/dL (70-99) 186 mg/dL (70-99) White Blood Count 10.2 x10^3/uL (4.0-11.0) Red Blood Count 2.88 x10^6/uL (3.50-5.40) Hemoglobin 8.1 g/dL (12.0-15.5) Hematocrit 26.0 % (36.0-47.0) Mean Corpuscular Volume 90 fL (79-100) Mean Corpuscular Hemoglobin 28 pg (25-35) Mean Corpuscular Hemoglobin Concent 31 g/dL (31-37) Red Cell Distribution Width 17.7 % (11.5-14.5) Platelet Count 231 x10^3/uL (140-400) Neutrophils (%) (Auto) 87 % (31-73) Lymphocytes (%) (Auto) 3 % (24-48) Monocytes (%) (Auto) 9 % (0-9) Eosinophils (%) (Auto) 1 % (0-3) Basophils (%) (Auto) 0 % (0-3) Neutrophils # (Auto) 8.8 x10^3/uL (1.8-7.7) Lymphocytes # (Auto) 0.3 x10^3/uL (1.0-4.8) Monocytes # (Auto) 0.9 x10^3/uL (0.0-1.1) Eosinophils # (Auto) 0.1 x10^3/uL (0.0-0.7) Basophils # (Auto) 0.0 x10^3/uL (0.0-0.2) Sodium Level 144 mmol/L (136-145) Potassium Level 5.2 mmol/L (3.5-5.1) Chloride Level 109 mmol/L (98-107) Carbon Dioxide Level 23 mmol/L (21-32) Anion Gap 12 (6-14) Blood Urea Nitrogen 84 mg/dL (7-20) Creatinine 3.7 mg/dL (0.6-1.0) Estimated GFR (Cockcroft-Gault) 14.3 BUN/Creatinine Ratio 23 (6-20) Glucose Level 191 mg/dL (70-99) Calcium Level 9.4 mg/dL (8.5-10.1) Total Bilirubin 0.3 mg/dL (0.2-1.0) Aspartate Amino Transf (AST/SGOT) 15 U/L (15-37) Alanine Aminotransferase (ALT/SGPT) 21 U/L (14-59) Alkaline Phosphatase 75 U/L (46-116) Creatine Kinase 102 U/L (26-192) Total Protein 6.6 g/dL (6.4-8.2) Albumin 2.2 g/dL (3.4-5.0) Albumin/Globulin Ratio 0.5 (1.0-1.7) Microbiology 03/11/20 Blood Culture - Preliminary, Resulted NO GROWTH AFTER 3 DAYS Medications Current Medications Sodium Chloride 1,000 ml @ 1,000 mls/hr 1X ONCE IV Last administered on 03/08/20at 14:59; Start 03/08/20 at 14:30; Stop 03/08/20 at 15:29; Status DC Ondansetron HCl (Zofran) 4 mg PRN Q8HRS PRN IV NAUSEA/VOMITING; Start 03/08/20 at 17:45; Stop 03/09/20 at 17:44; Status DC Insulin Human Lispro (HumaLOG) 0-5 UNITS TIDWMEALS SQ ; Start 03/09/20 at 08:00; Status Cancel Dextrose (Dextrose 50%-Water Syringe) 12.5 gm PRN Q15MIN PRN IV SEE COMMENTS; Start 03/08/20 at 17:45; Stop 03/08/20 at 18:04; Status DC Ondansetron HCl (Zofran) 4 mg PRN Q4HRS PRN IV NAUSEA/VOMITING; Start 03/08/20 at 18:00 Zolpidem Tartrate (Ambien) 5 mg PRN QHS PRN PO INSOMNIA Last administered on 03/11/20at 21:05; Start 03/08/20 at 18:00; Stop 03/12/20 at 12:21; Status DC Acetaminophen (Tylenol) 650 mg PRN Q4HRS PRN PO TEMP OVER 100.4F OR MILD PAIN Last administered on 03/09/20at 20:23; Start 03/08/20 at 18:00 Al Hydroxide/Mg Hydroxide (Mylanta Plus Xs) 30 ml PRN DAILY PRN PO HEARTBURN / GAS; Start 03/08/20 at 18:00 Albuterol Sulfate (Ventolin Neb Soln) 2.5 mg PRN Q4HRS PRN NEB SHORTNESS OF BREATH; Start 03/08/20 at 18:00 Albuterol/ Ipratropium (Duoneb) 3 ml Q4H NEB Last administered on 03/08/20at 20:10; Start 03/08/20 at 18:00; Stop 03/08/20 at 20:20; Status DC Guaifenesin (Robitussin) 200 mg PRN Q4HRS PRN PO COUGH; Start 03/08/20 at 18:00 Lorazepam (Ativan) 0.5 mg PRN Q4HRS PRN PO ANXIETY / AGITATION; Start 03/08/20 at 18:00; Stop 03/12/20 at 12:21; Status DC Enoxaparin Sodium (Lovenox 40mg Syringe) 40 mg Q12H SQ ; Start 03/09/20 at 09:00; Status Cancel Amiodarone HCl (Cordarone) 200 mg DAILY PO Last administered on 03/11/20at 08:27; Start 03/09/20 at 09:00; Stop 03/12/20 at 12:21; Status DC Amlodipine Besylate (Norvasc) 5 mg DAILY PO Last administered on 03/11/20at 08:27; Start 03/09/20 at 09:00; Stop 03/12/20 at 12:21; Status DC Aspirin (Aspirin Chewable) 81 mg DAILY PO Last administered on 03/14/20at 08:37; Start 03/09/20 at 09:00 Acetaminophen/ Hydrocodone Bitart (Lortab 10/325) 2 tab PRN Q6HRS PRN PO SEVERE PAIN 7-10 Last administered on 03/12/20at 20:20; Start 03/08/20 at 18:00; Stop 03/13/20 at 04:51; Status DC Potassium Chloride (Klor-Con) 30 meq DAILY PO Last administered on 03/12/20at 08:52; Start 03/09/20 at 09:00; Stop 03/13/20 at 11:58; Status DC Pregabalin (Lyrica) 75 mg BID PO Last administered on 03/12/20at 08:52; Start 03/08/20 at 21:00; Stop 03/12/20 at 12:21; Status DC Torsemide (Demadex) 100 mg DAILY PO Last administered on 03/10/20at 08:27; Start 03/09/20 at 09:00; Stop 03/11/20 at 07:56; Status DC Vitamin D (Vitamin D3) 5,000 unit DAILY PO Last administered on 03/14/20at 08:37; Start 03/09/20 at 09:00 Insulin Human Lispro (HumaLOG) 8 units TIDWMEALS SQ Last administered on 03/14/20at 08:45; Start 03/09/20 at 08:00 Insulin Glargine (Lantus Syringe) 16 unit QHS SQ Last administered on 03/13/20at 20:56; Start 03/08/20 at 21:00 Cetirizine HCl (ZyrTEC) 10 mg DAILY PO Last administered on 03/14/20at 08:37; Start 03/09/20 at 09:00 Tizanidine HCl (Zanaflex) 2 mg PRN TID PRN PO MUSCLE SPASMS Last administered on 03/09/20at 20:23; Start 03/08/20 at 18:15; Stop 03/09/20 at 21:40; Status DC Insulin Human Lispro (HumaLOG) 0-7 UNITS TIDWMEALS SQ Last administered on 03/14/20at 08:46; Start 03/09/20 at 08:00 Dextrose (Dextrose 50%-Water Syringe) 12.5 gm PRN Q15MIN PRN IV SEE COMMENTS; Start 03/08/20 at 18:00 Fentanyl Citrate (Fentanyl 2ml Vial) 50 mcg PRN Q3HRS PRN IVP pain Last administered on 03/11/20at 20:15; Start 03/08/20 at 19:15 Enoxaparin Sodium (Lovenox 40mg Syringe) 40 mg Q24H SQ Last administered on 03/11/20at 08:28; Start 03/09/20 at 09:00; Stop 03/11/20 at 13:03; Status DC Albuterol/ Ipratropium (Duoneb) 3 ml Q4H PRN NEB WHEEZING; Start 03/08/20 at 20:30; Stop 03/08/20 at 20:22; Status DC Enoxaparin Sodium (Lovenox 30mg Syringe) 30 mg Q24H SQ Last administered on 03/12/20at 09:27; Start 03/12/20 at 09:00; Stop 03/12/20 at 11:30; Status DC Piperacillin Sod/ Tazobactam Sod 3.375 gm/Sodium Chloride 50 ml @ 100 mls/hr 1X ONCE IV Last administered on 03/11/20at 16:48; Start 03/11/20 at 17:00; Stop 03/11/20 at 17:29; Status DC Doxycycline Hyclate 100 mg/ Dextrose 100 ml @ 50 mls/hr 1X ONCE IV Last administered on 03/11/20at 18:30; Start 03/11/20 at 17:30; Stop 03/11/20 at 19:29; Status DC Enoxaparin Sodium (Lovenox 40mg Syringe) 40 mg Q24H SQ ; Start 03/13/20 at 09:00; Stop 03/12/20 at 12:21; Status DC Pregabalin (Lyrica) 25 mg BID PO Last administered on 03/14/20at 08:37; Start 03/12/20 at 21:00 Apixaban (Eliquis) 2.5 mg BID PO Last administered on 03/14/20at 08:36; Start 03/12/20 at 21:00 Hydralazine HCl (Apresoline) 100 mg BID PO Last administered on 03/14/20at 08:36; Start 03/12/20 at 21:00 Isosorbide Dinitrate (Isordil) 10 mg BID94 PO Last administered on 03/14/20at 08:37; Start 03/12/20 at 16:00 Lactobacillus Rhamnosus (Culturelle) 1 cap BID PO Last administered on 03/14/20at 08:36; Start 03/12/20 at 21:00 Metoprolol Tartrate (Lopressor) 25 mg BID PO Last administered on 03/14/20at 08:36; Start 03/12/20 at 21:00 Pantoprazole Sodium (Protonix) 40 mg DAILYAC PO Last administered on 03/14/20at 08:36; Start 03/13/20 at 07:30 Non-Formulary Medication (Tafamidis (Vyndamax)) 61 mg DAILY PO Last administered on 03/14/20at 08:37; Start 03/12/20 at 16:00 Daptomycin 500 mg/ Sodium Chloride 50 ml @ 100 mls/hr 1X IV ; Start 03/12/20 at 18:30; Stop 03/12/20 at 21:44; Status DC Daptomycin 500 mg/ Sodium Chloride 50 ml @ 100 mls/hr 1X ONCE IV Last administered on 03/12/20at 21:47; Start 03/12/20 at 21:45; Stop 03/12/20 at 22:14; Status DC Metoprolol Tartrate (Lopressor Vial) 5 mg Q6HRS IVP Last administered on 03/13/20at 00:14; Start 03/13/20 at 00:15 Acetaminophen/ Hydrocodone Bitart (Lortab 10/325) 1 tab PRN Q6HRS PRN PO SEVERE PAIN 7-10 Last administered on 03/14/20at 05:19; Start 03/13/20 at 05:00 Tramadol HCl (Ultram) 50 mg PRN Q6HRS PRN PO PAIN; Start 03/13/20 at 05:00 Daptomycin 500 mg/ Sodium Chloride 50 ml @ 100 mls/hr Q48H IV Last administered on 03/13/20at 11:56; Start 03/13/20 at 12:00 Furosemide (Lasix) 40 mg 1X ONCE IVP Last administered on 03/13/20at 12:37; Start 03/13/20 at 12:00; Stop 03/13/20 at 12:01; Status DC Sodium Polystyrene Sulfonate (Kayexalate) 15 gm 1X ONCE PO Last administered on 03/13/20at 12:37; Start 03/13/20 at 12:00; Stop 03/13/20 at 12:01; Status DC Info (Anti-Coagulation Monitoring By Pharmacy) 1 each PRN DAILY PRN MC SEE COMMENTS; Start 03/14/20 at 09:45 Active Scripts Active Reported Vyndamax (Tafamidis) 61 Mg Capsule 61 Mg PO DAILY Hydrocodone-Apap 5-325 (Hydrocodone Bit/Acetaminophen) 1 Tab Tablet 1 Tab PO PRN Q6HRS PRN Isosorbide Dinitrate 30 Mg Tablet 10 Mg PO BID 30 Days Lyrica (Pregabalin) 50 Mg Capsule 25 Mg PO BID PRN Torsemide 100 Mg Tablet 50 Mg PO BID Acidophilus Lactobacilli (Lactobacillus Acidophilus) 1 Each Capsule 1 Cap PO DAILY 30 Days Protonix (Pantoprazole Sodium) 20 Mg Tablet.dr 40 Mg PO DAILY Metoprolol Tartrate 37.5 Mg Tablet 25 Mg PO BID Hydralazine Hcl 100 Mg Tablet 1 Tab PO BID Zetia (Ezetimibe) 10 Mg Tablet 1 Tab PO DAILY 30 Days Eliquis (Apixaban) 2.5 Mg Tablet 2.5 Mg PO BID Potassium Chloride (Potassium Chloride) 10 Meq Tab.sr.24h 30 Meq PO DAILY Magnesium Citrate 296 Ml Solution 296 Ml PO PRN PRN Novolog (Insulin Aspart) 100 Unit/1 Ml Cartridge 8 Unit SQ TID Levemir (Insulin Detemir) 100 Unit/1 Ml Vial 16 Unit SQ DAILYWSUP Claritin (Loratadine) 10 Mg Tablet 1 Tab PO DAILY Vitamin D3 (Cholecalciferol (Vitamin D3)) 5,000 Unit Tablet 1 Tab PO DAILY Children's Aspirin (Aspirin) 81 Mg Tab.chew 81 Mg PO Vitals/I & O Vital Sign - Last 24 Hours 03/13/20 03/13/20 03/13/20 03/13/20 11:51 11:52 11:56 15:22 Temp 98.7 98.7 Pulse 90 90 90 93 Resp 20 B/P (MAP) 132/60 132/60 132/60 137/63 (87) Pulse Ox 98 O2 Delivery Room Air 03/13/20 03/13/20 03/13/20 03/13/20 17:03 19:00 19:40 20:54 Temp 98.6 98.6 Pulse 93 72 72 Resp 24 B/P (MAP) 137/63 123/59 (80) 123/59 Pulse Ox 94 O2 Delivery Room Air Nasal Cannula O2 Flow Rate 2.0 03/13/20 03/13/20 03/14/20 03/14/20 20:54 23:00 03:00 05:19 Temp 99.0 98.5 99.0 98.5 Pulse 72 72 61 Resp 24 14 B/P (MAP) 123/59 133/59 (83) 126/62 (83) Pulse Ox 99 100 100 O2 Delivery Room Air Room Air Nasal Cannula O2 Flow Rate 1.0 03/14/20 03/14/20 03/14/20 03/14/20 06:00 07:56 08:10 08:36 Temp 97.8 97.8 Pulse 60 66 66 Resp 20 B/P (MAP) 119/64 (82) 119/64 Pulse Ox 96 O2 Delivery Room Air Room Air 03/14/20 03/14/20 03/14/20 08:36 08:37 11:37 Temp 98.2 98.2 Pulse 66 66 65 Resp 20 B/P (MAP) 119/64 119/64 100/50 (67) Pulse Ox 96 O2 Delivery Room Air Intake and Output 0 03/13/20 03/13/20 03/14/20 15:00 23:00 07:00 Intake Total 390 ml 340 ml 100 ml Output Total 600 ml Balance 390 ml -260 ml 100 ml Justicifation of Admission Dx: Justifications for Admission: Justification of Admission Dx: Yes Acute Renal Failure: RF Can't Be Managed Outpt VARSHA DUBON MD Mar 14, 2020 11:46
--- NOTE | 2020-03-14 12:42 | PDOC ---
Infectious Disease Note Subjective: Subjective Patient without complaints Scalp wound is healing slowly Denies fever, chills, nausea, vomiting, diarrhea, abdominal pain Vital Signs: Vital Signs Vital Signs Date Time Temp Pulse Resp B/P (MAP) Pulse Ox O2 Delivery O2 Flow Rate FiO2 03/14/20 11:37 98.2 65 20 100/50 (67) 96 Room Air 98.2 03/14/20 05:19 1.0 Physical Exam: PHYSICAL EXAM GENERAL: Oriented x3 female in no acute. HEENT: Normocephalic, atraumatic. Oral mucosa is moist. Scalp wound dry no purulence NECK: Supple. No JVD. LUNGS: Clear bilaterally. HEART: S1, S2. ABDOMEN: Soft, obese. Bowel sounds present. EXTREMITIES: Chronic lower extremity edema. GENITOURINARY: No Barrios. DERMATOLOGIC: No generalized rash. PSYCHIATRIC: Cooperative, normal mood. CENTRAL NERVOUS SYSTEM: Alert, awake, Moves all 4 extremities. Medications: Inpatient Meds: Current Medications Medications (Trade) Dose Ordered Sig/José Miguel Start Time Stop Time Status Last Admin Dose Admin Acetaminophen (Tylenol) 650 mg PRN Q4HRS PRN 03/08/20 18:00 03/09/20 20:23 650 MG Acetaminophen/ Hydrocodone Bitart (Lortab 10/325) 1 tab PRN Q6HRS PRN 03/13/20 05:00 03/14/20 05:19 1 TAB Al Hydroxide/Mg Hydroxide (Mylanta Plus Xs) 30 ml PRN DAILY PRN 03/08/20 18:00 Albuterol Sulfate (Ventolin Neb Soln) 2.5 mg PRN Q4HRS PRN 03/08/20 18:00 Albuterol/ Ipratropium (Duoneb) 3 ml Q4H PRN 03/08/20 20:30 03/08/20 20:22 DC Amiodarone HCl (Cordarone) 200 mg DAILY 03/09/20 09:00 03/12/20 12:21 DC 03/11/20 08:27 200 MG Amlodipine Besylate (Norvasc) 5 mg DAILY 03/09/20 09:00 03/12/20 12:21 DC 03/11/20 08:27 5 MG Apixaban (Eliquis) 2.5 mg BID 03/12/20 21:00 03/14/20 08:36 2.5 MG Aspirin (Aspirin Chewable) 81 mg DAILY 03/09/20 09:00 03/14/20 08:37 81 MG Cetirizine HCl (ZyrTEC) 10 mg DAILY 03/09/20 09:00 03/14/20 08:37 10 MG Daptomycin 500 mg/ Sodium Chloride 50 ml @ 100 mls/hr Q48H 03/13/20 12:00 03/13/20 11:56 100 MLS/HR Dextrose (Dextrose 50%-Water Syringe) 12.5 gm PRN Q15MIN PRN 03/08/20 18:00 Doxycycline Hyclate 100 mg/ Dextrose 100 ml @ 50 mls/hr 1X ONCE 03/11/20 17:30 03/11/20 19:29 DC 03/11/20 18:30 50 MLS/HR Enoxaparin Sodium (Lovenox 30mg Syringe) 30 mg Q24H 03/12/20 09:00 03/12/20 11:30 DC 03/12/20 09:27 30 MG Enoxaparin Sodium (Lovenox 40mg Syringe) 40 mg Q24H 03/13/20 09:00 03/12/20 12:21 DC Fentanyl Citrate (Fentanyl 2ml Vial) 50 mcg PRN Q3HRS PRN 03/08/20 19:15 03/11/20 20:15 50 MCG Furosemide (Lasix) 40 mg 1X ONCE 03/13/20 12:00 03/13/20 12:01 DC 03/13/20 12:37 40 MG Guaifenesin (Robitussin) 200 mg PRN Q4HRS PRN 03/08/20 18:00 Hydralazine HCl (Apresoline) 100 mg BID 03/12/20 21:00 03/14/20 08:36 100 MG Info (Anti-Coagulation Monitoring By Pharmacy) 1 each PRN DAILY PRN 03/14/20 09:45 Insulin Glargine (Lantus Syringe) 16 unit QHS 03/08/20 21:00 03/13/20 20:56 16 UNIT Insulin Human Lispro (HumaLOG) 0-7 UNITS TIDWMEALS 03/09/20 08:00 03/14/20 12:13 6 UNITS Isosorbide Dinitrate (Isordil) 10 mg [id number] 03/12/20 16:00 03/14/20 08:37 10 MG Lactobacillus Rhamnosus (Culturelle) 1 cap BID 03/12/20 21:00 03/14/20 08:36 1 CAP Lorazepam (Ativan) 0.5 mg PRN Q4HRS PRN 03/08/20 18:00 03/12/20 12:21 DC Metoprolol Tartrate (Lopressor Vial) 5 mg Q6HRS 03/13/20 00:15 03/13/20 00:14 5 MG Metoprolol Tartrate (Lopressor) 25 mg BID 03/12/20 21:00 03/14/20 08:36 25 MG Non-Formulary Medication (Tafamidis (Vyndamax)) 61 mg DAILY 03/12/20 16:00 03/14/20 08:37 61 MG Ondansetron HCl (Zofran) 4 mg PRN Q4HRS PRN 03/08/20 18:00 Pantoprazole Sodium (Protonix) 40 mg DAILYAC 03/13/20 07:30 03/14/20 08:36 40 MG Piperacillin Sod/ Tazobactam Sod 3.375 gm/Sodium Chloride 50 ml @ 100 mls/hr 1X ONCE 03/11/20 17:00 03/11/20 17:29 DC 03/11/20 16:48 100 MLS/HR Potassium Chloride (Klor-Con) 30 meq DAILY 03/09/20 09:00 03/13/20 11:58 DC 03/12/20 08:52 30 MEQ Pregabalin (Lyrica) 25 mg BID 03/12/20 21:00 03/14/20 08:37 25 MG Sodium Polystyrene Sulfonate (Kayexalate) 15 gm 1X ONCE 03/13/20 12:00 03/13/20 12:01 DC 03/13/20 12:37 15 GM Sodium Chloride 1,000 ml @ 1,000 mls/hr 1X ONCE 03/08/20 14:30 03/08/20 15:29 DC 03/08/20 14:59 1,000 MLS/HR Tizanidine HCl (Zanaflex) 2 mg PRN TID PRN 03/08/20 18:15 03/09/20 21:40 DC 03/09/20 20:23 2 MG Torsemide (Demadex) 100 mg DAILY 03/09/20 09:00 03/11/20 07:56 DC 03/10/20 08:27 100 MG Tramadol HCl (Ultram) 50 mg PRN Q6HRS PRN 03/13/20 05:00 Vitamin D (Vitamin D3) 5,000 unit DAILY 03/09/20 09:00 03/14/20 08:37 5,000 UNIT Zolpidem Tartrate (Ambien) 5 mg PRN QHS PRN 03/08/20 18:00 03/12/20 12:21 DC 03/11/20 21:05 5 MG Labs: Lab Laboratory Tests Test 03/13/20 16:11 03/13/20 20:21 03/14/20 07:29 03/14/20 09:10 Glucose (Fingerstick) 174 mg/dL (70-99) 198 mg/dL (70-99) 186 mg/dL (70-99) White Blood Count 10.2 x10^3/uL (4.0-11.0) Red Blood Count 2.88 x10^6/uL (3.50-5.40) Hemoglobin 8.1 g/dL (12.0-15.5) Hematocrit 26.0 % (36.0-47.0) Mean Corpuscular Volume 90 fL (79-100) Mean Corpuscular Hemoglobin 28 pg (25-35) Mean Corpuscular Hemoglobin Concent 31 g/dL (31-37) Red Cell Distribution Width 17.7 % (11.5-14.5) Platelet Count 231 x10^3/uL (140-400) Neutrophils (%) (Auto) 87 % (31-73) Lymphocytes (%) (Auto) 3 % (24-48) Monocytes (%) (Auto) 9 % (0-9) Eosinophils (%) (Auto) 1 % (0-3) Basophils (%) (Auto) 0 % (0-3) Neutrophils # (Auto) 8.8 x10^3/uL (1.8-7.7) Lymphocytes # (Auto) 0.3 x10^3/uL (1.0-4.8) Monocytes # (Auto) 0.9 x10^3/uL (0.0-1.1) Eosinophils # (Auto) 0.1 x10^3/uL (0.0-0.7) Basophils # (Auto) 0.0 x10^3/uL (0.0-0.2) Sodium Level 144 mmol/L (136-145) Potassium Level 5.2 mmol/L (3.5-5.1) Chloride Level 109 mmol/L (98-107) Carbon Dioxide Level 23 mmol/L (21-32) Anion Gap 12 (6-14) Blood Urea Nitrogen 84 mg/dL (7-20) Creatinine 3.7 mg/dL (0.6-1.0) Estimated GFR (Cockcroft-Gault) 14.3 BUN/Creatinine Ratio 23 (6-20) Glucose Level 191 mg/dL (70-99) Calcium Level 9.4 mg/dL (8.5-10.1) Total Bilirubin 0.3 mg/dL (0.2-1.0) Aspartate Amino Transf (AST/SGOT) 15 U/L (15-37) Alanine Aminotransferase (ALT/SGPT) 21 U/L (14-59) Alkaline Phosphatase 75 U/L (46-116) Creatine Kinase 102 U/L (26-192) Total Protein 6.6 g/dL (6.4-8.2) Albumin 2.2 g/dL (3.4-5.0) Albumin/Globulin Ratio 0.5 (1.0-1.7) Test 03/14/20 11:20 Glucose (Fingerstick) 251 mg/dL (70-99) Objective: Assessment: 1. Acute encephalopathy, appears metabolic, resolved 2. Mechanical fall prior to admission. 3. Bacteremia, one out of three bottles, gram-positive cocci could be contaminant. 4. Scalp wound, chronic, slowly healing. Wound Care following. 5. Anemia, status post transfusion. 6. Xiaxb-ut-huumlzz kidney disease. 7. Diabetic neuropathy. 8. History of amyloidosis. 9. History of breast cancer. 10. History of cardiomyopathy. 11. Leukocytosis, now resolved. 12. History of morbid obesity. Plan: Plan of Care Continue daptomycin, may need renal dosing. Follow up ID and [place] of GPC in blood cultures. . Repeat blood cultures. Continue scalp wound care. Follow up labs and cultures. Continue supportive care. GEETA THAKUR MD Mar 14, 2020 12:42
--- NOTE | 2020-03-14 14:06 | PDOC ---
MIGUEL WHITE FINANCIAL ASSISTANCE SPECIALIST 03/14/20 1406: CARDIO Progress Notes Date and Time Date of Service 03/14/2020 Time of Evaluation 1330 Subjective Subjective: No Chest Pain, No shortness of breath, No Palpitations Vitals Vitals Vital Signs Date Time Temp Pulse Resp B/P (MAP) Pulse Ox O2 Delivery O2 Flow Rate FiO2 03/14/20 11:37 98.2 65 20 100/50 (67) 96 Room Air 98.2 03/14/20 05:19 1.0 Weight Weight [ ] Input and Output Intake and Output Intake and Output 03/14/20 07:00 Intake Total 830 ml Output Total 600 ml Balance 230 ml Intake Oral 830 ml Output Urine Total 600 ml Laboratory Labs Laboratory Tests Test 03/13/20 16:11 03/13/20 20:21 03/14/20 07:29 03/14/20 09:10 Glucose (Fingerstick) 174 mg/dL (70-99) 198 mg/dL (70-99) 186 mg/dL (70-99) White Blood Count 10.2 x10^3/uL (4.0-11.0) Red Blood Count 2.88 x10^6/uL (3.50-5.40) Hemoglobin 8.1 g/dL (12.0-15.5) Hematocrit 26.0 % (36.0-47.0) Mean Corpuscular Volume 90 fL (79-100) Mean Corpuscular Hemoglobin 28 pg (25-35) Mean Corpuscular Hemoglobin Concent 31 g/dL (31-37) Red Cell Distribution Width 17.7 % (11.5-14.5) Platelet Count 231 x10^3/uL (140-400) Neutrophils (%) (Auto) 87 % (31-73) Lymphocytes (%) (Auto) 3 % (24-48) Monocytes (%) (Auto) 9 % (0-9) Eosinophils (%) (Auto) 1 % (0-3) Basophils (%) (Auto) 0 % (0-3) Neutrophils # (Auto) 8.8 x10^3/uL (1.8-7.7) Lymphocytes # (Auto) 0.3 x10^3/uL (1.0-4.8) Monocytes # (Auto) 0.9 x10^3/uL (0.0-1.1) Eosinophils # (Auto) 0.1 x10^3/uL (0.0-0.7) Basophils # (Auto) 0.0 x10^3/uL (0.0-0.2) Sodium Level 144 mmol/L (136-145) Potassium Level 5.2 mmol/L (3.5-5.1) Chloride Level 109 mmol/L (98-107) Carbon Dioxide Level 23 mmol/L (21-32) Anion Gap 12 (6-14) Blood Urea Nitrogen 84 mg/dL (7-20) Creatinine 3.7 mg/dL (0.6-1.0) Estimated GFR (Cockcroft-Gault) 14.3 BUN/Creatinine Ratio 23 (6-20) Glucose Level 191 mg/dL (70-99) Calcium Level 9.4 mg/dL (8.5-10.1) Total Bilirubin 0.3 mg/dL (0.2-1.0) Aspartate Amino Transf (AST/SGOT) 15 U/L (15-37) Alanine Aminotransferase (ALT/SGPT) 21 U/L (14-59) Alkaline Phosphatase 75 U/L (46-116) Creatine Kinase 102 U/L (26-192) Total Protein 6.6 g/dL (6.4-8.2) Albumin 2.2 g/dL (3.4-5.0) Albumin/Globulin Ratio 0.5 (1.0-1.7) Test 03/14/20 11:20 Glucose (Fingerstick) 251 mg/dL (70-99) Microbiology Micro Microbiology 03/11/20 Blood Culture - Final, Complete Review of Systems Constitutional: yes: other (CONFUSED) Physical Exam HEENT: Neck Supple W Full Motion Chest: Symmetric LUNGS: Other (diminished bases) Heart: irregularly irregular (AFIB rate controlled) Extremities: No Calf Tenderness, Other (trace LE edema) Neurology: alert, follow commands, confused Assessment Assessment 1. Weakness, fall 2. Acute on chronic diastolic CHF: compensated 3. 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 . Follows with KWABENA Whitt 4. CAD with known CHAR FILTER OPERATOR HELPER LAD with collaterals, clinically stable 5. Persistent AFIB; rate controlled 6. Hypertension; controlled 7. Hyperlipidemia 8. Diabetes, II 9. KAYLIE on CKD, hyperkalemia: Cr 3.7 10. KEELY with CPAP 11. Recent COVID PNA (12/13/19). treated with steroids and Ramidisvir 12. H/o PE 12/20 on low-dose Eliquis 13. Anemia; s/p transfusion 14. Metabolic encephalopathy 15. Leukocytosis, Bacteremia; GPC 1/3 bottles. As per ID 16. Statin allergy Recommendations Will possibly need HD, nephrology following. Defer diuretic therapy to renal Metoprolol for rate control. May continue eliquis low dose for now for stroke prevention. CrCl 25.3 Avoid nephrotoxins Secondary prevention measures. Supportive care Justicifation of Admission Dx: Justifications for Admission: Justification of Admission Dx: Yes Acute Renal Failure: RF Can't Be Managed Outpt DEVANG SPEARS MD 03/14/20 1816: CARDIO Progress Notes Assessment Assessment Patient seen and examined. Agree with BREAKER MACHINE TENDER's assessment and plan. Fall secondary to lower extremity weakness. No loss of consciousness. Patient recently treated for Covid pneumonia. Patient with acute on chronic diastolic heart failure and acute on chronic renal insufficiency. Nephrology planning trial of IV hydration Patient [place] [facility] [place] and currently being treated with Tafamidis. Chronic atrial fibrillation rate controlled. Patient on low-dose Eliquis for history of PE. CAD status clinically stable. Continue management of anemia per primary team. MIGUEL WHITE APRN Mar 14, 2020 14:06 DEVANG SPEARS MD Mar 14, 2020 18:16
--- NOTE | 2020-03-14 15:13 | NUR ---
LUZ following for discharge planning. Spoke with RN and reviewed chart. LUZ attempted to call into pt's room, no answer. Spoke with daughter Nancy Cruz ([phone]) who stated she would like a referral sent to [facility] acute rehab. Nancy stated she is hopeful pt can participate in more aggressive therapy and not have to go into LTC. Referral faxed. Patient choice of vendor form completed. LUZ following. Addendum: 03/14/20 at 1638 by SELENA ESCOBAR Spoke with Neptali. Pt accepted for acute rehab with [facility] when medically ready for discharge.
[2020-03-14 15:16] VITALS: BP 114/54
--- NOTE | 2020-03-14 15:16 | PDOC ---
Renal-Progress Notes Subjective Notes Notes NO NEW COMPLAINTS History of Present Illness Hx of present illness STABLE Vitals Vitals Vital Signs Date Time Temp Pulse Resp B/P (MAP) Pulse Ox O2 Delivery O2 Flow Rate FiO2 03/14/20 11:37 98.2 65 20 100/50 (67) 96 Room Air 98.2 03/14/20 05:19 1.0 Weight Weight [ ] I.O. Intake and Output Intake and Output 03/14/20 07:00 Intake Total 830 ml Output Total 600 ml Balance 230 ml Intake Oral 830 ml Output Urine Total 600 ml Labs Labs Laboratory Tests Test 03/13/20 16:11 03/13/20 20:21 03/14/20 07:29 03/14/20 09:10 Glucose (Fingerstick) 174 mg/dL (70-99) 198 mg/dL (70-99) 186 mg/dL (70-99) White Blood Count 10.2 x10^3/uL (4.0-11.0) Red Blood Count 2.88 x10^6/uL (3.50-5.40) Hemoglobin 8.1 g/dL (12.0-15.5) Hematocrit 26.0 % (36.0-47.0) Mean Corpuscular Volume 90 fL (79-100) Mean Corpuscular Hemoglobin 28 pg (25-35) Mean Corpuscular Hemoglobin Concent 31 g/dL (31-37) Red Cell Distribution Width 17.7 % (11.5-14.5) Platelet Count 231 x10^3/uL (140-400) Neutrophils (%) (Auto) 87 % (31-73) Lymphocytes (%) (Auto) 3 % (24-48) Monocytes (%) (Auto) 9 % (0-9) Eosinophils (%) (Auto) 1 % (0-3) Basophils (%) (Auto) 0 % (0-3) Neutrophils # (Auto) 8.8 x10^3/uL (1.8-7.7) Lymphocytes # (Auto) 0.3 x10^3/uL (1.0-4.8) Monocytes # (Auto) 0.9 x10^3/uL (0.0-1.1) Eosinophils # (Auto) 0.1 x10^3/uL (0.0-0.7) Basophils # (Auto) 0.0 x10^3/uL (0.0-0.2) Sodium Level 144 mmol/L (136-145) Potassium Level 5.2 mmol/L (3.5-5.1) Chloride Level 109 mmol/L (98-107) Carbon Dioxide Level 23 mmol/L (21-32) Anion Gap 12 (6-14) Blood Urea Nitrogen 84 mg/dL (7-20) Creatinine 3.7 mg/dL (0.6-1.0) Estimated GFR (Cockcroft-Gault) 14.3 BUN/Creatinine Ratio 23 (6-20) Glucose Level 191 mg/dL (70-99) Calcium Level 9.4 mg/dL (8.5-10.1) Total Bilirubin 0.3 mg/dL (0.2-1.0) Aspartate Amino Transf (AST/SGOT) 15 U/L (15-37) Alanine Aminotransferase (ALT/SGPT) 21 U/L (14-59) Alkaline Phosphatase 75 U/L (46-116) Creatine Kinase 102 U/L (26-192) Total Protein 6.6 g/dL (6.4-8.2) Albumin 2.2 g/dL (3.4-5.0) Albumin/Globulin Ratio 0.5 (1.0-1.7) Test 03/14/20 11:20 Glucose (Fingerstick) 251 mg/dL (70-99) Micro Micro Microbiology 03/11/20 Blood Culture - Final, Complete Review of Systems Constitutional: yes: other (CONFUSED) Physical Exam General Appearance: no apparent distress Skin: warm Respiratory: decreased breath sounds Heart: S1S2 Abdomen: soft, bowel sounds present Genitourinary: bladder flat Extremities: pulses present, edema Neurology: alert, follow commands, confused Musculoskeletal: Osteoarthritis Assessment Assessment IMP ACUTE ENCEPHALOPATHY HYPERKALEMIA KAYLIE WITH CR OF 3.7-UA NEG FOR NEPHRITIS CKD STAGE 3 WITH CR OF ABOUT 2.3 HX OF AMYLOID DM II HTN PLAN STOPPED KCL TRIAL OF HYDRATION WILL FOLLOW GURVINDER CASAS MD Mar 14, 2020 15:16
--- NOTE | 2020-03-14 15:37 | PDOC2 ---
CONSULT Date of Consult Date of Consult DATE: 03/14/20 TIME: 15:24 Reason for Consult Reason for Consult: Wound with necrotic tissue to the occipital portion of the scalp Referring Physician Referring Physician: Dr. Valentine Identification/Chief Complaint Chief Complaint 79-year-old patient recently admitted for multiple medical problems significantly impacting her ability to self-care. In the history is relatively recent head trauma with subsequent hematoma that underwent evaluation in the emergency department. Likely related to that event is the development of wound that I have been asked to evaluate. Patient is aware of its presence and it provides discomfort in the supine positioning. Further history regarding this is unavailable. She does not provide significant history of wounding or ulceration. Patient is questionable as a historian. Source Source: Chart review, Patient History of Present Illness Reason for Visit: Specific to wound care history as above is pertinent. Patient has undergone renal work-up for KAYLIE and mental status change. Past Medical History Cardiovascular: AFIB, CAD, CHF, HTN, Hyperlipidemia, Other (PAD, cardiac amyloidosis ) Pulmonary: Pulmonary embolus, Other (KEELY) CENTRAL NERVOUS SYSTEM: Periperal neuropathy Heme/Onc: Anemia NOS, Cancer (breast ) Psych: Depression Musculoskeletal: Osteoarthritis Renal/: Chronic renal insuff Endocrine: Diabetes Past Surgical History Past Surgical History: Other (mastectomy ) Family History Family History: Heart Disease, Hypertension Social History No ALCOHOL: none Drugs: None Current Problem List Problem List Problems Medical Problems: (1) Anemia Status: Acute (2) Bilateral hip pain Status: Acute (3) Fall Status: Acute (4) Generalized weakness Status: Acute (5) Renal insufficiency Status: Acute (6) Scalp wound Status: Acute Current Medications Current Medications Current Medications Sodium Chloride 1,000 ml @ 1,000 mls/hr 1X ONCE IV Last administered on 03/08/20at 14:59; Start 03/08/20 at 14:30; Stop 03/08/20 at 15:29; Status DC Ondansetron HCl (Zofran) 4 mg PRN Q8HRS PRN IV NAUSEA/VOMITING; Start 03/08/20 at 17:45; Stop 03/09/20 at 17:44; Status DC Insulin Human Lispro (HumaLOG) 0-5 UNITS TIDWMEALS SQ ; Start 03/09/20 at 08:00; Status Cancel Dextrose (Dextrose 50%-Water Syringe) 12.5 gm PRN Q15MIN PRN IV SEE COMMENTS; Start 03/08/20 at 17:45; Stop 03/08/20 at 18:04; Status DC Ondansetron HCl (Zofran) 4 mg PRN Q4HRS PRN IV NAUSEA/VOMITING; Start 03/08/20 at 18:00 Zolpidem Tartrate (Ambien) 5 mg PRN QHS PRN PO INSOMNIA Last administered on 03/11/20at 21:05; Start 03/08/20 at 18:00; Stop 03/12/20 at 12:21; Status DC Acetaminophen (Tylenol) 650 mg PRN Q4HRS PRN PO TEMP OVER 100.4F OR MILD PAIN Last administered on 03/09/20at 20:23; Start 03/08/20 at 18:00 Al Hydroxide/Mg Hydroxide (Mylanta Plus Xs) 30 ml PRN DAILY PRN PO HEARTBURN / GAS; Start 03/08/20 at 18:00 Albuterol Sulfate (Ventolin Neb Soln) 2.5 mg PRN Q4HRS PRN NEB SHORTNESS OF BREATH; Start 03/08/20 at 18:00 Albuterol/ Ipratropium (Duoneb) 3 ml Q4H NEB Last administered on 03/08/20at 20:10; Start 03/08/20 at 18:00; Stop 03/08/20 at 20:20; Status DC Guaifenesin (Robitussin) 200 mg PRN Q4HRS PRN PO COUGH; Start 03/08/20 at 18:00 Lorazepam (Ativan) 0.5 mg PRN Q4HRS PRN PO ANXIETY / AGITATION; Start 03/08/20 at 18:00; Stop 03/12/20 at 12:21; Status DC Enoxaparin Sodium (Lovenox 40mg Syringe) 40 mg Q12H SQ ; Start 03/09/20 at 09:00; Status Cancel Amiodarone HCl (Cordarone) 200 mg DAILY PO Last administered on 03/11/20at 08:27; Start 03/09/20 at 09:00; Stop 03/12/20 at 12:21; Status DC Amlodipine Besylate (Norvasc) 5 mg DAILY PO Last administered on 03/11/20at 08:27; Start 03/09/20 at 09:00; Stop 03/12/20 at 12:21; Status DC Aspirin (Aspirin Chewable) 81 mg DAILY PO Last administered on 03/14/20at 08:37; Start 03/09/20 at 09:00 Acetaminophen/ Hydrocodone Bitart (Lortab 10/325) 2 tab PRN Q6HRS PRN PO SEVERE PAIN 7-10 Last administered on 03/12/20at 20:20; Start 03/08/20 at 18:00; Stop 03/13/20 at 04:51; Status DC Potassium Chloride (Klor-Con) 30 meq DAILY PO Last administered on 03/12/20at 08:52; Start 03/09/20 at 09:00; Stop 03/13/20 at 11:58; Status DC Pregabalin (Lyrica) 75 mg BID PO Last administered on 03/12/20at 08:52; Start 03/08/20 at 21:00; Stop 03/12/20 at 12:21; Status DC Torsemide (Demadex) 100 mg DAILY PO Last administered on 03/10/20at 08:27; Start 03/09/20 at 09:00; Stop 03/11/20 at 07:56; Status DC Vitamin D (Vitamin D3) 5,000 unit DAILY PO Last administered on 03/14/20at 08:37; Start 03/09/20 at 09:00 Insulin Human Lispro (HumaLOG) 8 units TIDWMEALS SQ Last administered on 03/14/20at 12:13; Start 03/09/20 at 08:00 Insulin Glargine (Lantus Syringe) 16 unit QHS SQ Last administered on 03/13/20at 20:56; Start 03/08/20 at 21:00 Cetirizine HCl (ZyrTEC) 10 mg DAILY PO Last administered on 03/14/20at 08:37; Start 03/09/20 at 09:00 Tizanidine HCl (Zanaflex) 2 mg PRN TID PRN PO MUSCLE SPASMS Last administered on 03/09/20at 20:23; Start 03/08/20 at 18:15; Stop 03/09/20 at 21:40; Status DC Insulin Human Lispro (HumaLOG) 0-7 UNITS TIDWMEALS SQ Last administered on 03/14/20at 12:13; Start 03/09/20 at 08:00 Dextrose (Dextrose 50%-Water Syringe) 12.5 gm PRN Q15MIN PRN IV SEE COMMENTS; Start 03/08/20 at 18:00 Fentanyl Citrate (Fentanyl 2ml Vial) 50 mcg PRN Q3HRS PRN IVP pain Last administered on 03/11/20at 20:15; Start 03/08/20 at 19:15 Enoxaparin Sodium (Lovenox 40mg Syringe) 40 mg Q24H SQ Last administered on 03/11/20at 08:28; Start 03/09/20 at 09:00; Stop 03/11/20 at 13:03; Status DC Albuterol/ Ipratropium (Duoneb) 3 ml Q4H PRN NEB WHEEZING; Start 03/08/20 at 20:30; Stop 03/08/20 at 20:22; Status DC Enoxaparin Sodium (Lovenox 30mg Syringe) 30 mg Q24H SQ Last administered on 03/12/20at 09:27; Start 03/12/20 at 09:00; Stop 03/12/20 at 11:30; Status DC Piperacillin Sod/ Tazobactam Sod 3.375 gm/Sodium Chloride 50 ml @ 100 mls/hr 1X ONCE IV Last administered on 03/11/20at 16:48; Start 03/11/20 at 17:00; Stop 03/11/20 at 17:29; Status DC Doxycycline Hyclate 100 mg/ Dextrose 100 ml @ 50 mls/hr 1X ONCE IV Last administered on 03/11/20at 18:30; Start 03/11/20 at 17:30; Stop 03/11/20 at 19:29; Status DC Enoxaparin Sodium (Lovenox 40mg Syringe) 40 mg Q24H SQ ; Start 03/13/20 at 09:00; Stop 03/12/20 at 12:21; Status DC Pregabalin (Lyrica) 25 mg BID PO Last administered on 03/14/20at 08:37; Start 03/12/20 at 21:00 Apixaban (Eliquis) 2.5 mg BID PO Last administered on 03/14/20at 08:36; Start 03/12/20 at 21:00 Hydralazine HCl (Apresoline) 100 mg BID PO Last administered on 03/14/20at 08:36; Start 03/12/20 at 21:00 Isosorbide Dinitrate (Isordil) 10 mg [id number] PO Last administered on 03/14/20at 08:37; Start 03/12/20 at 16:00 Lactobacillus Rhamnosus (Culturelle) 1 cap BID PO Last administered on 03/14/20at 08:36; Start 03/12/20 at 21:00 Metoprolol Tartrate (Lopressor) 25 mg BID PO Last administered on 03/14/20at 08:36; Start 03/12/20 at 21:00 Pantoprazole Sodium (Protonix) 40 mg DAILYAC PO Last administered on 03/14/20at 08:36; Start 03/13/20 at 07:30 Non-Formulary Medication (Tafamidis (Vyndamax)) 61 mg DAILY PO Last administered on 03/14/20at 08:37; Start 03/12/20 at 16:00 Daptomycin 500 mg/ Sodium Chloride 50 ml @ 100 mls/hr 1X IV ; Start 03/12/20 at 18:30; Stop 03/12/20 at 21:44; Status DC Daptomycin 500 mg/ Sodium Chloride 50 ml @ 100 mls/hr 1X ONCE IV Last administered on 03/12/20at 21:47; Start 03/12/20 at 21:45; Stop 03/12/20 at 22:14; Status DC Metoprolol Tartrate (Lopressor Vial) 5 mg Q6HRS IVP Last administered on 03/13/20at 00:14; Start 03/13/20 at 00:15 Acetaminophen/ Hydrocodone Bitart (Lortab 10/325) 1 tab PRN Q6HRS PRN PO SEVERE PAIN 7-10 Last administered on 03/14/20at 05:19; Start 03/13/20 at 05:00 Tramadol HCl (Ultram) 50 mg PRN Q6HRS PRN PO PAIN; Start 03/13/20 at 05:00 Daptomycin 500 mg/ Sodium Chloride 50 ml @ 100 mls/hr Q48H IV Last administered on 03/13/20at 11:56; Start 03/13/20 at 12:00 Furosemide (Lasix) 40 mg 1X ONCE IVP Last administered on 03/13/20at 12:37; Start 03/13/20 at 12:00; Stop 03/13/20 at 12:01; Status DC Sodium Polystyrene Sulfonate (Kayexalate) 15 gm 1X ONCE PO Last administered on 03/13/20at 12:37; Start 03/13/20 at 12:00; Stop 03/13/20 at 12:01; Status DC Info (Anti-Coagulation Monitoring By Pharmacy) 1 each PRN DAILY PRN MC SEE COMMENTS; Start 03/14/20 at 09:45 Sodium Chloride 1,000 ml @ 75 mls/hr [id number] IV ; Start 03/14/20 at 15:30 Active Scripts Active Reported Vyndamax (Tafamidis) 61 Mg Capsule 61 Mg PO DAILY Hydrocodone-Apap 5-325 (Hydrocodone Bit/Acetaminophen) 1 Tab Tablet 1 Tab PO PRN Q6HRS PRN Isosorbide Dinitrate 30 Mg Tablet 10 Mg PO BID 30 Days Lyrica (Pregabalin) 50 Mg Capsule 25 Mg PO BID PRN Torsemide 100 Mg Tablet 50 Mg PO BID Acidophilus Lactobacilli (Lactobacillus Acidophilus) 1 Each Capsule 1 Cap PO DAILY 30 Days Protonix (Pantoprazole Sodium) 20 Mg Tablet.dr 40 Mg PO DAILY Metoprolol Tartrate 37.5 Mg Tablet 25 Mg PO BID Hydralazine Hcl 100 Mg Tablet 1 Tab PO BID Zetia (Ezetimibe) 10 Mg Tablet 1 Tab PO DAILY 30 Days Eliquis (Apixaban) 2.5 Mg Tablet 2.5 Mg PO BID Potassium Chloride (Potassium Chloride) 10 Meq Tab.sr.24h 30 Meq PO DAILY Magnesium Citrate 296 Ml Solution 296 Ml PO PRN PRN Novolog (Insulin Aspart) 100 Unit/1 Ml Cartridge 8 Unit SQ TID Levemir (Insulin Detemir) 100 Unit/1 Ml Vial 16 Unit SQ DAILYWSUP Claritin (Loratadine) 10 Mg Tablet 1 Tab PO DAILY Vitamin D3 (Cholecalciferol (Vitamin D3)) 5,000 Unit Tablet 1 Tab PO DAILY Children's Aspirin (Aspirin) 81 Mg Tab.chew 81 Mg PO Allergies Allergies: Coded Allergies: Rovwvxu-Svv-[id number] Reductase Inhibitor (Verified Allergy, Intermediate, 11/19/17) cyclobenzaprine (Verified Allergy, Intermediate, 03/09/20) morphine (Verified Adverse Reaction, Intermediate, 11/19/17) ROS Review of System Patient has limited capability as a historian. Poor ability to concentrate and maintain focus throughout the interview. Questionable veracity demonstrated throughout the review of systems and is of limited utility. Physical Exam General: Other (Patient not demonstrating distressed. She appears oriented to person. Generally poorly cooperative. Orientation x1) HEENT: EOMI, Mucous membr. moist/pink Heart: Regular rate Abdomen: Soft, No tenderness Extremities: No clubbing, No cyanosis Skin: Other (2.0 cm diameter wound to the posterior parietal scalp demonstrating central necrotic tissue without periwound induration or significant erythema. No unusual odor identified. No significant bony tenderness evident. Minimal drainage present.) Neuro: Other (Speech slowed) MUSCULOSKELETAL: Not examined Vitals VITALS Vital Signs Date Time Temp Pulse Resp B/P (MAP) Pulse Ox O2 Delivery O2 Flow Rate FiO2 03/14/20 15:16 97.9 63 20 114/54 (74) 94 Room Air 97.9 03/14/20 05:19 1.0 Labs Labs Laboratory Tests Test 03/12/20 16:20 03/12/20 21:04 03/13/20 00:45 03/13/20 07:34 Glucose (Fingerstick) 142 mg/dL (70-99) 154 mg/dL (70-99) 185 mg/dL (70-99) White Blood Count 8.6 x10^3/uL (4.0-11.0) Red Blood Count 3.07 x10^6/uL (3.50-5.40) Hemoglobin 8.7 g/dL (12.0-15.5) Hematocrit 27.8 % (36.0-47.0) Mean Corpuscular Volume 91 fL (79-100) Mean Corpuscular Hemoglobin 28 pg (25-35) Mean Corpuscular Hemoglobin Concent 31 g/dL (31-37) Red Cell Distribution Width 17.3 % (11.5-14.5) Platelet Count 272 x10^3/uL (140-400) Neutrophils (%) (Auto) 97 % (31-73) Lymphocytes (%) (Auto) 2 % (24-48) Monocytes (%) (Auto) 1 % (0-9) Eosinophils (%) (Auto) 0 % (0-3) Basophils (%) (Auto) 0 % (0-3) Neutrophils # (Auto) 8.3 x10^3/uL (1.8-7.7) Lymphocytes # (Auto) 0.2 x10^3/uL (1.0-4.8) Monocytes # (Auto) 0.1 x10^3/uL (0.0-1.1) Eosinophils # (Auto) 0.0 x10^3/uL (0.0-0.7) Basophils # (Auto) 0.0 x10^3/uL (0.0-0.2) Sodium Level 135 mmol/L (136-145) Potassium Level 5.6 mmol/L (3.5-5.1) Chloride Level 103 mmol/L (98-107) Carbon Dioxide Level 24 mmol/L (21-32) Anion Gap 8 (6-14) Blood Urea Nitrogen 74 mg/dL (7-20) Creatinine 3.7 mg/dL (0.6-1.0) Estimated GFR (Cockcroft-Gault) 14.3 BUN/Creatinine Ratio 20 (6-20) Glucose Level 155 mg/dL (70-99) Calcium Level 9.3 mg/dL (8.5-10.1) Total Bilirubin 0.5 mg/dL (0.2-1.0) Aspartate Amino Transf (AST/SGOT) 19 U/L (15-37) Alanine Aminotransferase (ALT/SGPT) 18 U/L (14-59) Alkaline Phosphatase 81 U/L (46-116) Total Protein 7.0 g/dL (6.4-8.2) Albumin 2.6 g/dL (3.4-5.0) Albumin/Globulin Ratio 0.6 (1.0-1.7) Test 03/13/20 11:27 03/13/20 16:11 03/13/20 20:21 03/14/20 07:29 Glucose (Fingerstick) 191 mg/dL (70-99) 174 mg/dL (70-99) 198 mg/dL (70-99) 186 mg/dL (70-99) Test 03/14/20 09:10 03/14/20 11:20 White Blood Count 10.2 x10^3/uL (4.0-11.0) Red Blood Count 2.88 x10^6/uL (3.50-5.40) Hemoglobin 8.1 g/dL (12.0-15.5) Hematocrit 26.0 % (36.0-47.0) Mean Corpuscular Volume 90 fL (79-100) Mean Corpuscular Hemoglobin 28 pg (25-35) Mean Corpuscular Hemoglobin Concent 31 g/dL (31-37) Red Cell Distribution Width 17.7 % (11.5-14.5) Platelet Count 231 x10^3/uL (140-400) Neutrophils (%) (Auto) 87 % (31-73) Lymphocytes (%) (Auto) 3 % (24-48) Monocytes (%) (Auto) 9 % (0-9) Eosinophils (%) (Auto) 1 % (0-3) Basophils (%) (Auto) 0 % (0-3) Neutrophils # (Auto) 8.8 x10^3/uL (1.8-7.7) Lymphocytes # (Auto) 0.3 x10^3/uL (1.0-4.8) Monocytes # (Auto) 0.9 x10^3/uL (0.0-1.1) Eosinophils # (Auto) 0.1 x10^3/uL (0.0-0.7) Basophils # (Auto) 0.0 x10^3/uL (0.0-0.2) Sodium Level 144 mmol/L (136-145) Potassium Level 5.2 mmol/L (3.5-5.1) Chloride Level 109 mmol/L (98-107) Carbon Dioxide Level 23 mmol/L (21-32) Anion Gap 12 (6-14) Blood Urea Nitrogen 84 mg/dL (7-20) Creatinine 3.7 mg/dL (0.6-1.0) Estimated GFR (Cockcroft-Gault) 14.3 BUN/Creatinine Ratio 23 (6-20) Glucose Level 191 mg/dL (70-99) Calcium Level 9.4 mg/dL (8.5-10.1) Total Bilirubin 0.3 mg/dL (0.2-1.0) Aspartate Amino Transf (AST/SGOT) 15 U/L (15-37) Alanine Aminotransferase (ALT/SGPT) 21 U/L (14-59) Alkaline Phosphatase 75 U/L (46-116) Creatine Kinase 102 U/L (26-192) Total Protein 6.6 g/dL (6.4-8.2) Albumin 2.2 g/dL (3.4-5.0) Albumin/Globulin Ratio 0.5 (1.0-1.7) Glucose (Fingerstick) 251 mg/dL (70-99) Laboratory Tests Test 03/13/20 16:11 03/13/20 20:21 03/14/20 07:29 03/14/20 09:10 Glucose (Fingerstick) 174 mg/dL (70-99) 198 mg/dL (70-99) 186 mg/dL (70-99) White Blood Count 10.2 x10^3/uL (4.0-11.0) Red Blood Count 2.88 x10^6/uL (3.50-5.40) Hemoglobin 8.1 g/dL (12.0-15.5) Hematocrit 26.0 % (36.0-47.0) Mean Corpuscular Volume 90 fL (79-100) Mean Corpuscular Hemoglobin 28 pg (25-35) Mean Corpuscular Hemoglobin Concent 31 g/dL (31-37) Red Cell Distribution Width 17.7 % (11.5-14.5) Platelet Count 231 x10^3/uL (140-400) Neutrophils (%) (Auto) 87 % (31-73) Lymphocytes (%) (Auto) 3 % (24-48) Monocytes (%) (Auto) 9 % (0-9) Eosinophils (%) (Auto) 1 % (0-3) Basophils (%) (Auto) 0 % (0-3) Neutrophils # (Auto) 8.8 x10^3/uL (1.8-7.7) Lymphocytes # (Auto) 0.3 x10^3/uL (1.0-4.8) Monocytes # (Auto) 0.9 x10^3/uL (0.0-1.1) Eosinophils # (Auto) 0.1 x10^3/uL (0.0-0.7) Basophils # (Auto) 0.0 x10^3/uL (0.0-0.2) Sodium Level 144 mmol/L (136-145) Potassium Level 5.2 mmol/L (3.5-5.1) Chloride Level 109 mmol/L (98-107) Carbon Dioxide Level 23 mmol/L (21-32) Anion Gap 12 (6-14) Blood Urea Nitrogen 84 mg/dL (7-20) Creatinine 3.7 mg/dL (0.6-1.0) Estimated GFR (Cockcroft-Gault) 14.3 BUN/Creatinine Ratio 23 (6-20) Glucose Level 191 mg/dL (70-99) Calcium Level 9.4 mg/dL (8.5-10.1) Total Bilirubin 0.3 mg/dL (0.2-1.0) Aspartate Amino Transf (AST/SGOT) 15 U/L (15-37) Alanine Aminotransferase (ALT/SGPT) 21 U/L (14-59) Alkaline Phosphatase 75 U/L (46-116) Creatine Kinase 102 U/L (26-192) Total Protein 6.6 g/dL (6.4-8.2) Albumin 2.2 g/dL (3.4-5.0) Albumin/Globulin Ratio 0.5 (1.0-1.7) Test 03/14/20 11:20 Glucose (Fingerstick) 251 mg/dL (70-99) Assessment/Plan Assessment/Plan Likely traumatic wound posterior parietal central area with persistent necrotic tissue Bedside Debridement note: following patient consent and utilizing topical lidocaine, forceps and scalpel, necrotic tissue was removed without difficulty, bleeding or demonstrated pain. This was a selective debridement of nonviable tissue only. Total area debrided roughly 2 cm. This demonstrated underlying granulating wound bed which should heal nicely. Orders provided. Further wound follow-up likely not necessary. ALEX HUMPHRIES DO Mar 14, 2020 15:37
[2020-03-14] MEDS: IV NORMAL SALINE 1000ML BAG 1,000 ML IV SCH (15:46)
--- NOTE | 2020-03-14 16:27 | NUR ---
Wound Care Wound Type/Assessment: Follow up with patient for posterior head wound from a trauma a month ago. Wound cleansed, consents signed. Dr. Silva at bedside for sharp debridement of eschar to head wound. Post-debridement photo and measurements taken, reflected in wound assessment. Pt tolerated well with minimal bleeding. Intact, clear fluid filled blisters to R lateral lower torso/abdomen. Periwound intact, with no induration, swelling, redness or unusual warmth. The location of the blisters is not on a prominent pressure area, and no rash or other notable possible cause is evident. Heels intact but boggy. Pt would not tolerate being turned to inspect back side, and pushed back during attempt, complaining that everything hurt and moaning. Due to patient strength, verbal refusal, and body habitus, no further attempts to inspect skin were made. Pt extremely drowsy and difficult to keep focused. SPO2 between 87-89% on monitor on 2L NC sitting upright at almost 90degrees in the bed. Pt confused and attempting to remove NC. redirected, but lethargy persists. Treatment Recommendations/Plan: Posterior head: Medihoney alginate and telfa island dressing, change every 2-3 days Float heels on pillows R lateral abdomen: Apply skin prep daily Education provided: Unable to educate d/t drowsiness Offloading surface/device: Pillows for positioning and comfort. Turn Q2-3H as she allows Recommended Referrals/Tests: NA Discharge Recommendations for dressings: As above. Follow up 03/21/20
[2020-03-14 19:00] VITALS: BP 140/60
[2020-03-14] MEDS: INSULIN GLARGINE SYRINGE. SQ SCH (21:45)
[2020-03-14 23:00] VITALS: BP 138/56
[2020-03-15] VITALS (7 sets, daily range): BP systolic 118–180; BP diastolic 40–71
[2020-03-15] MEDS: METOPROLOL IV PUSH 5 MG/5 ML VIAL. IVP SCH ×4 (06:00→18:00)
[2020-03-15] MEDS: IV NORMAL SALINE 1000ML BAG 1,000 ML IV SCH ×2 (06:40→18:10)
[2020-03-15] MEDS: PANTOPRAZOLE 40 MG TABLET.DR. PO SCH (06:46)
[2020-03-15] MEDS: HYDROcodone/APAP 10/325 1 TAB TABLET PO PRN ×3 (07:54→22:10)
[2020-03-15] MEDS: INSULIN LISPRO 300 UNITS/3 ML VIAL. SQ SCH ×6 (08:00→17:00)
--- NOTE | 2020-03-15 10:06 | PDOC ---
Infectious Disease Note Subjective: Subjective Patient complains of left leg pain Scalp wound is healing slowly Denies fever, chills, nausea, vomiting, diarrhea, abdominal pain Vital Signs: Vital Signs Vital Signs Date Time Temp Pulse Resp B/P (MAP) Pulse Ox O2 Delivery O2 Flow Rate FiO2 03/15/20 07:54 18 96 Room Air 03/15/20 07:00 97.4 75 132/66 (88) 97.4 Physical Exam: PHYSICAL EXAM GENERAL: Oriented x3 female in no acute. HEENT: Normocephalic, atraumatic. Oral mucosa is moist. Scalp wound dry no purulence NECK: Supple. No JVD. LUNGS: Clear bilaterally. HEART: S1, S2. ABDOMEN: Soft, obese. Bowel sounds present. EXTREMITIES: Chronic lower extremity edema. GENITOURINARY: No Barrios. DERMATOLOGIC: No generalized rash. PSYCHIATRIC: Cooperative, normal mood. CENTRAL NERVOUS SYSTEM: Alert, awake, Moves all 4 extremities. Medications: Inpatient Meds: Current Medications Medications (Trade) Dose Ordered Sig/José Miguel Start Time Stop Time Status Last Admin Dose Admin Acetaminophen (Tylenol) 650 mg PRN Q4HRS PRN 03/08/20 18:00 03/09/20 20:23 650 MG Acetaminophen/ Hydrocodone Bitart (Lortab 10/325) 1 tab PRN Q6HRS PRN 03/13/20 05:00 03/15/20 07:54 1 TAB Al Hydroxide/Mg Hydroxide (Mylanta Plus Xs) 30 ml PRN DAILY PRN 03/08/20 18:00 Albuterol Sulfate (Ventolin Neb Soln) 2.5 mg PRN Q4HRS PRN 03/08/20 18:00 Albuterol/ Ipratropium (Duoneb) 3 ml Q4H PRN 03/08/20 20:30 03/08/20 20:22 DC Amiodarone HCl (Cordarone) 200 mg DAILY 03/09/20 09:00 03/12/20 12:21 DC 03/11/20 08:27 200 MG Amlodipine Besylate (Norvasc) 5 mg DAILY 03/09/20 09:00 03/12/20 12:21 DC 03/11/20 08:27 5 MG Apixaban (Eliquis) 2.5 mg BID 03/12/20 21:00 03/14/20 20:53 2.5 MG Aspirin (Aspirin Chewable) 81 mg DAILY 03/09/20 09:00 03/14/20 08:37 81 MG Cetirizine HCl (ZyrTEC) 10 mg DAILY 03/09/20 09:00 03/14/20 08:37 10 MG Daptomycin 500 mg/ Sodium Chloride 50 ml @ 100 mls/hr Q48H 03/13/20 12:00 03/13/20 11:56 100 MLS/HR Dextrose (Dextrose 50%-Water Syringe) 12.5 gm PRN Q15MIN PRN 03/08/20 18:00 Doxycycline Hyclate 100 mg/ Dextrose 100 ml @ 50 mls/hr 1X ONCE 03/11/20 17:30 03/11/20 19:29 DC 03/11/20 18:30 50 MLS/HR Enoxaparin Sodium (Lovenox 30mg Syringe) 30 mg Q24H 03/12/20 09:00 03/12/20 11:30 DC 03/12/20 09:27 30 MG Enoxaparin Sodium (Lovenox 40mg Syringe) 40 mg Q24H 03/13/20 09:00 03/12/20 12:21 DC Fentanyl Citrate (Fentanyl 2ml Vial) 50 mcg PRN Q3HRS PRN 03/08/20 19:15 03/11/20 20:15 50 MCG Furosemide (Lasix) 40 mg 1X ONCE 03/13/20 12:00 03/13/20 12:01 DC 03/13/20 12:37 40 MG Guaifenesin (Robitussin) 200 mg PRN Q4HRS PRN 03/08/20 18:00 Hydralazine HCl (Apresoline) 100 mg BID 03/12/20 21:00 03/14/20 20:54 100 MG Info (Anti-Coagulation Monitoring By Pharmacy) 1 each PRN DAILY PRN 03/14/20 09:45 03/14/20 15:28 1 EACH Insulin Glargine (Lantus Syringe) 16 unit QHS 03/08/20 21:00 03/14/20 21:45 16 UNIT Insulin Human Lispro (HumaLOG) 0-7 UNITS TIDWMEALS 03/09/20 08:00 03/14/20 17:17 6 UNITS Isosorbide Dinitrate (Isordil) 10 mg [id number] 03/12/20 16:00 03/14/20 15:48 10 MG Lactobacillus Rhamnosus (Culturelle) 1 cap BID 03/12/20 21:00 03/14/20 20:53 1 CAP Lorazepam (Ativan) 0.5 mg PRN Q4HRS PRN 03/08/20 18:00 03/12/20 12:21 DC Metoprolol Tartrate (Lopressor Vial) 5 mg Q6HRS 03/13/20 00:15 03/13/20 00:14 5 MG Metoprolol Tartrate (Lopressor) 25 mg BID 03/12/20 21:00 03/14/20 20:54 25 MG Non-Formulary Medication (Tafamidis (Vyndamax)) 61 mg DAILY 03/12/20 16:00 03/14/20 08:37 61 MG Ondansetron HCl (Zofran) 4 mg PRN Q4HRS PRN 03/08/20 18:00 Pantoprazole Sodium (Protonix) 40 mg DAILYAC 03/13/20 07:30 03/15/20 06:46 40 MG Piperacillin Sod/ Tazobactam Sod 3.375 gm/Sodium Chloride 50 ml @ 100 mls/hr 1X ONCE 03/11/20 17:00 03/11/20 17:29 DC 03/11/20 16:48 100 MLS/HR Potassium Chloride (Klor-Con) 30 meq DAILY 03/09/20 09:00 03/13/20 11:58 DC 03/12/20 08:52 30 MEQ Pregabalin (Lyrica) 25 mg BID 03/12/20 21:00 03/14/20 20:53 25 MG Sodium Polystyrene Sulfonate (Kayexalate) 15 gm 1X ONCE 03/13/20 12:00 03/13/20 12:01 DC 03/13/20 12:37 15 GM Sodium Chloride 1,000 ml @ 75 mls/hr [id number] 03/14/20 15:30 03/15/20 06:40 75 MLS/HR Tizanidine HCl (Zanaflex) 2 mg PRN TID PRN 03/08/20 18:15 03/09/20 21:40 DC 03/09/20 20:23 2 MG Torsemide (Demadex) 100 mg DAILY 03/09/20 09:00 03/11/20 07:56 DC 03/10/20 08:27 100 MG Tramadol HCl (Ultram) 50 mg PRN Q6HRS PRN 03/13/20 05:00 Vitamin D (Vitamin D3) 5,000 unit DAILY 03/09/20 09:00 03/14/20 08:37 5,000 UNIT Zolpidem Tartrate (Ambien) 5 mg PRN QHS PRN 03/08/20 18:00 03/12/20 12:21 DC 03/11/20 21:05 5 MG Labs: Lab Laboratory Tests Test 03/14/20 11:20 03/14/20 16:23 03/14/20 20:55 03/15/20 07:51 Glucose (Fingerstick) 251 mg/dL (70-99) 262 mg/dL (70-99) 185 mg/dL (70-99) 158 mg/dL (70-99) Objective: Assessment: 1. Acute encephalopathy, appears metabolic, resolved 2. Mechanical fall prior to admission. 3. Bacteremia, one out of three bottles, Coagulase-negative staph likely contaminant 4. Scalp wound, chronic, slowly healing. Wound Care following. 5. Anemia, status post transfusion. 6. [id number] kidney disease. 7. Diabetic neuropathy. 8. History of amyloidosis. 9. History of breast cancer. 10. History of cardiomyopathy. 11. Leukocytosis, now resolved. 12. History of morbid obesity. Plan: Plan of Care DC daptomycin Monitor off antibiotics Continue scalp wound care. Continue supportive care. GEETA THAKUR MD Mar 15, 2020 10:06
[2020-03-15] MEDS: ASPIRIN CHEWABLE 81 MG TABLET. PO SCH (10:46)
[2020-03-15] MEDS: ISOSORBIDE DINITRATE 10 MG TABLET. PO SCH ×2 (10:46→21:48)
[2020-03-15] MEDS: METOPROLOL TART IMMED RELEASE 25 MG TABLET. PO SCH ×2 (10:47→21:48)
[2020-03-15] MEDS: APIXABAN 2.5 MG TABLET. PO SCH ×2 (10:47→21:47)
[2020-03-15] MEDS: CETIRIZINE HCL 10 MG TABLET. PO SCH (10:47)
[2020-03-15] MEDS: CHOLECALCIFEROL (VITAMIN D3) 5,000 UNIT CAPSULE PO SCH (10:47)
[2020-03-15] MEDS: LACTOBACILLUS RHAMNOSUS GG 1 CAPSULE. PO SCH ×2 (10:48→21:47)
[2020-03-15] MEDS: PREGABALIN 25 MG CAPSULE PO SCH ×2 (10:48→21:48)
[2020-03-15] MEDS: TAFAMIDIS 61 MG PO SCH (10:54)
[2020-03-15 11:30] LABS: ALBUMIN 2.2 g/dL (3.4-5.0); CALCIUM 9.5 mg/dL (8.5-10.1); CREATININE 3.3 mg/dL (0.6-1.0); GFR 16.4; PHOSPHORUS 3.6 mg/dL (2.6-4.7); POTASSIUM 4.6 mmol/L (3.5-5.1)
--- NOTE | 2020-03-15 12:24 | PDOC ---
PROGRESS NOTES Date of Service: DATE: 03/15/20 TIME: 12:23 Chief Complaint Chief Complaint DISCHARGE DX Acute encephalopathy - multifactorial metabolic. Will monitor mental status. Previously told she had CVA at [facility]. No focal neuro deficits Left parietal scalp laceration with subcutaneous hematoma. No calvarial defect. No acute intracranial hemorrhage. Mechanical fall - PT/OT, likely needs rehab Left hip pain > right - Bilateral hip pain - XR with no fracture, pain resolved with repositioning Diabetic neuropathy Scalp wound slowly healing - wound care following Anemia - will transfuse Acute on chronic Chronic kidney disease stage IIIb at least with current vasomotor nephropathy prerenal azotemia most likely CKD stage 3B /? 4- daughter reported to RN -baseline Cr 2.3 Renal US Bilateral increased renal cortical echogenicity. No hydronephrosis Elevated BNP History of hypothyroidism History of essential hypertension History of breast cancer approximately 20 years ago status post mastectomy Morbid obesity with a BMI of 48 COVID 19 - recently diagnosed at [facility] January 2020 Cardiomyopathy - sees advanced CHF clinic at [facility], Dr. Mikhail Khanna on Vyndamax bacteremia, ID FOLLOWING PLAN FEN - ADA cardiac diet PPX - eliquis CODE - DNR/DNI Dispo - inpatient iv daptomycin D/C MONITOR OFF ANTIBIOTICS Will possibly need HD, nephrology following. Defer diuretic therapy to renal d/c daptomycin, Repeat blood cultures. scalp wound care. STOPPED KCL TRIAL OF HYDRATION 37 MIN PT EXAM, d/c planning CHART REVIEW, > 50% OF TIME SPENT WITH EXAM, CHART REVIEW, PT CARE COORDINATION D/C ON HOLD History of Present Illness History of Present Illness Ms Cruz is a 79 yo F w/ PMHx breast Cancer s/p left mastectomy, Diabetes-Type II, High Cholesterol, Hypertension, Hypothyroid, afib, OA bilateral knees, cardiomyopathy, recent diagnosis at [facility] of COVID 19 with pneumonia in January 2020 with 2 weeks of acute rehab and was discharged home with her daughter for 2 weeks who then went home from her daughter's house who was at home for almost 3 weeks who presented via EMS with report of bilateral lower extremity weakness. Patient reports she was walking out of the bathroom using her cane and her "legs just gave out ". Patient reports she was still able to lower herself to the ground. Denies any head trauma or neck pain. Denies fever or chills. Denies cough or shortness of breath. Patient reports she has multiple health issues. Patient reports "I have it all ". Patient does report she has a chronic left parietal/occipital wound for which she follows with wound care regarding. Imaging negative for acute fracture. Very confused and combative. Her daughter notes she has not been the same since COVID 19 and has baseline weight of 262 pounds, but is currently 284 pounds. 03/09: She is still c/o left hip pain. Afebrile. Not able to bear weight. Pain 10/10. Became febrile overnight and transferred to [facility] 19 unit. 03/10: Head wound bothering her. Febrile overnight to 101F. Mild SOB. No diarrhea. Appetite decreased. 03/11: Febrile to 100.8 F overnight. WBC at 14.5, Hb 7.1 BUN 16, CR 3, CRP 163.5. She has been more drowsy today. Blood cultures and urine culture obtained and started on antibiotics. Left leg is bothering her. Afebrile overnight. Cr up to 3.8. Hb 6.9. No more swollen. Very weak. Less d rowsy, still confused. After d/w her daughter apparently she has been on Vyndamax, presumptively in a research study, she has never heard of any diagnosis of amyloidosis, and follows with [facility] cardiology, but she does note her mother has been progressively more confused since her COVID 19 recovery in January. Plan: Will communicate with Nancy. her daughter, , who would like daily updates and formal DPOA paperwork through social work Will need skilled services on discharge Vitals Vitals Vital Signs Date Time Temp Pulse Resp B/P (MAP) Pulse Ox O2 Delivery O2 Flow Rate FiO2 03/15/20 10:47 75 132/66 03/15/20 08:54 20 96 Room Air 03/15/20 07:00 97.4 97.4 Physical Exam Physical Exam GENERAL: Oriented x3 female in no acute. HEENT: Normocephalic, atraumatic. Oral mucosa is moist. Scalp wound dry no purulence NECK: Supple. No JVD. LUNGS: Clear bilaterally. HEART: S1, S2. ABDOMEN: Soft, obese. Bowel sounds present. EXTREMITIES: Chronic lower extremity edema. GENITOURINARY: No Barrios. DERMATOLOGIC: No generalized rash. PSYCHIATRIC: Cooperative, normal mood. CENTRAL NERVOUS SYSTEM: Alert, awake, Moves all 4 extremities. General: Oriented X3, Cooperative, Other (Patient not demonstrating distressed. She appears oriented to person. Generally poorly cooperative. Orientation x1) Heart: Regular rate, Normal S2 Lungs: Clear Abdomen: Soft, No tenderness Extremities: No clubbing, No cyanosis Skin: Other (2.0 cm diameter wound to the posterior parietal scalp demonstrating central necrotic tissue without periwound induration or significant erythema. No unusual odor identified. No significant bony tenderness evident. Minimal drainage present.) Labs LABS Laboratory Tests Test 03/14/20 16:23 03/14/20 20:55 03/15/20 07:51 03/15/20 10:55 Glucose (Fingerstick) 262 mg/dL (70-99) 185 mg/dL (70-99) 158 mg/dL (70-99) Sodium Level 145 mmol/L (136-145) Potassium Level 4.6 mmol/L (3.5-5.1) Chloride Level 110 mmol/L (98-107) Carbon Dioxide Level 23 mmol/L (21-32) Anion Gap 12 (6-14) Blood Urea Nitrogen 85 mg/dL (7-20) Creatinine 3.3 mg/dL (0.6-1.0) Estimated GFR (Cockcroft-Gault) 16.4 Glucose Level 153 mg/dL (70-99) Calcium Level 9.5 mg/dL (8.5-10.1) Phosphorus Level 3.6 mg/dL (2.6-4.7) Albumin 2.2 g/dL (3.4-5.0) Assessment and Plan Assessmemt and Plan Problems Medical Problems: (1) Anemia Status: Acute (2) Bilateral hip pain Status: Acute (3) Fall Status: Acute (4) Generalized weakness Status: Acute (5) Renal insufficiency Status: Acute (6) Scalp wound Status: Acute Comment Review of Relevant I have reviewed the following items bianca (where applicable) has been applied. Labs Laboratory Tests Test 03/13/20 16:11 03/13/20 20:21 03/14/20 07:29 03/14/20 09:10 Glucose (Fingerstick) 174 mg/dL (70-99) 198 mg/dL (70-99) 186 mg/dL (70-99) White Blood Count 10.2 x10^3/uL (4.0-11.0) Red Blood Count 2.88 x10^6/uL (3.50-5.40) Hemoglobin 8.1 g/dL (12.0-15.5) Hematocrit 26.0 % (36.0-47.0) Mean Corpuscular Volume 90 fL (79-100) Mean Corpuscular Hemoglobin 28 pg (25-35) Mean Corpuscular Hemoglobin Concent 31 g/dL (31-37) Red Cell Distribution Width 17.7 % (11.5-14.5) Platelet Count 231 x10^3/uL (140-400) Neutrophils (%) (Auto) 87 % (31-73) Lymphocytes (%) (Auto) 3 % (24-48) Monocytes (%) (Auto) 9 % (0-9) Eosinophils (%) (Auto) 1 % (0-3) Basophils (%) (Auto) 0 % (0-3) Neutrophils # (Auto) 8.8 x10^3/uL (1.8-7.7) Lymphocytes # (Auto) 0.3 x10^3/uL (1.0-4.8) Monocytes # (Auto) 0.9 x10^3/uL (0.0-1.1) Eosinophils # (Auto) 0.1 x10^3/uL (0.0-0.7) Basophils # (Auto) 0.0 x10^3/uL (0.0-0.2) Sodium Level 144 mmol/L (136-145) Potassium Level 5.2 mmol/L (3.5-5.1) Chloride Level 109 mmol/L (98-107) Carbon Dioxide Level 23 mmol/L (21-32) Anion Gap 12 (6-14) Blood Urea Nitrogen 84 mg/dL (7-20) Creatinine 3.7 mg/dL (0.6-1.0) Estimated GFR (Cockcroft-Gault) 14.3 BUN/Creatinine Ratio 23 (6-20) Glucose Level 191 mg/dL (70-99) Calcium Level 9.4 mg/dL (8.5-10.1) Total Bilirubin 0.3 mg/dL (0.2-1.0) Aspartate Amino Transf (AST/SGOT) 15 U/L (15-37) Alanine Aminotransferase (ALT/SGPT) 21 U/L (14-59) Alkaline Phosphatase 75 U/L (46-116) Creatine Kinase 102 U/L (26-192) Total Protein 6.6 g/dL (6.4-8.2) Albumin 2.2 g/dL (3.4-5.0) Albumin/Globulin Ratio 0.5 (1.0-1.7) Test 03/14/20 11:20 03/14/20 16:23 03/14/20 20:55 03/15/20 07:51 Glucose (Fingerstick) 251 mg/dL (70-99) 262 mg/dL (70-99) 185 mg/dL (70-99) 158 mg/dL (70-99) Test 03/15/20 10:55 Sodium Level 145 mmol/L (136-145) Potassium Level 4.6 mmol/L (3.5-5.1) Chloride Level 110 mmol/L (98-107) Carbon Dioxide Level 23 mmol/L (21-32) Anion Gap 12 (6-14) Blood Urea Nitrogen 85 mg/dL (7-20) Creatinine 3.3 mg/dL (0.6-1.0) Estimated GFR (Cockcroft-Gault) 16.4 Glucose Level 153 mg/dL (70-99) Calcium Level 9.5 mg/dL (8.5-10.1) Phosphorus Level 3.6 mg/dL (2.6-4.7) Albumin 2.2 g/dL (3.4-5.0) Laboratory Tests Test 03/14/20 16:23 03/14/20 20:55 03/15/20 07:51 03/15/20 10:55 Glucose (Fingerstick) 262 mg/dL (70-99) 185 mg/dL (70-99) 158 mg/dL (70-99) Sodium Level 145 mmol/L (136-145) Potassium Level 4.6 mmol/L (3.5-5.1) Chloride Level 110 mmol/L (98-107) Carbon Dioxide Level 23 mmol/L (21-32) Anion Gap 12 (6-14) Blood Urea Nitrogen 85 mg/dL (7-20) Creatinine 3.3 mg/dL (0.6-1.0) Estimated GFR (Cockcroft-Gault) 16.4 Glucose Level 153 mg/dL (70-99) Calcium Level 9.5 mg/dL (8.5-10.1) Phosphorus Level 3.6 mg/dL (2.6-4.7) Albumin 2.2 g/dL (3.4-5.0) Microbiology 03/11/20 Blood Culture - Final, Complete Medications Current Medications Sodium Chloride 1,000 ml @ 1,000 mls/hr 1X ONCE IV Last administered on 03/08/20at 14:59; Start 03/08/20 at 14:30; Stop 03/08/20 at 15:29; Status DC Ondansetron HCl (Zofran) 4 mg PRN Q8HRS PRN IV NAUSEA/VOMITING; Start 03/08/20 at 17:45; Stop 03/09/20 at 17:44; Status DC Insulin Human Lispro (HumaLOG) 0-5 UNITS TIDWMEALS SQ ; Start 03/09/20 at 08:00; Status Cancel Dextrose (Dextrose 50%-Water Syringe) 12.5 gm PRN Q15MIN PRN IV SEE COMMENTS; Start 03/08/20 at 17:45; Stop 03/08/20 at 18:04; Status DC Ondansetron HCl (Zofran) 4 mg PRN Q4HRS PRN IV NAUSEA/VOMITING; Start 03/08/20 at 18:00 Zolpidem Tartrate (Ambien) 5 mg PRN QHS PRN PO INSOMNIA Last administered on 03/11/20at 21:05; Start 03/08/20 at 18:00; Stop 03/12/20 at 12:21; Status DC Acetaminophen (Tylenol) 650 mg PRN Q4HRS PRN PO TEMP OVER 100.4F OR MILD PAIN Last administered on 03/09/20at 20:23; Start 03/08/20 at 18:00 Al Hydroxide/Mg Hydroxide (Mylanta Plus Xs) 30 ml PRN DAILY PRN PO HEARTBURN / GAS; Start 03/08/20 at 18:00 Albuterol Sulfate (Ventolin Neb Soln) 2.5 mg PRN Q4HRS PRN NEB SHORTNESS OF BREATH; Start 03/08/20 at 18:00 Albuterol/ Ipratropium (Duoneb) 3 ml Q4H NEB Last administered on 03/08/20at 20:10; Start 03/08/20 at 18:00; Stop 03/08/20 at 20:20; Status DC Guaifenesin (Robitussin) 200 mg PRN Q4HRS PRN PO COUGH; Start 03/08/20 at 18:00 Lorazepam (Ativan) 0.5 mg PRN Q4HRS PRN PO ANXIETY / AGITATION; Start 03/08/20 at 18:00; Stop 03/12/20 at 12:21; Status DC Enoxaparin Sodium (Lovenox 40mg Syringe) 40 mg Q12H SQ ; Start 03/09/20 at 09:00; Status Cancel Amiodarone HCl (Cordarone) 200 mg DAILY PO Last administered on 03/11/20at 08:27; Start 03/09/20 at 09:00; Stop 03/12/20 at 12:21; Status DC Amlodipine Besylate (Norvasc) 5 mg DAILY PO Last administered on 03/11/20at 08:27; Start 03/09/20 at 09:00; Stop 03/12/20 at 12:21; Status DC Aspirin (Aspirin Chewable) 81 mg DAILY PO Last administered on 03/15/20at 10:46; Start 03/09/20 at 09:00 Acetaminophen/ Hydrocodone Bitart (Lortab 10/325) 2 tab PRN Q6HRS PRN PO SEVERE PAIN 7-10 Last administered on 03/12/20at 20:20; Start 03/08/20 at 18:00; Stop 03/13/20 at 04:51; Status DC Potassium Chloride (Klor-Con) 30 meq DAILY PO Last administered on 03/12/20at 08:52; Start 03/09/20 at 09:00; Stop 03/13/20 at 11:58; Status DC Pregabalin (Lyrica) 75 mg BID PO Last administered on 03/12/20at 08:52; Start 03/08/20 at 21:00; Stop 03/12/20 at 12:21; Status DC Torsemide (Demadex) 100 mg DAILY PO Last administered on 03/10/20at 08:27; Start 03/09/20 at 09:00; Stop 03/11/20 at 07:56; Status DC Vitamin D (Vitamin D3) 5,000 unit DAILY PO Last administered on 03/15/20at 10:47; Start 03/09/20 at 09:00 Insulin Human Lispro (HumaLOG) 8 units TIDWMEALS SQ Last administered on 03/14/20at 17:14; Start 03/09/20 at 08:00 Insulin Glargine (Lantus Syringe) 16 unit QHS SQ Last administered on 03/14/20at 21:45; Start 03/08/20 at 21:00 Cetirizine HCl (ZyrTEC) 10 mg DAILY PO Last administered on 03/15/20at 10:47; Start 03/09/20 at 09:00 Tizanidine HCl (Zanaflex) 2 mg PRN TID PRN PO MUSCLE SPASMS Last administered on 03/09/20at 20:23; Start 03/08/20 at 18:15; Stop 03/09/20 at 21:40; Status DC Insulin Human Lispro (HumaLOG) 0-7 UNITS TIDWMEALS SQ Last administered on 03/14/20at 17:17; Start 03/09/20 at 08:00 Dextrose (Dextrose 50%-Water Syringe) 12.5 gm PRN Q15MIN PRN IV SEE COMMENTS; Start 03/08/20 at 18:00 Fentanyl Citrate (Fentanyl 2ml Vial) 50 mcg PRN Q3HRS PRN IVP pain Last administered on 03/11/20at 20:15; Start 03/08/20 at 19:15 Enoxaparin Sodium (Lovenox 40mg Syringe) 40 mg Q24H SQ Last administered on 03/11/20at 08:28; Start 03/09/20 at 09:00; Stop 03/11/20 at 13:03; Status DC Albuterol/ Ipratropium (Duoneb) 3 ml Q4H PRN NEB WHEEZING; Start 03/08/20 at 20:30; Stop 03/08/20 at 20:22; Status DC Enoxaparin Sodium (Lovenox 30mg Syringe) 30 mg Q24H SQ Last administered on 03/12/20at 09:27; Start 03/12/20 at 09:00; Stop 03/12/20 at 11:30; Status DC Piperacillin Sod/ Tazobactam Sod 3.375 gm/Sodium Chloride 50 ml @ 100 mls/hr 1X ONCE IV Last administered on 03/11/20at 16:48; Start 03/11/20 at 17:00; Stop 03/11/20 at 17:29; Status DC Doxycycline Hyclate 100 mg/ Dextrose 100 ml @ 50 mls/hr 1X ONCE IV Last administered on 03/11/20at 18:30; Start 03/11/20 at 17:30; Stop 03/11/20 at 19:29; Status DC Enoxaparin Sodium (Lovenox 40mg Syringe) 40 mg Q24H SQ ; Start 03/13/20 at 09:00; Stop 03/12/20 at 12:21; Status DC Pregabalin (Lyrica) 25 mg BID PO Last administered on 03/15/20at 10:48; Start 03/12/20 at 21:00 Apixaban (Eliquis) 2.5 mg BID PO Last administered on 03/15/20at 10:47; Start 03/12/20 at 21:00 Hydralazine HCl (Apresoline) 100 mg BID PO Last administered on 03/15/20at 10:47; Start 03/12/20 at 21:00 Isosorbide Dinitrate (Isordil) 10 mg BID94 PO Last administered on 03/15/20at 10:46; Start 03/12/20 at 16:00 Lactobacillus Rhamnosus (Culturelle) 1 cap BID PO Last administered on 03/15/20at 10:48; Start 03/12/20 at 21:00 Metoprolol Tartrate (Lopressor) 25 mg BID PO Last administered on 03/15/20at 10:47; Start 03/12/20 at 21:00 Pantoprazole Sodium (Protonix) 40 mg DAILYAC PO Last administered on 03/15/20at 06:46; Start 03/13/20 at 07:30 Non-Formulary Medication (Tafamidis (Vyndamax)) 61 mg DAILY PO Last administered on 03/15/20at 10:54; Start 03/12/20 at 16:00 Daptomycin 500 mg/ Sodium Chloride 50 ml @ 100 mls/hr 1X IV ; Start 03/12/20 at 18:30; Stop 03/12/20 at 21:44; Status DC Daptomycin 500 mg/ Sodium Chloride 50 ml @ 100 mls/hr 1X ONCE IV Last administered on 03/12/20at 21:47; Start 03/12/20 at 21:45; Stop 03/12/20 at 22 :14; Status DC Metoprolol Tartrate (Lopressor Vial) 5 mg Q6HRS IVP Last administered on 03/13/20at 00:14; Start 03/13/20 at 00:15 Acetaminophen/ Hydrocodone Bitart (Lortab 10/325) 1 tab PRN Q6HRS PRN PO SEVERE PAIN 7-10 Last administered on 03/15/20at 07:54; Start 03/13/20 at 05:00 Tramadol HCl (Ultram) 50 mg PRN Q6HRS PRN PO PAIN; Start 03/13/20 at 05:00 Daptomycin 500 mg/ Sodium Chloride 50 ml @ 100 mls/hr Q48H IV Last administered on 03/13/20at 11:56; Start 03/13/20 at 12:00; Stop 03/15/20 at 10:22; Status DC Furosemide (Lasix) 40 mg 1X ONCE IVP Last administered on 03/13/20at 12:37; Start 03/13/20 at 12:00; Stop 03/13/20 at 12:01; Status DC Sodium Polystyrene Sulfonate (Kayexalate) 15 gm 1X ONCE PO Last administered on 03/13/20at 12:37; Start 03/13/20 at 12:00; Stop 03/13/20 at 12:01; Status DC Info (Anti-Coagulation Monitoring By Pharmacy) 1 each PRN DAILY PRN MC SEE CO MMENTS Last administered on 03/14/20at 15:28; Start 03/14/20 at 09:45 Sodium Chloride 1,000 ml @ 75 mls/hr [id number] IV Last administered on 03/15/20at 06:40; Start 03/14/20 at 15:30 Active Scripts Active Reported Vyndamax (Tafamidis) 61 Mg Capsule 61 Mg PO DAILY Hydrocodone-Apap 5-325 (Hydrocodone Bit/Acetaminophen) 1 Tab Tablet 1 Tab PO PRN Q6HRS PRN Isosorbide Dinitrate 30 Mg Tablet 10 Mg PO BID 30 Days Lyrica (Pregabalin) 50 Mg Capsule 25 Mg PO BID PRN Torsemide 100 Mg Tablet 50 Mg PO BID Acidophilus Lactobacilli (Lactobacillus Acidophilus) 1 Each Capsule 1 Cap PO DAILY 30 Days Protonix (Pantoprazole Sodium) 20 Mg Tablet.dr 40 Mg PO DAILY Metoprolol Tartrate 37.5 Mg Tablet 25 Mg PO BID Hydralazine Hcl 100 Mg Tablet 1 Tab PO BID Zetia (Ezetimibe) 10 Mg Tablet 1 Tab PO DAILY 30 Days Eliquis (Apixaban) 2.5 Mg Tablet 2.5 Mg PO BID Potassium Chloride (Potassium Chloride) 10 Meq Tab.sr.24h 30 Meq PO DAILY Magnesium Citrate 296 Ml Solution 296 Ml PO PRN PRN Novolog (Insulin Aspart) 100 Unit/1 Ml Cartridge 8 Unit SQ TID Levemir (Insulin Detemir) 100 Unit/1 Ml Vial 16 Unit SQ DAILYWSUP Claritin (Loratadine) 10 Mg Tablet 1 Tab PO DAILY Vitamin D3 (Cholecalciferol (Vitamin D3)) 5,000 Unit Tablet 1 Tab PO DAILY Children's Aspirin (Aspirin) 81 Mg Tab.chew 81 Mg PO Vitals/I & O Vital Sign - Last 24 Hours 03/14/20 03/14/20 03/14/20 03/14/20 15:16 15:48 15:54 16:54 Temp 97.9 97.9 Pulse 63 63 Resp 20 20 20 B/P (MAP) 114/54 (74) 114/54 Pulse Ox 94 O2 Delivery Room Air Room Air Room Air 03/14/20 03/14/20 03/14/20 03/14/20 19:00 20:00 20:54 20:54 Temp 98.4 98.4 Pulse 69 69 69 Resp 18 B/P (MAP) 140/60 (86) 140/60 140/60 Pulse Ox 95 O2 Delivery Room Air 03/14/20 03/15/20 03/15/2003/15/21 23:00 03:00 07:00 07:54 Temp 98.0 99.1 97.4 98.0 99.1 97.4 Pulse 66 72 75 Resp 16 18 16 18 B/P (MAP) 138/56 (83) 134/56 (82) 132/66 (88) Pulse Ox 98 96 96 96 O2 Delivery Room Air Room Air 03/15/20 03/15/20 03/15/20 03/15/20 08:54 10:46 10:47 10:47 Pulse 75 75 75 Resp 20 B/P (MAP) 132/66 132/66 132/66 Pulse Ox 96 O2 Delivery Room Air Intake and Output 03/14/20 03/14/20 03/15/20 15:00 23:00 07:00 Intake Total 170 ml 280 ml Output Total 550 ml Balance 170 ml 280 ml -550 ml Justicifation of Admission Dx: Justifications for Admission: Justification of Admission Dx: Yes Acute Renal Failure: RF Can't Be Managed Outpt VARSHA DUBON MD Mar 15, 2020 12:24
--- NOTE | 2020-03-15 13:33 | NUR ---
SW following for discharge planning. Spoke with RN and reviewed chart. SW attempted to meet with pt today. Pt confused. Daughter continues to request [facility] acute rehab on discharge. Coordinated care with Neptali from [facility] and they can accept this pt when pt is medically stable. No bed today. Dapto discontinued. SW following.
--- NOTE | 2020-03-15 17:56 | PDOC ---
Renal-Progress Notes Subjective Notes Notes NO NEW COMPLAINTS History of Present Illness Hx of present illness STABLE Vitals Vitals Vital Signs Date Time Temp Pulse Resp B/P (MAP) Pulse Ox O2 Delivery O2 Flow Rate FiO2 03/15/20 12:00 76 118/47 03/15/20 11:00 97.0 16 Room Air 97.0 03/15/20 08:54 96 Weight Weight [ ] I.O. Intake and Output Intake and Output 03/15/20 07:00 Intake Total 450 ml Output Total 550 ml Balance -100 ml Intake Oral 450 ml Output Urine Total 550 ml # Voids 1 Labs Labs Laboratory Tests Test 03/14/20 20:55 03/15/20 07:51 03/15/20 10:55 03/15/20 12:39 Glucose (Fingerstick) 185 mg/dL (70-99) 158 mg/dL (70-99) 157 mg/dL (70-99) Sodium Level 145 mmol/L (136-145) Potassium Level 4.6 mmol/L (3.5-5.1) Chloride Level 110 mmol/L (98-107) Carbon Dioxide Level 23 mmol/L (21-32) Anion Gap 12 (6-14) Blood Urea Nitrogen 85 mg/dL (7-20) Creatinine 3.3 mg/dL (0.6-1.0) Estimated GFR (Cockcroft-Gault) 16.4 Glucose Level 153 mg/dL (70-99) Calcium Level 9.5 mg/dL (8.5-10.1) Phosphorus Level 3.6 mg/dL (2.6-4.7) Albumin 2.2 g/dL (3.4-5.0) Micro Micro Microbiology 03/11/20 Blood Culture - Final, Complete Review of Systems Constitutional: yes: other (CONFUSED) Physical Exam General Appearance: no apparent distress Skin: warm Respiratory: decreased breath sounds Heart: S1S2 Abdomen: soft, bowel sounds present Genitourinary: bladder flat Extremities: pulses present, edema Neurology: alert, follow commands, confused Musculoskeletal: Osteoarthritis Assessment Assessment IMP ACUTE ENCEPHALOPATHY HYPERKALEMIA-RESOLVED KAYLIE WITH CR OF 3.7-UA NEG FOR NEPHRITIS-CR DOWN TO 3.3 CKD STAGE 3 WITH CR OF ABOUT 2.3 HX OF AMYLOID DM II HTN PLAN STOPPED KCL CONT HYDRATION WILL FOLLOW GURVINDER CASAS MD Mar 15, 2020 17:56
[2020-03-15] MEDS: INSULIN GLARGINE SYRINGE. SQ SCH (21:57)
[2020-03-16 03:00] VITALS: BP 169/58
[2020-03-16] MEDS: HYDROcodone/APAP 10/325 1 TAB TABLET PO PRN (04:56)
[2020-03-16] MEDS: METOPROLOL IV PUSH 5 MG/5 ML VIAL. IVP SCH ×3 (06:00→12:00)
[2020-03-16] MEDS: PANTOPRAZOLE 40 MG TABLET.DR. PO SCH (06:50)
[2020-03-16 07:00] VITALS: BP 166/64
[2020-03-16] MEDS: INSULIN LISPRO 300 UNITS/3 ML VIAL. SQ SCH ×6 (08:00→17:00)
--- NOTE | 2020-03-16 08:00 | NUR ---
Patient refusing breakfast this morning, insulin held
--- NOTE | 2020-03-16 08:40 | PDOC ---
PROGRESS NOTES Date of Service: DATE: 03/16/20 TIME: 08:40 Chief Complaint Chief Complaint impression Acute encephalopathy - multifactorial metabolic. Will monitor mental status. Previously told she had CVA at [facility]. No focal neuro deficits Left parietal scalp laceration with subcutaneous hematoma. No calvarial defect. No acute intracranial hemorrhage. Mechanical fall - PT/OT, likely needs rehab Left hip pain > right - Bilateral hip pain - XR with no fracture, pain resolved with repositioning Diabetic neuropathy Scalp wound slowly healing - wound care following Anemia - will transfuse Acute on chronic Chronic kidney disease stage IIIb at least with current vasomotor nephropathy prerenal azotemia most likely CKD stage 3B /? 4- daughter reported to RN -baseline Cr 2.3 / KAYLIE Renal US Bilateral increased renal cortical echogenicity. No hydronephrosis Elevated BNP History of hypothyroidism History of essential hypertension History of breast cancer approximately 20 years ago status post mastectomy Morbid obesity with a BMI of 48 COVID 19 - recently diagnosed at [facility] January 2020 Cardiomyopathy - sees advanced CHF clinic at [facility], Dr. Mikhail Khanna on Vyndamax bacteremia, ID FOLLOWING PLAN FEN - ADA cardiac diet PPX - eliquis CODE - DNR/DNI Dispo - inpatient iv daptomycin D/C MONITOR OFF ANTIBIOTICS Will possibly need HD, nephrology following. Defer diuretic therapy to renal d/c daptomycin, Repeat blood cultures. scalp wound care. STOPPED KCL TRIAL OF iv HYDRATIOn, continue Continue scalp wound care 29 MIN PT EXAM, d/c planning CHART REVIEW, > 50% OF TIME SPENT WITH EXAM, CHART REVIEW, PT CARE COORDINATION D/C ON HOLD History of Present Illness History of Present Illness Ms Cruz is a 79 yo F w/ PMHx breast Cancer s/p left mastectomy, Diabetes-Type II, High Cholesterol, Hypertension, Hypothyroid, afib, OA bilateral knees, cardiomyopathy, recent diagnosis at [facility] of COVID 19 with pneumonia in January 2020 with 2 weeks of acute rehab and was discharged home with her daughter for 2 weeks who then went home from her daughter's house who was at home for almost 3 weeks who presented via EMS with report of bilateral lower extremity weakness. Patient reports she was walking out of the bathroom using her cane and her "legs just gave out ". Patient reports she was still able to lower herself to the ground. Denies any head trauma or neck pain. Denies fever or chills. Denies cough or shortness of breath. Patient reports she has multiple health issues. Patient reports "I have it all ". Patient does report she has a chronic left par ietal/occipital wound for which she follows with wound care regarding. Imaging negative for acute fracture. Very confused and combative. Her daughter notes she has not been the same since COVID 19 and has baseline weight of 262 pounds, but is currently 284 pounds. 03/09: She is still c/o left hip pain. Afebrile. Not able to bear weight. Pain 10/10. Became febrile overnight and transferred to [place] [id number] unit. 03/10: Head wound bothering her. Febrile overnight to 101F. Mild SOB. No diarrhea. Appetite decreased. 03/11: Febrile to 100.8 F overnight. WBC at 14.5, Hb 7.1 BUN 16, CR 3, CRP 163.5. She has been more drowsy today. Blood cultures and urine culture obtained and started on antibiotics. Left leg is bothering her. Afebrile overnight. Cr up to 3.8. Hb 6.9. No more swollen. Very weak. Less drowsy, still confused. After d/w her daughter apparently she has been on Vyndamax, presumptively in a research study, she has never heard of any diagnosis of amyloidosis, and follows with [facility] cardiology, but she does note her mother has been progressively more confused since her COVID 19 recovery in January. Plan: Will communicate with Nancy. her daughter, , who would like daily updates and formal DPOA paperwork through social work Will need skilled services on discharge Vitals Vitals Vital Signs Date Time Temp Pulse Resp B/P (MAP) Pulse Ox O2 Delivery O2 Flow Rate FiO2 03/16/20 05:56 20 99 Room Air 03/16/20 03:00 98.1 74 169/58 (75) 98.1 Physical Exam Physical Exam GENERAL: Oriented x3 female in no acute. HEENT: Normocephalic, atraumatic. Oral mucosa is moist. Scalp wound dry no purulence NECK: Supple. No JVD. LUNGS: Clear bilaterally. HEART: S1, S2. ABDOMEN: Soft, obese. Bowel sounds present. EXTREMITIES: Chronic lower extremity edema. GENITOURINARY: No Barrios. DERMATOLOGIC: No generalized rash. PSYCHIATRIC: Cooperative, normal mood. CENTRAL NERVOUS SYSTEM: Alert, awake, Moves all 4 extremities. General: Oriented X3, Cooperative, No acute distress, Other (Patient not demonstrating distressed. She appears oriented to person. Generally poorly cooperative. Orientation x1) Heart: Regular rate, Normal S2 Lungs: Clear Abdomen: Soft, No tenderness Extremities: No clubbing, No cyanosis Skin: Other (2.0 cm diameter wound to the posterior parietal scalp demonstrating central necrotic tissue without periwound induration or significant erythema. No unusual odor identified. No significant bony tenderness evident. Minimal drainage present.) Labs LABS * ROM * Balance * Knowledge-safe techniques * Pain Pt/caregiver agrees with plan of care/goals * Yes Patient condition at conclusion of therapy * Pt in bed * PtIn no apparent distress * Pt denies further needs * RN/CNC GRINDER with patient Communicated Patient Care With (Name, Title) * Hyacinth an Goal 1 - Bed Mobility Assistance Required * Independent Goal 1 Assessment * Appropriate - Continue Goal 2 - Transfers Assistance Required * Independent Goal 2 - Transfer Type * Sit to Stand Goal 2 Assessment * Appropriate - Continue Goal 3 - Ambulation Assistance Required * Independent Goal 3 - Ambulation Distance * 50' Goal 3 - Ambulation Device * Roller Walker Goal 3 Assessment * Appropriate - Continue Treatment Plan * Therapeutic Exercise * Bed Mobility Training * Transfer training * Gait Training * Dynamic Balance Training Frequency of Treatment Expected * 7 visits/week Duration of Treatment Expected * 2 weeks Discharge Recommendations * Intermediate Unit Discharge Recommendation Comments * Pt has a FWW, cane and W/C at home. SNU Laboratory Tests Test 03/15/20 10:55 03/15/20 12:39 03/15/20 17:55 03/15/20 19:57 Sodium Level 145 mmol/L (136-145) Potassium Level 4.6 mmol/L (3.5-5.1) Chloride Level 110 mmol/L (98-107) Carbon Dioxide Level 23 mmol/L (21-32) Anion Gap 12 (6-14) Blood Urea Nitrogen 85 mg/dL (7-20) Creatinine 3.3 mg/dL (0.6-1.0) Estimated GFR (Cockcroft-Gault) 16.4 Glucose Level 153 mg/dL (70-99) Calcium Level 9.5 mg/dL (8.5-10.1) Phosphorus Level 3.6 mg/dL (2.6-4.7) Albumin 2.2 g/dL (3.4-5.0) Glucose (Fingerstick) 157 mg/dL (70-99) 201 mg/dL (70-99) 218 mg/dL (70-99) Test 03/16/20 08:05 Glucose (Fingerstick) 180 mg/dL (70-99) Assessment and Plan Assessmemt and Plan Problems Medical Problems: (1) Anemia Status: Acute (2) Bilateral hip pain Status: Acute (3) Fall Status: Acute (4) Generalized weakness Status: Acute (5) Renal insufficiency Status: Acute (6) Scalp wound Status: Acute Comment Review of Relevant I have reviewed the following items bianca (where applicable) has been applied. Labs Laboratory Tests Test 03/14/20 09:10 03/14/20 11:20 03/14/20 16:23 03/14/20 20:55 White Blood Count 10.2 x10^3/uL (4.0-11.0) Red Blood Count 2.88 x10^6/uL (3.50-5.40) Hemoglobin 8.1 g/dL (12.0-15.5) Hematocrit 26.0 % (36.0-47.0) Mean Corpuscular Volume 90 fL (79-100) Mean Corpuscular Hemoglobin 28 pg (25-35) Mean Corpuscular Hemoglobin Concent 31 g/dL (31-37) Red Cell Distribution Width 17.7 % (11.5-14.5) Platelet Count 231 x10^3/uL (140-400) Neutrophils (%) (Auto) 87 % (31-73) Lymphocytes (%) (Auto) 3 % (24-48) Monocytes (%) (Auto) 9 % (0-9) Eosinophils (%) (Auto) 1 % (0-3) Basophils (%) (Auto) 0 % (0-3) Neutrophils # (Auto) 8.8 x10^3/uL (1.8-7.7) Lymphocytes # (Auto) 0.3 x10^3/uL (1.0-4.8) Monocytes # (Auto) 0.9 x10^3/uL (0.0-1.1) Eosinophils # (Auto) 0.1 x10^3/uL (0.0-0.7) Basophils # (Auto) 0.0 x10^3/uL (0.0-0.2) Sodium Level 144 mmol/L (136-145) Potassium Level 5.2 mmol/L (3.5-5.1) Chloride Level 109 mmol/L (98-107) Carbon Dioxide Level 23 mmol/L (21-32) Anion Gap 12 (6-14) Blood Urea Nitrogen 84 mg/dL (7-20) Creatinine 3.7 mg/dL (0.6-1.0) Estimated GFR (Cockcroft-Gault) 14.3 BUN/Creatinine Ratio 23 (6-20) Glucose Level 191 mg/dL (70-99) Calcium Level 9.4 mg/dL (8.5-10.1) Total Bilirubin 0.3 mg/dL (0.2-1.0) Aspartate Amino Transf (AST/SGOT) 15 U/L (15-37) Alanine Aminotransferase (ALT/SGPT) 21 U/L (14-59) Alkaline Phosphatase 75 U/L (46-116) Creatine Kinase 102 U/L (26-192) Total Protein 6.6 g/dL (6.4-8.2) Albumin 2.2 g/dL (3.4-5.0) Albumin/Globulin Ratio 0.5 (1.0-1.7) Glucose (Fingerstick) 251 mg/dL (70-99) 262 mg/dL (70-99) 185 mg/dL (70-99) Test 03/15/20 07:51 03/15/20 10:55 03/15/20 12:39 03/15/20 17:55 Glucose (Fingerstick) 158 mg/dL (70-99) 157 mg/dL (70-99) 201 mg/dL (70-99) Sodium Level 145 mmol/L (136-145) Potassium Level 4.6 mmol/L (3.5-5.1) Chloride Level 110 mmol/L (98-107) Carbon Dioxide Level 23 mmol/L (21-32) Anion Gap 12 (6-14) Blood Urea Nitrogen 85 mg/dL (7-20) Creatinine 3.3 mg/dL (0.6-1.0) Estimated GFR (Cockcroft-Gault) 16.4 Glucose Level 153 mg/dL (70-99) Calcium Level 9.5 mg/dL (8.5-10.1) Phosphorus Level 3.6 mg/dL (2.6-4.7) Albumin 2.2 g/dL (3.4-5.0) Test 03/15/20 19:57 03/16/20 08:05 Glucose (Fingerstick) 218 mg/dL (70-99) 180 mg/dL (70-99) Laboratory Tests Test 03/15/20 10:55 03/15/20 12:39 03/15/20 17:55 03/15/20 19:57 Sodium Level 145 mmol/L (136-145) Potassium Level 4.6 mmol/L (3.5-5.1) Chloride Level 110 mmol/L (98-107) Carbon Dioxide Level 23 mmol/L (21-32) Anion Gap 12 (6-14) Blood Urea Nitrogen 85 mg/dL (7-20) Creatinine 3.3 mg/dL (0.6-1.0) Estimated GFR (Cockcroft-Gault) 16.4 Glucose Level 153 mg/dL (70-99) Calcium Level 9.5 mg/dL (8.5-10.1) Phosphorus Level 3.6 mg/dL (2.6-4.7) Albumin 2.2 g/dL (3.4-5.0) Glucose (Fingerstick) 157 mg/dL (70-99) 201 mg/dL (70-99) 218 mg/dL (70-99) Test 03/16/20 08:05 Glucose (Fingerstick) 180 mg/dL (70-99) Microbiology 03/11/20 Blood Culture - Final, Complete Medications Current Medications Sodium Chloride 1,000 ml @ 1,000 mls/hr 1X ONCE IV Last administered on 03/08/20at 14:59; Start 03/08/20 at 14:30; Stop 03/08/20 at 15:29; Status DC Ondansetron HCl (Zofran) 4 mg PRN Q8HRS PRN IV NAUSEA/VOMITING; Start 03/08/20 at 17:45; Stop 03/09/20 at 17:44; Status DC Insulin Human Lispro (HumaLOG) 0-5 UNITS TIDWMEALS SQ ; Start 03/09/20 at 08:00; Status Cancel Dextrose (Dextrose 50%-Water Syringe) 12.5 gm PRN Q15MIN PRN IV SEE COMMENTS; Start 03/08/20 at 17:45; Stop 03/08/20 at 18:04; Status DC Ondansetron HCl (Zofran) 4 mg PRN Q4HRS PRN IV NAUSEA/VOMITING; Start 03/08/20 at 18:00 Zolpidem Tartrate (Ambien) 5 mg PRN QHS PRN PO INSOMNIA Last administered on 03/11/20at 21:05; Start 03/08/20 at 18:00; Stop 03/12/20 at 12:21; Status DC Acetaminophen (Tylenol) 650 mg PRN Q4HRS PRN PO TEMP OVER 100.4F OR MILD PAIN Last administered on 03/09/20at 20:23; Start 03/08/20 at 18:00 Al Hydroxide/Mg Hydroxide (Mylanta Plus Xs) 30 ml PRN DAILY PRN PO HEARTBURN / GAS; Start 03/08/20 at 18:00 Albuterol Sulfate (Ventolin Neb Soln) 2.5 mg PRN Q4HRS PRN NEB SHORTNESS OF BREATH; Start 03/08/20 at 18:00 Albuterol/ Ipratropium (Duoneb) 3 ml Q4H NEB Last administered on 03/08/20at 20:10; Start 03/08/20 at 18:00; Stop 03/08/20 at 20:20; Status DC Guaifenesin (Robitussin) 200 mg PRN Q4HRS PRN PO COUGH; Start 03/08/20 at 18:00 Lorazepam (Ativan) 0.5 mg PRN Q4HRS PRN PO ANXIETY / AGITATION; Start 03/08/20 at 18:00; Stop 03/12/20 at 12:21; Status DC Enoxaparin Sodium (Lovenox 40mg Syringe) 40 mg Q12H SQ ; Start 03/09/20 at 09:00; Status Cancel Amiodarone HCl (Cordarone) 200 mg DAILY PO Last administered on 03/11/20at 08:27; Start 03/09/20 at 09:00; Stop 03/12/20 at 12:21; Status DC Amlodipine Besylate (Norvasc) 5 mg DAILY PO Last administered on 03/11/20at 08:27 ; Start 03/09/20 at 09:00; Stop 03/12/20 at 12:21; Status DC Aspirin (Aspirin Chewable) 81 mg DAILY PO Last administered on 03/15/20at 10:46; Start 03/09/20 at 09:00 Acetaminophen/ Hydrocodone Bitart (Lortab 10/325) 2 tab PRN Q6HRS PRN PO SEVERE PAIN 7-10 Last administered on 03/12/20at 20:20; Start 03/08/20 at 18:00; Stop 03/13/20 at 04:51; Status DC Potassium Chloride (Klor-Con) 30 meq DAILY PO Last administered on 03/12/20at 08:52; Start 03/09/20 at 09:00; Stop 03/13/20 at 11:58; Status DC Pregabalin (Lyrica) 75 mg BID PO Last administered on 03/12/20at 08:52; Start 03/08/20 at 21:00; Stop 03/12/20 at 12:21; Status DC Torsemide (Demadex) 100 mg DAILY PO Last administered on 03/10/20at 08:27; Start 03/09/20 at 09:00; Stop 03/11/20 at 07:56; Status DC Vitamin D (Vitamin D3) 5,000 unit DAILY PO Last administered on 03/15/20at 10:47; Start 03/09/20 at 09:00 Insulin Human Lispro (HumaLOG) 8 units TIDWMEALS SQ Last administered on 03/14/20at 17:14; Start 03/09/20 at 08:00 Insulin Glargine (Lantus Syringe) 16 unit QHS SQ Last administered on 03/15/20at 21:57; Start 03/08/20 at 21:00 Cetirizine HCl (ZyrTEC) 10 mg DAILY PO Last administered on 03/15/20at 10:47; Start 03/09/20 at 09:00 Tizanidine HCl (Zanaflex) 2 mg PRN TID PRN PO MUSCLE SPASMS Last administered on 03/09/20at 20:23; Start 03/08/20 at 18:15; Stop 03/09/20 at 21:40; Status DC Insulin Human Lispro (HumaLOG) 0-7 UNITS TIDWMEALS SQ Last administered on 03/15/20at 13:38; Start 03/09/20 at 08:00 Dextrose (Dextrose 50%-Water Syringe) 12.5 gm PRN Q15MIN PRN IV SEE COMMENTS; Start 03/08/20 at 18:00 Fentanyl Citrate (Fentanyl 2ml Vial) 50 mcg PRN Q3HRS PRN IVP pain Last administered on 03/11/20at 20:15; Start 03/08/20 at 19:15 Enoxaparin Sodium (Lovenox 40mg Syringe) 40 mg Q24H SQ Last administered on 03/11/20at 08:28; Start 03/09/20 at 09:00; Stop 03/11/20 at 13:03; Status DC Albuterol/ Ipratropium (Duoneb) 3 ml Q4H PRN NEB WHEEZING; Start 03/08/20 at 20:30; Stop 03/08/20 at 20:22; Status DC Enoxaparin Sodium (Lovenox 30mg Syringe) 30 mg Q24H SQ Last administered on 03/12/20at 09:27; Start 03/12/20 at 09:00; Stop 03/12/20 at 11:30; Status DC Piperacillin Sod/ Tazobactam Sod 3.375 gm/Sodium Chloride 50 ml @ 100 mls/hr 1X ONCE IV Last administered on 03/11/20at 16:48; Start 03/11/20 at 17:00; Stop 03/11/20 at 17:29; Status DC Doxycycline Hyclate 100 mg/ Dextrose 100 ml @ 50 mls/hr 1X ONCE IV Last administered on 03/11/20at 18:30; Start 03/11/20 at 17:30; Stop 03/11/20 at 19:29; Status DC Enoxaparin Sodium (Lovenox 40mg Syringe) 40 mg Q24H SQ ; Start 03/13/20 at 09:00; Stop 03/12/20 at 12:21; Status DC Pregabalin (Lyrica) 25 mg BID PO Last administered on 03/15/20at 21:48; Start 03/12/20 at 21:00 Apixaban (Eliquis) 2.5 mg BID PO Last administered on 03/15/20at 21:47; Start 03/12/20 at 21:00 Hydralazine HCl (Apresoline) 100 mg BID PO Last administered on 03/15/20at 21:49; Start 03/12/20 at 21:00 Isosorbide Dinitrate (Isordil) 10 mg [id number] PO Last administered on 03/15/20at 21:48; Start 03/12/20 at 16:00 Lactobacillus Rhamnosus (Culturelle) 1 cap BID PO Last administered on 03/15/20at 21:47; Start 03/12/20 at 21:00 Metoprolol Tartrate (Lopressor) 25 mg BID PO Last administered on 03/15/20at 21:48; Start 03/12/20 at 21:00 Pantoprazole Sodium (Protonix) 40 mg DAILYAC PO Last administered on 03/16/20at 06:50; Start 03/13/20 at 07:30 Non-Formulary Medication (Tafamidis (Vyndamax)) 61 mg DAILY PO Last administered on 03/15/20at 10:54; Start 03/12/20 at 16:00 Daptomycin 500 mg/ Sodium Chloride 50 ml @ 100 mls/hr 1X IV ; Start 03/12/20 at 18:30; Stop 03/12/20 at 21:44; Status DC Daptomycin 500 mg/ Sodium Chloride 50 ml @ 100 mls/hr 1X ONCE IV Last administered on 03/12/20at 21:47; Start 03/12/20 at 21:45; Stop 03/12/20 at 22:14; Status DC Metoprolol Tartrate (Lopressor Vial) 5 mg Q6HRS IVP Last administered on 03/13/20at 00:14; Start 03/13/20 at 00:15 Acetaminophen/ Hydrocodone Bitart (Lortab 10/325) 1 tab PRN Q6HRS PRN PO SEVERE PAIN 7-10 Last administered on 03/16/20at 04:56; Start 03/13/20 at 05:00 Tramadol HCl (Ultram) 50 mg PRN Q6HRS PRN PO PAIN; Start 03/13/20 at 05:00 Daptomycin 500 mg/ Sodium Chloride 50 ml @ 100 mls/hr Q48H IV Last administered on 03/13/20at 11:56; Start 03/13/20 at 12:00; Stop 03/15/20 at 10:22; Status DC Furosemide (Lasix) 40 mg 1X ONCE IVP Last administered on 03/13/20at 12:37; Start 03/13/20 at 12:00; Stop 03/13/20 at 12:01; Status DC Sodium Polystyrene Sulfonate (Kayexalate) 15 gm 1X ONCE PO Last administered on 03/13/20at 12:37; Start 03/13/20 at 12:00; Stop 03/13/20 at 12:01; Status DC Info (Anti-Coagulation Monitoring By Pharmacy) 1 each PRN DAILY PRN MC SEE COMMENTS Last administered on 03/14/20at 15:28; Start 03/14/20 at 09:45 Sodium Chloride 1,000 ml @ 75 mls/hr [id number] IV Last administered on 03/15/20at 06:40; Start 03/14/20 at 15:30 Active Scripts Active Reported Vyndamax (Tafamidis) 61 Mg Capsule 61 Mg PO DAILY Hydrocodone-Apap 5-325 (Hydrocodone Bit/Acetaminophen) 1 Tab Tablet 1 Tab PO PRN Q6HRS PRN Isosorbide Dinitrate 30 Mg Tablet 10 Mg PO BID 30 Days Lyrica (Pregabalin) 50 Mg Capsule 25 Mg PO BID PRN Torsemide 100 Mg Tablet 50 Mg PO BID Acidophilus Lactobacilli (Lactobacillus Acidophilus) 1 Each Capsule 1 Cap PO DAILY 30 Days Protonix (Pantoprazole Sodium) 20 Mg Tablet.dr 40 Mg PO DAILY Metoprolol Tartrate 37.5 Mg Tablet 25 Mg PO BID Hydralazine Hcl 100 Mg Tablet 1 Tab PO BID Zetia (Ezetimibe) 10 Mg Tablet 1 Tab PO DAILY 30 Days Eliquis (Apixaban) 2.5 Mg Tablet 2.5 Mg PO BID Potassium Chloride (Potassium Chloride) 10 Meq Tab.sr.24h 30 Meq PO DAILY Magnesium Citrate 296 Ml Solution 296 Ml PO PRN PRN Novolog (Insulin Aspart) 100 Unit/1 Ml Cartridge 8 Unit SQ TID Levemir (Insulin Detemir) 100 Unit/1 Ml Vial 16 Unit SQ DAILYWSUP Claritin (Loratadine) 10 Mg Tablet 1 Tab PO DAILY Vitamin D3 (Cholecalciferol (Vitamin D3)) 5,000 Unit Tablet 1 Tab PO DAILY Children's Aspirin (Aspirin) 81 Mg Tab.chew 81 Mg PO Vitals/I & O Vital Sign - Last 24 Hours 03/15/20 03/15/20 03/15/20 03/15/20 08:54 10:46 10:47 10:47 Pulse 75 75 75 Resp 20 B/P (MAP) 132/66 132/66 132/66 Pulse Ox 96 O2 Delivery Room Air 03/15/20 03/15/20 03/15/20 03/15/20 11:00 12:00 15:00 15:00 Temp 97.0 97.1 97.0 97.1 Pulse 76 76 77 Resp 16 20 B/P (MAP) 118/47 (70) 118/47 127/43 (71) 124/40 (68) O2 Delivery Room Air Room Air 03/15/20 03/15/20 03/15/20 03/15/20 19:00 20:00 21:48 21:48 Temp 98.1 98.1 Pulse 87 87 87 Resp 22 B/P (MAP) 142/71 (94) 142/71 142/71 Pulse Ox 96 O2 Delivery Room Air 03/15/20 03/15/20 03/15/20 03/15/20 21:49 22:10 23:00 23:10 Temp 97.9 97.9 Pulse 87 73 Resp 20 20 18 B/P (MAP) 142/71 180/68 (105) Pulse Ox 96 99 99 O2 Delivery Room Air Room Air Room Air 03/15/20 03/16/20 03/16/20 03/16/20 23:42 00:00 03:00 04:56 Temp 98.1 98.1 Pulse 74 74 74 Resp 20 18 B/P (MAP) 152/58 (89) 169/58 169/58 (95) Pulse Ox 99 99 O2 Delivery Room Air Room Air 03/16/20 05:56 Resp 20 Pulse Ox 99 O2 Delivery Room Air Intake and Output 03/15/20 03/15/20 03/16/20 15:00 23:00 07:00 Intake Total 1015 ml 100 ml 240 ml Output Total 700 ml 650 ml Balance 1015 ml -600 ml -410 ml Justicifation of Admission Dx: Justifications for Admission: Justification of Admission Dx: Yes Acute Renal Failure: RF Can't Be Managed Outpt VARSHA DUBON MD Mar 16, 2020 08:40
[2020-03-16 09:33] LABS: BASO # 0.1 x10^3/uL (0.0-0.2); BASO % 1 % (0-3); EOS # 0.2 x10^3/uL (0.0-0.7); EOS % 2 % (0-3); HEMATOCRIT 26.7 % (36.0-47.0); HEMOGLOBIN 8.5 g/dL (12.0-15.5); LYMPH # 0.6 x10^3/uL (1.0-4.8); LYMPH % 7 % (24-48); MEAN CORPUSCULAR HEMOGLOBIN 28 pg (25-35); MEAN CORPUSCULAR HGB CONC 32 g/dL (31-37); MEAN CORPUSCULAR VOLUME 89 fL (79-100); MONO # 1.6 x10^3/uL (0.0-1.1); MONO % 17 % (0-9); NEUT # 7.2 x10^3/uL (1.8-7.7); NEUT % 75 % (31-73); PLATELET COUNT 307 x10^3/uL (140-400); WHITE BLOOD COUNT 9.6 x10^3/uL (4.0-11.0)
[2020-03-16] MEDS: IV NORMAL SALINE 1000ML BAG 1,000 ML IV SCH ×2 (09:37→21:05)
[2020-03-16 10:10] LABS: ALBUMIN 2.3 g/dL (3.4-5.0); CALCIUM 9.8 mg/dL (8.5-10.1); CREATININE 2.5 mg/dL (0.6-1.0); GFR 22.5; PHOSPHORUS 3.1 mg/dL (2.6-4.7); POTASSIUM 4.4 mmol/L (3.5-5.1)
[2020-03-16] MEDS: CHOLECALCIFEROL (VITAMIN D3) 5,000 UNIT CAPSULE PO SCH (10:16)
[2020-03-16] MEDS: ASPIRIN CHEWABLE 81 MG TABLET. PO SCH (10:17)
[2020-03-16] MEDS: PREGABALIN 25 MG CAPSULE PO SCH ×2 (10:17→21:03)
[2020-03-16] MEDS: LACTOBACILLUS RHAMNOSUS GG 1 CAPSULE. PO SCH ×2 (10:17→21:03)
[2020-03-16] MEDS: CETIRIZINE HCL 10 MG TABLET. PO SCH (10:17)
[2020-03-16] MEDS: ISOSORBIDE DINITRATE 10 MG TABLET. PO SCH ×2 (10:17→19:54)
[2020-03-16] MEDS: APIXABAN 2.5 MG TABLET. PO SCH ×2 (10:17→21:05)
[2020-03-16] MEDS: METOPROLOL TART IMMED RELEASE 25 MG TABLET. PO SCH ×2 (10:18→21:05)
[2020-03-16] MEDS: traMADol 50 MG TABLET PO PRN ×2 (10:18→21:10)
[2020-03-16] MEDS: TAFAMIDIS 61 MG PO SCH (10:19)
--- NOTE | 2020-03-16 10:25 | PDOC ---
Infectious Disease Note Subjective: Subjective Pt feels better Vital Signs: Vital Signs Vital Signs Date Time Temp Pulse Resp B/P (MAP) Pulse Ox O2 Delivery O2 Flow Rate FiO2 03/16/20 10:19 74 169/58 03/16/20 10:18 20 99 Room Air 03/16/20 03:00 98.1 98.1 Physical Exam: PHYSICAL EXAM GENERAL: Oriented x3 female in no acute. HEENT: Normocephalic, atraumatic. Oral mucosa is moist. Scalp wound dry no purulence NECK: Supple. No JVD. LUNGS: Clear bilaterally. HEART: S1, S2. ABDOMEN: Soft, obese. Bowel sounds present. EXTREMITIES: Chronic lower extremity edema. GENITOURINARY: No Barrios. DERMATOLOGIC: No generalized rash. PSYCHIATRIC: Cooperative, normal mood. CENTRAL NERVOUS SYSTEM: Alert, awake, Moves all 4 extremities. Medications: Inpatient Meds: Current Medications Medications (Trade) Dose Ordered Sig/José Miguel Start Time Stop Time Status Last Admin Dose Admin Acetaminophen (Tylenol) 650 mg PRN Q4HRS PRN 03/08/20 18:00 03/09/20 20:23 650 MG Acetaminophen/ Hydrocodone Bitart (Lortab 10/325) 1 tab PRN Q6HRS PRN 03/13/20 05:00 03/16/20 04:56 1 TAB Al Hydroxide/Mg Hydroxide (Mylanta Plus Xs) 30 ml PRN DAILY PRN 03/08/20 18:00 Albuterol Sulfate (Ventolin Neb Soln) 2.5 mg PRN Q4HRS PRN 03/08/20 18:00 Albuterol/ Ipratropium (Duoneb) 3 ml Q4H PRN 03/08/20 20:30 03/08/20 20:22 DC Amiodarone HCl (Cordarone) 200 mg DAILY 03/09/20 09:00 03/12/20 12:21 DC 03/11/20 08:27 200 MG Amlodipine Besylate (Norvasc) 5 mg DAILY 03/09/20 09:00 03/12/20 12:21 DC 03/11/20 08:27 5 MG Apixaban (Eliquis) 2.5 mg BID 03/12/20 21:00 03/16/20 10:17 2.5 MG Aspirin (Aspirin Chewable) 81 mg DAILY 03/09/20 09:00 03/16/20 10:17 81 MG Cetirizine HCl (ZyrTEC) 10 mg DAILY 03/09/20 09:00 03/16/20 10:17 10 MG Daptomycin 500 mg/ Sodium Chloride 50 ml @ 100 mls/hr Q48H 03/13/20 12:00 03/15/20 10:22 DC 03/13/20 11:56 100 MLS/HR Dextrose (Dextrose 50%-Water Syringe) 12.5 gm PRN Q15MIN PRN 03/08/20 18:00 Doxycycline Hyclate 100 mg/ Dextrose 100 ml @ 50 mls/hr 1X ONCE 03/11/20 17:30 03/11/20 19:29 DC 03/11/20 18:30 50 MLS/HR Enoxaparin Sodium (Lovenox 30mg Syringe) 30 mg Q24H 03/12/20 09:00 03/12/20 11:30 DC 03/12/20 09:27 30 MG Enoxaparin Sodium (Lovenox 40mg Syringe) 40 mg Q24H 03/13/20 09:00 03/12/20 12:21 DC Fentanyl Citrate (Fentanyl 2ml Vial) 50 mcg PRN Q3HRS PRN 03/08/20 19:15 03/11/20 20:15 50 MCG Furosemide (Lasix) 40 mg 1X ONCE 03/13/20 12:00 03/13/20 12:01 DC 03/13/20 12:37 40 MG Guaifenesin (Robitussin) 200 mg PRN Q4HRS PRN 03/08/20 18:00 Hydralazine HCl (Apresoline) 100 mg BID 03/12/20 21:00 03/16/20 10:19 100 MG Info (Anti-Coagulation Monitoring By Pharmacy) 1 each PRN DAILY PRN 03/14/20 09:45 03/14/20 15:28 1 EACH Insulin Glargine (Lantus Syringe) 16 unit QHS 03/08/20 21:00 03/15/20 21:57 16 UNIT Insulin Human Lispro (HumaLOG) 0-7 UNITS TIDWMEALS 03/09/20 08:00 03/15/20 13:38 3 UNITS Isosorbide Dinitrate (Isordil) 10 mg [id number] 03/12/20 16:00 03/16/20 10:17 10 MG Lactobacillus Rhamnosus (Culturelle) 1 cap BID 03/12/20 21:00 03/16/20 10:17 1 CAP Lorazepam (Ativan) 0.5 mg PRN Q4HRS PRN 03/08/20 18:00 03/12/20 12:21 DC Metoprolol Tartrate (Lopressor Vial) 5 mg Q6HRS 03/13/20 00:15 03/13/20 00:14 5 MG Metoprolol Tartrate (Lopressor) 25 mg BID 03/12/20 21:00 03/16/20 10:18 25 MG Non-Formulary Medication (Tafamidis (Vyndamax)) 61 mg DAILY 03/12/20 16:00 03/16/20 10:19 61 MG Ondansetron HCl (Zofran) 4 mg PRN Q4HRS PRN 03/08/20 18:00 Pantoprazole Sodium (Protonix) 40 mg DAILYAC 03/13/20 07:30 03/16/20 06:50 40 MG Piperacillin Sod/ Tazobactam Sod 3.375 gm/Sodium Chloride 50 ml @ 100 mls/hr 1X ONCE 03/11/20 17:00 03/11/20 17:29 DC 03/11/20 16:48 100 MLS/HR Potassium Chloride (Klor-Con) 30 meq DAILY 03/09/20 09:00 03/13/20 11:58 DC 03/12/20 08:52 30 MEQ Pregabalin (Lyrica) 25 mg BID 03/12/20 21:00 03/16/20 10:17 25 MG Sodium Polystyrene Sulfonate (Kayexalate) 15 gm 1X ONCE 03/13/20 12:00 03/13/20 12:01 DC 03/13/20 12:37 15 GM Sodium Chloride 1,000 ml @ 75 mls/hr [id number] 03/14/20 15:30 03/16/20 09:37 75 MLS/HR Tizanidine HCl (Zanaflex) 2 mg PRN TID PRN 03/08/20 18:15 03/09/20 21:40 DC 03/09/20 20:23 2 MG Torsemide (Demadex) 100 mg DAILY 03/09/20 09:00 03/11/20 07:56 DC 03/10/20 08:27 100 MG Tramadol HCl (Ultram) 50 mg PRN Q6HRS PRN 03/13/20 05:00 03/16/20 10:18 50 MG Vitamin D (Vitamin D3) 5,000 unit DAILY 03/09/20 09:00 03/16/20 10:16 5,000 UNIT Zolpidem Tartrate (Ambien) 5 mg PRN QHS PRN 03/08/20 18:00 03/12/20 12:21 DC 03/11/20 21:05 5 MG Labs: Lab Laboratory Tests Test 03/15/20 10:55 03/15/20 12:39 03/15/20 17:55 03/15/20 19:57 Sodium Level 145 mmol/L (136-145) Potassium Level 4.6 mmol/L (3.5-5.1) Chloride Level 110 mmol/L (98-107) Carbon Dioxide Level 23 mmol/L (21-32) Anion Gap 12 (6-14) Blood Urea Nitrogen 85 mg/dL (7-20) Creatinine 3.3 mg/dL (0.6-1.0) Estimated GFR (Cockcroft-Gault) 16.4 Glucose Level 153 mg/dL (70-99) Calcium Level 9.5 mg/dL (8.5-10.1) Phosphorus Level 3.6 mg/dL (2.6-4.7) Albumin 2.2 g/dL (3.4-5.0) Glucose (Fingerstick) 157 mg/dL (70-99) 201 mg/dL (70-99) 218 mg/dL (70-99) Test 03/16/20 08:05 03/16/20 08:15 03/16/20 08:55 Glucose (Fingerstick) 180 mg/dL (70-99) White Blood Count 9.6 x10^3/uL (4.0-11.0) Red Blood Count 3.00 x10^6/uL (3.50-5.40) Hemoglobin 8.5 g/dL (12.0-15.5) Hematocrit 26.7 % (36.0-47.0) Mean Corpuscular Volume 89 fL (79-100) Mean Corpuscular Hemoglobin 28 pg (25-35) Mean Corpuscular Hemoglobin Concent 32 g/dL (31-37) Red Cell Distribution Width 17.0 % (11.5-14.5) Platelet Count 307 x10^3/uL (140-400) Neutrophils (%) (Auto) 75 % (31-73) Lymphocytes (%) (Auto) 7 % (24-48) Monocytes (%) (Auto) 17 % (0-9) Eosinophils (%) (Auto) 2 % (0-3) Basophils (%) (Auto) 1 % (0-3) Neutrophils # (Auto) 7.2 x10^3/uL (1.8-7.7) Lymphocytes # (Auto) 0.6 x10^3/uL (1.0-4.8) Monocytes # (Auto) 1.6 x10^3/uL (0.0-1.1) Eosinophils # (Auto) 0.2 x10^3/uL (0.0-0.7) Basophils # (Auto) 0.1 x10^3/uL (0.0-0.2) Sodium Level 144 mmol/L (136-145) Potassium Level 4.4 mmol/L (3.5-5.1) Chloride Level 111 mmol/L (98-107) Carbon Dioxide Level 23 mmol/L (21-32) Anion Gap 10 (6-14) Blood Urea Nitrogen 68 mg/dL (7-20) Creatinine 2.5 mg/dL (0.6-1.0) Estimated GFR (Cockcroft-Gault) 22.5 Glucose Level 174 mg/dL (70-99) Calcium Level 9.8 mg/dL (8.5-10.1) Phosphorus Level 3.1 mg/dL (2.6-4.7) Albumin 2.3 g/dL (3.4-5.0) Objective: Assessment: 1. Acute encephalopathy, appears metabolic, resolved 2. Mechanical fall prior to admission. 3. Bacteremia, one out of three bottles, Coagulase-negative staph likely contaminant 4. Scalp wound, chronic, slowly healing. Wound Care following. 5. Anemia, status post transfusion. 6. Sdsdr-bo-pwgajfu kidney disease. 7. Diabetic neuropathy. 8. History of amyloidosis. 9. History of breast cancer. 10. History of cardiomyopathy. 11. Leukocytosis, now resolved. 12. History of morbid obesity. Plan: Plan of Care Monitor off antibiotics Continue scalp wound care. Continue supportive care. Discussed with GEETA SAUNDERS MD Mar 16, 2020 10:25
--- NOTE | 2020-03-16 10:28 | NUR ---
SW following for discharge planning. Spoke with RN and reviewed chart. Contacted by [facility] acute rehab and they have a bed today. Pt can discharge if okay with nephrology. Pt now identified as BPCI. Discharge planners to follow. No further needs from this SW.
[2020-03-16 11:00] VITALS: BP 150/47
--- NOTE | 2020-03-16 11:47 | PDOC ---
Renal-Progress Notes Subjective Notes Notes NO NEW COMPLAINTS History of Present Illness Hx of present illness STABLE Vitals Vitals Vital Signs Date Time Temp Pulse Resp B/P (MAP) Pulse Ox O2 Delivery O2 Flow Rate FiO2 03/16/20 10:19 74 169/58 03/16/20 10:18 20 99 Room Air 03/16/20 07:00 97.9 97.9 Weight Weight [ ] I.O. Intake and Output Intake and Output 03/16/20 07:00 Intake Total 1355 ml Output Total 1350 ml Balance 5 ml Intake Oral 680 ml IV Total 675 ml Output Urine Total 1350 ml Labs Labs Laboratory Tests Test 03/15/20 12:39 03/15/20 17:55 03/15/20 19:57 03/16/20 08:05 Glucose (Fingerstick) 157 mg/dL (70-99) 201 mg/dL (70-99) 218 mg/dL (70-99) 180 mg/dL (70-99) Test 03/16/20 08:15 03/16/20 08:55 White Blood Count 9.6 x10^3/uL (4.0-11.0) Red Blood Count 3.00 x10^6/uL (3.50-5.40) Hemoglobin 8.5 g/dL (12.0-15.5) Hematocrit 26.7 % (36.0-47.0) Mean Corpuscular Volume 89 fL (79-100) Mean Corpuscular Hemoglobin 28 pg (25-35) Mean Corpuscular Hemoglobin Concent 32 g/dL (31-37) Red Cell Distribution Width 17.0 % (11.5-14.5) Platelet Count 307 x10^3/uL (140-400) Neutrophils (%) (Auto) 75 % (31-73) Lymphocytes (%) (Auto) 7 % (24-48) Monocytes (%) (Auto) 17 % (0-9) Eosinophils (%) (Auto) 2 % (0-3) Basophils (%) (Auto) 1 % (0-3) Neutrophils # (Auto) 7.2 x10^3/uL (1.8-7.7) Lymphocytes # (Auto) 0.6 x10^3/uL (1.0-4.8) Monocytes # (Auto) 1.6 x10^3/uL (0.0-1.1) Eosinophils # (Auto) 0.2 x10^3/uL (0.0-0.7) Basophils # (Auto) 0.1 x10^3/uL (0.0-0.2) Sodium Level 144 mmol/L (136-145) Potassium Level 4.4 mmol/L (3.5-5.1) Chloride Level 111 mmol/L (98-107) Carbon Dioxide Level 23 mmol/L (21-32) Anion Gap 10 (6-14) Blood Urea Nitrogen 68 mg/dL (7-20) Creatinine 2.5 mg/dL (0.6-1.0) Estimated GFR (Cockcroft-Gault) 22.5 Glucose Level 174 mg/dL (70-99) Calcium Level 9.8 mg/dL (8.5-10.1) Phosphorus Level 3.1 mg/dL (2.6-4.7) Albumin 2.3 g/dL (3.4-5.0) Micro Micro Microbiology 03/11/20 Blood Culture - Final, Complete Review of Systems Constitutional: yes: other (CONFUSED) Physical Exam General Appearance: no apparent distress Skin: warm Respiratory: decreased breath sounds Heart: S1S2 Abdomen: soft, bowel sounds present Genitourinary: bladder flat Extremities: pulses present, edema Neurology: alert, follow commands, confused Musculoskeletal: Osteoarthritis Assessment Assessment IMP ACUTE ENCEPHALOPATHY HYPERKALEMIA-RESOLVED KAYLIE WITH CR OF 3.7-UA NEG FOR NEPHRITIS-CR DOWN TO 2.5 CKD STAGE 3 WITH CR OF ABOUT 2.3 HX OF AMYLOID DM II HTN PLAN STOPPED KCL CONT HYDRATION WILL FOLLOW GURVINDER CASAS MD Mar 16, 2020 11:46
[2020-03-16 15:00] VITALS: BP 174/64
--- NOTE | 2020-03-16 18:00 | NUR ---
Patient still somulent. Daughter has called, requests that patient not be given anything with any narcotic, or muscle relaxer, or if she does receive one, to give only small dose. She related that patient is very sensitive to these medications, and becomes very lethargic.
[2020-03-16 19:00] VITALS: BP 188/76
[2020-03-16] MEDS: INSULIN GLARGINE SYRINGE. SQ SCH (21:08)
[2020-03-16 23:00] VITALS: BP 116/65
[2020-03-17 03:04] VITALS: BP 151/70
[2020-03-17 07:00] VITALS: BP 180/58
[2020-03-17] MEDS: INSULIN LISPRO 300 UNITS/3 ML VIAL. SQ SCH ×6 (08:00→17:00)
[2020-03-17 08:58] LABS: BASO # 0.1 x10^3/uL (0.0-0.2); BASO % 1 % (0-3); EOS # 0.2 x10^3/uL (0.0-0.7); EOS % 2 % (0-3); HEMATOCRIT 29.8 % (36.0-47.0); HEMOGLOBIN 9.4 g/dL (12.0-15.5); LYMPH # 0.7 x10^3/uL (1.0-4.8); LYMPH % 7 % (24-48); MEAN CORPUSCULAR HEMOGLOBIN 28 pg (25-35); MEAN CORPUSCULAR HGB CONC 32 g/dL (31-37); MEAN CORPUSCULAR VOLUME 89 fL (79-100); MONO # 1.4 x10^3/uL (0.0-1.1); MONO % 14 % (0-9); NEUT # 7.3 x10^3/uL (1.8-7.7); NEUT % 76 % (31-73); PLATELET COUNT 352 x10^3/uL (140-400); RED BLOOD COUNT 3.35 x10^6/uL (3.50-5.40); WHITE BLOOD COUNT 9.6 x10^3/uL (4.0-11.0)
[2020-03-17 09:03] LABS: ALBUMIN 2.5 g/dL (3.4-5.0); CALCIUM 10.3 mg/dL (8.5-10.1); CREATININE 1.9 mg/dL (0.6-1.0); GFR 30.9; PHOSPHORUS 2.5 mg/dL (2.6-4.7); POTASSIUM 4.2 mmol/L (3.5-5.1)
[2020-03-17] MEDS: CHOLECALCIFEROL (VITAMIN D3) 5,000 UNIT CAPSULE PO SCH (09:29)
[2020-03-17] MEDS: ASPIRIN CHEWABLE 81 MG TABLET. PO SCH (09:29)
[2020-03-17] MEDS: LACTOBACILLUS RHAMNOSUS GG 1 CAPSULE. PO SCH ×2 (09:29→20:44)
[2020-03-17] MEDS: APIXABAN 2.5 MG TABLET. PO SCH ×2 (09:29→20:43)
[2020-03-17] MEDS: PREGABALIN 25 MG CAPSULE PO SCH ×2 (09:29→20:44)
[2020-03-17] MEDS: CETIRIZINE HCL 10 MG TABLET. PO SCH (09:29)
[2020-03-17] MEDS: PANTOPRAZOLE 40 MG TABLET.DR. PO SCH (09:29)
[2020-03-17] MEDS: ISOSORBIDE DINITRATE 10 MG TABLET. PO SCH ×2 (09:29→16:35)
[2020-03-17] MEDS: METOPROLOL TART IMMED RELEASE 25 MG TABLET. PO SCH ×2 (09:30→20:44)
[2020-03-17] MEDS: TAFAMIDIS 61 MG PO SCH (09:30)
[2020-03-17] MEDS: IV NORMAL SALINE 1000ML BAG 1,000 ML IV SCH (10:15)
--- NOTE | 2020-03-17 10:45 | PDOC ---
PROGRESS NOTES Date of Service: DATE: 03/17/20 TIME: 10:43 Chief Complaint Chief Complaint impression Acute encephalopathy - multifactorial metabolic. Will monitor mental status. Previously told she had CVA at [facility]. No focal neuro deficits Left parietal scalp laceration with subcutaneous hematoma. No calvarial defect. No acute intracranial hemorrhage. Mechanical fall - PT/OT, likely needs rehab Left hip pain > right - Bilateral hip pain - XR with no fracture, pain resolved with repositioning Diabetic neuropathy Scalp wound slowly healing - wound care following Anemia - will transfuse Acute on chronic Chronic kidney disease stage IIIb at least with current vasomotor nephropathy prerenal azotemia most likely CKD stage 3B /? 4- daughter reported to RN -baseline Cr 2.3 / KAYLIE Renal US Bilateral increased renal cortical echogenicity. No hydronephrosis Elevated BNP History of hypothyroidism History of essential hypertension History of breast cancer approximately 20 years ago status post mastectomy Morbid obesity with a BMI of 48 COVID 19 - recently diagnosed at [facility] January 2020 Cardiomyopathy - sees advanced CHF clinic at [facility], Dr. Mikhail Khanna on Vyndamax bacteremia, ID FOLLOWING PLAN FEN - ADA cardiac diet PPX - eliquis CODE - DNR/DNI Dispo - inpatient iv daptomycin D/C MONITOR OFF ANTIBIOTICS Will possibly need HD, nephrology following. Defer diuretic therapy to renal d/c daptomycin, Repeat blood cultures. scalp wound care. STOPPED KCL TRIAL OF iv HYDRATIOn, continue Continue scalp wound care C/O INC LOW BACK PAIN D/W PT CR = 1.9, SLOW TO IMPROVE 28 MIN PT EXAM, d/c planning CHART REVIEW, > 50% OF TIME SPENT WITH EXAM, CHART REVIEW, PT CARE COORDINATION D/C ON HOLD History of Present Illness History of Present Illness Ms Cruz is a 79 yo F w/ PMHx breast Cancer s/p left mastectomy, Diabetes-Type II, High Cholesterol, Hypertension, Hypothyroid, afib, OA bilateral knees, cardiomyopathy, recent diagnosis at [facility] of COVID 19 with pneumonia in January 2020 with 2 weeks of acute rehab and was discharged home with her daughter for 2 weeks who then went home from her daughter's house who was at home for almost 3 weeks who presented via EMS with report of bilateral lower extremity weakness. Patient reports she was walking out of the bathroom using her cane and her "legs just gave out ". Patient reports she was still able to lower herself to the ground. Denies any head trauma or neck pain. Denies fever or chills. Denies cough or shortness of breath. Patient reports she has multiple health issues. Patient reports "I have it all ". Patient does report she has a chronic left parietal/occipital wound for which she follows with wound care regarding. Imaging negative for acute fracture. Very confused and combative. Her daughter notes she has not been the same since COVID 19 and has baseline weight of 262 pounds, but is currently 284 pounds. 03/09: She is still c/o left hip pain. Afebrile. Not able to bear weight. Pain 10/10. Became febrile overnight and transferred to [place] [id number] unit. 03/10: Head wound bothering her. Febrile overnight to 101F. Mild SOB. No diarrhea. Appetite decreased. 03/11: Febrile to 100.8 F overnight. WBC at 14.5, Hb 7.1 BUN 16, CR 3, CRP 163.5. She has been more drowsy today. Blood cultures and urine culture obtained and started on antibiotics. Left leg is bothering her. Afebrile overnight. Cr up to 3.8. Hb 6.9. No more swollen. Very weak. Less drowsy, still confused. After d/w her daughter apparently she has been on Vyndamax, presumptively in a research study, she has never heard of any diagn osis of amyloidosis, and follows with [facility] cardiology, but she does note her mother has been progressively more confused since her COVID 19 recovery in January. Plan: Will communicate with Nancy. her daughter, , who would like daily updates and formal DPOA paperwork through social work Will need skilled services on discharge Vitals Vitals Vital Signs Date Time Temp Pulse Resp B/P (MAP) Pulse Ox O2 Delivery O2 Flow Rate FiO2 03/17/20 09:30 68 180/58 03/17/20 08:32 97 Room Air 03/17/20 07:00 98.2 17 98.2 03/16/20 11:18 1.0 Physical Exam Physical Exam GENERAL: Oriented x3 female in no acute. HEENT: Normocephalic, atraumatic. Oral mucosa is moist. Scalp wound dry no purulence NECK: Supple. No JVD. LUNGS: Clear bilaterally. HEART: S1, S2. ABDOMEN: Soft, obese. Bowel sounds present. EXTREMITIES: Chronic lower extremity edema. GENITOURINARY: No Barrios. DERMATOLOGIC: No generalized rash. PSYCHIATRIC: Cooperative, normal mood. CENTRAL NERVOUS SYSTEM: Alert, awake, Moves all 4 extremities. General: Alert, Oriented X3, Cooperative, No acute distress, mild distress, Other (Patient not demonstrating distressed. She appears oriented to person. Generally poorly cooperative. Orientation x1) Heart: Regular rate, Normal S2 Lungs: Clear Abdomen: Soft, No tenderness Extremities: No clubbing, No cyanosis Skin: Other (2.0 cm diameter wound to the posterior parietal scalp demonstrating central necrotic tissue without periwound induration or significant erythema. No unusual odor identified. No significant bony tenderness evident. Minimal drainage present.) Labs LABS Laboratory Tests Test 03/16/20 11:34 03/16/20 17:17 03/16/20 21:01 03/17/20 08:14 Glucose (Fingerstick) 169 mg/dL (70-99) 191 mg/dL (70-99) 182 mg/dL (70-99) 157 mg/dL (70-99) Test 03/17/20 08:25 White Blood Count 9.6 x10^3/uL (4.0-11.0) Red Blood Count 3.35 x10^6/uL (3.50-5.40) Hemoglobin 9.4 g/dL (12.0-15.5) Hematocrit 29.8 % (36.0-47.0) Mean Corpuscular Volume 89 fL (79-100) Mean Corpuscular Hemoglobin 28 pg (25-35) Mean Corpuscular Hemoglobin Concent 32 g/dL (31-37) Red Cell Distribution Width 17.0 % (11.5-14.5) Platelet Count 352 x10^3/uL (140-400) Neutrophils (%) (Auto) 76 % (31-73) Lymphocytes (%) (Auto) 7 % (24-48) Monocytes (%) (Auto) 14 % (0-9) Eosinophils (%) (Auto) 2 % (0-3) Basophils (%) (Auto) 1 % (0-3) Neutrophils # (Auto) 7.3 x10^3/uL (1.8-7.7) Lymphocytes # (Auto) 0.7 x10^3/uL (1.0-4.8) Monocytes # (Auto) 1.4 x10^3/uL (0.0-1.1) Eosinophils # (Auto) 0.2 x10^3/uL (0.0-0.7) Basophils # (Auto) 0.1 x10^3/uL (0.0-0.2) Sodium Level 150 mmol/L (136-145) Potassium Level 4.2 mmol/L (3.5-5.1) Chloride Level 115 mmol/L (98-107) Carbon Dioxide Level 24 mmol/L (21-32) Anion Gap 11 (6-14) Blood Urea Nitrogen 50 mg/dL (7-20) Creatinine 1.9 mg/dL (0.6-1.0) Estimated GFR (Cockcroft-Gault) 30.9 Glucose Level 165 mg/dL (70-99) Calcium Level 10.3 mg/dL (8.5-10.1) Phosphorus Level 2.5 mg/dL (2.6-4.7) Albumin 2.5 g/dL (3.4-5.0) Assessment and Plan Assessmemt and Plan Problems Medical Problems: (1) Anemia Status: Acute (2) Bilateral hip pain Status: Acute (3) Fall Status: Acute (4) Generalized weakness Status: Acute (5) Renal insufficiency Status: Acute (6) Scalp wound Status: Acute Comment Review of Relevant I have reviewed the following items bianca (where applicable) has been applied. Labs Laboratory Tests Test 03/15/20 10:55 03/15/20 12:39 03/15/20 17:55 03/15/20 19:57 Sodium Level 145 mmol/L (136-145) Potassium Level 4.6 mmol/L (3.5-5.1) Chloride Level 110 mmol/L (98-107) Carbon Dioxide Level 23 mmol/L (21-32) Anion Gap 12 (6-14) Blood Urea Nitrogen 85 mg/dL (7-20) Creatinine 3.3 mg/dL (0.6-1.0) Estimated GFR (Cockcroft-Gault) 16.4 Glucose Level 153 mg/dL (70-99) Calcium Level 9.5 mg/dL (8.5-10.1) Phosphorus Level 3.6 mg/dL (2.6-4.7) Albumin 2.2 g/dL (3.4-5.0) Glucose (Fingerstick) 157 mg/dL (70-99) 201 mg/dL (70-99) 218 mg/dL (70-99) Test 03/16/20 08:05 03/16/20 08:15 03/16/20 08:55 03/16/20 11:34 Glucose (Fingerstick) 180 mg/dL (70-99) 169 mg/dL (70-99) White Blood Count 9.6 x10^3/uL (4.0-11.0) Red Blood Count 3.00 x10^6/uL (3.50-5.40) Hemoglobin 8.5 g/dL (12.0-15.5) Hematocrit 26.7 % (36.0-47.0) Mean Corpuscular Volume 89 fL (79-100) Mean Corpuscular Hemoglobin 28 pg (25-35) Mean Corpuscular Hemoglobin Concent 32 g/dL (31-37) Red Cell Distribution Width 17.0 % (11.5-14.5) Platelet Count 307 x10^3/uL (140-400) Neutrophils (%) (Auto) 75 % (31-73) Lymphocytes (%) (Auto) 7 % (24-48) Monocytes (%) (Auto) 17 % (0-9) Eosinophils (%) (Auto) 2 % (0-3) Basophils (%) (Auto) 1 % (0-3) Neutrophils # (Auto) 7.2 x10^3/uL (1.8-7.7) Lymphocytes # (Auto) 0.6 x10^3/uL (1.0-4.8) Monocytes # (Auto) 1.6 x10^3/uL (0.0-1.1) Eosinophils # (Auto) 0.2 x10^3/uL (0.0-0.7) Basophils # (Auto) 0.1 x10^3/uL (0.0-0.2) Sodium Level 144 mmol/L (136-145) Potassium Level 4.4 mmol/L (3.5-5.1) Chloride Level 111 mmol/L (98-107) Carbon Dioxide Level 23 mmol/L (21-32) Anion Gap 10 (6-14) Blood Urea Nitrogen 68 mg/dL (7-20) Creatinine 2.5 mg/dL (0.6-1.0) Estimated GFR (Cockcroft-Gault) 22.5 Glucose Level 174 mg/dL (70-99) Calcium Level 9.8 mg/dL (8.5-10.1) Phosphorus Level 3.1 mg/dL (2.6-4.7) Albumin 2.3 g/dL (3.4-5.0) Test 03/16/20 17:17 03/16/20 21:01 03/17/20 08:14 03/17/20 08:25 Glucose (Fingerstick) 191 mg/dL (70-99) 182 mg/dL (70-99) 157 mg/dL (70-99) White Blood Count 9.6 x10^3/uL (4.0-11.0) Red Blood Count 3.35 x10^6/uL (3.50-5.40) Hemoglobin 9.4 g/dL (12.0-15.5) Hematocrit 29.8 % (36.0-47.0) Mean Corpuscular Volume 89 fL (79-100) Mean Corpuscular Hemoglobin 28 pg (25-35) Mean Corpuscular Hemoglobin Concent 32 g/dL (31-37) Red Cell Distribution Width 17.0 % (11.5-14.5) Platelet Count 352 x10^3/uL (140-400) Neutrophils (%) (Auto) 76 % (31-73) Lymphocytes (%) (Auto) 7 % (24-48) Monocytes (%) (Auto) 14 % (0-9) Eosinophils (%) (Auto) 2 % (0-3) Basophils (%) (Auto) 1 % (0-3) Neutrophils # (Auto) 7.3 x10^3/uL (1.8-7.7) Lymphocytes # (Auto) 0.7 x10^3/uL (1.0-4.8) Monocytes # (Auto) 1.4 x10^3/uL (0.0-1.1) Eosinophils # (Auto) 0.2 x10^3/uL (0.0-0.7) Basophils # (Auto) 0.1 x10^3/uL (0.0-0.2) Sodium Level 150 mmol/L (136-145) Potassium Level 4.2 mmol/L (3.5-5.1) Chloride Level 115 mmol/L (98-107) Carbon Dioxide Level 24 mmol/L (21-32) Anion Gap 11 (6-14) Blood Urea Nitrogen 50 mg/dL (7-20) Creatinine 1.9 mg/dL (0.6-1.0) Estimated GFR (Cockcroft-Gault) 30.9 Glucose Level 165 mg/dL (70-99) Calcium Level 10.3 mg/dL (8.5-10.1) Phosphorus Level 2.5 mg/dL (2.6-4.7) Albumin 2.5 g/dL (3.4-5.0) Laboratory Tests Test 03/16/20 11:34 03/16/20 17:17 03/16/20 21:01 03/17/20 08:14 Glucose (Fingerstick) 169 mg/dL (70-99) 191 mg/dL (70-99) 182 mg/dL (70-99) 157 mg/dL (70-99) Test 03/17/20 08:25 White Blood Count 9.6 x10^3/uL (4.0-11.0) Red Blood Count 3.35 x10^6/uL (3.50-5.40) Hemoglobin 9.4 g/dL (12.0-15.5) Hematocrit 29.8 % (36.0-47.0) Mean Corpuscular Volume 89 fL (79-100) Mean Corpuscular Hemoglobin 28 pg (25-35) Mean Corpuscular Hemoglobin Concent 32 g/dL (31-37) Red Cell Distribution Width 17.0 % (11.5-14.5) Platelet Count 352 x10^3/uL (140-400) Neutrophils (%) (Auto) 76 % (31-73) Lymphocytes (%) (Auto) 7 % (24-48) Monocytes (%) (Auto) 14 % (0-9) Eosinophils (%) (Auto) 2 % (0-3) Basophils (%) (Auto) 1 % (0-3) Neutrophils # (Auto) 7.3 x10^3/uL (1.8-7.7) Lymphocytes # (Auto) 0.7 x10^3/uL (1.0-4.8) Monocytes # (Auto) 1.4 x10^3/uL (0.0-1.1) Eosinophils # (Auto) 0.2 x10^3/uL (0.0-0.7) Basophils # (Auto) 0.1 x10^3/uL (0.0-0.2) Sodium Level 150 mmol/L (136-145) Potassium Level 4.2 mmol/L (3.5-5.1) Chloride Level 115 mmol/L (98-107) Carbon Dioxide Level 24 mmol/L (21-32) Anion Gap 11 (6-14) Blood Urea Nitrogen 50 mg/dL (7-20) Creatinine 1.9 mg/dL (0.6-1.0) Estimated GFR (Cockcroft-Gault) 30.9 Glucose Level 165 mg/dL (70-99) Calcium Level 10.3 mg/dL (8.5-10.1) Phosphorus Level 2.5 mg/dL (2.6-4.7) Albumin 2.5 g/dL (3.4-5.0) Microbiology 03/11/20 Blood Culture - Final, Complete Medications Current Medications Sodium Chloride 1,000 ml @ 1,000 mls/hr 1X ONCE IV Last administered on 03/08/20at 14:59; Start 03/08/20 at 14:30; Stop 03/08/20 at 15:29; Status DC Ondansetron HCl (Zofran) 4 mg PRN Q8HRS PRN IV NAUSEA/VOMITING; Start 03/08/20 at 17:45; Stop 03/09/20 at 17:44; Status DC Insulin Human Lispro (HumaLOG) 0-5 UNITS TIDWMEALS SQ ; Start 03/09/20 at 08:00; Status Cancel Dextrose (Dextrose 50%-Water Syringe) 12.5 gm PRN Q15MIN PRN IV SEE COMMENTS; Start 03/08/20 at 17:45; Stop 03/08/20 at 18:04; Status DC Ondansetron HCl (Zofran) 4 mg PRN Q4HRS PRN IV NAUSEA/VOMITING; Start 03/08/20 at 18:00 Zolpidem Tartrate (Ambien) 5 mg PRN QHS PRN PO INSOMNIA Last administered on 03/11/20at 21:05; Start 03/08/20 at 18:00; Stop 03/12/20 at 12:21; Status DC Acetaminophen (Tylenol) 650 mg PRN Q4HRS PRN PO TEMP OVER 100.4F OR MILD PAIN Last administered on 03/09/20at 20:23; Start 03/08/20 at 18:00 Al Hydroxide/Mg Hydroxide (Mylanta Plus Xs) 30 ml PRN DAILY PRN PO HEARTBURN / GAS; Start 03/08/20 at 18:00 Albuterol Sulfate (Ventolin Neb Soln) 2.5 mg PRN Q4HRS PRN NEB SHORTNESS OF BREATH; Start 03/08/20 at 18:00 Albuterol/ Ipratropium (Duoneb) 3 ml Q4H NEB Last administered on 03/08/20at 20:10; Start 03/08/20 at 18:00; Stop 03/08/20 at 20:20; Status DC Guaifenesin (Robitussin) 200 mg PRN Q4HRS PRN PO COUGH; Start 03/08/20 at 18:00 Lorazepam (Ativan) 0.5 mg PRN Q4HRS PRN PO ANXIETY / AGITATION; Start 03/08/20 at 18:00; Stop 03/12/20 at 12:21; Status DC Enoxaparin Sodium (Lovenox 40mg Syringe) 40 mg Q12H SQ ; Start 03/09/20 at 09:00; Status Cancel Amiodarone HCl (Cordarone) 200 mg DAILY PO Last administered on 03/11/20at 08:27; Start 03/09/20 at 09:00; Stop 03/12/20 at 12:21; Status DC Amlodipine Besylate (Norvasc) 5 mg DAILY PO Last administered on 03/11/20 08:27; Start 03/09/20 at 09:00; Stop 03/12/20 at 12:21; Status DC Aspirin (Aspirin Chewable) 81 mg DAILY PO Last administered on 03/17/20at 09:29; Start 03/09/20 at 09:00 Acetaminophen/ Hydrocodone Bitart (Lortab 10/325) 2 tab PRN Q6HRS PRN PO SEVERE PAIN 7-10 Last administered on 03/12/20at 20:20; Start 03/08/20 at 18:00; Stop 03/13/20 at 04:51; Status DC Potassium Chloride (Klor-Con) 30 meq DAILY PO Last administered on 03/12/20 08:52; Start 03/09/20 at 09:00; Stop 03/13/20 at 11:58; Status DC Pregabalin (Lyrica) 75 mg BID PO Last administered on 03/12/20at 08:52; Start 03/08/20 at 21:00; Stop 03/12/20 at 12:21; Status DC Torsemide (Demadex) 100 mg DAILY PO Last administered on 03/10/20 08:27; Start 03/09/20 at 09:00; Stop 03/11/20 at 07:56; Status DC Vitamin D (Vitamin D3) 5,000 unit DAILY PO Last administered on 03/17/20at 09:29; Start 03/09/20 at 09:00 Insulin Human Lispro (HumaLOG) 8 units TIDWMEALS SQ Last administered on 03/14/20at 17:14; Start 03/09/20 at 08:00 Insulin Glargine (Lantus Syringe) 16 unit QHS SQ Last administered on 03/16/20at 21:08; Start 03/08/20 at 21:00 Cetirizine HCl (ZyrTEC) 10 mg DAILY PO Last administered on 03/17/20 09:29; Start 03/09/20 at 09:00 Tizanidine HCl (Zanaflex) 2 mg PRN TID PRN PO MUSCLE SPASMS Last administered on 03/09/20 20:23; Start 03/08/20 at 18:15; Stop 03/09/20 at 21:40; Status DC Insulin Human Lispro (HumaLOG) 0-7 UNITS TIDWMEALS SQ Last administered on 03/15/20at 13:38; Start 03/09/20 at 08:00 Dextrose (Dextrose 50%-Water Syringe) 12.5 gm PRN Q15MIN PRN IV SEE COMMENTS; Start 03/08/20 at 18:00 Fentanyl Citrate (Fentanyl 2ml Vial) 50 mcg PRN Q3HRS PRN IVP pain Last administered on 03/11/20at 20:15; Start 03/08/20 at 19:15 Enoxaparin Sodium (Lovenox 40mg Syringe) 40 mg Q24H SQ Last administered on 03/11/20at 08:28; Start 03/09/20 at 09:00; Stop 03/11/20 at 13:03; Status DC Albuterol/ Ipratropium (Duoneb) 3 ml Q4H PRN NEB WHEEZING; Start 03/08/20 at 20:30; Stop 03/08/20 at 20:22; Status DC Enoxaparin Sodium (Lovenox 30mg Syringe) 30 mg Q24H SQ Last administered on 03/12/20at 09:27; Start 03/12/20 at 09:00; Stop 03/12/20 at 11:30; Status DC Piperacillin Sod/ Tazobactam Sod 3.375 gm/Sodium Chloride 50 ml @ 100 mls/hr 1X ONCE IV Last administered on 03/11/20at 16:48; Start 03/11/20 at 17:00; Stop 03/11/20 at 17:29; Status DC Doxycycline Hyclate 100 mg/ Dextrose 100 ml @ 50 mls/hr 1X ONCE IV Last administered on 03/11/20at 18:30; Start 03/11/20 at 17:30; Stop 03/11/20 at 19:29; Status DC Enoxaparin Sodium (Lovenox 40mg Syringe) 40 mg Q24H SQ ; Start 03/13/20 at 09:00; Stop 03/12/20 at 12:21; Status DC Pregabalin (Lyrica) 25 mg BID PO Last administered on 03/17/20at 09:29; Start 03/12/20 at 21:00 Apixaban (Eliquis) 2.5 mg BID PO Last administered on 03/17/20at 09:29; Start 03/12/20 at 21:00 Hydralazine HCl (Apresoline) 100 mg BID PO Last administered on 03/17/20 09:30; Start 03/12/20 at 21:00 Isosorbide Dinitrate (Isordil) 10 mg [id number] PO Last administered on 03/17/20 09:29; Start 03/12/20 at 16:00 Lactobacillus Rhamnosus (Culturelle) 1 cap BID PO Last administered on 03/17 09:29; Start 03/12/20 at 21:00 Metoprolol Tartrate (Lopressor) 25 mg BID PO Last administered on 03/17/20 09:30; Start 03/12/20 at 21:00 Pantoprazole Sodium (Protonix) 40 mg DAILYAC PO Last administered on 03/17/20 09:29; Start 03/13/20 at 07:30 Non-Formulary Medication (Tafamidis (Vyndamax)) 61 mg DAILY PO Last administered on 03/17/20at 09:30; Start 03/12/20 at 16:00 Daptomycin 500 mg/ Sodium Chloride 50 ml @ 100 mls/hr 1X IV ; Start 03/12/20 at 18:30; Stop 03/12/20 at 21:44; Status DC Daptomycin 500 mg/ Sodium Chloride 50 ml @ 100 mls/hr 1X ONCE IV Last administered on 03/12/20at 21:47; Start 03/12/20 at 21:45; Stop 03/12/20 at 22:14; Status DC Metoprolol Tartrate (Lopressor Vial) 5 mg Q6HRS IVP Last administered on 03/13/20at 00:14; Start 03/13/20 at 00:15; Stop 03/16/20 at 19:32; Status DC Acetaminophen/ Hydrocodone Bitart (Lortab 10/325) 1 tab PRN Q6HRS PRN PO SEVERE PAIN 7-10 Last administered on 03/16/20at 04:56; Start 03/13/20 at 05:00 Tramadol HCl (Ultram) 50 mg PRN Q6HRS PRN PO MODERATE PAIN Last administered on 03/16/20at 21:10; Start 03/13/20 at 05:00 Daptomycin 500 mg/ Sodium Chloride 50 ml @ 100 mls/hr Q48H IV Last administered on 03/13/20at 11:56; Start 03/13/20 at 12:00; Stop 03/15/20 at 10:22; Status DC Furosemide (Lasix) 40 mg 1X ONCE IVP Last administered on 03/13/20at 12:37; Start 03/13/20 at 12:00; Stop 03/13/20 at 12:01; Status DC Sodium Polystyrene Sulfonate (Kayexalate) 15 gm 1X ONCE PO Last administered on 03/13/20at 12:37; Start 03/13/20 at 12:00; Stop 03/13/20 at 12:01; Status DC Info (Anti-Coagulation Monitoring By Pharmacy) 1 each PRN DAILY PRN MC SEE COMMENTS Last administered on 03/14/20at 15:28; Start 03/14/20 at 09:45 Sodium Chloride 1,000 ml @ 75 mls/hr [id number] IV Last administered on 03/17/20at 10:15; Start 03/14/20 at 15:30 Active Scripts Active Reported Vyndamax (Tafamidis) 61 Mg Capsule 61 Mg PO DAILY Hydrocodone-Apap 5-325 (Hydrocodone Bit/Acetaminophen) 1 Tab Tablet 1 Tab PO PRN Q6HRS PRN Isosorbide Dinitrate 30 Mg Tablet 10 Mg PO BID 30 Days Lyrica (Pregabalin) 50 Mg Capsule 25 Mg PO BID PRN Torsemide 100 Mg Tablet 50 Mg PO BID Acidophilus Lactobacilli (Lactobacillus Acidophilus) 1 Each Capsule 1 Cap PO DAILY 30 Days Protonix (Pantoprazole Sodium) 20 Mg Tablet.dr 40 Mg PO DAILY Metoprolol Tartrate 37.5 Mg Tablet 25 Mg PO BID Hydralazine Hcl 100 Mg Tablet 1 Tab PO BID Zetia (Ezetimibe) 10 Mg Tablet 1 Tab PO DAILY 30 Days Eliquis (Apixaban) 2.5 Mg Tablet 2.5 Mg PO BID Potassium Chloride (Potassium Chloride) 10 Meq Tab.sr.24h 30 Meq PO DAILY Magnesium Citrate 296 Ml Solution 296 Ml PO PRN PRN Novolog (Insulin Aspart) 100 Unit/1 Ml Cartridge 8 Unit SQ TID Levemir (Insulin Detemir) 100 Unit/1 Ml Vial 16 Unit SQ DAILYWSUP Claritin (Loratadine) 10 Mg Tablet 1 Tab PO DAILY Vitamin D3 (Cholecalciferol (Vitamin D3)) 5,000 Unit Tablet 1 Tab PO DAILY Children's Aspirin (Aspirin) 81 Mg Tab.chew 81 Mg PO Vitals/I & O Vital Sign - Last 24 Hours 03/16/20 03/16/20 03/16/20 03/16/20 11:00 11:18 15:00 19:00 Temp 97.6 97.9 97.7 97.6 97.9 97.7 Pulse 69 74 73 Resp 16 20 16 20 B/P (MAP) 150/47 (81) 174/64 (100) 188/76 (113) Pulse Ox 96 96 96 100 O2 Delivery Room Air Room Air Room Air Room Air O2 Flow Rate 1.0 03/16/20 03/16/20 03/16/20 03/16/20 19:54 20:00 21:05 21:05 Pulse 73 72 72 B/P (MAP) 188/76 176/63 176/63 O2 Delivery Room Air 03/16/20 03/16/20 03/16/20 03/17/20 21:10 22:10 23:00 03:04 Temp 97.1 97.9 97.1 97.9 Pulse 68 71 Resp 16 14 18 17 B/P (MAP) 116/65 (82) 151/70 (97) Pulse Ox 97 97 O2 Delivery Room Air Room Air Room Air Room Air 03/17/20 03/17/20 03/17/20 03/17/20 07:00 08:32 09:29 09:30 Temp 98.2 98.2 Pulse 68 68 68 Resp 17 B/P (MAP) 180/58 (98) 180/58 180/58 Pulse Ox 98 97 O2 Delivery Room Air Room Air 03/17/20 09:30 Pulse 68 B/P (MAP) 180/58 Intake and Output 03/16/20 03/16/20 03/17/20 15:00 23:00 07:00 Intake Total 1000 ml Output Total 1050 ml Balance 1000 ml -1050 ml Justicifation of Admission Dx: Justifications for Admission: Justification of Admission Dx: Yes Acute Renal Failure: RF Can't Be Managed Outpt VARSHA DUBON MD Mar 17, 2020 10:44
[2020-03-17 11:00] VITALS: BP 172/71
[2020-03-17] MEDS ORDERED: LABETALOL 20 MG/4 ML DISP.SYRIN. IVP PRN (11:00)
--- NOTE | 2020-03-17 12:25 | PDOC ---
Infectious Disease Note Subjective: Subjective Pt feels better Vital Signs: Vital Signs Vital Signs Date Time Temp Pulse Resp B/P (MAP) Pulse Ox O2 Delivery O2 Flow Rate FiO2 03/17/20 09:30 68 180/58 03/17/20 08:32 97 Room Air 03/17/20 07:00 98.2 17 98.2 03/16/20 11:18 1.0 Physical Exam: PHYSICAL EXAM GENERAL: Oriented x3 female in no acute. HEENT: Normocephalic, atraumatic. Oral mucosa is moist. Scalp wound dry no purulence NECK: Supple. No JVD. LUNGS: Clear bilaterally. HEART: S1, S2. ABDOMEN: Soft, obese. Bowel sounds present. EXTREMITIES: Chronic lower extremity edema. GENITOURINARY: No Barrios. DERMATOLOGIC: No generalized rash. PSYCHIATRIC: Cooperative, normal mood. CENTRAL NERVOUS SYSTEM: Alert, awake, Moves all 4 extremities. Medications: Inpatient Meds: Current Medications Medications (Trade) Dose Ordered Sig/José Miguel Start Time Stop Time Status Last Admin Dose Admin Acetaminophen (Tylenol) 650 mg PRN Q4HRS PRN 03/08/20 18:00 03/09/20 20:23 650 MG Acetaminophen/ Hydrocodone Bitart (Lortab 10/325) 1 tab PRN Q6HRS PRN 03/13/20 05:00 03/16/20 04:56 1 TAB Al Hydroxide/Mg Hydroxide (Mylanta Plus Xs) 30 ml PRN DAILY PRN 03/08/20 18:00 Albuterol Sulfate (Ventolin Neb Soln) 2.5 mg PRN Q4HRS PRN 03/08/20 18:00 Albuterol/ Ipratropium (Duoneb) 3 ml Q4H PRN 03/08/20 20:30 03/08/20 20:22 DC Amiodarone HCl (Cordarone) 200 mg DAILY 03/09/20 09:00 03/12/20 12:21 DC 03/11/20 08:27 200 MG Amlodipine Besylate (Norvasc) 5 mg DAILY 03/09/20 09:00 03/12/20 12:21 DC 03/11/20 08:27 5 MG Apixaban (Eliquis) 2.5 mg BID 03/12/20 21:00 03/17/20 09:29 2.5 MG Aspirin (Aspirin Chewable) 81 mg DAILY 03/09/20 09:00 03/17/20 09:29 81 MG Cetirizine HCl (ZyrTEC) 10 mg DAILY 03/09/20 09:00 03/17/20 09:29 10 MG Daptomycin 500 mg/ Sodium Chloride 50 ml @ 100 mls/hr Q48H 03/13/20 12:00 03/15/20 10:22 DC 03/13/20 11:56 100 MLS/HR Dextrose (Dextrose 50%-Water Syringe) 12.5 gm PRN Q15MIN PRN 03/08/20 18:00 Doxycycline Hyclate 100 mg/ Dextrose 100 ml @ 50 mls/hr 1X ONCE 03/11/20 17:30 03/11/20 19:29 DC 03/11/20 18:30 50 MLS/HR Enoxaparin Sodium (Lovenox 30mg Syringe) 30 mg Q24H 03/12/20 09:00 03/12/20 11:30 DC 03/12/20 09:27 30 MG Enoxaparin Sodium (Lovenox 40mg Syringe) 40 mg Q24H 03/13/20 09:00 03/12/20 12:21 DC Fentanyl Citrate (Fentanyl 2ml Vial) 50 mcg PRN Q3HRS PRN 03/08/20 19:15 03/11/20 20:15 50 MCG Furosemide (Lasix) 40 mg 1X ONCE 03/13/20 12:00 03/13/20 12:01 DC 03/13/20 12:37 40 MG Guaifenesin (Robitussin) 200 mg PRN Q4HRS PRN 03/08/20 18:00 Hydralazine HCl (Apresoline) 100 mg BID 03/12/20 21:00 03/17/20 09:30 100 MG Info (Anti-Coagulation Monitoring By Pharmacy) 1 each PRN DAILY PRN 03/14/20 09:45 03/14/20 15:28 1 EACH Insulin Glargine (Lantus Syringe) 16 unit QHS 03/08/20 21:00 03/16/20 21:08 16 UNIT Insulin Human Lispro (HumaLOG) 0-7 UNITS TIDWMEALS 03/09/20 08:00 03/15/20 13:38 3 UNITS Isosorbide Dinitrate (Isordil) 10 mg [id number] 03/12/20 16:00 03/17/20 09:29 10 MG Labetalol HCl (Normodyne Iv Push) 20 mg PRN Q2HR PRN 03/17/20 11:00 Lactobacillus Rhamnosus (Culturelle) 1 cap BID 03/12/20 21:00 03/17/20 09:29 1 CAP Lorazepam (Ativan) 0.5 mg PRN Q4HRS PRN 03/08/20 18:00 03/12/20 12:21 DC Metoprolol Tartrate (Lopressor Vial) 5 mg Q6HRS 03/13/20 00:15 03/16/20 19:32 DC 03/13/20 00:14 5 MG Metoprolol Tartrate (Lopressor) 25 mg BID 03/12/20 21:00 03/17/20 09:30 25 MG Non-Formulary Medication (Tafamidis (Vyndamax)) 61 mg DAILY 03/12/20 16:00 03/17/20 09:30 61 MG Ondansetron HCl (Zofran) 4 mg PRN Q4HRS PRN 03/08/20 18:00 Pantoprazole Sodium (Protonix) 40 mg DAILYAC 03/13/20 07:30 03/17/20 09:29 40 MG Piperacillin Sod/ Tazobactam Sod 3.375 gm/Sodium Chloride 50 ml @ 100 mls/hr 1X ONCE 03/11/20 17:00 03/11/20 17:29 DC 03/11/20 16:48 100 MLS/HR Potassium Chloride (Klor-Con) 30 meq DAILY 03/09/20 09:00 03/13/20 11:58 DC 03/12/20 08:52 30 MEQ Pregabalin (Lyrica) 25 mg BID 03/12/20 21:00 03/17/20 09:29 25 MG Sodium Polystyrene Sulfonate (Kayexalate) 15 gm 1X ONCE 03/13/20 12:00 03/13/20 12:01 DC 03/13/20 12:37 15 GM Sodium Chloride 1,000 ml @ 75 mls/hr [id number] 03/14/20 15:30 03/17/20 10:15 75 MLS/HR Tizanidine HCl (Zanaflex) 2 mg PRN TID PRN 03/08/20 18:15 03/09/20 21:40 DC 03/09/20 20:23 2 MG Torsemide (Demadex) 100 mg DAILY 03/09/20 09:00 03/11/20 07:56 DC 03/10/20 08:27 100 MG Tramadol HCl (Ultram) 50 mg PRN Q6HRS PRN 03/13/20 05:00 03/16/20 21:10 50 MG Vitamin D (Vitamin D3) 5,000 unit DAILY 03/09/20 09:00 03/17/20 09:29 5,000 UNIT Zolpidem Tartrate (Ambien) 5 mg PRN QHS PRN 03/08/20 18:00 03/12/20 12:21 DC 03/11/20 21:05 5 MG Labs: Lab Laboratory Tests Test 03/16/20 17:17 03/16/20 21:01 03/17/20 08:14 03/17/20 08:25 Glucose (Fingerstick) 191 mg/dL (70-99) 182 mg/dL (70-99) 157 mg/dL (70-99) White Blood Count 9.6 x10^3/uL (4.0-11.0) Red Blood Count 3.35 x10^6/uL (3.50-5.40) Hemoglobin 9.4 g/dL (12.0-15.5) Hematocrit 29.8 % (36.0-47.0) Mean Corpuscular Volume 89 fL (79-100) Mean Corpuscular Hemoglobin 28 pg (25-35) Mean Corpuscular Hemoglobin Concent 32 g/dL (31-37) Red Cell Distribution Width 17.0 % (11.5-14.5) Platelet Count 352 x10^3/uL (140-400) Neutrophils (%) (Auto) 76 % (31-73) Lymphocytes (%) (Auto) 7 % (24-48) Monocytes (%) (Auto) 14 % (0-9) Eosinophils (%) (Auto) 2 % (0-3) Basophils (%) (Auto) 1 % (0-3) Neutrophils # (Auto) 7.3 x10^3/uL (1.8-7.7) Lymphocytes # (Auto) 0.7 x10^3/uL (1.0-4.8) Monocytes # (Auto) 1.4 x10^3/uL (0.0-1.1) Eosinophils # (Auto) 0.2 x10^3/uL (0.0-0.7) Basophils # (Auto) 0.1 x10^3/uL (0.0-0.2) Sodium Level 150 mmol/L (136-145) Potassium Level 4.2 mmol/L (3.5-5.1) Chloride Level 115 mmol/L (98-107) Carbon Dioxide Level 24 mmol/L (21-32) Anion Gap 11 (6-14) Blood Urea Nitrogen 50 mg/dL (7-20) Creatinine 1.9 mg/dL (0.6-1.0) Estimated GFR (Cockcroft-Gault) 30.9 Glucose Level 165 mg/dL (70-99) Calcium Level 10.3 mg/dL (8.5-10.1) Phosphorus Level 2.5 mg/dL (2.6-4.7) Albumin 2.5 g/dL (3.4-5.0) Test 03/17/20 11:55 Glucose (Fingerstick) 162 mg/dL (70-99) Objective: Assessment: 1. Acute encephalopathy, appears metabolic, resolved 2. Mechanical fall prior to admission. 3. Bacteremia, one out of three bottles, Coagulase-negative staph likely contaminant 4. Scalp wound, chronic, slowly healing. Wound Care following. 5. Anemia, status post transfusion. 6. Meuqf-gr-kovspch kidney disease. 7. Diabetic neuropathy. 8. History of amyloidosis. 9. History of breast cancer. 10. History of cardiomyopathy. 11. Leukocytosis, now resolved. 12. History of morbid obesity. Plan: Plan of Care Monitor off antibiotics Continue scalp wound care. Continue supportive care. Discussed with GEETA SAUNDERS MD Mar 17, 2020 12:25
--- NOTE | 2020-03-17 13:17 | PDOC ---
Renal-Progress Notes Subjective Notes Notes NO NEW COMPLAINTS History of Present Illness Hx of present illness STABLE Vitals Vitals Vital Signs Date Time Temp Pulse Resp B/P (MAP) Pulse Ox O2 Delivery O2 Flow Rate FiO2 03/17/20 11:00 98.3 73 18 172/71 (104) 96 Room Air 98.3 03/16/20 11:18 1.0 Weight Weight [ ] I.O. Intake and Output Intake and Output 03/17/20 07:00 Intake Total 1000 ml Output Total 1050 ml Balance -50 ml IV Total 1000 ml Output Urine Total 1050 ml Labs Labs Laboratory Tests Test 03/16/20 17:17 03/16/20 21:01 03/17/20 08:14 03/17/20 08:25 Glucose (Fingerstick) 191 mg/dL (70-99) 182 mg/dL (70-99) 157 mg/dL (70-99) White Blood Count 9.6 x10^3/uL (4.0-11.0) Red Blood Count 3.35 x10^6/uL (3.50-5.40) Hemoglobin 9.4 g/dL (12.0-15.5) Hematocrit 29.8 % (36.0-47.0) Mean Corpuscular Volume 89 fL (79-100) Mean Corpuscular Hemoglobin 28 pg (25-35) Mean Corpuscular Hemoglobin Concent 32 g/dL (31-37) Red Cell Distribution Width 17.0 % (11.5-14.5) Platelet Count 352 x10^3/uL (140-400) Neutrophils (%) (Auto) 76 % (31-73) Lymphocytes (%) (Auto) 7 % (24-48) Monocytes (%) (Auto) 14 % (0-9) Eosinophils (%) (Auto) 2 % (0-3) Basophils (%) (Auto) 1 % (0-3) Neutrophils # (Auto) 7.3 x10^3/uL (1.8-7.7) Lymphocytes # (Auto) 0.7 x10^3/uL (1.0-4.8) Monocytes # (Auto) 1.4 x10^3/uL (0.0-1.1) Eosinophils # (Auto) 0.2 x10^3/uL (0.0-0.7) Basophils # (Auto) 0.1 x10^3/uL (0.0-0.2) Sodium Level 150 mmol/L (136-145) Potassium Level 4.2 mmol/L (3.5-5.1) Chloride Level 115 mmol/L (98-107) Carbon Dioxide Level 24 mmol/L (21-32) Anion Gap 11 (6-14) Blood Urea Nitrogen 50 mg/dL (7-20) Creatinine 1.9 mg/dL (0.6-1.0) Estimated GFR (Cockcroft-Gault) 30.9 Glucose Level 165 mg/dL (70-99) Calcium Level 10.3 mg/dL (8.5-10.1) Phosphorus Level 2.5 mg/dL (2.6-4.7) Albumin 2.5 g/dL (3.4-5.0) Test 03/17/20 11:55 Glucose (Fingerstick) 162 mg/dL (70-99) Micro Micro Microbiology 03/11/20 Blood Culture - Final, Complete Review of Systems Constitutional: yes: other (CONFUSED) Physical Exam General Appearance: no apparent distress Skin: warm Respiratory: decreased breath sounds Heart: S1S2 Abdomen: soft, bowel sounds present Genitourinary: bladder flat Extremities: pulses present, edema Neurology: alert, follow commands, confused Musculoskeletal: Osteoarthritis Assessment Assessment IMP ACUTE ENCEPHALOPATHY HYPERKALEMIA-RESOLVED MILD HYPERCALCEMIA KAYLIE WITH CR OF 3.7-UA NEG FOR NEPHRITIS-CR DOWN TO 1.9 CKD STAGE 3 WITH CR OF ABOUT 2.3 HX OF AMYLOID DM II HTN PLAN STOPPED KCL STOP VIT D CONT HYDRATION WILL FOLLOW GURVINDER CASAS MD Mar 17, 2020 13:17
[2020-03-17 15:00] VITALS: BP 181/69
[2020-03-17] MEDS: ACETAMINOPHEN 325 MG TABLET. PO PRN (16:35)
--- NOTE | 2020-03-17 19:00 | RAD ---
XR LUMBAR SPINE 4+V History: Reason: SEVERE LOW BACK PAIN / Spl. Instructions: / History: Technique: 5 views lumbar spine. Comparison: None. Findings: Normal vertebral body height and alignment. No fracture. Moderate lower lumbar degenerative disc biswas ges most prominent L4-5 and L5-S1. Lower lumbar facet arthropathy. Impression: 1. Moderate lower lumbar spondylosis. Electronically signed by: Kevin Chung DO (03/17/2020 6:57 PM) [facility]
[2020-03-17 20:25] VITALS: BP 148/52
[2020-03-17] MEDS: INSULIN GLARGINE SYRINGE. SQ SCH (20:52)
[2020-03-17 23:10] VITALS: BP 159/79
[2020-03-18] MEDS: traMADol 50 MG TABLET PO PRN (00:18)
[2020-03-18] MEDS: IV NORMAL SALINE 1000ML BAG 1,000 ML IV SCH (00:19)
[2020-03-18 03:25] VITALS: BP 168/78
[2020-03-18 07:59] VITALS: BP 174/75
[2020-03-18] MEDS: INSULIN LISPRO 300 UNITS/3 ML VIAL. SQ SCH ×6 (08:00→17:19)
[2020-03-18 08:15] LABS: ALBUMIN 2.5 g/dL (3.4-5.0); CALCIUM 10.3 mg/dL (8.5-10.1); CREATININE 1.7 mg/dL (0.6-1.0); GFR 35.2; PHOSPHORUS 2.5 mg/dL (2.6-4.7); POTASSIUM 4.1 mmol/L (3.5-5.1)
[2020-03-18 08:36] LABS: BASO # 0.1 x10^3/uL (0.0-0.2); BASO % 1 % (0-3); EOS # 0.1 x10^3/uL (0.0-0.7); EOS % 1 % (0-3); HEMOGLOBIN 8.7 g/dL (12.0-15.5); LYMPH # 0.8 x10^3/uL (1.0-4.8); LYMPH % 8 % (24-48); MEAN CORPUSCULAR HEMOGLOBIN 28 pg (25-35); MEAN CORPUSCULAR HGB CONC 31 g/dL (31-37); MEAN CORPUSCULAR VOLUME 89 fL (79-100); MONO # 1.4 x10^3/uL (0.0-1.1); MONO % 14 % (0-9); NEUT # 7.8 x10^3/uL (1.8-7.7); NEUT % 77 % (31-73); PLATELET COUNT 351 x10^3/uL (140-400); RED BLOOD COUNT 3.14 x10^6/uL (3.50-5.40); WHITE BLOOD COUNT 10.1 x10^3/uL (4.0-11.0)
[2020-03-18] MEDS: ASPIRIN CHEWABLE 81 MG TABLET. PO SCH (09:10)
[2020-03-18] MEDS: ISOSORBIDE DINITRATE 10 MG TABLET. PO SCH ×2 (09:10→17:17)
[2020-03-18] MEDS: LACTOBACILLUS RHAMNOSUS GG 1 CAPSULE. PO SCH (09:10)
[2020-03-18] MEDS: PANTOPRAZOLE 40 MG TABLET.DR. PO SCH (09:10)
[2020-03-18] MEDS: CETIRIZINE HCL 10 MG TABLET. PO SCH (09:11)
[2020-03-18] MEDS: APIXABAN 2.5 MG TABLET. PO SCH (09:11)
[2020-03-18] MEDS: PREGABALIN 25 MG CAPSULE PO SCH (09:11)
[2020-03-18] MEDS: METOPROLOL TART IMMED RELEASE 25 MG TABLET. PO SCH (09:11)
[2020-03-18] MEDS: HYDROcodone/APAP 10/325 1 TAB TABLET PO PRN (09:11)
[2020-03-18] MEDS: TAFAMIDIS 61 MG PO SCH (09:14)
--- NOTE | 2020-03-18 10:05 | PDOC ---
PROGRESS NOTES Date of Service: DATE: 03/18/20 TIME: 10:05 Chief Complaint Chief Complaint DISCHARGE DX Acute encephalopathy - multifactorial metabolic. Will monitor mental status. Previously told she had CVA at [facility]. No focal neuro deficits Left parietal scalp laceration with subcutaneous hematoma. No calvarial defect. No acute intracranial hemorrhage. Mechanical fall - PT/OT, likely needs rehab Left hip pain > right - Bilateral hip pain - XR with no fracture, pain resolved with repositioning Diabetic neuropathy Scalp wound slowly healing - wound care following Anemia - will transfuse PRN Acute on chronic Chronic kidney disease stage IIIb at least with current vasomotor nephropathy prerenal azotemia most likely CKD stage 3B /? 4- daughter reported to RN -baseline Cr 2.3 / KAYLIE Renal US Bilateral increased renal cortical echogenicity. No hydronephrosis Elevated BNP History of hypothyroidism History of essential hypertension History of breast cancer approximately 20 years ago status post mastectomy Morbid obesity with a BMI of 48 COVID 19 - recently diagnosed at [facility] January 2020 Cardiomyopathy - sees advanced CHF clinic at [facility], Dr. Mikhail Khanna on Vyndamax bacteremia, ID FOLLOWING PLAN FEN - ADA cardiac diet PPX - eliquis CODE - DNR/DNI Dispo - inpatient iv daptomycin D/C MONITOR OFF ANTIBIOTICS Will possibly need HD, nephrology following. Defer diuretic therapy to renal d/c daptomycin, Repeat blood cultures. scalp wound care. STOPPED KCL TRIAL OF iv HYDRATIOn, continue Continue scalp wound care MONITOR TEMP TO [facility] TODAY C/O INC LOW BACK PAIN D/W PT CR = 1.7, SLOW TO IMPROVE X RAY C/W SPONDYLOSIS 28 MIN PT EXAM, d/c planning CHART REVIEW, > 50% OF TIME SPENT WITH EXAM, CHART REVIEW, PT CARE COORDINATION D/C ON HOLD History of Present Illness History of Present Illness Ms Cruz is a 79 yo F w/ PMHx breast Cancer s/p left mastectomy, Diabetes-Type II, High Cholesterol, Hypertension, Hypothyroid, afib, OA bilateral knees, cardiomyopathy, recent diagnosis at [facility] of COVID 19 with pneumonia in January 2020 with 2 weeks of acute rehab and was discharged home with her daughter for 2 weeks who then went home from her daughter's house who was at home for almost 3 weeks who presented via EMS with report of bilateral lower extremity weakness. Patient reports she was walking out of the bathroom using her cane and her "legs just gave out ". Patient reports she was still able to lower herself to the ground. Denies any head trauma or neck pain. Denies fever or chills. Denies cough or shortness of breath. Patient reports she has multiple health issues. Patient reports "I have it all ". Patient does report she has a chronic left parietal/occipital wound for which she follows with wound care regarding. Imaging negative for acute fracture. Very confused and combative. Her daughter notes she has not been the same since COVID 19 and has baseline weight of 262 pounds, but is currently 284 pounds. 03/09: She is still c/o left hip pain. Afebrile. Not able to bear weight. Pain 10/10. Became febrile overnight and transferred to [facility] 19 unit. 03/10: Head wound bothering her. Febrile overnight to 101F. Mild SOB. No diarrhea. Appetite decreased. 03/11: Febrile to 100.8 F overnight. WBC at 14.5, Hb 7.1 BUN 16, CR 3, CRP 163.5. She has been more drowsy today. Blood cultures and urine culture obtained and started on antibiotics. Left leg is bothering her. Afebrile overnight. Cr up to 3.8. Hb 6.9. No more swollen. Very weak. Less drowsy, still confused. After d/w her daughter apparently she has been on Vyndamax, presumptively in a research study, she has never heard of any diagnosis of amyloidosis, and follows with [facility] cardiology, but she does note her mother has been progressively more confused since her COVID 19 recovery in January. Plan: Will communicate with Nancy. her daughter, , who would like daily updates and formal DPOA paperwork through social work Will need skilled services on discharge Vitals Vitals Vital Signs Date Time Temp Pulse Resp B/P (MAP) Pulse Ox O2 Delivery O2 Flow Rate FiO2 03/18/20 09:45 97.7 97.7 03/18/20 09:13 72 174/75 03/18/20 09:11 Room Air 03/18/20 07:59 22 96 Physical Exam Physical Exam GENERAL: Oriented x3 female in no acute. HEENT: Normocephalic, atraumatic. Oral mucosa is moist. Scalp wound dry no purulence NECK: Supple. No JVD. LUNGS: Clear bilaterally. HEART: S1, S2. ABDOMEN: Soft, obese. Bowel sounds present. EXTREMITIES: Chronic lower extremity edema. GENITOURINARY: No Barrios. DERMATOLOGIC: No generalized rash. PSYCHIATRIC: Cooperative, normal mood. CENTRAL NERVOUS SYSTEM: Alert, awake, Moves all 4 extremities. General: Alert, Oriented X3, Cooperative, No acute distress, Other (Patient not demonstrating distressed. She appears oriented to person. Generally poorly cooperative. Orientation x1) Heart: Regular rate, Normal S1, Normal S2 Lungs: Clear Abdomen: Normal bowel sounds, Soft, No tenderness Extremities: No clubbing, No cyanosis, No edema, Normal pulses Skin: Other (2.0 cm diameter wound to the posterior parietal scalp demonstrating central necrotic tissue without periwound induration or significant erythema. No unusual odor identified. No significant bony tenderness evident. Minimal drainage present.) Labs LABS Laboratory Tests Test 03/17/20 11:55 03/17/20 16:40 03/17/20 20:42 03/18/20 07:30 Glucose (Fingerstick) 162 mg/dL (70-99) 165 mg/dL (70-99) 206 mg/dL (70-99) White Blood Count 10.1 x10^3/uL (4.0-11.0) Red Blood Count 3.14 x10^6/uL (3.50-5.40) Hemoglobin 8.7 g/dL (12.0-15.5) Hematocrit 28.0 % (36.0-47.0) Mean Corpuscular Volume 89 fL (79-100) Mean Corpuscular Hemoglobin 28 pg (25-35) Mean Corpuscular Hemoglobin Concent 31 g/dL (31-37) Red Cell Distribution Width 17.0 % (11.5-14.5) Platelet Count 351 x10^3/uL (140-400) Neutrophils (%) (Auto) 77 % (31-73) Lymphocytes (%) (Auto) 8 % (24-48) Monocytes (%) (Auto) 14 % (0-9) Eosinophils (%) (Auto) 1 % (0-3) Basophils (%) (Auto) 1 % (0-3) Neutrophils # (Auto) 7.8 x10^3/uL (1.8-7.7) Lymphocytes # (Auto) 0.8 x10^3/uL (1.0-4.8) Monocytes # (Auto) 1.4 x10^3/uL (0.0-1.1) Eosinophils # (Auto) 0.1 x10^3/uL (0.0-0.7) Basophils # (Auto) 0.1 x10^3/uL (0.0-0.2) Sodium Level 147 mmol/L (136-145) Potassium Level 4.1 mmol/L (3.5-5.1) Chloride Level 113 mmol/L (98-107) Carbon Dioxide Level 23 mmol/L (21-32) Anion Gap 11 (6-14) Blood Urea Nitrogen 37 mg/dL (7-20) Creatinine 1.7 mg/dL (0.6-1.0) Estimated GFR (Cockcroft-Gault) 35.2 Glucose Level 159 mg/dL (70-99) Calcium Level 10.3 mg/dL (8.5-10.1) Phosphorus Level 2.5 mg/dL (2.6-4.7) Albumin 2.5 g/dL (3.4-5.0) Test 03/18/20 08:52 Glucose (Fingerstick) 148 mg/dL (70-99) Assessment and Plan Assessmemt and Plan Problems Medical Problems: (1) Anemia Status: Acute (2) Bilateral hip pain Status: Acute (3) Fall Status: Acute (4) Generalized weakness Status: Acute (5) Renal insufficiency Status: Acute (6) Scalp wound Status: Acute * Two-Person Assistance Transfer Comments * see objective measures comments for edge of bed details Learning Preferences * One-on-One Instruction Problem List (body system elements) * Impaired fnctnl mobility * Strength * Cognition * Obesity * ROM * Balance * Knowledge-safe techniques * Pain Patient condition at conclusion of therapy * Pt in chair * Call light in reach * Phone in reach * PtIn no apparent distress * Pt denies further needs Communicated Patient Care With (Name, Title) * DIAMOND Ellis Goal 1 - Bed Mobility Assistance Required * Independent Goal 1 Assessment * Appropriate - Continue Goal 2 - Transfers Assistance Required * Independent Goal 2 - Transfer Type * Sit to Stand Goal 2 Assessment * Appropriate - Continue Goal 3 - Ambulation Assistance Required * Independent Goal 3 - Ambulation Distance * 50' Goal 3 - Ambulation Device * Roller Walker Goal 3 Assessment * Appropriate - Continue Treatment Plan * Therapeutic Exercise * Bed Mobility Training * Transfer training * Gait Training * Dynamic Balance Training Frequency of Treatment Expected * 7 visits/week Duration of Treatment Expected * 2 weeks Discharge Recommendations * [facility] Discharge Recommendation Comments * Pt has a FWW, cane and W/C at home. SNU Comment Review of Relevant I have reviewed the following items bianca (where applicable) has been applied. Labs Laboratory Tests Test 03/16/20 11:34 03/16/20 17:17 03/16/20 21:01 03/17/20 08:14 Glucose (Fingerstick) 169 mg/dL (70-99) 191 mg/dL (70-99) 182 mg/dL (70-99) 157 mg/dL (70-99) Test 03/17/20 08:25 03/17/20 11:55 03/17/20 16:40 03/17/20 20:42 White Blood Count 9.6 x10^3/uL (4.0-11.0) Red Blood Count 3.35 x10^6/uL (3.50-5.40) Hemoglobin 9.4 g/dL (12.0-15.5) Hematocrit 29.8 % (36.0-47.0) Mean Corpuscular Volume 89 fL (79-100) Mean Corpuscular Hemoglobin 28 pg (25-35) Mean Corpuscular Hemoglobin Concent 32 g/dL (31-37) Red Cell Distribution Width 17.0 % (11.5-14.5) Platelet Count 352 x10^3/uL (140-400) Neutrophils (%) (Auto) 76 % (31-73) Lymphocytes (%) (Auto) 7 % (24-48) Monocytes (%) (Auto) 14 % (0-9) Eosinophils (%) (Auto) 2 % (0-3) Basophils (%) (Auto) 1 % (0-3) Neutrophils # (Auto) 7.3 x10^3/uL (1.8-7.7) Lymphocytes # (Auto) 0.7 x10^3/uL (1.0-4.8) Monocytes # (Auto) 1.4 x10^3/uL (0.0-1.1) Eosinophils # (Auto) 0.2 x10^3/uL (0.0-0.7) Basophils # (Auto) 0.1 x10^3/uL (0.0-0.2) Sodium Level 150 mmol/L (136-145) Potassium Level 4.2 mmol/L (3.5-5.1) Chloride Level 115 mmol/L (98-107) Carbon Dioxide Level 24 mmol/L (21-32) Anion Gap 11 (6-14) Blood Urea Nitrogen 50 mg/dL (7-20) Creatinine 1.9 mg/dL (0.6-1.0) Estimated GFR (Cockcroft-Gault) 30.9 Glucose Level 165 mg/dL (70-99) Calcium Level 10.3 mg/dL (8.5-10.1) Phosphorus Level 2.5 mg/dL (2.6-4.7) Albumin 2.5 g/dL (3.4-5.0) Glucose (Fingerstick) 162 mg/dL (70-99) 165 mg/dL (70-99) 206 mg/dL (70-99) Test 03/18/20 07:30 03/18/20 08:52 White Blood Count 10.1 x10^3/uL (4.0-11.0) Red Blood Count 3.14 x10^6/uL (3.50-5.40) Hemoglobin 8.7 g/dL (12.0-15.5) Hematocrit 28.0 % (36.0-47.0) Mean Corpuscular Volume 89 fL (79-100) Mean Corpuscular Hemoglobin 28 pg (25-35) Mean Corpuscular Hemoglobin Concent 31 g/dL (31-37) Red Cell Distribution Width 17.0 % (11.5-14.5) Platelet Count 351 x10^3/uL (140-400) Neutrophils (%) (Auto) 77 % (31-73) Lymphocytes (%) (Auto) 8 % (24-48) Monocytes (%) (Auto) 14 % (0-9) Eosinophils (%) (Auto) 1 % (0-3) Basophils (%) (Auto) 1 % (0-3) Neutrophils # (Auto) 7.8 x10^3/uL (1.8-7.7) Lymphocytes # (Auto) 0.8 x10^3/uL (1.0-4.8) Monocytes # (Auto) 1.4 x10^3/uL (0.0-1.1) Eosinophils # (Auto) 0.1 x10^3/uL (0.0-0.7) Basophils # (Auto) 0.1 x10^3/uL (0.0-0.2) Sodium Level 147 mmol/L (136-145) Potassium Level 4.1 mmol/L (3.5-5.1) Chloride Level 113 mmol/L (98-107) Carbon Dioxide Level 23 mmol/L (21-32) Anion Gap 11 (6-14) Blood Urea Nitrogen 37 mg/dL (7-20) Creatinine 1.7 mg/dL (0.6-1.0) Estimated GFR (Cockcroft-Gault) 35.2 Glucose Level 159 mg/dL (70-99) Calcium Level 10.3 mg/dL (8.5-10.1) Phosphorus Level 2.5 mg/dL (2.6-4.7) Albumin 2.5 g/dL (3.4-5.0) Glucose (Fingerstick) 148 mg/dL (70-99) Laboratory Tests Test 03/17/20 11:55 03/17/20 16:40 03/17/20 20:42 03/18/20 07:30 Glucose (Fingerstick) 162 mg/dL (70-99) 165 mg/dL (70-99) 206 mg/dL (70-99) White Blood Count 10.1 x10^3/uL (4.0-11.0) Red Blood Count 3.14 x10^6/uL (3.50-5.40) Hemoglobin 8.7 g/dL (12.0-15.5) Hematocrit 28.0 % (36.0-47.0) Mean Corpuscular Volume 89 fL (79-100) Mean Corpuscular Hemoglobin 28 pg (25-35) Mean Corpuscular Hemoglobin Concent 31 g/dL (31-37) Red Cell Distribution Width 17.0 % (11.5-14.5) Platelet Count 351 x10^3/uL (140-400) Neutrophils (%) (Auto) 77 % (31-73) Lymphocytes (%) (Auto) 8 % (24-48) Monocytes (%) (Auto) 14 % (0-9) Eosinophils (%) (Auto) 1 % (0-3) Basophils (%) (Auto) 1 % (0-3) Neutrophils # (Auto) 7.8 x10^3/uL (1.8-7.7) Lymphocytes # (Auto) 0.8 x10^3/uL (1.0-4.8) Monocytes # (Auto) 1.4 x10^3/uL (0.0-1.1) Eosinophils # (Auto) 0.1 x10^3/uL (0.0-0.7) Basophils # (Auto) 0.1 x10^3/uL (0.0-0.2) Sodium Level 147 mmol/L (136-145) Potassium Level 4.1 mmol/L (3.5-5.1) Chloride Level 113 mmol/L (98-107) Carbon Dioxide Level 23 mmol/L (21-32) Anion Gap 11 (6-14) Blood Urea Nitrogen 37 mg/dL (7-20) Creatinine 1.7 mg/dL (0.6-1.0) Estimated GFR (Cockcroft-Gault) 35.2 Glucose Level 159 mg/dL (70-99) Calcium Level 10.3 mg/dL (8.5-10.1) Phosphorus Level 2.5 mg/dL (2.6-4.7) Albumin 2.5 g/dL (3.4-5.0) Test 03/18/20 08:52 Glucose (Fingerstick) 148 mg/dL (70-99) Microbiology 03/11/20 Blood Culture - Final, Complete Medications Current Medications Sodium Chloride 1,000 ml @ 1,000 mls/hr 1X ONCE IV Last administered on 03/08/20at 14:59; Start 03/08/20 at 14:30; Stop 03/08/20 at 15:29; Status DC Ondansetron HCl (Zofran) 4 mg PRN Q8HRS PRN IV NAUSEA/VOMITING; Start 03/08/20 at 17:45; Stop 03/09/20 at 17:44; Status DC Insulin Human Lispro (HumaLOG) 0-5 UNITS TIDWMEALS SQ ; Start 03/09/20 at 08:00; Status Cancel Dextrose (Dextrose 50%-Water Syringe) 12.5 gm PRN Q15MIN PRN IV SEE COMMENTS; Start 03/08/20 at 17:45; Stop 03/08/20 at 18:04; Status DC Ondansetron HCl (Zofran) 4 mg PRN Q4HRS PRN IV NAUSEA/VOMITING; Start 03/08/20 at 18:00 Zolpidem Tartrate (Ambien) 5 mg PRN QHS PRN PO INSOMNIA Last administered on 03/11/20at 21:05; Start 03/08/20 at 18:00; Stop 03/12/20 at 12:21; Status DC Acetaminophen (Tylenol) 650 mg PRN Q4HRS PRN PO TEMP OVER 100.4F OR MILD PAIN Last administered on 03/17/20at 16:35; Start 03/08/20 at 18:00 Al Hydroxide/Mg Hydroxide (Mylanta Plus Xs) 30 ml PRN DAILY PRN PO HEARTBURN / GAS; Start 03/08/20 at 18:00 Albuterol Sulfate (Ventolin Neb Soln) 2.5 mg PRN Q4HRS PRN NEB SHORTNESS OF BREATH; Start 03/08/20 at 18:00 Albuterol/ Ipratropium (Duoneb) 3 ml Q4H NEB Last administered on 03/08/20at 20:10; Start 03/08/20 at 18:00; Stop 03/08/20 at 20:20; Status DC Guaifenesin (Robitussin) 200 mg PRN Q4HRS PRN PO COUGH; Start 03/08/20 at 18:00 Lorazepam (Ativan) 0.5 mg PRN Q4HRS PRN PO ANXIETY / AGITATION; Start 03/08/20 at 18:00; Stop 03/12/20 at 12:21; Status DC Enoxaparin Sodium (Lovenox 40mg Syringe) 40 mg Q12H SQ ; Start 03/09/20 at 09:00; Status Cancel Amiodarone HCl (Cordarone) 200 mg DAILY PO Last administered on 03/11/20at 08:27; Start 03/09/20 at 09:00; Stop 03/12/20 at 12:21; Status DC Amlodipine Besylate (Norvasc) 5 mg DAILY PO Last administered on 03/11/20at 08:27; Start 03/09/20 at 09:00; Stop 03/12/20 at 12:21; Status DC Aspirin (Aspirin Chewable) 81 mg DAILY PO Last administered on 03/18/20at 09:10; Start 03/09/20 at 09:00 Acetaminophen/ Hydrocodone Bitart (Lortab 10/325) 2 tab PRN Q6HRS PRN PO SEVERE PAIN 7-10 Last administered on 03/12/20at 20:20; Start 03/08/20 at 18:00; Stop 03/13/20 at 04:51; Status DC Potassium Chloride (Klor-Con) 30 meq DAILY PO Last administered on 03/12/20at 08:52; Start 03/09/20 at 09:00; Stop 03/13/20 at 11:58; Status DC Pregabalin (Lyrica) 75 mg BID PO Last administered on 03/12/20at 08:52; Start 03/08/20 at 21:00; Stop 03/12/20 at 12:21; Status DC Torsemide (Demadex) 100 mg DAILY PO Last administered on 03/10/20at 08:27; Start 03/09/20 at 09:00; Stop 03/11/20 at 07:56; Status DC Vitamin D (Vitamin D3) 5,000 unit DAILY PO Last administered on 03/17/20at 09:29; Start 03/09/20 at 09:00; Stop 03/17/20 at 13:18; Status DC Insulin Human Lispro (HumaLOG) 8 units TIDWMEALS SQ Last administered on 03/14/20at 17:14; Start 03/09/20 at 08:00 Insulin Glargine (Lantus Syringe) 16 unit QHS SQ Last administered on 03/17/20at 20:52; Start 03/08/20 at 21:00 Cetirizine HCl (ZyrTEC) 10 mg DAILY PO Last administered on 03/18/20at 09:11; Start 03/09/20 at 09:00 Tizanidine HCl (Zanaflex) 2 mg PRN TID PRN PO MUSCLE SPASMS Last administered on 03/09/20at 20:23; Start 03/08/20 at 18:15; Stop 03/09/20 at 21:40; Status DC Insulin Human Lispro (HumaLOG) 0-7 UNITS TIDWMEALS SQ Last administered on 03/15/20at 13:38; Start 03/09/20 at 08:00 Dextrose (Dextrose 50%-Water Syringe) 12.5 gm PRN Q15MIN PRN IV SEE COMMENTS; Start 03/08/20 at 18:00 Fentanyl Citrate (Fentanyl 2ml Vial) 50 mcg PRN Q3HRS PRN IVP pain Last administered on 03/11/20at 20:15; Start 03/08/20 at 19:15 Enoxaparin Sodium (Lovenox 40mg Syringe) 40 mg Q24H SQ Last administered on 03/11/20at 08:28; Start 03/09/20 at 09:00; Stop 03/11/20 at 13:03; Status DC Albuterol/ Ipratropium (Duoneb) 3 ml Q4H PRN NEB WHEEZING; Start 03/08/20 at 20:30; Stop 03/08/20 at 20:22; Status DC Enoxaparin Sodium (Lovenox 30mg Syringe) 30 mg Q24H SQ Last administered on 03/12/20at 09:27; Start 03/12/20 at 09:00; Stop 03/12/20 at 11:30; Status DC Piperacillin Sod/ Tazobactam Sod 3.375 gm/Sodium Chloride 50 ml @ 100 mls/hr 1X ONCE IV Last administered on 03/11/20at 16:48; Start 03/11/20 at 17:00; Stop 03/11/20 at 17:29; Status DC Doxycycline Hyclate 100 mg/ Dextrose 100 ml @ 50 mls/hr 1X ONCE IV Last administered on 03/11/20at 18:30; Start 03/11/20 at 17:30; Stop 03/11/20 at 19:29; Status DC Enoxaparin Sodium (Lovenox 40mg Syringe) 40 mg Q24H SQ ; Start 03/13/20 at 09:00; Stop 03/12/20 at 12:21; Status DC Pregabalin (Lyrica) 25 mg BID PO Last administered on 03/18/20at 09:11; Start 03/12/20 at 21:00 Apixaban (Eliquis) 2.5 mg BID PO Last administered on 03/18/20at 09:11; Start 03/12/20 at 21:00 Hydralazine HCl (Apresoline) 100 mg BID PO Last administered on 03/18/20at 09:13; Start 03/12/20 at 21:00 Isosorbide Dinitrate (Isordil) 10 mg BID94 PO Last administered on 03/18/20at 09:10; Start 03/12/20 at 16:00 Lactobacillus Rhamnosus (Culturelle) 1 cap BID PO Last administered on 03/18/20at 09:10; Start 03/12/20 at 21:00 Metoprolol Tartrate (Lopressor) 25 mg BID PO Last administered on 03/18/20at 09:11; Start 03/12/20 at 21:00 Pantoprazole Sodium (Protonix) 40 mg DAILYAC PO Last administered on 03/18/20at 09:10; Start 03/13/20 at 07:30 Non-Formulary Medication (Tafamidis (Vyndamax)) 61 mg DAILY PO Last administered on 03/18/20at 09:14; Start 03/12/20 at 16:00 Daptomycin 500 mg/ Sodium Chloride 50 ml @ 100 mls/hr 1X IV ; Start 03/12/20 at 18:30; Stop 03/12/20 at 21:44; Status DC Daptomycin 500 mg/ Sodium Chloride 50 ml @ 100 mls/hr 1X ONCE IV Last administered on 03/12/20at 21:47; Start 03/12/20 at 21:45; Stop 03/12/20 at 22:14; Status DC Metoprolol Tartrate (Lopressor Vial) 5 mg Q6HRS IVP Last administered on 03/13/20at 00:14; Start 03/13/20 at 00:15; Stop 03/16/20 at 19:32; Status DC Acetaminophen/ Hydrocodone Bitart (Lortab 10/325) 1 tab PRN Q6HRS PRN PO SEVERE PAIN 7-10 Last administered on 03/18/20at 09:11; Start 03/13/20 at 05:00 Tramadol HCl (Ultram) 50 mg PRN Q6HRS PRN PO MODERATE PAIN Last administered on 03/18/20at 00:18; Start 03/13/20 at 05:00 Daptomycin 500 mg/ Sodium Chloride 50 ml @ 100 mls/hr Q48H IV Last administered on 03/13/20at 11:56; Start 03/13/20 at 12:00; Stop 03/15/20 at 10:22; Status DC Furosemide (Lasix) 40 mg 1X ONCE IVP Last administered on 03/13/20at 12:37; Start 03/13/20 at 12:00; Stop 03/13/20 at 12:01; Status DC Sodium Polystyrene Sulfonate (Kayexalate) 15 gm 1X ONCE PO Last administered on 03/13/20at 12:37; Start 03/13/20 at 12:00; Stop 03/13/20 at 12:01; Status DC Info (Anti-Coagulation Monitoring By Pharmacy) 1 each PRN DAILY PRN MC SEE COMMENTS Last administered on 03/14/20at 15:28; Start 03/14/20 at 09:45 Sodium Chloride 1,000 ml @ 75 mls/hr [id number] IV Last administered on 03/18/20at 00:19; Start 03/14/20 at 15:30 Labetalol HCl (Normodyne Iv Push) 20 mg PRN Q2HR PRN IVP HYPERTENSION; Start 03/17/20 at 11:00 Active Scripts Active Reported Vyndamax (Tafamidis) 61 Mg Capsule 61 Mg PO DAILY Hydrocodone-Apap 5-325 (Hydrocodone Bit/Acetaminophen) 1 Tab Tablet 1 Tab PO PRN Q6HRS PRN Isosorbide Dinitrate 30 Mg Tablet 10 Mg PO BID 30 Days Lyrica (Pregabalin) 50 Mg Capsule 25 Mg PO BID PRN Torsemide 100 Mg Tablet 50 Mg PO BID Acidophilus Lactobacilli (Lactobacillus Acidophilus) 1 Each Capsule 1 Cap PO DAILY 30 Days Protonix (Pantoprazole Sodium) 20 Mg Tablet.dr 40 Mg PO DAILY Metoprolol Tartrate 37.5 Mg Tablet 25 Mg PO BID Hydralazine Hcl 100 Mg Tablet 1 Tab PO BID Zetia (Ezetimibe) 10 Mg Tablet 1 Tab PO DAILY 30 Days Eliquis (Apixaban) 2.5 Mg Tablet 2.5 Mg PO BID Potassium Chloride (Potassium Chloride) 10 Meq Tab.sr.24h 30 Meq PO DAILY Magnesium Citrate 296 Ml Solution 296 Ml PO PRN PRN Novolog (Insulin Aspart) 100 Unit/1 Ml Cartridge 8 Unit SQ TID Levemir (Insulin Detemir) 100 Unit/1 Ml Vial 16 Unit SQ DAILYWSUP Claritin (Loratadine) 10 Mg Tablet 1 Tab PO DAILY Vitamin D3 (Cholecalciferol (Vitamin D3)) 5,000 Unit Tablet 1 Tab PO DAILY Children's Aspirin (Aspirin) 81 Mg Tab.chew 81 Mg PO Vitals/I & O Vital Sign - Last 24 Hours 03/17/20 03/17/20 03/17/20 03/17/20 11:00 15:00 16:35 20:00 Temp 98.3 98.7 98.3 98.7 Pulse 73 86 86 Resp 18 18 B/P (MAP) 172/71 (104) 181/69 (106) 181/69 Pulse Ox 96 92 O2 Delivery Room Air Room Air Room Air 03/17/20 03/17/20 03/17/20 03/17/20 20:25 20:44 20:44 23:10 Temp 98.4 99.3 98.4 99.3 Pulse 74 74 74 79 Resp 18 16 B/P (MAP) 148/52 (84) 148/52 148/52 159/79 (105) Pulse Ox 97 97 O2 Delivery Room Air Room Air 03/18/20 03/18/20 03/18/20 03/18/20 00:18 01:18 03:25 07:59 Temp 98.1 100.2 98.1 100.2 Pulse 72 72 Resp 20 20 18 22 B/P (MAP) 168/78 (108) 174/75 (108) Pulse Ox 97 96 O2 Delivery Room Air Room Air Room Air Room Air 03/18/20 03/18/20 03/18/20 03/18/20 09:10 09:11 09:11 09:13 Pulse 72 72 72 B/P (MAP) 174/75 174/75 174/75 O2 Delivery Room Air 03/18/20 09:45 Temp 97.7 97.7 Intake and Output 03/17/20 03/17/20 03/18/20 15:00 23:00 07:00 Intake Total 100 ml 360 ml 1450 ml Output Total 1400 ml Balance 100 ml 360 ml 50 ml Justicifation of Admission Dx: Justifications for Admission: Justification of Admission Dx: Yes Acute Renal Failure: RF Can't Be Managed Outpt VARSHA DUBON MD Mar 18, 2020 10:05
--- NOTE | 2020-03-18 10:37 | PDOC ---
Infectious Disease Note Subjective: Subjective Patient denies any complaints Not assisting with PT and OT per discussion with RN Vital Signs: Vital Signs Vital Signs Date Time Temp Pulse Resp B/P (MAP) Pulse Ox O2 Delivery O2 Flow Rate FiO2 03/18/20 10:12 Room Air 03/18/20 09:45 97.7 97.7 03/18/20 09:13 72 174/75 03/18/20 07:59 22 96 Physical Exam: PHYSICAL EXAM GENERAL: Oriented x3 female in no acute. HEENT: Normocephalic, atraumatic. Oral mucosa is moist. Scalp wound dry no purulence NECK: Supple. No JVD. LUNGS: Clear bilaterally. HEART: S1, S2. ABDOMEN: Soft, obese. Bowel sounds present. EXTREMITIES: Chronic lower extremity edema. GENITOURINARY: No Barrios. DERMATOLOGIC: No generalized rash. PSYCHIATRIC: Cooperative, normal mood. CENTRAL NERVOUS SYSTEM: Alert, awake, Moves all 4 extremities. Medications: Inpatient Meds: Current Medications Medications (Trade) Dose Ordered Sig/José Miguel Start Time Stop Time Status Last Admin Dose Admin Acetaminophen (Tylenol) 650 mg PRN Q4HRS PRN 03/08/20 18:00 03/17/20 16:35 650 MG Acetaminophen/ Hydrocodone Bitart (Lortab 10/325) 1 tab PRN Q6HRS PRN 03/13/20 05:00 03/18/20 09:11 1 TAB Al Hydroxide/Mg Hydroxide (Mylanta Plus Xs) 30 ml PRN DAILY PRN 03/08/20 18:00 Albuterol Sulfate (Ventolin Neb Soln) 2.5 mg PRN Q4HRS PRN 03/08/20 18:00 Albuterol/ Ipratropium (Duoneb) 3 ml Q4H PRN 03/08/20 20:30 03/08/20 20:22 DC Amiodarone HCl (Cordarone) 200 mg DAILY 03/09/20 09:00 03/12/20 12:21 DC 03/11/20 08:27 200 MG Amlodipine Besylate (Norvasc) 5 mg DAILY 03/09/20 09:00 03/12/20 12:21 DC 03/11/20 08:27 5 MG Apixaban (Eliquis) 2.5 mg BID 03/12/20 21:00 03/18/20 09:11 2.5 MG Aspirin (Aspirin Chewable) 81 mg DAILY 03/09/20 09:00 03/18/20 09:10 81 MG Cetirizine HCl (ZyrTEC) 10 mg DAILY 03/09/20 09:00 03/18/20 09:11 10 MG Daptomycin 500 mg/ Sodium Chloride 50 ml @ 100 mls/hr Q48H 03/13/20 12:00 03/15/20 10:22 DC 03/13/20 11:56 100 MLS/HR Dextrose (Dextrose 50%-Water Syringe) 12.5 gm PRN Q15MIN PRN 03/08/20 18:00 Doxycycline Hyclate 100 mg/ Dextrose 100 ml @ 50 mls/hr 1X ONCE 03/11/20 17:30 03/11/20 19:29 DC 03/11/20 18:30 50 MLS/HR Enoxaparin Sodium (Lovenox 30mg Syringe) 30 mg Q24H 03/12/20 09:00 03/12/20 11:30 DC 03/12/20 09:27 30 MG Enoxaparin Sodium (Lovenox 40mg Syringe) 40 mg Q24H 03/13/20 09:00 03/12/20 12:21 DC Fentanyl Citrate (Fentanyl 2ml Vial) 50 mcg PRN Q3HRS PRN 03/08/20 19:15 03/11/20 20:15 50 MCG Furosemide (Lasix) 40 mg 1X ONCE 03/13/20 12:00 03/13/20 12:01 DC 03/13/20 12:37 40 MG Guaifenesin (Robitussin) 200 mg PRN Q4HRS PRN 03/08/20 18:00 Hydralazine HCl (Apresoline) 100 mg BID 03/12/20 21:00 03/18/20 09:13 100 MG Info (Anti-Coagulation Monitoring By Pharmacy) 1 each PRN DAILY PRN 03/14/20 09:45 03/14/20 15:28 1 EACH Insulin Glargine (Lantus Syringe) 16 unit QHS 03/08/20 21:00 03/17/20 20:52 16 UNIT Insulin Human Lispro (HumaLOG) 0-7 UNITS TIDWMEALS 03/09/20 08:00 03/15/20 13:38 3 UNITS Isosorbide Dinitrate (Isordil) 10 mg [id number] 03/12/20 16:00 03/18/20 09:10 10 MG Labetalol HCl (Normodyne Iv Push) 20 mg PRN Q2HR PRN 03/17/20 11:00 Lactobacillus Rhamnosus (Culturelle) 1 cap BID 03/12/20 21:00 03/18/20 09:10 1 CAP Lorazepam (Ativan) 0.5 mg PRN Q4HRS PRN 03/08/20 18:00 03/12/20 12:21 DC Metoprolol Tartrate (Lopressor Vial) 5 mg Q6HRS 03/13/20 00:15 03/16/20 19:32 DC 03/13/20 00:14 5 MG Metoprolol Tartrate (Lopressor) 25 mg BID 03/12/20 21:00 03/18/20 09:11 25 MG Non-Formulary Medication (Tafamidis (Vyndamax)) 61 mg DAILY 03/12/20 16:00 03/18/20 09:14 61 MG Ondansetron HCl (Zofran) 4 mg PRN Q4HRS PRN 03/08/20 18:00 Pantoprazole Sodium (Protonix) 40 mg DAILYAC 03/13/20 07:30 03/18/20 09:10 40 MG Piperacillin Sod/ Tazobactam Sod 3.375 gm/Sodium Chloride 50 ml @ 100 mls/hr 1X ONCE 03/11/20 17:00 03/11/20 17:29 DC 03/11/20 16:48 100 MLS/HR Potassium Chloride (Klor-Con) 30 meq DAILY 03/09/20 09:00 03/13/20 11:58 DC 03/12/20 08:52 30 MEQ Pregabalin (Lyrica) 25 mg BID 03/12/20 21:00 03/18/20 09:11 25 MG Sodium Polystyrene Sulfonate (Kayexalate) 15 gm 1X ONCE 03/13/20 12:00 03/13/20 12:01 DC 03/13/20 12:37 15 GM Sodium Chloride 1,000 ml @ 75 mls/hr [id number] 03/14/20 15:30 03/18/20 00:19 75 MLS/HR Tizanidine HCl (Zanaflex) 2 mg PRN TID PRN 03/08/20 18:15 03/09/20 21:40 DC 03/09/20 20:23 2 MG Torsemide (Demadex) 100 mg DAILY 03/09/20 09:00 03/11/20 07:56 DC 03/10/20 08:27 100 MG Tramadol HCl (Ultram) 50 mg PRN Q6HRS PRN 03/13/20 05:00 03/18/20 00:18 50 MG Vitamin D (Vitamin D3) 5,000 unit DAILY 03/09/20 09:00 03/17/20 13:18 DC 03/17/20 09:29 5,000 UNIT Zolpidem Tartrate (Ambien) 5 mg PRN QHS PRN 03/08/20 18:00 03/12/20 12:21 DC 03/11/20 21:05 5 MG Labs: Lab Laboratory Tests Test 03/17/20 11:55 03/17/20 16:40 03/17/20 20:42 03/18/20 07:30 Glucose (Fingerstick) 162 mg/dL (70-99) 165 mg/dL (70-99) 206 mg/dL (70-99) White Blood Count 10.1 x10^3/uL (4.0-11.0) Red Blood Count 3.14 x10^6/uL (3.50-5.40) Hemoglobin 8.7 g/dL (12.0-15.5) Hematocrit 28.0 % (36.0-47.0) Mean Corpuscular Volume 89 fL (79-100) Mean Corpuscular Hemoglobin 28 pg (25-35) Mean Corpuscular Hemoglobin Concent 31 g/dL (31-37) Red Cell Distribution Width 17.0 % (11.5-14.5) Platelet Count 351 x10^3/uL (140-400) Neutrophils (%) (Auto) 77 % (31-73) Lymphocytes (%) (Auto) 8 % (24-48) Monocytes (%) (Auto) 14 % (0-9) Eosinophils (%) (Auto) 1 % (0-3) Basophils (%) (Auto) 1 % (0-3) Neutrophils # (Auto) 7.8 x10^3/uL (1.8-7.7) Lymphocytes # (Auto) 0.8 x10^3/uL (1.0-4.8) Monocytes # (Auto) 1.4 x10^3/uL (0.0-1.1) Eosinophils # (Auto) 0.1 x10^3/uL (0.0-0.7) Basophils # (Auto) 0.1 x10^3/uL (0.0-0.2) Sodium Level 147 mmol/L (136-145) Potassium Level 4.1 mmol/L (3.5-5.1) Chloride Level 113 mmol/L (98-107) Carbon Dioxide Level 23 mmol/L (21-32) Anion Gap 11 (6-14) Blood Urea Nitrogen 37 mg/dL (7-20) Creatinine 1.7 mg/dL (0.6-1.0) Estimated GFR (Cockcroft-Gault) 35.2 Glucose Level 159 mg/dL (70-99) Calcium Level 10.3 mg/dL (8.5-10.1) Phosphorus Level 2.5 mg/dL (2.6-4.7) Albumin 2.5 g/dL (3.4-5.0) Test 03/18/20 08:52 Glucose (Fingerstick) 148 mg/dL (70-99) Objective: Assessment: 1. Acute encephalopathy, appears metabolic, resolved 2. Mechanical fall prior to admission. 3. Bacteremia, one out of three bottles, Coagulase-negative staph likely contaminant 4. Scalp wound, chronic, slowly healing. Wound Care following. 5. Anemia, status post transfusion. 6. Exzfa-si-ttspcef kidney disease. 7. Diabetic neuropathy. 8. History of amyloidosis. 9. History of breast cancer. 10. History of cardiomyopathy. 11. Leukocytosis, now resolved. 12. History of morbid obesity. Plan: Plan of Care Monitor off antibiotics Continue scalp wound care. Continue supportive care. Discussed with family at bedside We will sign off. Call with any questions Discussed with GEETA SAUNDERS MD Mar 18, 2020 10:36
--- NOTE | 2020-03-18 11:01 | PDOC3 ---
Discharge Summary Date of Admission: Mar 08, 2020 Date of Discharge: Mar 18, 2020 Follow-Up: 1-2 days Admitting Diagnosis comment: DISCHARGE DX Acute encephalopathy - multifactorial metabolic. Will monitor mental status. Previously told she had CVA at [facility]. No focal neuro deficits Left parietal scalp laceration with subcutaneous hematoma. No calvarial defect. No acute intracranial hemorrhage. Mechanical fall - PT/OT, likely needs rehab Left hip pain > right - Bilateral hip pain - XR with no fracture, pain resolved with repositioning Diabetic neuropathy Scalp wound slowly healing - wound care following Anemia - will transfuse PRN Acute on chronic Chronic kidney disease stage IIIb at least with current vasomotor nephropathy prerenal azotemia most likely CKD stage 3B /? 4- daughter reported to RN -baseline Cr 2.3 / KAYLIE Renal US Bilateral increased renal cortical echogenicity. No hydronephrosis Elevated BNP History of hypothyroidism History of essential hypertension History of breast cancer approximately 20 years ago status post mastectomy Morbid obesity with a BMI of 48 COVID 19 - recently diagnosed at [facility] January 2020 Cardiomyopathy - sees advanced CHF clinic at [facility], Dr. Mikhail Khanna on Vyndamax bacteremia, ID FOLLOWING PLAN FEN - ADA cardiac diet PPX - eliquis CODE - DNR/DNI Dispo - inpatient iv daptomycin D/C MONITOR OFF ANTIBIOTICS Will possibly need HD, nephrology following. Defer diuretic therapy to renal d/c daptomycin, Repeat blood cultures. scalp wound care. STOPPED KCL TRIAL OF iv HYDRATIOn, continue Continue scalp wound care MONITOR TEMP TO [facility] TODAY C/O INC LOW BACK PAIN D/W PT CR = 1.7, SLOW TO IMPROVE X RAY C/W SPONDYLOSIS 28 MIN PT EXAM, d/c planning CHART REVIEW, > 50% OF TIME SPENT WITH EXAM, CHART REVIEW, PT CARE COORDINATION D/C ON HOLD History of Present Illness History of Present Illness Ms Cruz is a 79 yo F w/ PMHx breast Cancer s/p left mastectomy, Diabetes-Type II, High Cholesterol, Hypertension, Hypothyroid, afib, OA bilateral knees, cardiomyopathy, recent diagnosis at [facility] of COVID 19 with pneumonia in January 2020 with 2 weeks of acute rehab and was discharged home with her daughter for 2 weeks who then went home from her daughter's house who was at home for almost 3 weeks who presented via EMS with report of bilateral lower extremity weakness. Patient reports she was walking out of the bathroom using her cane and her "legs just gave out ". Patient reports she was still able to lower herself to the ground. Denies any head trauma or neck pain. Denies fever or chills. Denies cough or shortness of breath. Patient reports she has multiple health issues. Patient reports "I have it all ". Patient does report she has a chronic left parietal/occipital wound for which she follows with wound care regarding. Imaging negative for acute fracture. Very confused and combative. Her daughter notes she has not been the same since COVID 19 and has baseline weight of 262 pounds, but is currently 284 pounds. 03/09: She is still c/o left hip pain. Afebrile. Not able to bear weight. Pain 10/10. Became febrile overnight and transferred to [facility] 19 unit. 03/10: Head wound bothering her. Febrile overnight to 101F. Mild SOB. No diarrhea. Appetite decreased. 03/11: Febrile to 100.8 F overnight. WBC at 14.5, Hb 7.1 BUN 16, CR 3, CRP 163.5. She has been more drowsy today. Blood cultures and urine culture obtained and started on antibiotics. Left leg is bothering her. Afebrile overnight. Cr up to 3.8. Hb 6.9. No more swollen. Very weak. Less drowsy, still confused. After d/w her daughter apparently she has been on Vyndamax, presumptively in a research study, she has never heard of any diagnosis of amyloidosis, and follows with [facility] cardiology, but she does note her mother has been progressively more confused since her COVID 19 recovery in January. Plan: Will communicate with Nancy. her daughter, , who would like daily updates and formal DPOA paperwork through social work Will need skilled services on discharge Vitals Vitals Vital Signs Date Time Temp Pulse Resp B/P (MAP) Pulse Ox O2 Delivery O2 Flow Rate FiO2 03/18/20 09:45 97.7 97.7 03/18/20 09:13 72 174/75 03/18/20 09:11 Room Air 03/18/20 07:59 22 96 Physical Exam Physical Exam GENERAL: Oriented x3 female in no acute. HEENT: Normocephalic, atraumatic. Oral mucosa is moist. Scalp wound dry no purulence NECK: Supple. No JVD. LUNGS: Clear bilaterally. HEART: S1, S2. ABDOMEN: Soft, obese. Bowel sounds present. EXTREMITIES: Chronic lower extremity edema. GENITOURINARY: No Barrios. DERMATOLOGIC: No generalized rash. PSYCHIATRIC: Cooperative, normal mood. CENTRAL NERVOUS SYSTEM: Alert, awake, Moves all 4 extremities. General: Alert, Oriented X3, Cooperative, No acute distress, Other (Patient not demonstrating distressed. She appears oriented to person. Generally poorly cooperative. Orientation x1) Heart: Regular rate, Normal S1, Normal S2 Lungs: Clear Abdomen: Normal bowel sounds, Soft, No tenderness Extremities: No clubbing, No cyanosis, No edema, Normal pulses Skin: Other (2.0 cm diameter wound to the posterior parietal scalp demonstrating central necrotic tissue without periwound induration or significant erythema. No unusual odor identified. No significant bony tenderness evident. Minimal drainage present.) FINAL DIAGNOSIS Problems Medical Problems: (1) Anemia Status: Acute (2) Bilateral hip pain Status: Acute (3) Fall Status: Acute (4) Generalized weakness Status: Acute (5) Renal insufficiency Status: Acute (6) Scalp wound Status: Acute Brief Hospital Course Ms. Cruz is a 79 old [sex] who presented with [ ] CONDITION AT DISCHARGE: Improved Discharge Medications Current Medications Sodium Chloride 1,000 ml @ 1,000 mls/hr 1X ONCE IV Last administered on 03/08/20at 14:59; Start 03/08/20 at 14:30; Stop 03/08/20 at 15:29; Status DC Ondansetron HCl (Zofran) 4 mg PRN Q8HRS PRN IV NAUSEA/VOMITING; Start 03/08/20 at 17:45; Stop 03/09/20 at 17:44; Status DC Insulin Human Lispro (HumaLOG) 0-5 UNITS TIDWMEALS SQ ; Start 03/09/20 at 08:00; Status Cancel Dextrose (Dextrose 50%-Water Syringe) 12.5 gm PRN Q15MIN PRN IV SEE COMMENTS; Start 03/08/20 at 17:45; Stop 03/08/20 at 18:04; Status DC Ondansetron HCl (Zofran) 4 mg PRN Q4HRS PRN IV NAUSEA/VOMITING; Start 03/08/20 at 18:00 Zolpidem Tartrate (Ambien) 5 mg PRN QHS PRN PO INSOMNIA Last administered on 03/11/20at 21:05; Start 03/08/20 at 18:00; Stop 03/12/20 at 12:21; Status DC Acetaminophen (Tylenol) 650 mg PRN Q4HRS PRN PO TEMP OVER 100.4F OR MILD PAIN Last administered on 03/17/20at 16:35; Start 03/08/20 at 18:00 Al Hydroxide/Mg Hydroxide (Mylanta Plus Xs) 30 ml PRN DAILY PRN PO HEARTBURN / GAS; Start 03/08/20 at 18:00 Albuterol Sulfate (Ventolin Neb Soln) 2.5 mg PRN Q4HRS PRN NEB SHORTNESS OF BREATH; Start 03/08/20 at 18:00 Albuterol/ Ipratropium (Duoneb) 3 ml Q4H NEB Last administered on 03/08/20at 20:10; Start 03/08/20 at 18:00; Stop 03/08/20 at 20:20; Status DC Guaifenesin (Robitussin) 200 mg PRN Q4HRS PRN PO COUGH; Start 03/08/20 at 18:00 Lorazepam (Ativan) 0.5 mg PRN Q4HRS PRN PO ANXIETY / AGITATION; Start 03/08/20 at 18:00; Stop 03/12/20 at 12:21; Status DC Enoxaparin Sodium (Lovenox 40mg Syringe) 40 mg Q12H SQ ; Start 03/09/20 at 09:00; Status Cancel Amiodarone HCl (Cordarone) 200 mg DAILY PO Last administered on 03/11/20at 08:27; Start 03/09/20 at 09:00; Stop 03/12/20 at 12:21; Status DC Amlodipine Besylate (Norvasc) 5 mg DAILY PO Last administered on 03/11/20at 08:27; Start 03/09/20 at 09:00; Stop 03/12/20 at 12:21; Status DC Aspirin (Aspirin Chewable) 81 mg DAILY PO Last administered on 03/18/20at 09:10; Start 03/09/20 at 09:00 Acetaminophen/ Hydrocodone Bitart (Lortab 10/325) 2 tab PRN Q6HRS PRN PO SEVERE PAIN 7-10 Last administered on 03/12/20at 20:20; Start 03/08/20 at 18:00; Stop 03/13/20 at 04:51; Status DC Potassium Chloride (Klor-Con) 30 meq DAILY PO Last administered on 03/12/20at 08:52; Start 03/09/20 at 09:00; Stop 03/13/20 at 11:58; Status DC Pregabalin (Lyrica) 75 mg BID PO Last administered on 03/12/20at 08:52; Start 03/08/20 at 21:00; Stop 03/12/20 at 12:21; Status DC Torsemide (Demadex) 100 mg DAILY PO Last administered on 03/10/20 08:27; Start 03/09/20 at 09:00; Stop 03/11/20 at 07:56; Status DC Vitamin D (Vitamin D3) 5,000 unit DAILY PO Last administered on 03/17/20at 09:29; Start 03/09/20 at 09:00; Stop 03/17/20 at 13:18; Status DC Insulin Human Lispro (HumaLOG) 8 units TIDWMEALS SQ Last administered on 03/14/20at 17:14; Start 03/09/20 at 08:00 Insulin Glargine (Lantus Syringe) 16 unit QHS SQ Last administered on 03/17/20at 20:52; Start 03/08/20 at 21:00 Cetirizine HCl (ZyrTEC) 10 mg DAILY PO Last administered on 03/18/20at 09:11; Start 03/09/20 at 09:00 Tizanidine HCl (Zanaflex) 2 mg PRN TID PRN PO MUSCLE SPASMS Last administered on 03/09/20at 20:23; Start 03/08/20 at 18:15; Stop 03/09/20 at 21:40; Status DC Insulin Human Lispro (HumaLOG) 0-7 UNITS TIDWMEALS SQ Last administered on 03/15/20at 13:38; Start 03/09/20 at 08:00 Dextrose (Dextrose 50%-Water Syringe) 12.5 gm PRN Q15MIN PRN IV SEE COMMENTS; Start 03/08/20 at 18:00 Fentanyl Citrate (Fentanyl 2ml Vial) 50 mcg PRN Q3HRS PRN IVP pain Last administered on 03/11/20at 20:15; Start 03/08/20 at 19:15 Enoxaparin Sodium (Lovenox 40mg Syringe) 40 mg Q24H SQ Last administered on 03/11/20at 08:28; Start 03/09/20 at 09:00; Stop 03/11/20 at 13:03; Status DC Albuterol/ Ipratropium (Duoneb) 3 ml Q4H PRN NEB WHEEZING; Start 03/08/20 at 20:30; Stop 03/08/20 at 20:22; Status DC Enoxaparin Sodium (Lovenox 30mg Syringe) 30 mg Q24H SQ Last administered on 03/12/20at 09:27; Start 03/12/20 at 09:00; Stop 03/12/20 at 11:30; Status DC Piperacillin Sod/ Tazobactam Sod 3.375 gm/Sodium Chloride 50 ml @ 100 mls/hr 1X ONCE IV Last administered on 03/11/20at 16:48; Start 03/11/20 at 17:00; Stop 03/11/20 at 17:29; Status DC Doxycycline Hyclate 100 mg/ Dextrose 100 ml @ 50 mls/hr 1X ONCE IV Last admin istered on 03/11/20at 18:30; Start 03/11/20 at 17:30; Stop 03/11/20 at 19:29; Status DC Enoxaparin Sodium (Lovenox 40mg Syringe) 40 mg Q24H SQ ; Start 03/13/20 at 09:00; Stop 03/12/20 at 12:21; Status DC Pregabalin (Lyrica) 25 mg BID PO Last administered on 03/18/20 09:11; Start 03/12/20 at 21:00 Apixaban (Eliquis) 2.5 mg BID PO Last administered on 03/18/20at 09:11; Start 03/12/20 at 21:00 Hydralazine HCl (Apresoline) 100 mg BID PO Last administered on 03/18/20at 09:13; Start 03/12/20 at 21:00 Isosorbide Dinitrate (Isordil) 10 mg BID94 PO Last administered on 03/18/20at 09:10; Start 03/12/20 at 16:00 Lactobacillus Rhamnosus (Culturelle) 1 cap BID PO Last administered on 03/18/20 09:10; Start 03/12/20 at 21:00 Metoprolol Tartrate (Lopressor) 25 mg BID PO Last administered on 03/18/20at 09:11; Start 03/12/20 at 21:00 Pantoprazole Sodium (Protonix) 40 mg DAILYAC PO Last administered on 03/18/20at 09:10; Start 03/13/20 at 07:30 Non-Formulary Medication (Tafamidis (Vyndamax)) 61 mg DAILY PO Last administered on 03/18/20at 09:14; Start 03/12/20 at 16:00 Daptomycin 500 mg/ Sodium Chloride 50 ml @ 100 mls/hr 1X IV ; Start 03/12/20 at 18:30; Stop 03/12/20 at 21:44; Status DC Daptomycin 500 mg/ Sodium Chloride 50 ml @ 100 mls/hr 1X ONCE IV Last administered on 03/12/20at 21:47; Start 03/12/20 at 21:45; Stop 03/12/20 at 22:14; Status DC Metoprolol Tartrate (Lopressor Vial) 5 mg Q6HRS IVP Last administered on 03/13/20at 00:14; Start 03/13/20 at 00:15; Stop 03/16/20 at 19:32; Status DC Acetaminophen/ Hydrocodone Bitart (Lortab 10/325) 1 tab PRN Q6HRS PRN PO SEVERE PAIN 7-10 Last administered on 03/18/20at 09:11; Start 03/13/20 at 05:00 Tramadol HCl (Ultram) 50 mg PRN Q6HRS PRN PO MODERATE PAIN Last administered on 03/18/20at 00:18; Start 03/13/20 at 05:00 Daptomycin 500 mg/ Sodium Chloride 50 ml @ 100 mls/hr Q48H IV Last administered on 03/13/20at 11:56; Start 03/13/20 at 12:00; Stop 03/15/20 at 10:22; Status DC Furosemide (Lasix) 40 mg 1X ONCE IVP Last administered on 03/13/20at 12:37; Start 03/13/20 at 12:00; Stop 03/13/20 at 12:01; Status DC Sodium Polystyrene Sulfonate (Kayexalate) 15 gm 1X ONCE PO Last administered on 03/13/20at 12:37; Start 03/13/20 at 12:00; Stop 03/13/20 at 12:01; Status DC Info (Anti-Coagulation Monitoring By Pharmacy) 1 each PRN DAILY PRN MC SEE COMMENTS Last administered on 03/14/20at 15:28; Start 03/14/20 at 09:45 Sodium Chloride 1,000 ml @ 75 mls/hr [id number] IV Last administered on 03/18/20at 00:19; Start 03/14/20 at 15:30 Labetalol HCl (Normodyne Iv Push) 20 mg PRN Q2HR PRN IVP HYPERTENSION; Start 03/17/20 at 11:00 Active Scripts Active Reported Vyndamax (Tafamidis) 61 Mg Capsule 61 Mg PO DAILY Hydrocodone-Apap 5-325 (Hydrocodone Bit/Acetaminophen) 1 Tab Tablet 1 Tab PO PRN Q6HRS PRN Isosorbide Dinitrate 30 Mg Tablet 10 Mg PO BID 30 Days Lyrica (Pregabalin) 50 Mg Capsule 25 Mg PO BID PRN Torsemide 100 Mg Tablet 50 Mg PO BID Acidophilus Lactobacilli (Lactobacillus Acidophilus) 1 Each Capsule 1 Cap PO DAILY 30 Days Protonix (Pantoprazole Sodium) 20 Mg Tablet.dr 40 Mg PO DAILY Metoprolol Tartrate 37.5 Mg Tablet 25 Mg PO BID Hydralazine Hcl 100 Mg Tablet 1 Tab PO BID Zetia (Ezetimibe) 10 Mg Tablet 1 Tab PO DAILY 30 Days Eliquis (Apixaban) 2.5 Mg Tablet 2.5 Mg PO BID Potassium Chloride (Potassium Chloride) 10 Meq Tab.sr.24h 30 Meq PO DAILY Magnesium Citrate 296 Ml Solution 296 Ml PO PRN PRN Novolog (Insulin Aspart) 100 Unit/1 Ml Cartridge 8 Unit SQ TID Levemir (Insulin Detemir) 100 Unit/1 Ml Vial 16 Unit SQ DAILYWSUP Claritin (Loratadine) 10 Mg Tablet 1 Tab PO DAILY Vitamin D3 (Cholecalciferol (Vitamin D3)) 5,000 Unit Tablet 1 Tab PO DAILY Children's Aspirin (Aspirin) 81 Mg Tab.chew 81 Mg PO Vital Signs Vital Signs Date Time Temp Pulse Resp B/P (MAP) Pulse Ox O2 Delivery O2 Flow Rate FiO2 03/18/20 10:12 Room Air 03/18/20 09:45 97.7 97.7 03/18/20 09:13 72 174/75 03/18/20 07:59 22 96 Labs Laboratory Tests Test 03/16/20 11:34 03/16/20 17:17 03/16/20 21:01 03/17/20 08:14 Glucose (Fingerstick) 169 mg/dL (70-99) 191 mg/dL (70-99) 182 mg/dL (70-99) 157 mg/dL (70-99) Test 03/17/20 08:25 03/17/20 11:55 03/17/20 16:40 03/17/20 20:42 White Blood Count 9.6 x10^3/uL (4.0-11.0) Red Blood Count 3.35 x10^6/uL (3.50-5.40) Hemoglobin 9.4 g/dL (12.0-15.5) Hematocrit 29.8 % (36.0-47.0) Mean Corpuscular Volume 89 fL (79-100) Mean Corpuscular Hemoglobin 28 pg (25-35) Mean Corpuscular Hemoglobin Concent 32 g/dL (31-37) Red Cell Distribution Width 17.0 % (11.5-14.5) Platelet Count 352 x10^3/uL (140-400) Neutrophils (%) (Auto) 76 % (31-73) Lymphocytes (%) (Auto) 7 % (24-48) Monocytes (%) (Auto) 14 % (0-9) Eosinophils (%) (Auto) 2 % (0-3) Basophils (%) (Auto) 1 % (0-3) Neutrophils # (Auto) 7.3 x10^3/uL (1.8-7.7) Lymphocytes # (Auto) 0.7 x10^3/uL (1.0-4.8) Monocytes # (Auto) 1.4 x10^3/uL (0.0-1.1) Eosinophils # (Auto) 0.2 x10^3/uL (0.0-0.7) Basophils # (Auto) 0.1 x10^3/uL (0.0-0.2) Sodium Level 150 mmol/L (136-145) Potassium Level 4.2 mmol/L (3.5-5.1) Chloride Level 115 mmol/L (98-107) Carbon Dioxide Level 24 mmol/L (21-32) Anion Gap 11 (6-14) Blood Urea Nitrogen 50 mg/dL (7-20) Creatinine 1.9 mg/dL (0.6-1.0) Estimated GFR (Cockcroft-Gault) 30.9 Glucose Level 165 mg/dL (70-99) Calcium Level 10.3 mg/dL (8.5-10.1) Phosphorus Level 2.5 mg/dL (2.6-4.7) Albumin 2.5 g/dL (3.4-5.0) Glucose (Fingerstick) 162 mg/dL (70-99) 165 mg/dL (70-99) 206 mg/dL (70-99) Test 03/18/20 07:30 03/18/20 08:52 White Blood Count 10.1 x10^3/uL (4.0-11.0) Red Blood Count 3.14 x10^6/uL (3.50-5.40) Hemoglobin 8.7 g/dL (12.0-15.5) Hematocrit 28.0 % (36.0-47.0) Mean Corpuscular Volume 89 fL (79-100) Mean Corpuscular Hemoglobin 28 pg (25-35) Mean Corpuscular Hemoglobin Concent 31 g/dL (31-37) Red Cell Distribution Width 17.0 % (11.5-14.5) Platelet Count 351 x10^3/uL (140-400) Neutrophils (%) (Auto) 77 % (31-73) Lymphocytes (%) (Auto) 8 % (24-48) Monocytes (%) (Auto) 14 % (0-9) Eosinophils (%) (Auto) 1 % (0-3) Basophils (%) (Auto) 1 % (0-3) Neutrophils # (Auto) 7.8 x10^3/uL (1.8-7.7) Lymphocytes # (Auto) 0.8 x10^3/uL (1.0-4.8) Monocytes # (Auto) 1.4 x10^3/uL (0.0-1.1) Eosinophils # (Auto) 0.1 x10^3/uL (0.0-0.7) Basophils # (Auto) 0.1 x10^3/uL (0.0-0.2) Sodium Level 147 mmol/L (136-145) Potassium Level 4.1 mmol/L (3.5-5.1) Chloride Level 113 mmol/L (98-107) Carbon Dioxide Level 23 mmol/L (21-32) Anion Gap 11 (6-14) Blood Urea Nitrogen 37 mg/dL (7-20) Creatinine 1.7 mg/dL (0.6-1.0) Estimated GFR (Cockcroft-Gault) 35.2 Glucose Level 159 mg/dL (70-99) Calcium Level 10.3 mg/dL (8.5-10.1) Phosphorus Level 2.5 mg/dL (2.6-4.7) Albumin 2.5 g/dL (3.4-5.0) Glucose (Fingerstick) 148 mg/dL (70-99) Laboratory Tests Test 03/17/20 11:55 03/17/20 16:40 03/17/20 20:42 03/18/20 07:30 Glucose (Fingerstick) 162 mg/dL (70-99) 165 mg/dL (70-99) 206 mg/dL (70-99) White Blood Count 10.1 x10^3/uL (4.0-11.0) Red Blood Count 3.14 x10^6/uL (3.50-5.40) Hemoglobin 8.7 g/dL (12.0-15.5) Hematocrit 28.0 % (36.0-47.0) Mean Corpuscular Volume 89 fL (79-100) Mean Corpuscular Hemoglobin 28 pg (25-35) Mean Corpuscular Hemoglobin Concent 31 g/dL (31-37) Red Cell Distribution Width 17.0 % (11.5-14.5) Platelet Count 351 x10^3/uL (140-400) Neutrophils (%) (Auto) 77 % (31-73) Lymphocytes (%) (Auto) 8 % (24-48) Monocytes (%) (Auto) 14 % (0-9) Eosinophils (%) (Auto) 1 % (0-3) Basophils (%) (Auto) 1 % (0-3) Neutrophils # (Auto) 7.8 x10^3/uL (1.8-7.7) Lymphocytes # (Auto) 0.8 x10^3/uL (1.0-4.8) Monocytes # (Auto) 1.4 x10^3/uL (0.0-1.1) Eosinophils # (Auto) 0.1 x10^3/uL (0.0-0.7) Basophils # (Auto) 0.1 x10^3/uL (0.0-0.2) Sodium Level 147 mmol/L (136-145) Potassium Level 4.1 mmol/L (3.5-5.1) Chloride Level 113 mmol/L (98-107) Carbon Dioxide Level 23 mmol/L (21-32) Anion Gap 11 (6-14) Blood Urea Nitrogen 37 mg/dL (7-20) Creatinine 1.7 mg/dL (0.6-1.0) Estimated GFR (Cockcroft-Gault) 35.2 Glucose Level 159 mg/dL (70-99) Calcium Level 10.3 mg/dL (8.5-10.1) Phosphorus Level 2.5 mg/dL (2.6-4.7) Albumin 2.5 g/dL (3.4-5.0) Test 03/18/20 08:52 Glucose (Fingerstick) 148 mg/dL (70-99) Allergies Allergies Coded Allergies Type Severity Reaction Last Updated Verified Hwufjos-Jdi-Dto Reductase Inhibitor Allergy Intermediate 11/19/17 Yes cyclobenzaprine Allergy Intermediate 03/09/20 Yes morphine Adverse Reaction Intermediate 11/19/17 Yes Disposition/Orders: Other (D/C TO [facility]) Justicifation of Admission Dx: Justifications for Admission: Justification of Admission Dx: Yes Acute Renal Failure: RF Can't Be Managed Outpt VARSHA DUBON MD Mar 18, 2020 11:01
[2020-03-18] MEDS ORDERED: GUAI100L12 PO (11:05)
[2020-03-18] MEDS ORDERED: ACET325T9 PO (11:05)
[2020-03-18] MEDS ORDERED: NAPH1POW2 PO (11:05)
[2020-03-18] MEDS ORDERED: MAG30ORA2 PO (11:05)
[2020-03-18] MEDS ORDERED: ALBU2.5V8 NEB (11:05)
[2020-03-18] MEDS ORDERED: TRAM50TA PO (11:05)
--- NOTE | 2020-03-18 11:07 | SNU/HH DC ---
DISCHARGE ORDERS DISCHARGE INFORMATION: FINAL DIAGNOSIS Problems Medical Problems: (1) Anemia Status: Acute (2) Bilateral hip pain Status: Acute (3) Fall Status: Acute (4) Generalized weakness Status: Acute (5) Renal insufficiency Status: Acute (6) Scalp wound Status: Acute CONDITION ON DISCHARGE: Stable CODE STATUS: Code Status: Full SNF: SNF STAY <30 DAYS: No HOSPICE: HOSPICE: No HOSPICE EVAL & TREAT: No LTAC: ADMIT TO LTAC: No POST DISCHARGE ORDERS: ACTIVITY ORDERS: Activity as tolerated WEIGHT BEARING STATUS: As tolerated DIET AFTER DISCHARGE: Cardiac CHECKS AFTER DISCHARGE: CHECKS AFTER DISCHARGE: Check blood press - daily FOLLOW-UP: PHYSICIAN FOLLOW-UP: PCP AT [facility] TODAY TREATMENT/EQUIPMENT ORDERS: ADAPTIVE EQUIPMENT NEEDED: None, Front wheeled walker Physical Therapy For: Evalulation/Treatment Occupational Therapy For: Evaluation/Treatment Speech Language Pathology For: Evaluation/Treatment DISCHARGE MEDICATIONS: Home Meds Active Scripts Mag Hydrox/Al Hydrox/Simeth (MAG-AL PLUS XS SUSPENSION) 30 Ml Oral.susp, 30 ML PO PRN DAILY PRN for HEARTBURN / GAS for 10 Days, #120 MISC Prov:VARSHA DUBON MD 03/18/20 Guaifenesin (GUAIFENESIN) 100 Mg/5 Ml Liquid, 200 MG PO PRN Q4HRS PRN for COUGH for 14 Days, #120 LIQUID Prov:VARSHA DUBON MD 03/18/20 Naph,Mb-Db/K Ph,Mbdb (PHOS-NAK PACKET) 1 Each Powd.pack, 1 PKT PO DAILY for SUPPLEMENT for 7 Days, #7 PKT Prov:VARSHA DUBON MD 03/18/20 Acetaminophen (TYLENOL) 325 Mg Tablet, 650 MG PO PRN Q4HRS PRN for TEMP OVER 100.4F OR MILD PAIN for 14 Days, #30 TAB Prov:VARSHA DUBON MD 03/18/20 Tramadol Hcl (TRAMADOL HCL) 50 Mg Tablet, 50 MG PO PRN Q6HRS PRN for MODERATE PAIN for 14 Days, #30 TAB Prov:VARSHA DUBON MD 03/18/20 Albuterol Sulfate (Proair Hfa) 8.5 Gm Hfa.aer.ad, 2.5 MG NEB PRN Q4HRS PRN for SHORTNESS OF BREATH for 30 Days, #100 INHALER Prov:VARSHA DUBON MD 03/18/20 Reported Medications Tafamidis (Vyndamax) 61 Mg Capsule, 61 MG PO DAILY for amyloidosis, CAP 03/12/20 Hydrocodone Bit/Acetaminophen (HYDROCODONE-APAP 5-325 ) 1 Tab Tablet, 1 TAB PO PRN Q6HRS PRN for PAIN, TAB 0 Refills 03/12/20 Isosorbide Dinitrate (ISOSORBIDE DINITRATE) 30 Mg Tablet, 10 MG PO BID for Blood pressure for 30 Days, #20 TAB 0 Refills 03/12/20 Pregabalin (LYRICA) 50 Mg Capsule, 25 MG PO BID PRN for neuraphy, CAP 0 Refills 03/09/20 Lactobacillus Acidophilus (Acidophilus Lactobacilli) 1 Each Capsule, 1 CAP PO DAILY for supplement for 30 Days, #30 CAP 0 Refills 03/09/20 Pantoprazole Sodium (PROTONIX) 20 Mg Tablet.dr, 40 MG PO DAILY for GERD, TAB 03/09/20 Metoprolol Tartrate (Metoprolol Tartrate) 37.5 Mg Tablet, 25 MG PO BID for HTN, TAB 03/09/20 Hydralazine Hcl (HYDRALAZINE HCL) 100 Mg Tablet, 1 TAB PO BID for HTN, #90 TAB 5 Refills 03/09/20 Ezetimibe (ZETIA) 10 Mg Tablet, 1 TAB PO DAILY for HLD for 30 Days, #30 TAB 0 Refills 03/09/20 Apixaban (ELIQUIS) 2.5 Mg Tablet, 2.5 MG PO BID for Afib, TAB 03/09/20 Insulin Aspart (NOVOLOG) 100 Unit/1 Ml Cartridge, 8 UNIT SQ TID, EACH 11/19/17 Insulin Detemir (LEVEMIR) 100 Unit/1 Ml Vial, 16 UNIT SQ DAILYWSUP, VIAL 11/19/17 Loratadine (CLARITIN) 10 Mg Tablet, 1 TAB PO DAILY, #30 TAB 5 Refills 11/19/17 Cholecalciferol (Vitamin D3) (VITAMIN D3) 5,000 Unit Tablet, 1 TAB PO DAILY, #30 TAB 11/19/17 Aspirin (Children's Aspirin) 81 Mg Tab.chew, 81 MG PO, TAB.CHEW 11/19/17 Discontinued Reported Medications Torsemide (TORSEMIDE) 100 Mg Tablet, 50 MG PO BID for lymphedema, TAB 03/09/20 Potassium Chloride (POTASSIUM CHLORIDE ) 10 Meq Tab.sr.24h, 30 MEQ PO DAILY, TAB.SR 11/19/17 Magnesium Citrate (MAGNESIUM CITRATE) 296 Ml Solution, 296 ML PO PRN PRN for CONSTIPATION, #296 ML 11/19/17 Pregabalin (LYRICA) 75 Mg Capsule, 1 CAP PO BID, #60 CAP 1 Refill 11/19/17 VARSHA DUBON MD Mar 18, 2020 11:07
[2020-03-18 11:59] VITALS: BP 140/70
[2020-03-18] MEDS ORDERED: POTASSIUM & SODIUM PHOSPHATES PACKET. PO SCH (12:00)
--- NOTE | 2020-03-18 14:42 | PDOC ---
PROGRESS NOTES Date of Service DATE: 03/18/20 TIME: 14:40 Subjective Subjective SEEN IN FOLLOW UP OF ARF ON CKD3 WITH HYPERNATREMIA Objective Objective Vital Signs Date Time Temp Pulse Resp B/P (MAP) Pulse Ox O2 Delivery O2 Flow Rate FiO2 03/18/20 11:59 97.6 73 20 140/70 (93) 95 Room Air 97.6 03/16/20 11:18 1.0 Intake and Output 03/18/20 07:00 Intake Total 1910 ml Output Total 1400 ml Balance 510 ml Intake Oral 910 ml IV Total 1000 ml Output Urine Total 1400 ml # Voids 2 Physical Exam Abdomen: Normal bowel sounds, Soft, No tenderness, No hepatosplenomegaly, No masses Heart: Regular rate, Normal S1, Normal S2, No murmurs, Gallops Extremities: No clubbing, No cyanosis, No edema, Normal pulses, No tenderness/swelling General: Alert, Oriented X3, Cooperative, No acute distress Lungs: Clear to auscultation, Normal air movement Psych/Mental Status: Mental status NL, Mood NL Diagnosis RENAL FAILURE: Acute, Chronic (CKD stage III), Other (DEHYDRATION ) Assessment Assessment Problems Medical Problems: (1) Anemia Status: Acute (2) Bilateral hip pain Status: Acute (3) Fall Status: Acute (4) Generalized weakness Status: Acute (5) Renal insufficiency Status: Acute (6) Scalp wound Status: Acute Plan Plan of Care IMPROVING WITH IVF. CONT SAME AND FOLLOW Comment Review of Relevant I have reviewed the following items bianca (where applicable) has been applied. Labs Laboratory Tests Test 03/16/20 17:17 03/16/20 21:01 03/17/20 08:14 03/17/20 08:25 Glucose (Fingerstick) 191 mg/dL (70-99) 182 mg/dL (70-99) 157 mg/dL (70-99) White Blood Count 9.6 x10^3/uL (4.0-11.0) Red Blood Count 3.35 x10^6/uL (3.50-5.40) Hemoglobin 9.4 g/dL (12.0-15.5) Hematocrit 29.8 % (36.0-47.0) Mean Corpuscular Volume 89 fL (79-100) Mean Corpuscular Hemoglobin 28 pg (25-35) Mean Corpuscular Hemoglobin Concent 32 g/dL (31-37) Red Cell Distribution Width 17.0 % (11.5-14.5) Platelet Count 352 x10^3/uL (140-400) Neutrophils (%) (Auto) 76 % (31-73) Lymphocytes (%) (Auto) 7 % (24-48) Monocytes (%) (Auto) 14 % (0-9) Eosinophils (%) (Auto) 2 % (0-3) Basophils (%) (Auto) 1 % (0-3) Neutrophils # (Auto) 7.3 x10^3/uL (1.8-7.7) Lymphocytes # (Auto) 0.7 x10^3/uL (1.0-4.8) Monocytes # (Auto) 1.4 x10^3/uL (0.0-1.1) Eosinophils # (Auto) 0.2 x10^3/uL (0.0-0.7) Basophils # (Auto) 0.1 x10^3/uL (0.0-0.2) Sodium Level 150 mmol/L (136-145) Potassium Level 4.2 mmol/L (3.5-5.1) Chloride Level 115 mmol/L (98-107) Carbon Dioxide Level 24 mmol/L (21-32) Anion Gap 11 (6-14) Blood Urea Nitrogen 50 mg/dL (7-20) Creatinine 1.9 mg/dL (0.6-1.0) Estimated GFR (Cockcroft-Gault) 30.9 Glucose Level 165 mg/dL (70-99) Calcium Level 10.3 mg/dL (8.5-10.1) Phosphorus Level 2.5 mg/dL (2.6-4.7) Albumin 2.5 g/dL (3.4-5.0) Test 03/17/20 11:55 03/17/20 16:40 03/17/20 20:42 03/18/20 07:30 Glucose (Fingerstick) 162 mg/dL (70-99) 165 mg/dL (70-99) 206 mg/dL (70-99) White Blood Count 10.1 x10^3/uL (4.0-11.0) Red Blood Count 3.14 x10^6/uL (3.50-5.40) Hemoglobin 8.7 g/dL (12.0-15.5) Hematocrit 28.0 % (36.0-47.0) Mean Corpuscular Volume 89 fL (79-100) Mean Corpuscular Hemoglobin 28 pg (25-35) Mean Corpuscular Hemoglobin Concent 31 g/dL (31-37) Red Cell Distribution Width 17.0 % (11.5-14.5) Platelet Count 351 x10^3/uL (140-400) Neutrophils (%) (Auto) 77 % (31-73) Lymphocytes (%) (Auto) 8 % (24-48) Monocytes (%) (Auto) 14 % (0-9) Eosinophils (%) (Auto) 1 % (0-3) Basophils (%) (Auto) 1 % (0-3) Neutrophils # (Auto) 7.8 x10^3/uL (1.8-7.7) Lymphocytes # (Auto) 0.8 x10^3/uL (1.0-4.8) Monocytes # (Auto) 1.4 x10^3/uL (0.0-1.1) Eosinophils # (Auto) 0.1 x10^3/uL (0.0-0.7) Basophils # (Auto) 0.1 x10^3/uL (0.0-0.2) Sodium Level 147 mmol/L (136-145) Potassium Level 4.1 mmol/L (3.5-5.1) Chloride Level 113 mmol/L (98-107) Carbon Dioxide Level 23 mmol/L (21-32) Anion Gap 11 (6-14) Blood Urea Nitrogen 37 mg/dL (7-20) Creatinine 1.7 mg/dL (0.6-1.0) Estimated GFR (Cockcroft-Gault) 35.2 Glucose Level 159 mg/dL (70-99) Calcium Level 10.3 mg/dL (8.5-10.1) Phosphorus Level 2.5 mg/dL (2.6-4.7) Albumin 2.5 g/dL (3.4-5.0) Test 03/18/20 08:52 03/18/20 11:40 Glucose (Fingerstick) 148 mg/dL (70-99) 128 mg/dL (70-99) Laboratory Tests Test 03/17/20 16:40 03/17/20 20:42 03/18/20 07:30 03/18/20 08:52 Glucose (Fingerstick) 165 mg/dL (70-99) 206 mg/dL (70-99) 148 mg/dL (70-99) White Blood Count 10.1 x10^3/uL (4.0-11.0) Red Blood Count 3.14 x10^6/uL (3.50-5.40) Hemoglobin 8.7 g/dL (12.0-15.5) Hematocrit 28.0 % (36.0-47.0) Mean Corpuscular Volume 89 fL (79-100) Mean Corpuscular Hemoglobin 28 pg (25-35) Mean Corpuscular Hemoglobin Concent 31 g/dL (31-37) Red Cell Distribution Width 17.0 % (11.5-14.5) Platelet Count 351 x10^3/uL (140-400) Neutrophils (%) (Auto) 77 % (31-73) Lymphocytes (%) (Auto) 8 % (24-48) Monocytes (%) (Auto) 14 % (0-9) Eosinophils (%) (Auto) 1 % (0-3) Basophils (%) (Auto) 1 % (0-3) Neutrophils # (Auto) 7.8 x10^3/uL (1.8-7.7) Lymphocytes # (Auto) 0.8 x10^3/uL (1.0-4.8) Monocytes # (Auto) 1.4 x10^3/uL (0.0-1.1) Eosinophils # (Auto) 0.1 x10^3/uL (0.0-0.7) Basophils # (Auto) 0.1 x10^3/uL (0.0-0.2) Sodium Level 147 mmol/L (136-145) Potassium Level 4.1 mmol/L (3.5-5.1) Chloride Level 113 mmol/L (98-107) Carbon Dioxide Level 23 mmol/L (21-32) Anion Gap 11 (6-14) Blood Urea Nitrogen 37 mg/dL (7-20) Creatinine 1.7 mg/dL (0.6-1.0) Estimated GFR (Cockcroft-Gault) 35.2 Glucose Level 159 mg/dL (70-99) Calcium Level 10.3 mg/dL (8.5-10.1) Phosphorus Level 2.5 mg/dL (2.6-4.7) Albumin 2.5 g/dL (3.4-5.0) Test 03/18/20 11:40 Glucose (Fingerstick) 128 mg/dL (70-99) Microbiology 03/11/20 Blood Culture - Final, Complete Medications Current Medications Sodium Chloride 1,000 ml @ 1,000 mls/hr 1X ONCE IV Last administered on 03/08/20at 14:59; Start 03/08/20 at 14:30; Stop 03/08/20 at 15:29; Status DC Ondansetron HCl (Zofran) 4 mg PRN Q8HRS PRN IV NAUSEA/VOMITING; Start 03/08/20 at 17:45; Stop 03/09/20 at 17:44; Status DC Insulin Human Lispro (HumaLOG) 0-5 UNITS TIDWMEALS SQ ; Start 03/09/20 at 08:00; Status Cancel Dextrose (Dextrose 50%-Water Syringe) 12.5 gm PRN Q15MIN PRN IV SEE COMMENTS; Start 03/08/20 at 17:45; Stop 03/08/20 at 18:04; Status DC Ondansetron HCl (Zofran) 4 mg PRN Q4HRS PRN IV NAUSEA/VOMITING; Start 03/08/20 at 18:00 Zolpidem Tartrate (Ambien) 5 mg PRN QHS PRN PO INSOMNIA Last administered on 03/11/20at 21:05; Start 03/08/20 at 18:00; Stop 03/12/20 at 12:21; Status DC Acetaminophen (Tylenol) 650 mg PRN Q4HRS PRN PO TEMP OVER 100.4F OR MILD PAIN Last administered on 03/17/20at 16:35; Start 03/08/20 at 18:00 Al Hydroxide/Mg Hydroxide (Mylanta Plus Xs) 30 ml PRN DAILY PRN PO HEARTBURN / GAS; Start 03/08/20 at 18:00 Albuterol Sulfate (Ventolin Neb Soln) 2.5 mg PRN Q4HRS PRN NEB SHORTNESS OF BREATH; Start 03/08/20 at 18:00 Albuterol/ Ipratropium (Duoneb) 3 ml Q4H NEB Last administered on 03/08/20at 20:10; Start 03/08/20 at 18:00; Stop 03/08/20 at 20:20; Status DC Guaifenesin (Robitussin) 200 mg PRN Q4HRS PRN PO COUGH; Start 03/08/20 at 18:00 Lorazepam (Ativan) 0.5 mg PRN Q4HRS PRN PO ANXIETY / AGITATION; Start 03/08/20 at 18:00; Stop 03/12/20 at 12:21; Status DC Enoxaparin Sodium (Lovenox 40mg Syringe) 40 mg Q12H SQ ; Start 03/09/20 at 09:00; Status Cancel Amiodarone HCl (Cordarone) 200 mg DAILY PO Last administered on 03/11/20at 08:27; Start 03/09/20 at 09:00; Stop 03/12/20 at 12:21; Status DC Amlodipine Besylate (Norvasc) 5 mg DAILY PO Last administered on 03/11/20at 08:27; Start 03/09/20 at 09:00; Stop 03/12/20 at 12:21; Status DC Aspirin (Aspirin Chewable) 81 mg DAILY PO Last administered on 03/18/20at 09:10; Start 03/09/20 at 09:00 Acetaminophen/ Hydrocodone Bitart (Lortab 10/325) 2 tab PRN Q6HRS PRN PO SEVERE PAIN 7-10 Last administered on 03/12/20at 20:20; Start 03/08/20 at 18:00; Stop 03/13/20 at 04:51; Status DC Potassium Chloride (Klor-Con) 30 meq DAILY PO Last administered on 03/12/20at 08:52; Start 03/09/20 at 09:00; Stop 03/13/20 at 11:58; Status DC Pregabalin (Lyrica) 75 mg BID PO Last administered on 03/12/20at 08:52; Start 03/08/20 at 21:00; Stop 03/12/20 at 12:21; Status DC Torsemide (Demadex) 100 mg DAILY PO Last administered on 03/10/20at 08:27; Start 03/09/20 at 09:00; Stop 03/11/20 at 07:56; Status DC Vitamin D (Vitamin D3) 5,000 unit DAILY PO Last administered on 03/17/20at 09:29; Start 03/09/20 at 09:00; Stop 03/17/20 at 13:18; Status DC Insulin Human Lispro (HumaLOG) 8 units TIDWMEALS SQ Last administered on 03/14/20at 17:14; Start 03/09/20 at 08:00 Insulin Glargine (Lantus Syringe) 16 unit QHS SQ Last administered on 03/17/20at 20:52; Start 03/08/20 at 21:00 Cetirizine HCl (ZyrTEC) 10 mg DAILY PO Last administered on 03/18/20at 09:11; Start 03/09/20 at 09:00 Tizanidine HCl (Zanaflex) 2 mg PRN TID PRN PO MUSCLE SPASMS Last administered on 03/09/20at 20:23; Start 03/08/20 at 18:15; Stop 03/09/20 at 21:40; Status DC Insulin Human Lispro (HumaLOG) 0-7 UNITS TIDWMEALS SQ Last administered on 03/15/20at 13:38; Start 03/09/20 at 08:00 Dextrose (Dextrose 50%-Water Syringe) 12.5 gm PRN Q15MIN PRN IV SEE COMMENTS; Start 03/08/20 at 18:00 Fentanyl Citrate (Fentanyl 2ml Vial) 50 mcg PRN Q3HRS PRN IVP pain Last administered on 03/11/20at 20:15; Start 03/08/20 at 19:15 Enoxaparin Sodium (Lovenox 40mg Syringe) 40 mg Q24H SQ Last administered on 03/11/20at 08:28; Start 03/09/20 at 09:00; Stop 03/11/20 at 13:03; Status DC Albuterol/ Ipratropium (Duoneb) 3 ml Q4H PRN NEB WHEEZING; Start 03/08/20 at 20:30; Stop 03/08/20 at 20:22; Status DC Enoxaparin Sodium (Lovenox 30mg Syringe) 30 mg Q24H SQ Last administered on 03/12/20at 09:27; Start 03/12/20 at 09:00; Stop 03/12/20 at 11:30; Status DC Piperacillin Sod/ Tazobactam Sod 3.375 gm/Sodium Chloride 50 ml @ 100 mls/hr 1X ONCE IV Last administered on 03/11/20at 16:48; Start 03/11/20 at 17:00; Stop 03/11/20 at 17:29; Status DC Doxycycline Hyclate 100 mg/ Dextrose 100 ml @ 50 mls/hr 1X ONCE IV Last administered on 03/11/20at 18:30; Start 03/11/20 at 17:30; Stop 03/11/20 at 19:29; Status DC Enoxaparin Sodium (Lovenox 40mg Syringe) 40 mg Q24H SQ ; Start 03/13/20 at 09:00; Stop 03/12/20 at 12:21; Status DC Pregabalin (Lyrica) 25 mg BID PO Last administered on 03/18/20at 09:11; Start 03/12/20 at 21:00 Apixaban (Eliquis) 2.5 mg BID PO Last administered on 03/18/20at 09:11; Start 03/12/20 at 21:00 Hydralazine HCl (Apresoline) 100 mg BID PO Last administered on 03/18/20at 09:13; Start 03/12/20 at 21:00 Isosorbide Dinitrate (Isordil) 10 mg [id number] PO Last administered on 03/18/20at 09:10; Start 03/12/20 at 16:00 Lactobacillus Rhamnosus (Culturelle) 1 cap BID PO Last administered on 03/18/20at 09:10; Start 03/12/20 at 21:00 Metoprolol Tartrate (Lopressor) 25 mg BID PO Last administered on 03/18/20at 09:11; Start 03/12/20 at 21:00 Pantoprazole Sodium (Protonix) 40 mg DAILYAC PO Last administered on 03/18/20at 09:10; Start 03/13/20 at 07:30 Non-Formulary Medication (Tafamidis (Vyndamax)) 61 mg DAILY PO Last administered on 03/18/20at 09:14; Start 03/12/20 at 16:00 Daptomycin 500 mg/ Sodium Chloride 50 ml @ 100 mls/hr 1X IV ; Start 03/12/20 at 18:30; Stop 03/12/20 at 21:44; Status DC Daptomycin 500 mg/ Sodium Chloride 50 ml @ 100 mls/hr 1X ONCE IV Last administered on 03/12/20at 21:47; Start 03/12/20 at 21:45; Stop 03/12/20 at 22:14; Status DC Metoprolol Tartrate (Lopressor Vial) 5 mg Q6HRS IVP Last administered on 03/13/20at 00:14; Start 03/13/20 at 00:15; Stop 03/16/20 at 19:32; Status DC Acetaminophen/ Hydrocodone Bitart (Lortab 10/325) 1 tab PRN Q6HRS PRN PO SEVERE PAIN 7-10 Last administered on 03/18/20at 09:11; Start 03/13/20 at 05:00 Tramadol HCl (Ultram) 50 mg PRN Q6HRS PRN PO MODERATE PAIN Last administered on 03/18/20at 00:18; Start 03/13/20 at 05:00 Daptomycin 500 mg/ Sodium Chloride 50 ml @ 100 mls/hr Q48H IV Last administered on 03/13/20at 11:56; Start 03/13/20 at 12:00; Stop 03/15/20 at 10:22; Status DC Furosemide (Lasix) 40 mg 1X ONCE IVP Last administered on 03/13/20at 12:37; Start 03/13/20 at 12:00; Stop 03/13/20 at 12:01; Status DC Sodium Polystyrene Sulfonate (Kayexalate) 15 gm 1X ONCE PO Last administered on 03/13/20at 12:37; Start 03/13/20 at 12:00; Stop 03/13/20 at 12:01; Status DC Info (Anti-Coagulation Monitoring By Pharmacy) 1 each PRN DAILY PRN MC SEE COMMENTS Last administered on 03/14/20at 15:28; Start 03/14/20 at 09:45 Sodium Chloride 1,000 ml @ 75 mls/hr [id number] IV Last administered on 03/18/20at 00:19; Start 03/14/20 at 15:30; Stop 03/18/20 at 10:58; Status DC Labetalol HCl (Normodyne Iv Push) 20 mg PRN Q2HR PRN IVP HYPERTENSION; Start at 11:00 Potassium Phos/ Sodium Phos (Phos-Nak) 1 pkt DAILY PO Last administered on 03/18/20at 12:18; Start 03/18/20 at 12:00 Active Scripts Active Mag-Al Plus Xs Suspension (Mag Hydrox/Al Hydrox/Simeth) 30 Ml Oral.susp 30 Ml PO PRN DAILY PRN 10 Days Guaifenesin 100 Mg/5 Ml Liquid 200 Mg PO PRN Q4HRS PRN 14 Days Phos-Nak Packet (Naph,Mb-Db/K Ph,Mbdb) 1 Each Powd.pack 1 Pkt PO DAILY 7 Days Tylenol (Acetaminophen) 325 Mg Tablet 650 Mg PO PRN Q4HRS PRN 14 Days Tramadol Hcl 50 Mg Tablet 50 Mg PO PRN Q6HRS PRN 14 Days Proair Hfa (Albuterol Sulfate) 8.5 Gm Hfa.aer.ad 2.5 Mg NEB PRN Q4HRS PRN 30 Day s Reported Vyndamax (Tafamidis) 61 Mg Capsule 61 Mg PO DAILY Hydrocodone-Apap 5-325 (Hydrocodone Bit/Acetaminophen) 1 Tab Tablet 1 Tab PO PRN Q6HRS PRN Isosorbide Dinitrate 30 Mg Tablet 10 Mg PO BID 30 Days Lyrica (Pregabalin) 50 Mg Capsule 25 Mg PO BID PRN Acidophilus Lactobacilli (Lactobacillus Acidophilus) 1 Each Capsule 1 Cap PO DAILY 30 Days Protonix (Pantoprazole Sodium) 20 Mg Tablet.dr 40 Mg PO DAILY Metoprolol Tartrate 37.5 Mg Tablet 25 Mg PO BID Hydralazine Hcl 100 Mg Tablet 1 Tab PO BID Zetia (Ezetimibe) 10 Mg Tablet 1 Tab PO DAILY 30 Days Eliquis (Apixaban) 2.5 Mg Tablet 2.5 Mg PO BID Novolog (Insulin Aspart) 100 Unit/1 Ml Cartridge 8 Unit SQ TID Levemir (Insulin Detemir) 100 Unit/1 Ml Vial 16 Unit SQ DAILYWSUP Claritin (Loratadine) 10 Mg Tablet 1 Tab PO DAILY Vitamin D3 (Cholecalciferol (Vitamin D3)) 5,000 Unit Tablet 1 Tab PO DAILY Children's Aspirin (Aspirin) 81 Mg Tab.chew 81 Mg PO Vitals/I & O Vital Sign - Last 24 Hours 03/17/20 03/17/20 03/17/20 03/17/20 15:00 16:35 20:00 20:25 Temp 98.7 98.4 98.7 98.4 Pulse 86 86 74 Resp 18 18 B/P (MAP) 181/69 (106) 181/69 148/52 (84) Pulse Ox 92 97 O2 Delivery Room Air Room Air Room Air 03/17/20 03/17/20 03/17/20 03/18/20 20:44 20:44 23:10 00:18 Temp 99.3 99.3 Pulse 74 74 79 Resp 16 20 B/P (MAP) 148/52 148/52 159/79 (105) Pulse Ox 97 O2 Delivery Room Air Room Air 03/18/20 03/18/20 03/18/20 03/18/20 01:18 03:25 07:59 08:00 Temp 98.1 100.2 98.1 100.2 Pulse 72 72 Resp 20 18 22 B/P (MAP) 168/78 (108) 174/75 (108) Pulse Ox 97 96 O2 Delivery Room Air Room Air Room Air Room Air 03/18/20 03/18/20 03/18/20 03/18/20 09:10 09:11 09:11 09:13 Pulse 72 72 72 B/P (MAP) 174/75 174/75 174/75 O2 Delivery Room Air 03/18/20 03/18/20 03/18/20 09:45 10:12 11:59 Temp 97.7 97.6 97.7 97.6 Pulse 73 Resp 20 B/P (MAP) 140/70 (93) Pulse Ox 95 O2 Delivery Room Air Room Air Intake and Output 03/17/20 03/17/20 03/18/20 15:00 23:00 07:00 Intake Total 100 ml 360 ml 1450 ml Output Total 1400 ml Balance 100 ml 360 ml 50 ml Justifications for Admission Other Justification TANK MORELAND MD Mar 18, 2020 14:41
[2020-03-18 15:59] VITALS: BP 143/78
[2020-03-18 17:17] VITALS: BP 143/78
== END 2020-03-18 20:15 | DRG 682 ==
LOC: ER 14:08 → ED HOLD 17:35 → 5 NORTH 20:14 → OBSVTOIN 03-09 09:52 → 6 SOUTH 03-09 23:57 → 5 NORTH 03-14 18:33
PROVIDERS: ADMIT Internal Medicine; ATTEND Internal Medicine
PROC: 30233N1 Transfusion of Nonautologous Red Blood Cells into Peripheral Vein, Percutaneous Approach (ICD-10-PCS; principal; 2020-03-12)
DX: N17.0 Acute kidney failure with tubular necrosis (principal); G93.41 Metabolic encephalopathy; I50.33 Acute on chronic diastolic (congestive) heart failure; E85.9 Amyloidosis, unspecified; E87.0 Hyperosmolality and hypernatremia; I13.0 Hypertensive heart and chronic kidney disease with heart failure and stage 1 through stage 4 chronic kidney disease, or unspecified chronic kidney disease; I42.8 Other cardiomyopathies; I43 Cardiomyopathy in diseases classified elsewhere; I48.19 Other persistent atrial fibrillation; R78.81 Bacteremia; Z68.42 Body mass index [BMI] 45.0-49.9, adult; N18.32 Chronic kidney disease, stage 3b; D86.9 Sarcoidosis, unspecified; E03.9 Hypothyroidism, unspecified; E11.22 Type 2 diabetes mellitus with diabetic chronic kidney disease; E11.42 Type 2 diabetes mellitus with diabetic polyneuropathy; E66.9 Obesity, unspecified; E78.00 Pure hypercholesterolemia, unspecified; E78.5 Hyperlipidemia, unspecified; E83.52 Hypercalcemia; E87.5 Hyperkalemia; G47.33 Obstructive sleep apnea (adult) (pediatric); I25.10 Atherosclerotic heart disease of native coronary artery without angina pectoris; M17.0 Bilateral primary osteoarthritis of knee; M47.812 Spondylosis without myelopathy or radiculopathy, cervical region; S01.01XA Laceration without foreign body of scalp, initial encounter; Z66 Do not resuscitate; Z82.49 Family history of ischemic heart disease and other diseases of the circulatory system; Z85.3 Personal history of malignant neoplasm of breast; Z86.16 Personal history of COVID-19; Z86.711 Personal history of pulmonary embolism; Z87.01 Personal history of pneumonia (recurrent); Z88.8 Allergy status to other drugs, medicaments and biological substances; Z90.12 Acquired absence of left breast and nipple; E66.01 Morbid (severe) obesity due to excess calories; F32.9 Major depressive disorder, single episode, unspecified; W18.39XA Other fall on same level, initial encounter; Y93.89 Activity, other specified; Y92.89 Other specified places as the place of occurrence of the external cause; Y99.8 Other external cause status
CPT/HCPCS: 36415; 70450; 71045; 72110; 72125; 73521; 76770; 80048; 80053; 80069; 81001; 82436; 82550; 82553; 82570; 82962; 83605; 83735; 83880; 83970; 84100; 84133; 84300; 84484; 85007; 85025; 85610; 85730; 86140; 86850; 86900; 86901; 86920; 87040; 87205; 87804; 93005; 93970; 94640; 94760; 96360; G0378; G0379; J0878; J1650; J1815; J1940; J2543; J3010; J3490; J7030; J7060; P9016; U0003; 97110-GO; 97530-GO; 97530-GP; 97535-GO; 99285-25

== ENCOUNTER → 2020-03-30 | Outpatient (CLI) | payer MEDICARE, MEDICAID ==
[2020-03-18 17:17] VITALS: BP 143/78
[~2020-03-30] MED LIST changes: +ACET325T9 PO; +ALBU2.5V8 NEB; +APIX2.5T PO; +EZET10TA20 PO; +GUAI100L12 PO; +HYDR-2761 PO; +HYDR100T24 PO; +ISOS30TA19 PO; +LACT1CAP48 PO; +MAG30ORA2 PO; +METO37.5 PO; +NAPH1POW2 PO; +PANT20TA2 PO; +PREG50CA91 PO; +TAFA61CA PO; +TORS100T3 PO; +TRAM50TA PO
--- NOTE | 2020-03-31 09:18 | RAD ---
EXAMINATION: MRI PELVIS WITHOUT IV CONTRAST CLINICAL HISTORY: FALL, RIGHT HIP PAIN, BILATERAL ILIAC CREST PAIN TECHNIQUE: Multiplanar multisequential images obtained through the pelvis without intravenous contras t. COMPARISON: Bilateral hip radiographs 03/08/2020 FINDINGS: Evaluation limited by prominent motion artifact on multiple sequences. Hip joints: No acute fracture. No avascular necrosis. No significant joint effusion. Large field of v iew images and motion artifact limits evaluation of labrum and cartilage. Sacroiliac joints: Mild to moderate subchondral sclerosis and edema in the inferior SI joints, greate r on the right. Pubic symphysis: Within normal limits. Tendons: Appear grossly intact including the iliopsoas, hamstring, gluteal and rectus femoris tendons . Muscles: Edema in the bilateral iliacus, greatest medius, and gluteus minimus muscles, greater on the right and compatible with mild to moderate muscle strains but could also represent reactive edema se condary to occult iliac crest injuries. Bone Marrow: No definitive evidence of acute fracture on limited evaluation. No evidence of suspiciou s marrow replacing process. Other: Partially visualized degenerative changes in the lumbar spine. IMPRESSION: Limited evaluation due to prominent motion artifact. No definitive evidence of acute fracture. If concern for iliac crest fracture persists, recommend CT of the bony pelvis for further evaluation. Bilateral iliacus, gluteus medius, and gluteus minimus muscle edema as described. Mild to moderate degenerative changes right greater than left SI joints. Electronically signed by: Jermaine Clay DO (03/31/2020 9:16 AM) [id number]
== END ==
LOC: MRI 10:48
PROVIDERS: ATTEND Physical Medicine & Rehabilitation
DX: M46.1 Sacroiliitis, not elsewhere classified (principal)
CPT/HCPCS: 72195

== ENCOUNTER → 2020-03-31 | Outpatient (CLI) | payer MEDICARE, MEDICAID ==
[2020-03-18 17:17] VITALS: BP 143/78
--- NOTE | 2020-03-31 17:11 | RAD ---
EXAM: CT pelvis with IV contrast DATE: 03/31/2020 4:27 PM COMPARISON: No prior INDICATION: Reason: FALL/PAIN / Spl. Instructions: / History: TECHNIQUE: CT pelvis was performed without IV contrast. Axial, coronal and sagittal reformatted image s were generated. PQRS compliance statement - One or more of the following individualized dose reduction techniques wer e utilized for this study: 1. Automated exposure control 2. Adjustment of the mA and/or kV according to patient size 3. Use of iterative reconstruction technique FINDINGS: Decreased bone mineral density. Hip joint degenerative changes are seen bilaterally. Symphy sis pubis degenerative changes are noted. Bilateral SI joint degenerative changes are seen. Trace hei ght loss of the L4 vertebral body likely age-indeterminate compression fracture. Bilateral L4-5 facet degenerative changes are seen. On this marginal evaluation of the visceral contents of the pelvis, no pelvic mass, lymphadenopathy o r ascites. Atherosclerotic calcifications are seen. Moderate colonic stool content. Trace fat-contain ing periumbilical hernia containing a segment of bowel without associated inflammatory process. IMPRESSION: 1. Within the constraints of osteopenia, no acute pelvic fracture. If there is persistent clinical c oncern for fracture, MRI is recommended given degree of osteopenia. 2. Trace height loss of the L4 vertebral body, likely age-indeterminate compression fracture. Electronically signed by: Samuel Khanna MD (03/31/2020 5:09 PM) DEANDRE
== END ==
LOC: CT 16:18
PROVIDERS: ATTEND Physical Medicine & Rehabilitation
DX: R10.2 Pelvic and perineal pain (principal); M16.0 Bilateral primary osteoarthritis of hip; M46.1 Sacroiliitis, not elsewhere classified
CPT/HCPCS: 72192